=== PATIENT | male | born 1990 | race Caucasian/White ===

== ENCOUNTER → 2019-05-21 15:12 | Outpatient (CLI) | payer OTHER, SELFPAY ==
[2019-05-21 17:43] LABS: Alanine Aminotransferase 24 U/L (12-78); Albumin Level 3.5 gm/dL (3.4-5.0); Albumin/Globulin Ratio 0.9 (1.1-1.8); Alkaline Phosphatase 67 U/L (46-116); Anion Gap 11.6 mEq/L (5-15); Aspartate Amino Transferase 27 U/L (15-37); Bilirubin,Total 0.3 mg/dL (0.2-1.0); Blood Urea Nitrogen 13 mg/dL (7-18); Carbon Dioxide 27 mmol/L (21.0-32.0); Chloride 105 mmol/L (98-107); Chol/HDL Ratio 2.7 (1-3.5); Cholesterol 112 mg/dL (140-200); Creatinine,Serum 0.83 mg/dL (0.70-1.30); Estimated Glomerular Filt Rate 109 ml/min (>60); GFR (African American) 132 ML/MIN (>60); Globulin 3.8 gm/dl (1.3-3.2); Glucose 81 mg/dL (74-106); HDL Cholesterol 41 mg/dL (27-67); LDL Cholesterol 43 mg/dL (0-130); Potassium 4.6 mmoL/L (3.5-5.1); Sodium 139 mmol/L (136-145); Thyroid Stimulating Hormone 2.13 uIU/ml (0.358-3.740); Total Protein,Serum 7.3 gm/dL (6.4-8.2); Triglycerides 138 mg/dL (30-200); VLDL Cholesterol 28 mg/dL (0-40)
[2019-05-21 18:15] LABS: Basophils # 0.1 K/mm3 (0-0.2); Basophils % 0.6 % (0.1-2.0); Eosinophils # 0.4 K/mm3 (0.0-0.4); Eosinophils % 5.6 % (0.1-12.0); Hematocrit 42.1 % (42.0-52.0); Hemoglobin 12.6 g/dL (14.1-18.0); Lymphocytes # 1.6 K/mm3 (0.7-4.5); Mean Corpuscular HGB Conc 29.9 g/dL (31.8-35.4); Mean Corpuscular Hemoglobin 24.6 pg (27.0-31.2); Mean Corpuscular Volume 82.5 fl (80-94); Mean Platelet Volume 8.3 fl (7.4-10.4); Monocytes # 0.6 K/mm3 (0.1-1.0); Monocytes % 7.8 % (1.7-9.3); Neutrophils # 4.5 K/mm3 (1.8-7.8); Platelet Count 463 K/mm3 (142-424); Red Blood Count 5.11 M/mm3 (4.60-6.20); White Blood Count 7.2 K/mm3 (4.8-10.8)
== END ==
PROVIDERS: Visit Provider Internal Medicine Adolescent Medicine
DX: R53.83 Other fatigue (principal); E66.01 Morbid (severe) obesity due to excess calories
CPT/HCPCS: 36415; 80053; 80061; 83036; 84443; 85025

== ENCOUNTER → 2019-06-01 18:00 | Outpatient (CLI) | payer OTHER, SELFPAY | PROVIDERS: PCP Internal Medicine Adolescent Medicine; Visit Provider Internal Medicine Adolescent Medicine | DX: G47.33 Obstructive sleep apnea (adult) (pediatric) (principal) | CPT/HCPCS: 95806 ==

== ENCOUNTER → 2019-08-03 19:59 | Outpatient (CLI) | payer OTHER, SELFPAY | PROVIDERS: PCP Internal Medicine Adolescent Medicine; Visit Provider Specialist | DX: G47.33 Obstructive sleep apnea (adult) (pediatric) (principal); G47.10 Hypersomnia, unspecified; R06.83 Snoring | CPT/HCPCS: 95811 ==

== ENCOUNTER → 2021-05-04 09:53 | Outpatient (CLI) | payer OTHER, SELFPAY ==
[2021-05-04 10:50] VITALS: BMI 56.2
--- NOTE | 2021-05-04 10:51 | PC.NURSE ---
Pt was seen at clinic for a covid swab and then checked in as an ER pt and swab was used for ER pt care
== END ==
PROVIDERS: Visit Provider Nurse Practitioner
DX: U07.1 COVID-19 (principal)
CPT/HCPCS: C9803; U0003; U0005

== ENCOUNTER 2021-05-04 10:00 | Inpatient (IN) | payer OTHER, SELFPAY ==
[2021-05-04] VITALS (13 sets, daily range): BP systolic 125–154; BP diastolic 64–96; PULSE 89–111; RESP 20–46; TEMP 37.2–38.3; O2SAT 68–97; BMI 56.2; BMI 52.6; BMI 52.3
--- NOTE | 2021-05-04 10:17 | XR_ITS ---
PROCEDURE: XR CHEST PORTABLE CLINICAL HISTORY: cough COMPARISON: CR CXR CHEST(2 VIEWS-NOT PORTABLE) from 10/15/2015 CR CXR2V XR chest 2V from 03/22/2018 FINDINGS: There are low lung volumes. Mild cardiomegaly without failure. Bilateral multifocal areas of consolidation are present consistent with Covid19 pneumonia. Study is somewhat limited technically. No effusions or pneumothorax. No acute bony abnormalities. IMPRESSION: Bilateral multifocal pneumonia suspicious for Covid19 Dictated by: Barrett Daugherty MD 05/04/2021 12:04 Barrett Daugherty MD in [facility] 05/04/2021 12:04
[2021-05-04 10:41] LABS: ABG Base Excess 3.6 mmol/L (-2.4-2.3); ABG HCO3 28.3 mmhg (22.0-26.0); ABG Oxygen Saturation 99 % (90-100); ABG PCO2 45.7 mmhg (35.0-45.0); ABG PH 7.41 mmol/L (7.35-7.45); ABG PO2 125.4 mmhg (80-100); ABG TCO2 29.7 mmhg (23-27)
[2021-05-04 10:42] LABS: Allen's Test Acceptable; Source Left Radial
[2021-05-04 10:54] LABS: Influenza A, PCR Not Detected (NotDetected); Influenza B, PCR Not Detected (NotDetected)
[2021-05-04 11:20] LABS: Coronavirus 19, PCR Detected (NotDetected)
[2021-05-04 11:26] LABS: Basophils % 0.6 % (0.1-2.0); Eosinophils % 0.1 % (0.1-12.0); Hemoglobin 12.8 g/dL (14.1-18.0); Lymphocytes # 0.6 K/mm3 (0.7-4.5); Lymphocytes % 14.8 % (10-50); Mean Corpuscular HGB Conc 31.2 g/dL (31.8-35.4); Mean Corpuscular Hemoglobin 26.4 pg (27.0-31.2); Mean Corpuscular Volume 84.6 fl (80-94); Monocytes # 0.2 K/mm3 (0.1-1.0); Monocytes % 4.8 % (1.7-9.3); Neutrophils # 3.2 K/mm3 (1.8-7.8); Neutrophils % 79.8 % (37.0-80.0); Platelet Count 243 K/mm3 (142-424); Red Blood Count 4.84 M/mm3 (4.60-6.20); Red Cell Distribution Width 16.1 % (11.5-17.5)
[2021-05-04 11:27] LABS: Chloride 99 mmol/L (98-107); Potassium 3.9 mmoL/L (3.5-5.1); Sodium 136 mmol/L (136-145)
--- NOTE | 2021-05-04 11:28 | HMH.EDGENADL ---
ED Disposition Clinical Impression: Pneumonia due to COVID-19 virus Respiratory failure with hypoxia Qualifiers: Chronicity: acute Qualified Code(s): J96.01 - Acute respiratory failure with hypoxia Obesity with serious comorbidity Qualifiers: Obesity type: due to excess calories Obesity classification: unspecified obesity classification Qualified Code(s): E66.09 - Other obesity due to excess calories Disposition: Admitted As Inpatient Condition on Discharge: Serious Referrals: All Gambino MD [Primary Care Provider] - - Critical Care Critical Care Time: Yes Attestation: On 05/04/21, the high probability of a clinically significant, sudden or life threatening deterioration of the following system(s) required my full and direct attention, intervention and personal management. The time I documented below is in addition to time spent performing reported procedures but includes the following listed in this critical care notation. Total Critical Care Time: 30 Vital system(s) involved:: Metabolic Failure, Respiratory Failure My critical care processes included: Assessment & monitoring of V/S, Initial and Re-exams, Data Review/Interpretation, Coordinating Care, Medication Orders and management, Documentation Medical Decision Making - Medical Records Medical records reviewed: Yes: I reviewed the patient's medical records. - Gulshan Inquiry Pt receiving controlled substance: No Vital Signs: 05/04/21 10:14 05/04/21 10:30 05/04/21 10:41 Temperature 98.9 F Temperature Source Oral Pulse Rate 111 H 106 H Pulse Rate [Left Radial] 111 H Respiratory Rate 29 H 22 36 H Blood Pressure 135/90 148/96 H Blood Pressure [Right Arm] 135/90 Blood Pressure Mean [Right Arm] 105 Blood Pressure Source [Right Arm] Automatic Cuff Blood Pressure Position [Right Arm] Sitting 02 Sat by Pulse Oximetry 83 L 96 68 L Oxygen Delivery Method Vapotherm Room Air 05/04/21 11:00 Temperature Temperature Source Pulse Rate 110 H Pulse Rate [Left Radial] Respiratory Rate 25 H Blood Pressure 154/95 H Blood Pressure [Right Arm] Blood Pressure Mean [Right Arm] Blood Pressure Source [Right Arm] Blood Pressure Position [Right Arm] 02 Sat by Pulse Oximetry 95 Oxygen Delivery Method - Lab Data Lab Results 05/04/21 09:30: SARS-CoV-2 (PCR) Detected A, Influenza A Untype (PCR) Not detected, Influenza Type B (PCR) Not detected 05/04/21 10:39: Specimen Source Left radial, O2 % 40l 100% vapo, ABG pH 7.41, ABG pCO2 45.7 H, ABG pO2 125.4 H, ABG HCO3 28.3 H, ABG Total CO2 29.7 H, ABG O2 Saturation 99, ABG Base Excess 3.6 H, Barrett Test Acceptable 05/04/21 11:10: WBC 4.0 L, RBC 4.84, Hgb 12.8 L, Hct 41.0 L, MCV 84.6, MCH 26.4 L, MCHC 31.2 L, RDW 16.1, Plt Count 243, MPV 9.0, Neut % (Auto) 79.8, Lymph % (Auto) 14.8, [place] % (Auto) 4.8, Eos % (Auto) 0.1, Baso % (Auto) 0.6, Neut # (Auto) 3.2, Lymph # (Auto) 0.6 L, [place] # (Auto) 0.2, Eos # (Auto) 0.0, Baso # (Auto) 0.0 05/04/21 11:10: Sodium 136, Potassium 3.9, Chloride 99, Carbon Dioxide 32 H, Anion Gap 8.9, BUN 10, Creatinine 0.80, Estimated Creat Clear 158, Estimated GFR 112, Est GFR ( Amer) 136, Glucose 232 H, Calcium 8.2 L, Total Bilirubin 0.3, AST 83 H, ALT 32, Alkaline Phosphatase 65, Troponin I 0.03, Total Protein 6.5, Albumin 3.3 L, Globulin 3.2, Albumin/Globulin Ratio 1.0 L 05/04/21 11:10: NT-Pro-B Natriuret Pep 109 Result diagrams: 05/04/21 11:10 05/04/21 11:10 Orders (Tests/Meds): ED MEDICATIONS Discontinued Medications Generic Name Dose Route Start Last Admin Trade Name Freq PRN Reason Stop Dose Admin Dexamethasone Sodium Phosphate 10 mg 05/04/21 10:17 05/04/21 11:15 Dexamethasone 4mg/Ml 5ml Mdv IV 05/04/21 10:18 10 mg ONCE ONE Administration ORDERS Category Date Time Status XR chest portable Stat Exams 05/04/21 10:17 Taken Troponin I Q3H Lab 05/04/21 13:30 Ordered Troponin I Q3H Lab 05/04/21 16:30 Ordered - Radiology Data
[2021-05-04 11:29] LABS: Alanine Aminotransferase 32 U/L (12-78); Aspartate Amino Transferase 83 U/L (17-59); Blood Urea Nitrogen 10 mg/dl (9-20); Creatinine Clearance Estimated 158 mL/min (50-200); Estimated Glomerular Filt Rate 112 ml/min (>60); GFR (African American) 136 ML/MIN (>60)
[2021-05-04 11:30] LABS: Albumin Level 3.3 g/dl (3.5-5.0); Alkaline Phosphatase 65 U/L (38-126); Anion Gap 8.9 mEq/L (5-15); Bilirubin,Total 0.3 mg/dl (0.2-1.3); Calcium 8.2 mg/dl (8.4-10.2); Carbon Dioxide 32 mmol/L (22.0-30.0); Globulin 3.2 g/dL (1.3-3.2); Glucose 232 mg/dl (74-100); Total Protein,Serum 6.5 g/dl (6.3-8.2)
[2021-05-04 11:39] LABS: NT Pro Brain Natriuretic Pep. 109 pg/mL (0-125)
[2021-05-04 11:42] LABS: Troponin I 0.03 ng/ml (0.00-0.034)
--- NOTE | 2021-05-04 11:47 | PC.NURSE ---
Dr Maldonado speaking with Dr Gambino
--- NOTE | 2021-05-04 13:24 | PC.NURSE ---
Report called to Wendy by Wilner
--- NOTE | 2021-05-04 14:01 | PC.NURSE ---
pt arrived to the floor at this time.
--- NOTE | 2021-05-04 14:22 | HMH.PHAVTE ---
[facility] Pharmacy VTE Monitoring - Patient Demographics Admission date: 05/04/21 Report Date: 05/04/21 Time: 14:22 Allergies/Adverse Reactions: Patient Allergies No Known Allergies Allergy (Verified 10/02/19 14:10) Height: 1.91 m Weight: 204.117 kg Patient Problems: Current Active Problems Pneumonia due to COVID-19 virus (Acute) Respiratory failure with hypoxia (Acute) Obesity with serious comorbidity (Acute) - VTE Risk Labs: VTE Related Lab Results Hgb 12.8 g/dL (14.1-18.0) L 05/04/21 11:10 Hct 41.0 % (42.0-52.0) L 05/04/21 11:10 Plt Count 243 K/mm3 (142-424) 05/04/21 11:10 BUN 10 mg/dl (9-20) 05/04/21 11:10 Creatinine 0.80 mg/dl (0.66-1.25) 05/04/21 11:10 Estimated Creat Clear 158 mL/min (50-200) 05/04/21 11:10 Was VTE Risk Assessment Performed: No Clinical Trial Participant: No - Prophylaxis VTE Prophylaxis Ordered?: Yes Types of VTE Prophylaxis: TEDS Knee High, Pharmacological Location of Applied Device: Bilateral Lower Extremeties Pharmacologic Type: Enoxaparin
--- NOTE | 2021-05-04 17:47 | HMH.HP ---
*Admission Date: 05/04/21 *Chief complaint: Cough, fever *History of present illness: 30-year-old male presented to emergency department with difficulty breathing. The patient states that he has been having some trouble breathing cough for the last few days. Valium is getting worse today. Patient is unvaccinated. He has been exposed to multiple people with coronavirus. Patient endorses some subjective fevers and chills. Full body myalgias. Cough is been nonproductive in nature. Denies any hemoptysis. Is not having any headache or change in vision. No focal weakness. No neck pain. Denies any abdominal pain or vomiting. No diarrhea. Above note per emergency department, agree with initial presentation note. In the emergency department work-up included positive coronavirus PCR. Negative influenza, chest x-ray with viral pneumonia and significant hypoxia. Placed on Vapotherm and felt better with improving oxygenation status. Admitted to floor in isolation bed. Patient notes that he feels better after oxygen was applied. [facility] History I have reviewed the patient's past medical history: Yes Medical History: Reports:: Diabetes Mellitus Type 2 Denies:: Cancer, Diabetes Mellitus Type 1, Internal Pacemaker, MRSA *Have you ever received a pneumonia vaccine?: No *Have you received a flu vaccine this season?: No Other Medical History: Reports: Other Laterality Cases: Bilateral: Myringotomy (Ear Tubes) Other Surgeries: No: Pacemaker Amputation: No - *Social History Last grade of school completed: Some college Smoking Status: Never smoker Alcohol Intake: never Alcohol Intake Frequency:: other Substance Use Type: denies use *Occupational Status:: employed Housing: house Household Members: family *Travel in the last 8 weeks: None Family Hx:: Diabetes, Hypertension Review of Systems - Review of Systems Review of systems:: pertinent systems reviewed and negative unless documented below - *Neurologic Denies headache(s) Meds Home Medications Medication Instructions Recorded Confirmed Type No Known Home Medications 05/04/21 05/04/21 History Allergies Allergy/AdvReac Type Severity Reaction Status Date / Time No Known Allergies Allergy Verified 10/02/19 14:10 Exam Vital signs and Labs for Last 24 Hours: Temp Pulse Resp BP Pulse Ox 100.6 F H 89 20 131/71 89 L 05/04/21 16:55 05/04/21 16:00 05/04/21 16:00 05/04/21 16:00 05/04/21 16:00 Laboratory Results - last 24 hr 05/04/21 09:30: SARS-CoV-2 (PCR) Detected A, Influenza A Untype (PCR) Not detected, Influenza Type B (PCR) Not detected 05/04/21 10:39: Specimen Source Left radial, O2 % 40l 100% vapo, ABG pH 7.41, ABG pCO2 45.7 H, ABG pO2 125.4 H, ABG HCO3 28.3 H, ABG Total CO2 29.7 H, ABG O2 Saturation 99, ABG Base Excess 3.6 H, Barrett Test Acceptable 05/04/21 11:10: WBC 4.0 L, RBC 4.84, Hgb 12.8 L, Hct 41.0 L, MCV 84.6, MCH 26.4 L, MCHC 31.2 L, RDW 16.1, Plt Count 243, MPV 9.0, Neut % (Auto) 79.8, Lymph % (Auto) 14.8, [place] % (Auto) 4.8, Eos % (Auto) 0.1, Baso % (Auto) 0.6, Neut # (Auto) 3.2, Lymph # (Auto) 0.6 L, [place] # (Auto) 0.2, Eos # (Auto) 0.0, Baso # (Auto) 0.0 05/04/21 11:10: Sodium 136, Potassium 3.9, Chloride 99, Carbon Dioxide 32 H, Anion Gap 8.9, BUN 10, Creatinine 0.80, Estimated Creat Clear 158, Estimated GFR 112, Est GFR ( Amer) 136, Glucose 232 H, Calcium 8.2 L, Total Bilirubin 0.3, AST 83 H, ALT 32, Alkaline Phosphatase 65, Troponin I 0.03, Total Protein 6.5, Albumin 3.3 L, Globulin 3.2, Albumin/Globulin Ratio 1.0 L 05/04/21 11:10: NT-Pro-B Natriuret Pep 109 I & O for Last 24 hours: Intake & Output 05/02/21 05/03/21 05/04/21 05/05/21 11:59 11:59 11:59 11:59 Intake Total 0 / 0 Balance 0 / 0 Weight 450 lb 421 lb 1.326 oz - Constitutional moderate distress, morbidly obese - *Routine HEENT Exam Head: Present: normocephalic Eye: Present: EOMI, PERRL ENT: Present: mucous membranes moist - *Routine Neck Exam P
--- NOTE | 2021-05-04 19:24 | PC.NURSE ---
patient was accepted to [facility] unit on high flow nasal cannula 40L 100%. main complaint overall shortness of air. patient claims to be noncompliant with diabetic medications. Erythema present on bilateral lower extremities, patient states this is chronic. Bilateral diminished lung sounds throughout all lobes. No complaints of pain. will continue to monitor
[2021-05-05] VITALS (12 sets, daily range): BP systolic 119–146; BP diastolic 74–80; PULSE 76–101; RESP 18–38; TEMP 36.4–38.5; O2SAT 86–92; BMI 58.6
--- NOTE | 2021-05-05 03:02 | PC.NURSE ---
Pt is A/O x4. No acute changes t/o shift. Pt remains on the vapotherm at 30L and 90%, O2 stats have been 86-90%. Pt denies any pain, N/V. Pt can use the urinal independently and is voiding clear, yellow urine. Lung sounds are diminished bilaterally. Pt is able to make needs known to staff. Call light within reach, will continue to monitor.
[2021-05-05 05:48] LABS: POC Glucose,Bedside 181 (70-110)
--- NOTE | 2021-05-05 06:39 | HMH.ACPN2 ---
Internal Medicine - PN: Subj *Date: 05/05/21 *Time: 15:02 Interval history: 30-year-old male with morbid obesity and Covid pneumonia. Respiratory failure somewhat worse overnight. Continues to struggle on Vapotherm with 100% FiO2. Patient dyspneic on interview this morning. Appears fatigued. Discussed advancing to BiPAP, patient comfortable with this plan. Remains afebrile this morning however has developed a fever this afternoon. Denies nausea or vomiting or diarrhea. No bowel movement since admission. Exam Vital signs and Labs for Last 24 Hours: Temp Pulse Resp BP Pulse Ox 99.6 F 92 H 24 129/74 89 L 05/05/21 04:00 05/05/21 04:00 05/05/21 04:00 05/05/21 04:00 05/05/21 06:37 Laboratory Results - last 24 hr 05/04/21 09:30: SARS-CoV-2 (PCR) Detected A, Influenza A Untype (PCR) Not detected, Influenza Type B (PCR) Not detected 05/04/21 10:39: Specimen Source Left radial, O2 % 40l 100% vapo, ABG pH 7.41, ABG pCO2 45.7 H, ABG pO2 125.4 H, ABG HCO3 28.3 H, ABG Total CO2 29.7 H, ABG O2 Saturation 99, ABG Base Excess 3.6 H, Barrett Test Acceptable 05/04/21 11:10: WBC 4.0 L, RBC 4.84, Hgb 12.8 L, Hct 41.0 L, MCV 84.6, MCH 26.4 L, MCHC 31.2 L, RDW 16.1, Plt Count 243, MPV 9.0, Neut % (Auto) 79.8, Lymph % (Auto) 14.8, [place] % (Auto) 4.8, Eos % (Auto) 0.1, Baso % (Auto) 0.6, Neut # (Auto) 3.2, Lymph # (Auto) 0.6 L, [place] # (Auto) 0.2, Eos # (Auto) 0.0, Baso # (Auto) 0.0 05/04/21 11:10: Sodium 136, Potassium 3.9, Chloride 99, Carbon Dioxide 32 H, Anion Gap 8.9, BUN 10, Creatinine 0.80, Estimated Creat Clear 158, Estimated GFR 112, Est GFR ( Amer) 136, Glucose 232 H, Calcium 8.2 L, Total Bilirubin 0.3, AST 83 H, ALT 32, Alkaline Phosphatase 65, Troponin I 0.03, Total Protein 6.5, Albumin 3.3 L, Globulin 3.2, Albumin/Globulin Ratio 1.0 L 05/04/21 11:10: NT-Pro-B Natriuret Pep 109 05/05/21 05:14: POC Glucose 181 H I & O for Last 24 hours: Intake & Output 05/02/21 05/03/21 05/04/21 05/05/21 23:59 23:59 23:59 23:59 Intake Total 120 / 120 Output Total 600 / 600 Balance -480 / -480 Weight 191 kg 214.05 kg Narrative: - Constitutional moderate distress, morbidly obese - *Routine HEENT Exam Head: Present: normocephalic Eye: Present: EOMI, PERRL ENT: Present: mucous membranes moist - *Routine Neck Exam Present: supple. Absent: lymphadenopathy - *Routine Respiratory Exam Present: decreased breath sounds, rhonchi; cardiopulmonary exam extremely limited because of his very morbid obesity. - *Routine Cardiovascular Exam Present: RRR - *Routine Abdominal Exam Present: soft, normoactive bowel sounds. Absent: tenderness - *Routine Extremities Exam Absent: cyanosis, clubbing, edema - *Routine Skin Exam Present: warm. Absent: rash - *Routine Neurological Exam Present: alert, oriented X3; Globally weak. Assessment and Plan (1) Obesity with serious comorbidity Status: Acute Qualifiers: Obesity type: due to excess calories Obesity classification: unspecified obesity classification Qualified Code(s): E66.09 - Other obesity due to excess calories Category: Medical Code(s): E66.9 - Obesity, unspecified (2) Pneumonia due to COVID-19 virus Status: Acute Category: Medical Code(s): U07.1 - COVID-19; J12.82 - Pneumonia due to coronavirus disease 2019 (3) Respiratory failure with hypoxia Status: Acute Qualifiers: Chronicity: acute Qualified Code(s): J96.01 - Acute respiratory failure with hypoxia Category: Medical Code(s): J96.91 - Respiratory failure, unspecified with hypoxia (4) Hyperglycemia Status: Acute Category: Medical Code(s): R73.9 - Hyperglycemia, unspecified (5) Acute respiratory distress syndrome (ARDS) due to 2019 novel coronavirus Status: Acute Category: Medical Code(s): U07.1 - COVID-19; J80 - Acute respiratory distress syndrome - Assessment and plan all Dx Assessment and Plan for all problems:: Mr. Mas is a 30-year-old m
[2021-05-05 07:43] LABS: Basophils # 0.1 K/mm3 (0-0.2); Basophils % 0.8 % (0.1-2.0); Eosinophils % 0.3 % (0.1-12.0); Hematocrit 42.5 % (42.0-52.0); Hemoglobin 13.1 g/dL (14.1-18.0); Lymphocytes # 0.6 K/mm3 (0.7-4.5); Lymphocytes % 10.1 % (10-50); Mean Corpuscular HGB Conc 30.7 g/dL (31.8-35.4); Mean Corpuscular Hemoglobin 26.4 pg (27.0-31.2); Mean Platelet Volume 8.9 fl (7.4-10.4); Monocytes # 0.2 K/mm3 (0.1-1.0); Neutrophils # 5.2 K/mm3 (1.8-7.8); Neutrophils % 85.9 % (37.0-80.0); Platelet Count 247 K/mm3 (142-424); Red Blood Count 4.95 M/mm3 (4.60-6.20); Red Cell Distribution Width 16.2 % (11.5-17.5)
[2021-05-05 07:55] LABS: Alanine Aminotransferase 28 U/L (12-78); Albumin Level 3.4 g/dl (3.5-5.0); Blood Urea Nitrogen 9 mg/dl (9-20); Calcium 8.1 mg/dl (8.4-10.2); Chloride 100 mmol/L (98-107); Potassium 4.7 mmoL/L (3.5-5.1); Sodium 138 mmol/L (136-145)
[2021-05-05 08:05] LABS: Alkaline Phosphatase 52 U/L (38-126); Anion Gap 6.7 mEq/L (5-15); Aspartate Amino Transferase 68 U/L (17-59); Bilirubin,Total 0.4 mg/dl (0.2-1.3); Carbon Dioxide 36 mmol/L (22.0-30.0); Creatinine Clearance Estimated 211 mL/min (50-200); Estimated Glomerular Filt Rate 156 ml/min (>60); GFR (African American) 189 ML/MIN (>60); Globulin 3.5 g/dL (1.3-3.2); Glucose 186 mg/dl (74-100); Total Protein,Serum 6.9 g/dl (6.3-8.2)
[2021-05-05 08:10] LABS: MANUAL DIFFERENTIAL MANUAL DIFFERENTIAL (MANUAL DIFF)
[2021-05-05 08:25] LABS: Lymphocytes % 12 % (10-50); Monocytes % 5 % (2-9); Neutrophils % 83 % (42-76); Total Cells Counted 100
[2021-05-05 08:26] LABS: Anisocytosis 1+; Hypochromasia 3+; Microcytosis 1+; Platelet Estimate Normal
--- NOTE | 2021-05-05 09:14 | PC.NURSE ---
RESPIRATORY CARE NOTE: PT PLACED ON BIPAP 16/8, 18, 100% PER DR. DUMONT ORDER. WE WILL CONTINUE TO MONITOR PT AT THIS TIME.
[2021-05-05 10:23] LABS: ABG Base Excess 7.1 mmol/L (-2.4-2.3); ABG HCO3 32.1 mmhg (22.0-26.0); ABG Oxygen Saturation 93 % (90-100); ABG PH 7.39 mmol/L (7.35-7.45); ABG PO2 62.8 mmhg (80-100); ABG TCO2 33.8 mmhg (23-27); Oxygen 100 %; Vent Rate 18
[2021-05-05 10:24] LABS: Allen's Test ACCEPTABLE; PEEP 16/8; Source Left Radial
[2021-05-05 10:25] LABS: ABG PCO2 54.7 mmhg (35.0-45.0)
[2021-05-05 16:10] LABS: ABG Base Excess 1.7 mmol/L (-2.4-2.3); ABG HCO3 27.5 mmhg (22.0-26.0); ABG Oxygen Saturation 97 % (90-100); ABG PH 7.34 mmol/L (7.35-7.45); ABG PO2 88.1 mmhg (80-100); ABG TCO2 29.1 mmhg (23-27)
[2021-05-05 16:11] LABS: PEEP 12; Vent Rate 18
[2021-05-05 16:12] LABS: Allen's Test Acceptable; Oxygen BIPAP 100% %; Pressure Support 8; Source Right Radial
[2021-05-05 16:14] LABS: ABG PCO2 52.2 mmhg (35.0-45.0)
--- NOTE | 2021-05-05 17:52 | PC.NURSE ---
BiPAP changes made per Dr Faustin: 27/07 18 100%
[2021-05-05 18:38] LABS: POC Glucose,Bedside 378 (70-110)
--- NOTE | 2021-05-05 21:04 | PC.NURSE ---
report given to LARISSA Bauer @ this time
[2021-05-05 21:05] LABS: POC Glucose,Bedside 232 (70-110)
[2021-05-05 21:05] LABS: POC Glucose,Bedside 251 (70-110)
[2021-05-05 21:05] LABS: POC Glucose,Bedside 272 (70-110)
--- NOTE | 2021-05-05 23:42 | PC.NURSE ---
He is A&Ox4. He denies pain. He continues on bipap @ 100%. He has been sitting in bed watching television. NSR on telemetry. He is NPO.
[2021-05-06] VITALS (27 sets, daily range): BP systolic 85–144; BP diastolic 42–89; PULSE 63–91; RESP 20–46; TEMP 36.5–39; O2SAT 82–97
[2021-05-06 01:59] LABS: POC Glucose,Bedside 278 (70-110)
--- NOTE | 2021-05-06 05:14 | PC.NURSE ---
Lab notified of the need from them to draw blood.
--- NOTE | 2021-05-06 05:56 | PC.NURSE ---
He continues to have low O2 sats at this time. Respiratoy is trying to obtain an ABG. Chest x-ray completed and awaiting results. Previous respiratory therapist believes there to be a leak in the cuff. He has been weaned off of levophed.
--- NOTE | 2021-05-06 06:24 | PC.NURSE ---
Respiratory is in the room with the patient at this time.
[2021-05-06 06:54] LABS: Alanine Aminotransferase 22 U/L (12-78); Albumin Level 3.1 g/dl (3.5-5.0); Albumin/Globulin Ratio 0.9 (1.1-1.8); Alkaline Phosphatase 52 U/L (38-126); Anion Gap 6.7 mEq/L (5-15); Aspartate Amino Transferase 43 U/L (17-59); Bilirubin,Total 0.4 mg/dl (0.2-1.3); Blood Urea Nitrogen 11 mg/dl (9-20); Calcium 8.3 mg/dl (8.4-10.2); Carbon Dioxide 37 mmol/L (22.0-30.0); Chloride 102 mmol/L (98-107); Creatinine Clearance Estimated 211 mL/min (50-200); Estimated Glomerular Filt Rate 156 ml/min (>60); GFR (African American) 189 ML/MIN (>60); Globulin 3.4 g/dL (1.3-3.2); Glucose 159 mg/dl (74-100); Magnesium 2.1 mg/dl (1.6-2.3); Potassium 4.7 mmoL/L (3.5-5.1); Sodium 141 mmol/L (136-145); Total Protein,Serum 6.5 g/dl (6.3-8.2)
[2021-05-06 07:33] LABS: Basophils % 0.2 % (0.1-2.0); Eosinophils % 0.1 % (0.1-12.0); Hematocrit 42.8 % (42.0-52.0); Hemoglobin 12.9 g/dL (14.1-18.0); Lymphocytes # 0.8 K/mm3 (0.7-4.5); Lymphocytes % 11.2 % (10-50); Mean Corpuscular HGB Conc 30.3 g/dL (31.8-35.4); Mean Corpuscular Hemoglobin 25.8 pg (27.0-31.2); Mean Corpuscular Volume 85.2 fl (80-94); Mean Platelet Volume 7.4 fl (7.4-10.4); Monocytes # 0.4 K/mm3 (0.1-1.0); Monocytes % 5.3 % (1.7-9.3); Neutrophils # 5.6 K/mm3 (1.8-7.8); Neutrophils % 83.3 % (37.0-80.0); Platelet Count 230 K/mm3 (142-424); Red Blood Count 5.03 M/mm3 (4.60-6.20); Red Cell Distribution Width 15.5 % (11.5-17.5); White Blood Count 6.8 K/mm3 (4.8-10.8)
[2021-05-06 07:34] LABS: ABG HCO3 30.4 mmhg (22.0-26.0); ABG Oxygen Saturation 83 % (90-100); ABG PH 7.42 mmol/L (7.35-7.45); ABG TCO2 31.9 mmhg (23-27)
--- NOTE | 2021-05-06 08:22 | HMH.ACPN2 ---
Internal Medicine - PN: Subj *Date: 05/06/21 *Time: 08:22 Interval history: Patient was moved to intensive care unit last night because of diminishing O2 saturations. BiPAP support was also increased through the night and currently is on pressures of /. Patient remains alert, and talkative, complains that his mouth is dry, but does acknowledge that he is short of breath. Exam Vital signs and Labs for Last 24 Hours: Temp Pulse Resp BP Pulse Ox 98.9 F 87 45 H 144/89 H 83 L 05/05/21 23:10 05/06/21 04:00 05/06/21 06:23 05/06/21 04:00 05/06/21 06:23 Laboratory Results - last 24 hr 05/04/21 17:08: POC Glucose 232 H 05/04/21 20:02: POC Glucose 272 H 05/05/21 07:27: Total Counted 100, Neutrophils % (Manual) 83 H, Lymphocytes % (Manual) 12, Monocytes % (Manual) 5, Platelet Estimate Normal, Hypochromasia 3+, Anisocytosis 1+, Microcytosis 1+ 05/05/21 10:19: Specimen Source Left radial, O2 % 100, ABG pH 7.39, ABG pCO2 54.7 H, ABG pO2 62.8 L, ABG HCO3 32.1 H, ABG Total CO2 33.8 H, ABG O2 Saturation 93, ABG Base Excess 7.1 H, Barrett Test Acceptable, Vent Rate 18, PEEP 16/8 05/05/21 11:25: POC Glucose 251 H 05/05/21 16:00: Specimen Source Right radial, O2 % Bipap 100%, ABG pH 7.34 L, ABG pCO2 52.2 H, ABG pO2 88.1, ABG HCO3 27.5 H, ABG Total CO2 29.1 H, ABG O2 Saturation 97, ABG Base Excess 1.7, Barrett Test Acceptable, Vent Rate 18, PEEP 12 05/05/21 18:15: POC Glucose 378 H* 05/05/21 20:43: POC Glucose 278 H 05/06/21 06:25: Sodium 141, Potassium 4.7, Chloride 102, Carbon Dioxide 37 H, Anion Gap 6.7, BUN 11, Creatinine 0.60 L, Estimated Creat Clear 211, Estimated GFR 156, Est GFR ( Amer) 189, Glucose 159 H, Calcium 8.3 L, Total Bilirubin 0.4, AST 43 D, ALT 22, Alkaline Phosphatase 52, Total Protein 6.5, Albumin 3.1 L, Globulin 3.4 H, Albumin/Globulin Ratio 0.9 L 05/06/21 06:25: WBC 6.8, RBC 5.03, Hgb 12.9 L, Hct 42.8, MCV 85.2, MCH 25.8 L, MCHC 30.3 L, RDW 15.5, Plt Count 230, MPV 7.4, Neut % (Auto) 83.3 H, Lymph % (Auto) 11.2, [place] % (Auto) 5.3, Eos % (Auto) 0.1, Baso % (Auto) 0.2, Neut # (Auto) 5.6, Lymph # (Auto) 0.8, [place] # (Auto) 0.4, Eos # (Auto) 0.0, Baso # (Auto) 0.0 05/06/21 06:25: Magnesium 2.1 I & O for Last 24 hours: Intake & Output 05/03/21 05/04/21 05/05/21 05/06/21 11:59 11:59 11:59 11:59 Intake Total 240 / 240 830 / 830 Output Total 600 / 600 1375 / 1375 Balance -360 / -360 -545 / -545 Weight 450 lb 471 lb 14.4 oz Narrative: Patient is alert, given his baseline cognitive deficits and somewhat difficulty with symptoms out of him but he does acknowledge that his mouth is dry, denies actual shortness of air. Exam is extremely difficult because of his morbid obesity with BMI greater than 55 but he has symmetric air entry. Heart rate regular. Abdomen is obese and soft. He has his previously noted lymphedema but no rashes. Extremities seem to be warm and well-perfused. He is able to move all extremities with difficulty. Assessment and Plan (1) Obesity with serious comorbidity Status: Acute Qualifiers: Obesity type: due to excess calories Obesity classification: unspecified obesity classification Qualified Code(s): E66.09 - Other obesity due to excess calories Category: Medical Code(s): E66.9 - Obesity, unspecified (2) Pneumonia due to COVID-19 virus Status: Acute Category: Medical Code(s): U07.1 - COVID-19; J12.82 - Pneumonia due to coronavirus disease 2019 (3) Respiratory failure with hypoxia Status: Acute Qualifiers: Chronicity: acute Qualified Code(s): J96.01 - Acute respiratory failure with hypoxia Category: Medical Code(s): J96.91 - Respiratory failure, unspecified with hypoxia (4) Hyperglycemia Status: Acute Category: Medical Code(s): R73.9 - Hyperglycemia, unspecified (5) Acute respiratory distress syndrome (ARDS) due to 2019 novel coronavirus Status: Acute Category: Medical Code(s): U07.1 - COVID-19; J80 - Acute respiratory distre
--- NOTE | 2021-05-06 08:33 | XR_ITS ---
PROCEDURE: XR CHEST PORTABLE CLINICAL HISTORY: COVID PNA COMPARISON: CR CXR CHEST(2 VIEWS-NOT PORTABLE) from 10/15/2015 CR CXR2V XR chest 2V from 03/22/2018 CR XR CHEST PORTABLE from 05/04/2021 FINDINGS: Multifocal bilateral pneumonia once again noted with low lung volumes. The pneumonia appears worse compared to the previous exam. The exam is somewhat limited technically. No obvious pneumothorax however, the patient's chin obscures the right apex. There are low lung volumes with borderline cardiomegaly. IMPRESSION: Worsening bilateral pneumonia with low lung volumes Dictated by: Barrett Daugherty MD 05/06/2021 09:12 Barrett Daugherty MD in [facility] 05/06/2021 09:12
[2021-05-06 09:01] LABS: ABG PO2 43.7 mmhg (80-100); Allen's Test Acceptable; Oxygen 100 %; PEEP 12; Pressure Support 24; Source Right Radial
--- NOTE | 2021-05-06 12:07 | XR_ITS ---
PROCEDURE: XR CHEST PORTABLE CLINICAL HISTORY: POST INTUBATION COMPARISON: 05/06/2021 FINDINGS: 1215 hours. Endotracheal tube has been inserted. The tip is approximately 6 cm above the noah and should be advanced at least 2 cm. Multifocal bilateral pneumonia once again noted. The pneumonia appears improved but may be due to better expansion of the lungs. No evidence of pneumothorax or pneumomediastinum. IMPRESSION: Slight high position of endotracheal tube. Suggest advanced 2-3 cm. No change bilateral pneumonia Dictated by: Barrett Daugherty MD 05/06/2021 12:30 Barrett Daugherty MD in [facility] 05/06/2021 12:30
--- NOTE | 2021-05-06 12:11 | P.PCN_ITS ---
[facility] Procedure Note Procedure Note:: Called for intubation. Starting O2 stats 78 on Bipap. 200 Propofol and 120 Succinylcholine given. Attempted with Glidescope. No view due to mucus plug in airway. Bag masked to recover O2 sats. LMA inserted. Attempt #2 : DL with Mac 3 blade. Suctioned airway. ETT would not advance. Attempt #3. Esophageal intu bation. Bag masked to acceptable O2 saturation. Attempt #4. Successful intubation with ETT 8.0 and CO2 color change. Sats to 94%. Lung sounds present. VSS.
--- NOTE | 2021-05-06 12:39 | XR_ITS ---
PROCEDURE: XR CHEST PORTABLE CLINICAL HISTORY: INTUBATION ATTEMPT # 2 COMPARISON: CR XR CHEST PORTABLE from 05/04/2021 CR XR CHEST PORTABLE from 05/06/2021 CR XR CHEST PORTABLE from 05/06/2021 FINDINGS: 1228 p.m.. Endotracheal tube has been advanced and is now approximately 4.8 cm above the noah. The tip of the tube is at the T2-T3 level. Multifocal bilateral pneumonia unchanged. No acute bony abnormalities. IMPRESSION: Endotracheal tube tip in good position. No change diffuse bilateral pneumonia Dictated by: Barrett Daugherty MD 05/06/2021 12:48 Barrett Daugherty MD in [facility] 05/06/2021 12:48
[2021-05-06 13:25] LABS: ABG Oxygen Saturation 100 % (90-100); ABG PCO2 43.7 mmhg (35.0-45.0); ABG PH 7.39 mmol/L (7.35-7.45); ABG PO2 235.1 mmhg (80-100); ABG TCO2 27.3 mmhg (23-27)
[2021-05-06 13:39] LABS: Oxygen 100% %; PEEP 20; Tidal Volume 480; Vent Rate 28
[2021-05-06 13:40] LABS: Allen's Test Patient Unable; Source Left Radial
--- NOTE | 2021-05-06 14:39 | XR_ITS ---
PROCEDURE: XR CHEST PORTABLE CLINICAL HISTORY: NG PLACEMENT COMPARISON: CR XR CHEST PORTABLE from 05/06/2021 CR XR CHEST PORTABLE from 05/06/2021 CR XR CHEST PORTABLE from 05/06/2021 FINDINGS: 1455 hours NG tube has been inserted. The tip is in good position in the region of the body of stomach. Endotracheal tube tip is 4.8 cm above the noah at the T3 level and could be advanced approximately 1 cm. No change multifocal pneumonia. No evidence of pneumothorax however, the left apex is cut off on the image. No acute bony abnormalities. IMPRESSION: NG tube in good position. ETT slightly high. No change multifocal pneumonia Dictated by: Barrett Daugherty MD 05/06/2021 15:14 Barrett Daugherty MD in [facility] 05/06/2021 15:14
--- NOTE | 2021-05-06 15:48 | DIET.NUTRFU ---
Pt intubated/sedated, will monitor for nutrition consult to initiate enteral nutrition. Previous intakes 100%, weight stable, BG high avg. 250.
--- NOTE | 2021-05-06 17:47 | HMH.PULMCON ---
*Admission Date: 05/04/21 *Reason for consult:: Acute hypoxic respiratory failure, COVID-19 pneumonia. *History of present illness: Mr. Rudd is a 30-year-old male no significant prior respiratory complaints, admitted to the hospital worsening respiratory failure found to be having COVID-19 pneumonia. Patient since last 24 hours needing high flow nasal noninvasive ventilator is up to maintain adequate saturations and pulmonary was called for further management. [facility] History Medical History: Reports:: Diabetes Mellitus Type 2 Denies:: Cancer, Diabetes Mellitus Type 1, Internal Pacemaker, MRSA *Have you ever received a pneumonia vaccine?: No *Have you received a flu vaccine this season?: No Other Medical History: Reports: Other Laterality Cases: Bilateral: Myringotomy (Ear Tubes) Other Surgeries: No: Pacemaker Amputation: No - *Social History Last grade of school completed: Some college Smoking Status: Never smoker Alcohol Intake: never Alcohol Intake Frequency:: other Substance Use Type: denies use *Occupational Status:: employed Housing: house Household Members: family *Travel in the last 8 weeks: None Family Hx:: Diabetes, Hypertension ROS - Cons Reports anorexia, Reports body ache(s), Reports chills - ENT Denies bleeding gums - Card Reports shortness of breath, Reports shortness of breath with activity, Reports leg sores - Resp Respiratory: Reports shortness of breath, Reports chest congestion, Reports dyspnea, Reports dyspnea on exertion, Reports cough with sputum production - GI Gastrointestingal: Denies: abdominal pain - Musk Musculoskeletal: Reports back pain - Psych Reports abnormal sleep pattern Meds Home Medications Medication Instructions Recorded Confirmed Type No Known Home Medications 05/04/21 05/04/21 History Allergies Allergy/AdvReac Type Severity Reaction Status Date / Time No Known Allergies Allergy Verified 10/02/19 14:10 Exam - Constitutional Constitutional:: Absent: no acute distress, comfortable - HENMT Exam HENMT: Present: normocephalic, atraumatic - Eye Exam Eyes:: Present: normal appearance both eyes and related structures - Neck Exam Neck:: Present: normal visual inspection - Respiratory Exam Respiratory:: Present: respiratory distress, decreased breath sounds, crackles. Absent: able to speak in complete sentences - Cardiovascular Exam Cardiac:: Present: S1, S2 - GI Exam GI:: Present: soft, obese - Skin Exam Skin: Present: warm - Neurological Exam Neurological: Present: alert, awake, normal cognition - Extremities Exam Extremities: Present: no cyanosis, no clubbing, no edema Internal Medicine - CN: Reslt - Labs CBC & Chem 7: 05/06/21 06:25 05/06/21 06:25 Labs: Short CBC 05/06/21 Range/Units 06:25 WBC 6.8 (4.8-10.8) K/mm3 Hgb 12.9 L (14.1-18.0) g/dL Hct 42.8 (42.0-52.0) % Plt Count 230 (142-424) K/mm3 [facility] 05/06/21 06:25 Sodium 141 Potassium 4.7 Chloride 102 Carbon Dioxide 37 H BUN 11 Creatinine 0.60 L Glucose 159 H Calcium 8.3 L Liver Function 05/06/21 Range/Units 06:25 Total Bilirubin 0.4 (0.2-1.3) mg/dl AST 43 D (17-59) U/L ALT 22 (12-78) U/L Alkaline Phosphatase 52 (38-126) U/L Albumin 3.1 L (3.5-5.0) g/dl - ABG Interpretation ABG results: 05/04/21 05/05/21 05/05/21 10:39 10:19 16:00 ABG pH 7.41 7.39 7.34 L ABG pCO2 45.7 H 54.7 H 52.2 H ABG pO2 125.4 H 62.8 L 88.1 ABG HCO3 28.3 H 32.1 H 27.5 H ABG Total CO2 29.7 H 33.8 H 29.1 H ABG O2 Saturation 99 93 97 ABG Base Excess 3.6 H 7.1 H 1.7 05/06/21 05/06/21 06:00 13:14 ABG pH 7.42 7.39 ABG pCO2 48.0 H 43.7 ABG pO2 43.7 L 235.1 H ABG HCO3 30.4 H 26.0 ABG Total CO2 31.9 H 27.3 H ABG O2 Saturation 83 L* 100 ABG Base Excess 6.0 H 1.0 Assessment and Plan (1) Obesity with serious comorbidity Status: Acute Qualifiers: Obesity type:
--- NOTE | 2021-05-06 18:13 | PC.NURSE ---
Pt is currently sedated and mechanically ventilated. Lungs are very diminished t/o. His arana is to bedside draining cloudy urine. Pt urinated right before arana was inserted so there was 1 unmeasured urine. Pt was cleaned and linen was changed. He has been NSR on telemetry. He has had fevers on and off t/o the day. Tylenol administered per oct. Report to be given to oncoming nurse.
[2021-05-06 18:43] LABS: C-Reactive Protein 76.5 mg/L (0-4); D-Dimer 0.69 ug/mL (0.0-0.5)
[2021-05-06 19:14] LABS: Ferritin 228 ng/ml (17.9-464)
[2021-05-07] VITALS (32 sets, daily range): BP systolic 102–143; BP diastolic 52–84; PULSE 54–80; RESP 19–29; TEMP 36.1–36.8; O2SAT 88–98; BMI 58.6
[2021-05-07 00:50] LABS: POC Glucose,Bedside 186 (70-110)
[2021-05-07 00:50] LABS: POC Glucose,Bedside 131 (70-110)
--- NOTE | 2021-05-07 03:07 | PC.NURSE ---
He continues in contact and airborne precautions. He withdrawals to pain. NSR on telemetry. Sats have remained in the 90s.
--- NOTE | 2021-05-07 06:00 | XR_ITS ---
PROCEDURE INFORMATION: Exam: XR Chest Exam date and time: 05/07/2021 6:00 AM Age: 30 years old Clinical indication: Shortness of breath; Patient HX: SOA, intubation TECHNIQUE: Imaging protocol: XR of the chest. Views: 1 view. COMPARISON: CR XR CHEST PORTABLE 05/06/2021 2:55 PM FINDINGS: Tubes, catheters and devices: The endotracheal tube has been removed. The nasogastric tube has been removed. Lungs: There continues to be airspace disease throughout both lungs, unchanged. The examination is obtained at low lung volumes. Pleural spaces: Unremarkable. No pleural effusion. No pneumothorax. Heart/Mediastinum: Unremarkable. No cardiomegaly. Bones/joints: Unremarkable. IMPRESSION: Stable chest.
[2021-05-07 06:31] LABS: Alanine Aminotransferase 24 U/L (12-78); Albumin/Globulin Ratio 0.9 (1.1-1.8); Alkaline Phosphatase 51 U/L (38-126); Anion Gap 10.1 mEq/L (5-15); Aspartate Amino Transferase 53 U/L (17-59); Bilirubin,Total 0.5 mg/dl (0.2-1.3); Blood Urea Nitrogen 17 mg/dl (9-20); Carbon Dioxide 32 mmol/L (22.0-30.0); Chloride 104 mmol/L (98-107); Creatinine Clearance Estimated 181 mL/min (50-200); Estimated Glomerular Filt Rate 131 ml/min (>60); GFR (African American) 158 ML/MIN (>60); Globulin 3.2 g/dL (1.3-3.2); Glucose 299 mg/dl (74-100); Potassium 5.1 mmoL/L (3.5-5.1); Sodium 141 mmol/L (136-145); Total Protein,Serum 6.2 g/dl (6.3-8.2)
[2021-05-07 07:25] LABS: ABG Base Excess 2.1 mmol/L (-2.4-2.3); ABG HCO3 29.5 mmhg (22.0-26.0); ABG Oxygen Saturation 95 % (90-100); ABG PH 7.24 mmol/L (7.35-7.45); ABG PO2 83.5 mmhg (80-100); ABG TCO2 31.7 mmhg (23-27)
[2021-05-07 07:29] LABS: Lactate Arterial 1.8 mmol/L (0.4-2.0)
[2021-05-07 07:56] LABS: Allen's Test ACCEPTABLE; Oxygen 100 %; PEEP 20; Source R RADIAL; Tidal Volume 480; Vent Rate 28
[2021-05-07 07:57] LABS: ABG PCO2 71.3 mmhg (35.0-45.0)
--- NOTE | 2021-05-07 09:32 | XR_ITS ---
PROCEDURE: XR CHEST PORTABLE CLINICAL HISTORY: pnm COMPARISON: CR XR CHEST PORTABLE from 05/06/2021 CR XR CHEST PORTABLE from 05/06/2021 CR XR CHEST PORTABLE from 05/07/2021 FINDINGS: 9:40 a.m.. Endotracheal tube is present. The tip is 3.7 cm above the noah in good position. Nasogastric tube is also present. The nasogastric tube is difficult to locate distally but does appear to be below the GE junction. There is no evidence of pneumothorax or pneumomediastinum. Diffuse bilateral pneumonia once again noted not significantly changed. IMPRESSION: Endotracheal tube in good position. Nasogastric tube difficult to visualize but does appear to be below the GE junction. No change bilateral pneumonia. Dictated by: Barrett Daugherty MD 05/07/2021 10:17 Barrett Daugherty MD in [place] 05/07/2021 10:17
[2021-05-07 10:48] LABS: Triglycerides 221 mg/dl (30-150)
--- NOTE | 2021-05-07 11:50 | HMH.ACPN2 ---
Internal Medicine - PN: Subj *Date: 05/07/21 *Time: 11:50 Interval history: Patient was intubated yesterday secondary to worsening hypoxia and mechanical ventilatory failure. Appreciate pulmonary and anesthesiology input. Patient has had stable ventilatory settings on blood pressure overnight. Exam Vital signs and Labs for Last 24 Hours: Temp Pulse Resp BP Pulse Ox 98.3 F 74 24 133/69 88 L 05/07/21 08:00 05/07/21 08:00 05/07/21 08:00 05/07/21 08:00 05/07/21 08:00 Laboratory Results - last 24 hr 05/06/21 05:17: POC Glucose 131 H 05/06/21 11:04: POC Glucose 186 H 05/06/21 13:14: Specimen Source Left radial, O2 % 100%, ABG pH 7.39, ABG pCO2 43.7, ABG pO2 235.1 H, ABG HCO3 26.0, ABG Total CO2 27.3 H, ABG O2 Saturation 100, ABG Base Excess 1.0, Barrett Test Patient unable, Vent Rate 28, Tidal Volume 480, PEEP 20 05/06/21 18:05: Ferritin 228, C-Reactive Protein 76.5 H 05/06/21 18:05: D-Dimer 0.69 H 05/07/21 05:55: Sodium 141, Potassium 5.1, Chloride 104, Carbon Dioxide 32 H, Anion Gap 10.1, BUN 17 D, Creatinine 0.70, Estimated Creat Clear 181, Estimated GFR 131, Est GFR ( Amer) 158, Glucose 299 H D, Calcium 8.0 L, Total Bilirubin 0.5, AST 53, ALT 24, Alkaline Phosphatase 51, Total Protein 6.2 L, Albumin 3.0 L, Globulin 3.2, Albumin/Globulin Ratio 0.9 L 05/07/21 05:55: Triglycerides 221 H 05/07/21 06:42: ABG Lactate 1.8 05/07/21 07:00: Specimen Source R radial, O2 % 100, ABG pH 7.24 L*, ABG pCO2 71.3 H, ABG pO2 83.5, ABG HCO3 29.5 H, ABG Total CO2 31.7 H, ABG O2 Saturation 95, ABG Base Excess 2.1, Barrett Test Acceptable, Vent Rate 28, Tidal Volume 480, PEEP 20 I & O for Last 24 hours: Intake & Output 05/04/21 05/05/21 05/06/21 05/07/21 11:59 11:59 11:59 11:59 Intake Total 240 / 240 830 / 830 2645.625 / 2645.625 Output Total 600 / 600 1375 / 1375 1320 / 1320 Balance -360 / -360 -545 / -545 1325.625 / 1325.625 Weight 450 lb 471 lb 14.4 oz 471 lb 2.045 oz Microbiology Reports for the Last 24 Hours: Microbiology 05/06/21 18:05 Nose - Nasal MRSA Culture - Final 05/06/21 19:15 Anus CRE Surveillance Culture - Final 05/06/21 13:20 Sputum - Endotracheal Tube Aspirate Gram Stain - Final 05/06/21 13:20 Sputum - Endotracheal Tube Aspirate Sputum Culture - Preliminary Narrative: Patient is intubated, sedated, on propofol drip. Exam extremely difficult because of morbid obesity. However lung sounds are symmetrical. Heart rate regular. Abdomen is soft. Lymphedema noted but otherwise no new rashes. Assessment and Plan (1) Obesity with serious comorbidity Status: Acute Qualifiers: Obesity type: due to excess calories Obesity classification: unspecified obesity classification Qualified Code(s): E66.09 - Other obesity due to excess calories Category: Medical Code(s): E66.9 - Obesity, unspecified (2) Pneumonia due to COVID-19 virus Status: Acute Category: Medical Code(s): U07.1 - COVID-19; J12.82 - Pneumonia due to coronavirus disease 2019 (3) Respiratory failure with hypoxia Status: Acute Qualifiers: Chronicity: acute Qualified Code(s): J96.01 - Acute respiratory failure with hypoxia Category: Medical Code(s): J96.91 - Respiratory failure, unspecified with hypoxia (4) Hyperglycemia Status: Acute Category: Medical Code(s): R73.9 - Hyperglycemia, unspecified (5) Acute respiratory distress syndrome (ARDS) due to 2019 novel coronavirus Status: Acute Category: Medical Code(s): U07.1 - COVID-19; J80 - Acute respiratory distress syndrome - Assessment and plan all Dx Assessment and Plan for all problems:: Overall prognosis extremely poor given need for intubation, blood pressure however has been stable. Continue to provide aggressive intensive care unit support with currently accepted [facility] authorized medications.
--- NOTE | 2021-05-07 16:05 | HMH.PULMPN ---
Internal Medicine - PN: Subj *Date: 05/07/21 *Time: 16:05 Interval history: No acute respiratory events overnight. Exam - Constitutional Constitutional:: Absent: no acute distress, comfortable - HENMT Exam HENMT: Present: normocephalic, atraumatic - Eye Exam Eyes:: Present: normal appearance both eyes and related structures - Neck Exam Neck:: Present: normal visual inspection - Respiratory Exam Respiratory:: Present: respiratory distress, decreased breath sounds - Cardiovascular Exam Cardiac:: Present: S1, S2 - GI Exam GI:: Present: soft, obese - Skin Exam Skin: Present: warm - Neurological Exam Neurological: Absent: alert, awake, normal cognition Assessment and Plan (1) Obesity with serious comorbidity Status: Acute Qualifiers: Obesity type: due to excess calories Obesity classification: unspecified obesity classification Qualified Code(s): E66.09 - Other obesity due to excess calories Category: Medical Code(s): E66.9 - Obesity, unspecified (2) Pneumonia due to COVID-19 virus Status: Acute Category: Medical Code(s): U07.1 - COVID-19; J12.82 - Pneumonia due to coronavirus disease 2019 (3) Respiratory failure with hypoxia Status: Acute Qualifiers: Chronicity: acute Qualified Code(s): J96.01 - Acute respiratory failure with hypoxia Category: Medical Code(s): J96.91 - Respiratory failure, unspecified with hypoxia (4) Hyperglycemia Status: Acute Category: Medical Code(s): R73.9 - Hyperglycemia, unspecified (5) Acute respiratory distress syndrome (ARDS) due to 2019 novel coronavirus Status: Acute Category: Medical Code(s): U07.1 - COVID-19; J80 - Acute respiratory distress syndrome - Assessment and plan all Dx Assessment and Plan for all problems:: #Acute hypoxic respiratory failure: #COVID-19 pneumonia: Respiratory status continued to worsen on 05/06 eventually needing intubation and mechanical ventilatory support, risks and benefits were explained and CODE STATUS was discussed d before intubation. Plan: -Continue current ventilator settings, oswald does not appear to be showing worsening acidosis, will increase his PEEP and tidal volume, will follow with VBG. Chest x-ray from this morning worsening infiltrates. -Follow with lower extremity Doppler -Continue levofloxacin awaiting cultures. Nasal MRSA PCR positive. - Continue mechanical ventilatory support - Continue AnalgoSedation with Propofol and Fentanyl with CPOT gal less than or euqal to 2 and RASS goal of 0 to 1 (Deep sedation) - VAP bundle Elevate head of the bed at 30 to 45 degrees Oral care with chlorhexidne GI ulcer prophylaxis - Famotidine 20mg IV BID Chemical DVT prophylaxis -Abdomen soft nontender. Renal function stable. We will closely monitor. #Thank you involving pulmonary in this patient care. We will continue to follow. Please call with any questions or concerns.
--- NOTE | 2021-05-07 17:08 | PC.NURSE ---
Pt is currently sedated and mechanically ventilated. Lungs are diminished throughout. He has been NSR on telemetry. His arana is to bedside draining cloudy, straw colored urine. He has had approx 850 mls out thus far. VSS. Oral care provided. Family has called and been updated on current poc.
--- NOTE | 2021-05-07 17:51 | CA_ITS ---
APPROVED REPORT Bilateral Lower Extremity Venous Study for [employer] Consultant: CT Indications Hypoxia, Covid 19, intubated Risk Factors Obesity Vein Imaging CFV (R): compressive, spontaneous, phasic, augmentation SFJ (R): compressive, spontaneous, phasic, augmentation FEM (R): compressive, spontaneous, phasic, augmentation POP (R): compressive, spontaneous, phasic, augmentation DFV (R): compressive, spontaneous, phasic, augmentation PTV (R): compressive, spontaneous, phasic, augmentation GSV (R): compressive, spontaneous, phasic, augmentation SSV (R): Not Visualized Peroneals (R):Not Visualized GAS (R): compressive, spontaneous, phasic, augmentation CFV (L): compressive, spontaneous, phasic, augmentation SFJ (L): compressive, spontaneous, phasic, augmentation FEM (L): compressive, spontaneous, phasic, augmentation POP (L): compressive, spontaneous, phasic, augmentation DFV (L): compressive, spontaneous, phasic, augmentation PTV (L): compressive, spontaneous, phasic, augmentation GSV (L): compressive, spontaneous, phasic, augmentation SSV (L): Not Visualized Peroneals (L):Not Visualized GAS (L): Not Visualized Findings Bilateral lower extremity venous doppler appears negative for DVT/SVT. Limited exam due to extreme body habitus. Conclusion Bilateral lower extremity venous doppler appears negative for DVT/SVT. Limited exam due to extreme body habitus. Electronically signed by : Barrett Daugherty MD 05/07/2021 16:18:23
[2021-05-07 22:17] LABS: POC Glucose,Bedside 306 (70-110)
[2021-05-07 22:17] LABS: POC Glucose,Bedside 300 (70-110)
[2021-05-07 22:17] LABS: POC Glucose,Bedside 272 (70-110)
[2021-05-08] VITALS (32 sets, daily range): BP systolic 112–159; BP diastolic 54–92; PULSE 46–70; RESP 26–28; TEMP 36.2–36.8; O2SAT 94–98; BMI 59.2
--- NOTE | 2021-05-08 00:39 | PC.NURSE ---
No acute changes. Sinus eusebio on telemetry. His HOB is elevated. Being turned and repositioned q 2 hours.
[2021-05-08 05:38] LABS: POC Glucose,Bedside 325 (70-110)
--- NOTE | 2021-05-08 06:00 | XR_ITS ---
PROCEDURE INFORMATION: Exam: XR Chest Exam date and time: 05/08/2021 6:00 AM Age: 30 years old Clinical indication: Condition or disease; Lung condition and disease; Pneumonia; Patient HX: Covid, intubation TECHNIQUE: Imaging protocol: XR of the chest. Views: 1 view. COMPARISON: CR XR CHEST PORTABLE 05/07/2021 9:48 AM FINDINGS: Tubes, catheters and devices: The endotracheal tube terminates approximately 6 cm above the noah. The tip of the NG tube is not well visualized. Lungs: Improved aeration of the lungs bilaterally with decreased patchy opacities. Pleural spaces: Unremarkable. No pleural effusion. No pneumothorax. Heart/Mediastinum: Unremarkable. No cardiomegaly. Bones/joints: Unremarkable. IMPRESSION: 1. Improved aeration of the lungs bilaterally, consistent with improving pneumonia. 2. Endotracheal tube terminates approximately 6 cm above the noah.
[2021-05-08 07:03] LABS: ABG Base Excess -2.7 mmol/L (-2.4-2.3); ABG HCO3 24.4 mmhg (22.0-26.0); ABG Oxygen Saturation 100 % (90-100); ABG PH 7.26 mmol/L (7.35-7.45); ABG PO2 340.5 mmhg (80-100); ABG TCO2 26.2 mmhg (23-27)
[2021-05-08 07:09] LABS: Oxygen 100 %
[2021-05-08 07:10] LABS: Allen's Test ACCEPTABLE; PEEP 22; Source L RADIAL; Tidal Volume 500; Vent Rate 28
--- NOTE | 2021-05-08 07:10 | PC.NURSE ---
Received notification from RT Ora Ball reporting pco2 of 302, name and 9date of verified; Dr. Faustin notified; fio2 decreased to 60%
[2021-05-08 07:11] LABS: ABG PCO2 56.2 mmhg (35.0-45.0)
--- NOTE | 2021-05-08 07:14 | HMH.ACPN2 ---
Internal Medicine - PN: Subj *Date: 05/08/21 *Time: 18:27 Interval history: Patient remained hemodynamically stable overnight. Continues to tolerate maximal ventilator settings. Reviewed blood gas this morning, showing good oxygenation and ventilation. Afebrile. Of note, patient's mother who was also admitted yesterday afternoon. Due to sedation, patient unable to be informed. Exam Vital signs and Labs for Last 24 Hours: Temp Pulse Resp BP Pulse Ox 97.5 F L 61 28 H 133/73 97 05/08/21 06:00 05/08/21 07:00 05/08/21 07:00 05/08/21 07:00 05/08/21 07:00 Laboratory Results - last 24 hr 05/07/21 05:10: POC Glucose 272 H 05/07/21 05:55: Triglycerides 221 H 05/07/21 06:42: ABG Lactate 1.8 05/07/21 07:00: Specimen Source R radial, O2 % 100, ABG pH 7.24 L*, ABG pCO2 71.3 H, ABG pO2 83.5, ABG HCO3 29.5 H, ABG Total CO2 31.7 H, ABG O2 Saturation 95, ABG Base Excess 2.1, Barrett Test Acceptable, Vent Rate 28, Tidal Volume 480, PEEP 20 05/07/21 16:32: POC Glucose 300 H 05/07/21 21:55: POC Glucose 306 H* 05/08/21 05:31: POC Glucose 325 H* 05/08/21 06:00: Specimen Source L radial, O2 % 100, ABG pH 7.26 L, ABG pCO2 56.2 H, ABG pO2 340.5 H, ABG HCO3 24.4, ABG Total CO2 26.2, ABG O2 Saturation 100, ABG Base Excess -2.7 L, Barrett Test Acceptable, Vent Rate 28, Tidal Volume 500, PEEP 22 I & O for Last 24 hours: Intake & Output 05/05/21 05/06/21 05/07/21 05/08/21 23:59 23:59 23:59 23:59 Intake Total 360 / 360 2131.083 / 2131.083 2614.000 / 2614.000 1504.167 / 1504.167 Output Total 1375 / 1375 270 / 270 1800 / 2200 885 / 885 Balance -1015 / -1015 1861.083 / 1861.083 814.000 / 414.000 619.167 / 619.167 Weight 214.05 kg 214.05 kg 213.7 kg 216.1 kg Microbiology Reports for the Last 24 Hours: Microbiology 05/06/21 13:20 Sputum - Endotracheal Tube Aspirate Gram Stain - Final 05/06/21 13:20 Sputum - Endotracheal Tube Aspirate Sputum Culture - Preliminary 05/06/21 13:04 Urine,Catheterized Urine Culture - Preliminary NO GROWTH AFTER 24 HOURS 05/06/21 18:05 Nose - Nasal MRSA Culture - Final 05/06/21 19:15 Anus CRE Surveillance Culture - Final - Constitutional mild distress, morbidly obese, obtunded (sedated) - *Routine HEENT Exam Head: Present: normocephalic Eye: Present: EOMI, PERRL ENT: Present: mucous membranes moist Comments: ETT in place - *Routine Neck Exam Present: supple. Absent: lymphadenopathy Comments: central line in place - *Routine Respiratory Exam Present: patient mechanically ventilated - *Routine Cardiovascular Exam Present: RRR - *Routine Abdominal Exam Present: soft, normoactive bowel sounds, obese. Absent: tenderness - *Routine Extremities Exam Absent: cyanosis, clubbing, edema - *Routine Skin Exam Present: warm. Absent: rash Comments: scabbed lesions on legs - *Routine Neurological Exam sedated, no response to painful stimuli; GCS 3 Assessment and Plan (1) Obesity with serious comorbidity Status: Acute Qualifiers: Obesity type: due to excess calories Obesity classification: unspecified obesity classification Qualified Code(s): E66.09 - Other obesity due to excess calories Category: Medical Code(s): E66.9 - Obesity, unspecified (2) Pneumonia due to COVID-19 virus Status: Acute Category: Medical Code(s): U07.1 - COVID-19; J12.82 - Pneumonia due to coronavirus disease 2019 (3) Respiratory failure with hypoxia Status: Acute Qualifiers: Chronicity: acute Qualified Code(s): J96.01 - Acute respiratory failure with hypoxia Category: Medical Code(s): J96.91 - Respiratory failure, unspecified with hypoxia (4) Hyperglycemia Status: Acute Category: Medical Code(s): R73.9 - Hyperglycemia, unspecified (5) Acute respiratory distress syndrome (ARDS) due to 2019 novel coronavirus Status: Acute Category: Medical Code(s): U07.1 - COVID-19; J80 - Acute respiratory distress
[2021-05-08 07:23] LABS: Lactate Arterial 1.8 mmol/L (0.4-2.0)
[2021-05-08 09:11] LABS: Basophils % 0.5 % (0.1-2.0); Eosinophils % 0.2 % (0.1-12.0); Hematocrit 40.8 % (42.0-52.0); Hemoglobin 12.3 g/dL (14.1-18.0); Lymphocytes # 0.4 K/mm3 (0.7-4.5); Lymphocytes % 7.7 % (10-50); Mean Corpuscular HGB Conc 30.2 g/dL (31.8-35.4); Mean Corpuscular Hemoglobin 26.3 pg (27.0-31.2); Mean Platelet Volume 9.3 fl (7.4-10.4); Monocytes # 0.3 K/mm3 (0.1-1.0); Neutrophils # 4.6 K/mm3 (1.8-7.8); Neutrophils % 86.6 % (37.0-80.0); Platelet Count 263 K/mm3 (142-424); Red Blood Count 4.69 M/mm3 (4.60-6.20); Red Cell Distribution Width 15.7 % (11.5-17.5); White Blood Count 5.3 K/mm3 (4.8-10.8)
[2021-05-08 09:22] LABS: Chloride 105 mmol/L (98-107)
[2021-05-08 09:23] LABS: Sodium 141 mmol/L (136-145)
[2021-05-08 09:25] LABS: Alanine Aminotransferase 24 U/L (12-78); Alkaline Phosphatase 58 U/L (38-126); Aspartate Amino Transferase 42 U/L (17-59); Bilirubin,Total 0.2 mg/dl (0.2-1.3); Blood Urea Nitrogen 20 mg/dl (9-20); Carbon Dioxide 30 mmol/L (22.0-30.0); Creatinine Clearance Estimated 211 mL/min (50-200); Estimated Glomerular Filt Rate 156 ml/min (>60); GFR (African American) 189 ML/MIN (>60)
[2021-05-08 09:26] LABS: Albumin/Globulin Ratio 0.9 (1.1-1.8); Calcium 8.4 mg/dl (8.4-10.2); Globulin 3.2 g/dL (1.3-3.2); Glucose 344 mg/dl (74-100); Magnesium 2.8 mg/dl (1.6-2.3); Total Protein,Serum 6.2 g/dl (6.3-8.2)
[2021-05-08 09:28] LABS: MANUAL DIFFERENTIAL MANUAL DIFFERENTIAL (MANUAL DIFF)
[2021-05-08 10:14] LABS: Hypochromasia 2+; Lymphocytes % 8 % (10-50); Monocytes % 1 % (2-9); Neutrophils % 91 % (42-76); Platelet Estimate Normal; Total Cells Counted 100
--- NOTE | 2021-05-08 11:19 | DIET.NUTRFU ---
Pt intubated and sedated, nutrition consult to initiate enteral nutrition received. MAP>60, electrolytes WNL except 2.8 Mag. BG high >300. He has been weaned of Levo and Propofol. Currently receiving IVF. Recommend initiating continuous tube feeding regimen of Glucerna 1.0 at 20ml/h and advancing as tolerated by 10ml/h q 8h to goal rate of 83ml/h. Recommend minimal water flushes of 30ml q 4h. If IVF dc'd recommend 60ml water flushes q 4h. Recommend dc'ing IVF as TF advanced dt high free water content regimen at goal rate. This regimen provides 2000kcal, 83g protein, 191g cho, 120g fat, and 1706ml free water(2000ml total fluids with flushes) Will monitor pt tolerance, labs, meds, fluids to alter regimen as indicated.
[2021-05-08 12:28] LABS: POC Glucose,Bedside 333 (70-110)
--- NOTE | 2021-05-08 15:06 | PC.NURSE ---
RESP CARE NOTE: PEEP decreased to [address] Cuellar.
--- NOTE | 2021-05-08 15:45 | HMH.PULMPN ---
Internal Medicine - PN: Subj *Date: 05/08/21 *Time: 15:45 Interval history: No acute respiratory events overnight. Patient oxygenation continued to improve. Exam - Constitutional Constitutional:: Present: no acute distress, comfortable - HENMT Exam HENMT: Present: normocephalic - Eye Exam Eyes:: Present: normal appearance both eyes and related structures - Neck Exam Neck:: Present: normal visual inspection - Respiratory Exam Respiratory:: Present: respiratory distress, crackles - Cardiovascular Exam Cardiac:: Present: S1, S2 - GI Exam GI:: Present: soft, obese - Skin Exam Skin: Present: warm - Neurological Exam Neurological: Absent: alert, awake, normal cognition Assessment and Plan (1) Obesity with serious comorbidity Status: Acute Qualifiers: Obesity type: due to excess calories Obesity classification: unspecified obesity classification Qualified Code(s): E66.09 - Other obesity due to excess calories Category: Medical Code(s): E66.9 - Obesity, unspecified (2) Pneumonia due to COVID-19 virus Status: Acute Category: Medical Code(s): U07.1 - COVID-19; J12.82 - Pneumonia due to coronavirus disease 2019 (3) Respiratory failure with hypoxia Status: Acute Qualifiers: Chronicity: acute Qualified Code(s): J96.01 - Acute respiratory failure with hypoxia Category: Medical Code(s): J96.91 - Respiratory failure, unspecified with hypoxia (4) Hyperglycemia Status: Acute Category: Medical Code(s): R73.9 - Hyperglycemia, unspecified (5) Acute respiratory distress syndrome (ARDS) due to 2019 novel coronavirus Status: Acute Category: Medical Code(s): U07.1 - COVID-19; J80 - Acute respiratory distress syndrome - Assessment and plan all Dx Assessment and Plan for all problems:: #Acute hypoxic respiratory failure: #COVID-19 pneumonia: Respiratory status continued to worsen on 05/06 eventually needing intubation and mechanical ventilatory support, risks and benefits were explained and CODE STATUS was discussed d before intubation. Lower extremity venous Doppler negative for DVT. Plan: -- Continue mechanical ventilatory support, Patient oxygenation continued to improve, blood gas from this morning showed improved oxygenation and improved hypercarbia. pH is 7.26 with PCO2 56, will wean FiO2 and PEEP as tolerated, he currently 60% FiO2 on 18 of PEEP. - Continue AnalgoSedation with Propofol and Fentanyl with CPOT gal less than or euqal to 2 and RASS goal of 0 to 1 (Deep sedation) - VAP bundle Elevate head of the bed at 30 to 45 degrees Oral care with chlorhexidne GI ulcer prophylaxis - Famotidine 20mg IV BID Chemical DVT prophylaxis -Abdomen soft nontender. Renal function stable. We will closely monitor. -Recommend initiating tube feeds #Thank you involving pulmonary in this patient care. We will continue to follow. Please call with any questions or concerns.
--- NOTE | 2021-05-08 16:30 | PC.NURSE ---
spoke with provider about bradycardia with rates in the 50's, patient is experiencing no symptoms, fentanyl and versed drips decreased in order to combat decreasing rate. will continue to monitor
[2021-05-08 18:11] LABS: POC Glucose,Bedside 327 (70-110)
[2021-05-08 21:07] LABS: POC Glucose,Bedside 341 (70-110)
--- NOTE | 2021-05-08 23:44 | PC.NURSE ---
Addendum entered by Zuleima Rosa RN 05/09/21 03:00: 2030- fc noted to be leaking at site; replaced with 16F; draining dark yellow urine at this time Original Note: 1929- hr 50-53; titrated fentanyl to 85 mcg/hr 2132- hr 50-53 titrated fentanyl to 65 mcg/hr 2152- hr 40-43; perry galvan MD. New orders: lower peep to 15 and continue to titrate sedation 2219- versed titrated to 0.05 mg/kg/hr and fentanyl titrated to 55 mcg/hr 2238- fentanyl titrated to 35 mcg/hr; hr 40-43; perry galvan md. New order: atropine ivp 1mg x1 now Post-admin atropine hr 65
[2021-05-09] VITALS (28 sets, daily range): BP systolic 128–165; BP diastolic 67–91; PULSE 46–94; RESP 26–34; TEMP 36.9–37.5; O2SAT 86–97; BMI 60.7
--- NOTE | 2021-05-09 00:50 | PC.NURSE ---
0042- HR trending down to 46-50 for past hour. BP 152/81. MD Immanuel notified; new orders: give atropine 1 mg ivp x1 if HR <45 for over 15 min.
--- NOTE | 2021-05-09 02:54 | PC.NURSE ---
0000- gastric residual 15 ml; flushed with 30 ml water 0230- increased tf to 40 ml/hr
[2021-05-09 05:25] LABS: POC Glucose,Bedside 339 (70-110)
--- NOTE | 2021-05-09 06:00 | XR_ITS ---
PROCEDURE INFORMATION: Exam: XR Chest Exam date and time: 05/09/2021 6:00 AM Age: 30 years old Clinical indication: Patient HX: Covid unit patient icu- intubation check TECHNIQUE: Imaging protocol: XR of the chest. Views: 1 view. COMPARISON: CR XR CHEST PORTABLE 05/08/2021 5:18 AM FINDINGS: Tubes, catheters and devices: Enteric tube is not seen well distally. Recommend abdominal x-ray. Endotracheal tube terminates 5 cm above the noah. Lungs: Patchy bilateral opacities may represent multifocal pneumonia is not seen well distally.. Pleural spaces: Unremarkable. No pleural effusion. No pneumothorax. Heart/Mediastinum: Unremarkable. No cardiomegaly. Bones/joints: Unremarkable. IMPRESSION: 1. Endotracheal tube terminates 5 cm above the noah. 2. Patchy bilateral opacities may represent multifocal pneumonia is not seen well distally..
[2021-05-09 07:15] LABS: ABG Base Excess -0.2 mmol/L (-2.4-2.3); ABG HCO3 25.7 mmhg (22.0-26.0); ABG Oxygen Saturation 91 % (90-100); ABG PH 7.33 mmol/L (7.35-7.45); ABG PO2 63.6 mmhg (80-100); ABG TCO2 27.2 mmhg (23-27)
[2021-05-09 07:32] LABS: Allen's Test ACCEPTABLE; Oxygen 60 %; PEEP 15; Source R RADIAL; Tidal Volume 500; Vent Rate 28
[2021-05-09 07:45] LABS: Lactate Arterial 1.8 mmol/L (0.4-2.0)
--- NOTE | 2021-05-09 07:45 | PC.NURSE ---
0400- pt. coughing with increased peak pressures and respiration rates. Titrated versed to 0.1 mg/kg/hr and fentanyl 45 mcg/hr. 0630- peak pressures increased and pt. coughing and not tolerating vent. Titrated fentanyl to 65 mcg/hr.
[2021-05-09 07:51] LABS: Basophils # 0.2 K/mm3 (0-0.2); Basophils % 3.9 % (0.1-2.0); Eosinophils % 0.3 % (0.1-12.0); Hematocrit 42.6 % (42.0-52.0); Hemoglobin 12.7 g/dL (14.1-18.0); Lymphocytes # 0.5 K/mm3 (0.7-4.5); Lymphocytes % 7.7 % (10-50); Mean Corpuscular HGB Conc 29.8 g/dL (31.8-35.4); Mean Corpuscular Hemoglobin 26.3 pg (27.0-31.2); Mean Corpuscular Volume 88.3 fl (80-94); Mean Platelet Volume 10.3 fl (7.4-10.4); Monocytes # 0.3 K/mm3 (0.1-1.0); Monocytes % 5.5 % (1.7-9.3); Neutrophils # 5.2 K/mm3 (1.8-7.8); Neutrophils % 86.6 % (37.0-80.0); Platelet Count 273 K/mm3 (142-424); Red Blood Count 4.82 M/mm3 (4.60-6.20); Red Cell Distribution Width 15.7 % (11.5-17.5)
[2021-05-09 07:54] LABS: MANUAL DIFFERENTIAL MANUAL DIFFERENTIAL (MANUAL DIFF)
[2021-05-09 08:12] LABS: Eosinophils % 1 % (0-3); Hypochromasia 2+; Lymphocytes % 16 % (10-50); Monocytes % 5 % (2-9); Neutrophils % 74 % (42-76); Platelet Estimate Normal; Total Cells Counted 100
[2021-05-09 09:58] LABS: Chloride 106 mmol/L (98-107); Potassium 5.3 mmoL/L (3.5-5.1); Sodium 141 mmol/L (136-145)
[2021-05-09 10:01] LABS: Alanine Aminotransferase 21 U/L (12-78); Albumin Level 2.7 g/dl (3.5-5.0); Albumin/Globulin Ratio 0.9 (1.1-1.8); Alkaline Phosphatase 42 U/L (38-126); Anion Gap 10.3 mEq/L (5-15); Aspartate Amino Transferase 43 U/L (17-59); Bilirubin,Total 0.5 mg/dl (0.2-1.3); Blood Urea Nitrogen 24 mg/dl (9-20); Calcium 8.3 mg/dl (8.4-10.2); Carbon Dioxide 30 mmol/L (22.0-30.0); Creatinine Clearance Estimated 181 mL/min (50-200); Estimated Glomerular Filt Rate 131 ml/min (>60); GFR (African American) 158 ML/MIN (>60); Globulin 3.1 g/dL (1.3-3.2); Glucose 348 mg/dl (74-100); Magnesium 2.7 mg/dl (1.6-2.3); Total Protein,Serum 5.8 g/dl (6.3-8.2)
--- NOTE | 2021-05-09 11:41 | HMH.ACPN2 ---
Internal Medicine - PN: Subj *Date: 05/09/21 *Time: 11:41 Exam Vital signs and Labs for Last 24 Hours: Temp Pulse Resp BP Pulse Ox 99.5 F 87 28 H 151/80 H 90 L 05/09/21 07:00 05/09/21 07:00 05/09/21 07:00 05/09/21 07:00 05/09/21 07:00 Laboratory Results - last 24 hr 05/08/21 12:19: POC Glucose 333 H* 05/08/21 18:04: POC Glucose 327 H* 05/08/21 20:58: POC Glucose 341 H* 05/09/21 05:18: POC Glucose 339 H* 05/09/21 06:00: Specimen Source R radial, O2 % 60, ABG pH 7.33 L, ABG pCO2 50.0 H, ABG pO2 63.6 L, ABG HCO3 25.7, ABG Total CO2 27.2 H, ABG O2 Saturation 91, ABG Base Excess -0.2, Barrett Test Acceptable, Vent Rate 28, Tidal Volume 500, PEEP 15 05/09/21 06:50: WBC 6.0, RBC 4.82, Hgb 12.7 L, Hct 42.6, MCV 88.3, MCH 26.3 L, MCHC 29.8 L, RDW 15.7, Plt Count 273, MPV 10.3, Neut % (Auto) 86.6 H, Lymph % (Auto) 7.7 L, [place] % (Auto) 5.5, Eos % (Auto) 0.3, Baso % (Auto) 3.9 H, Neut # (Auto) 5.2, Lymph # (Auto) 0.5 L, [place] # (Auto) 0.3, Eos # (Auto) 0.0, Baso # (Auto) 0.2, Total Counted 100, Neutrophils % (Manual) 74, Band Neutrophils % 1.0, Lymphocytes % (Manual) 16, Monocytes % (Manual) 5, Eosinophils % (Manual) 1, Basophils % (Manual) 1.0, Metamyelocytes % 2.0 H, Platelet Estimate Normal, Hypochromasia 2+ 05/09/21 06:50: Sodium 141, Potassium 5.3 H, Chloride 106, Carbon Dioxide 30, Anion Gap 10.3, BUN 24 H, Creatinine 0.70, Estimated Creat Clear 181, Estimated GFR 131, Est GFR ( Amer) 158, Glucose 348 H, Calcium 8.3 L, Magnesium 2.7 H, Total Bilirubin 0.5, AST 43, ALT 21, Alkaline Phosphatase 42, Total Protein 5.8 L, Albumin 2.7 L, Globulin 3.1, Albumin/Globulin Ratio 0.9 L 05/09/21 07:43: ABG Lactate 1.8 I & O for Last 24 hours: Intake & Output 05/06/21 05/07/21 05/08/21 05/09/21 23:59 23:59 23:59 23:59 Intake Total 2131.083 / 2131.083 2614.000 / 2614.000 3260.501 / 4082.501 1835.958 / 1835.958 Output Total 270 / 270 1800 / 2200 1693 / 1763 910 / 910 Balance 1861.083 / 1861.083 814.000 / 475.626 4316.501 / 2319.501 925.958 / 925.958 Weight 214.05 kg 213.7 kg 216.1 kg 221.4 kg Microbiology Reports for the Last 24 Hours: Microbiology 05/06/21 13:20 Sputum - Endotracheal Tube Aspirate Gram Stain - Final 05/06/21 13:20 Sputum - Endotracheal Tube Aspirate Sputum Culture - Final Staphylococcus aureus 05/06/21 13:04 Urine,Catheterized Urine Culture - Final NO GROWTH AFTER 48 HOURS Assessment and Plan (1) Obesity with serious comorbidity Status: Acute Qualifiers: Obesity type: due to excess calories Obesity classification: unspecified obesity classification Qualified Code(s): E66.09 - Other obesity due to excess calories Category: Medical Code(s): E66.9 - Obesity, unspecified (2) Pneumonia due to COVID-19 virus Status: Acute Category: Medical Code(s): U07.1 - COVID-19; J12.82 - Pneumonia due to coronavirus disease 2019 (3) Respiratory failure with hypoxia Status: Acute Qualifiers: Chronicity: acute Qualified Code(s): J96.01 - Acute respiratory failure with hypoxia Category: Medical Code(s): J96.91 - Respiratory failure, unspecified with hypoxia (4) Hyperglycemia Status: Acute Category: Medical Code(s): R73.9 - Hyperglycemia, unspecified (5) Acute respiratory distress syndrome (ARDS) due to 2019 novel coronavirus Status: Acute Category: Medical Code(s): U07.1 - COVID-19; J80 - Acute respiratory distress syndrome The patient's infection will respond to the chosen ABx?: No (LM WITH DR YAN'S OFFICE) Is the patient receiving the right drug, dose, and route?: No Could a more targeted ABx be ordered?: Yes (MRSA SUSCEPTIBLE TO CLINDA, BACTRIM, VANCO, GENT)
[2021-05-09 12:28] LABS: POC Glucose,Bedside 335 (70-110)
[2021-05-09 16:13] LABS: POC Glucose,Bedside 305 (70-110)
[2021-05-09 21:55] LABS: POC Glucose,Bedside 303 (70-110)
[2021-05-10] VITALS (29 sets, daily range): BP systolic 110–155; BP diastolic 63–84; PULSE 59–97; RESP 23–35; TEMP 37–37.6; O2SAT 90–98; BMI 59.9
--- NOTE | 2021-05-10 06:00 | XR_ITS ---
PROCEDURE INFORMATION: Exam: XR Chest Exam date and time: 05/10/2021 6:00 AM Age: 30 years old Clinical indication: Other: Covid; Additional info: Intubation TECHNIQUE: Imaging protocol: XR of the chest. Views: 1 view. COMPARISON: CR XR CHEST PORTABLE 05/09/2021 6:26 AM FINDINGS: Tubes, catheters and devices: The endotracheal tube tip is not well seen, however suspected to be approximately 5 cm from the noah. Enteric tube tip is not seen well at its distal aspect. Lungs: Bilateral airspace disease versus atelectasis in the lung bases. The lung volumes are low. Pleural spaces: No pleural effusion. No pneumothorax. Heart/Mediastinum: No acute findings or cardiomegaly. Bones/joints: No acute findings. IMPRESSION: 1. Mild airspace disease versus atelectasis in the nondistended lungs. 2. Distal aspect of both the endotracheal and enteric tubes are not well seen. Consider additional imaging as clinically indicated.
[2021-05-10 07:21] LABS: ABG Base Excess 4.6 mmol/L (-2.4-2.3); ABG HCO3 30.3 mmhg (22.0-26.0); ABG Oxygen Saturation 99 % (90-100); ABG PH 7.34 mmol/L (7.35-7.45); ABG PO2 159.9 mmhg (80-100)
[2021-05-10 08:11] LABS: Allen's Test Patient Unable; Oxygen 70 %; PEEP 18; Source Left Radial; Tidal Volume 500; Vent Rate 28
[2021-05-10 08:12] LABS: ABG PCO2 56.9 mmhg (35.0-45.0)
--- NOTE | 2021-05-10 08:57 | PC.NURSE ---
RESP CARE NOTE: PEEP decreased to 16 cmH2O, FIO2 decreased to 60% per verbal order of Dr Cuellar.
--- NOTE | 2021-05-10 09:11 | HMH.ACPN2 ---
Internal Medicine - PN: Subj *Date: 05/10/21 *Time: 09:11 Interval history: No major changes overnight, patient remains intubated, sedated. No major ventilatory changes. Has been fairly stable and his vent settings have been able to be plateaued and occasionally decreased. Tube feedings continue. Exam Vital signs and Labs for Last 24 Hours: Temp Pulse Resp BP Pulse Ox 98.6 F 74 28 H 137/73 98 05/10/21 07:00 05/10/21 07:00 05/10/21 07:00 05/10/21 07:00 05/10/21 07:00 Laboratory Results - last 24 hr 05/09/21 06:50: Sodium 141, Potassium 5.3 H, Chloride 106, Carbon Dioxide 30, Anion Gap 10.3, BUN 24 H, Creatinine 0.70, Estimated Creat Clear 181, Estimated GFR 131, Est GFR ( Amer) 158, Glucose 348 H, Calcium 8.3 L, Magnesium 2.7 H, Total Bilirubin 0.5, AST 43, ALT 21, Alkaline Phosphatase 42, Total Protein 5.8 L, Albumin 2.7 L, Globulin 3.1, Albumin/Globulin Ratio 0.9 L 05/09/21 12:22: POC Glucose 335 H* 05/09/21 16:06: POC Glucose 305 H* 05/09/21 21:48: POC Glucose 303 H* 05/10/21 06:00: Specimen Source Left radial, O2 % 70, ABG pH 7.34 L, ABG pCO2 56.9 H, ABG pO2 159.9 H, ABG HCO3 30.3 H, ABG Total CO2 32.0 H, ABG O2 Saturation 99, ABG Base Excess 4.6 H, Barrett Test Patient unable, Vent Rate 28, Tidal Volume 500, PEEP 18 I & O for Last 24 hours: Intake & Output 05/07/21 05/08/21 05/09/21 05/10/21 11:59 11:59 11:59 11:59 Intake Total 2868.625 / 3062.625 3209.792 / 3373.792 3753.125 / 3898.125 4690.625 / 4690.625 Output Total 1420 / 1495 1655 / 1755 2286 / 2548 3291 / 3291 Balance 1448.625 / 3475.265 8629.792 / 1432.576 2237.125 / 2555.339 7207.625 / 1399.625 Weight 471 lb 2.045 oz 476 lb 6.703 oz 488 lb 1.655 oz 482 lb 5.942 oz Microbiology Reports for the Last 24 Hours: Microbiology 05/06/21 13:20 Sputum - Endotracheal Tube Aspirate Gram Stain - Final 05/06/21 13:20 Sputum - Endotracheal Tube Aspirate Sputum Culture - Final Staphylococcus aureus Narrative: Sedated, unresponsive to tactile stimuli. Oropharynx clear, ET tube and NG tube in good position. Exam is difficult because of his morbid obesity and sedated status but he has fairly symmetric air entry. Heart rate regular. Abdomen soft, no distal perfusion deficits. Torres catheter draining clear yellow urine Assessment and Plan (1) Obesity with serious comorbidity Status: Acute Qualifiers: Obesity type: due to excess calories Obesity classification: unspecified obesity classification Qualified Code(s): E66.09 - Other obesity due to excess calories Category: Medical Code(s): E66.9 - Obesity, unspecified (2) Pneumonia due to COVID-19 virus Status: Acute Category: Medical Code(s): U07.1 - COVID-19; J12.82 - Pneumonia due to coronavirus disease 2019 (3) Respiratory failure with hypoxia Status: Acute Qualifiers: Chronicity: acute Qualified Code(s): J96.01 - Acute respiratory failure with hypoxia Category: Medical Code(s): J96.91 - Respiratory failure, unspecified with hypoxia (4) Hyperglycemia Status: Acute Category: Medical Code(s): R73.9 - Hyperglycemia, unspecified (5) Acute respiratory distress syndrome (ARDS) due to 2019 novel coronavirus Status: Acute Category: Medical Code(s): U07.1 - COVID-19; J80 - Acute respiratory distress syndrome - Assessment and plan all Dx Assessment and Plan for all problems:: Overall patient is stable. Some minimal improvement in vent settings. Continue current plan. Appreciate pulmonary input. Continue GI stress ulcer prophylaxis, tube feedings, oral care and other ICU care.
[2021-05-11] VITALS (36 sets, daily range): BP systolic 98–148; BP diastolic 50–80; PULSE 60–122; RESP 26–31; TEMP 37.2–38.4; O2SAT 88–98; BMI 59.2
[2021-05-11 00:42] LABS: POC Glucose,Bedside 338 (70-110)
[2021-05-11 00:42] LABS: POC Glucose,Bedside 397 (70-110)
[2021-05-11 00:42] LABS: POC Glucose,Bedside 331 (70-110)
[2021-05-11 00:42] LABS: POC Glucose,Bedside 371 (70-110)
[2021-05-11 05:21] LABS: POC Glucose,Bedside 366 (70-110)
--- NOTE | 2021-05-11 06:00 | XR_ITS ---
PROCEDURE INFORMATION: Exam: XR Chest Exam date and time: 05/11/2021 6:00 AM Age: 30 years old Clinical indication: Device placement; Ett placement (vent status); Additional info: Intubation covid TECHNIQUE: Imaging protocol: XR of the chest. Views: 1 view. COMPARISON: CR XR CHEST PORTABLE 05/10/2021 4:39 AM FINDINGS: Tubes, catheters and devices: New endotracheal tube 6 cm above the noah. Indwelling nasogastric tube appears to extend to left upper quadrant but is not well seen. Lungs: Poor inspiratory effort. Multifocal bibasilar airspace opacities right greater than left. Pleural spaces: Unremarkable. No pleural effusion. No pneumothorax. Heart/Mediastinum: Cardiac silhouette stable. Bones/joints: Unremarkable. IMPRESSION: Multifocal airspace opacities, concern for pneumonia.
[2021-05-11 07:20] LABS: ABG HCO3 31.8 mmhg (22.0-26.0); ABG Oxygen Saturation 98 % (90-100); ABG PO2 107.4 mmhg (80-100); ABG TCO2 33.4 mmhg (23-27)
[2021-05-11 07:30] LABS: Oxygen 60 %; PEEP 16; Source Right Radial; Tidal Volume 500; Vent Rate 28
[2021-05-11 07:31] LABS: ABG PCO2 52.6 mmhg (35.0-45.0)
--- NOTE | 2021-05-11 11:03 | CA_ITS ---
APPROVED REPORT Left Lower Extremity Venous Study for DVT. Heel Coverer Machine Operator: Nisreen Ramirez, DOVT Indications possible DVT,KNOT LT CALF,COVID, PT INTUBATED Risk Factors Obesity Bed Rest Vein Imaging CFV (L): compressive, spontaneous, phasic, augmentation FEM (L): compressive, spontaneous, phasic, augmentation POP (L): compressive, spontaneous, phasic, augmentation PTV (L): Compressible GSV (L): Compressible Peroneals (L):Compressible GAS (L): Compressible Findings Study suggests no evidence of DVT or SVT of the left lower extremity. Conclusion Study suggests no evidence of DVT or SVT of the left lower extremity. Electronically signed by : Barrett Daugherty MD 05/11/2021 17:15:42
--- NOTE | 2021-05-11 11:52 | HMH.PULMPN ---
Internal Medicine - PN: Subj *Date: 05/11/21 *Time: 11:52 Interval history: No acute respiratory events over the weekend. Exam - Constitutional Constitutional:: Present: no acute distress, comfortable - HENMT Exam HENMT: Present: normocephalic - Eye Exam Eyes:: Present: normal appearance both eyes and related structures - Neck Exam Neck:: Present: normal visual inspection - Respiratory Exam Respiratory:: Present: normal breath sounds, respiratory distress, rales - Cardiovascular Exam Cardiac:: Present: S1, S2 - GI Exam GI:: Present: soft, obese - Skin Exam Skin: Present: warm - Neurological Exam Neurological: Absent: alert, awake, normal cognition Assessment and Plan (1) Obesity with serious comorbidity Status: Acute Qualifiers: Obesity type: due to excess calories Obesity classification: unspecified obesity classification Qualified Code(s): E66.09 - Other obesity due to excess calories Category: Medical Code(s): E66.9 - Obesity, unspecified (2) Pneumonia due to COVID-19 virus Status: Acute Category: Medical Code(s): U07.1 - COVID-19; J12.82 - Pneumonia due to coronavirus disease 2019 (3) Respiratory failure with hypoxia Status: Acute Qualifiers: Chronicity: acute Qualified Code(s): J96.01 - Acute respiratory failure with hypoxia Category: Medical Code(s): J96.91 - Respiratory failure, unspecified with hypoxia (4) Hyperglycemia Status: Acute Category: Medical Code(s): R73.9 - Hyperglycemia, unspecified (5) Acute respiratory distress syndrome (ARDS) due to 2019 novel coronavirus Status: Acute Category: Medical Code(s): U07.1 - COVID-19; J80 - Acute respiratory distress syndrome - Assessment and plan all Dx Assessment and Plan for all problems:: #Acute hypoxic respiratory failure: #COVID-19 pneumonia: Respiratory status continued to worsen on 05/06 eventually needing intubation and mechanical ventilatory support, risks and benefits were explained and CODE STATUS was discussed d before intubation. Lower extremity venous Doppler negative for DVT. Plan: -Continue mechanical ventilatory support. Chest x-ray stable. ABG from this morning showed PO2 of 107.4 with a pH of 7.4. Hypercarbia improved. Will decrease the FiO2 50% and will wean PEEP to 16 as tolerated. - Continue AnalgoSedation with Versed and fentanyl with CPOT gal less than or euqal to 2 and RASS goal of 1-2, patient does not need deep sedation, wean as tolerated. - VAP bundle Elevate head of the bed at 30 to 45 degrees Oral care with chlorhexidne GI ulcer prophylaxis - Famotidine 20mg IV BID Chemical DVT prophylaxis -Abdomen soft nontender. Renal function stable. Hyperkalemia noted. -Recommend initiating tube feeds #Thank you involving pulmonary in this patient care. We will continue to follow. Please call with any questions or concerns.
[2021-05-11 12:06] LABS: Basophils % 0.6 % (0.1-2.0); Eosinophils % 0.7 % (0.1-12.0); Hematocrit 41.4 % (42.0-52.0); Hemoglobin 12.4 g/dL (14.1-18.0); Lymphocytes # 0.2 K/mm3 (0.7-4.5); Lymphocytes % 8.4 % (10-50); Mean Corpuscular Hemoglobin 26.2 pg (27.0-31.2); Mean Corpuscular Volume 87.5 fl (80-94); Mean Platelet Volume 9.1 fl (7.4-10.4); Monocytes % 1.6 % (1.7-9.3); Neutrophils # 1.6 K/mm3 (1.8-7.8); Neutrophils % 88.6 % (37.0-80.0); Platelet Count 262 K/mm3 (142-424); Red Blood Count 4.73 M/mm3 (4.60-6.20); Red Cell Distribution Width 15.8 % (11.5-17.5); White Blood Count 1.8 K/mm3 (4.8-10.8)
[2021-05-11 12:08] LABS: MANUAL DIFFERENTIAL MANUAL DIFFERENTIAL (MANUAL DIFF)
[2021-05-11 12:19] LABS: POC Glucose,Bedside 310 (70-110)
[2021-05-11 12:26] LABS: Chloride 102 mmol/L (98-107); Potassium 4.3 mmoL/L (3.5-5.1); Sodium 140 mmol/L (136-145)
[2021-05-11 12:28] LABS: Blood Urea Nitrogen 23 mg/dl (9-20)
[2021-05-11 12:29] LABS: Alanine Aminotransferase 15 U/L (12-78); Albumin Level 2.7 g/dl (3.5-5.0); Albumin/Globulin Ratio 0.9 (1.1-1.8); Alkaline Phosphatase 61 U/L (38-126); Anion Gap 6.3 mEq/L (5-15); Aspartate Amino Transferase 27 U/L (17-59); Calcium 8.4 mg/dl (8.4-10.2); Carbon Dioxide 36 mmol/L (22.0-30.0); Creatinine Clearance Estimated 211 mL/min (50-200); Estimated Glomerular Filt Rate 156 ml/min (>60); GFR (African American) 189 ML/MIN (>60); Globulin 2.9 g/dL (1.3-3.2); Glucose 337 mg/dl (74-100); Hypochromasia 2+; Lymphocytes % 9 % (10-50); Monocytes % 3 % (2-9); Neutrophils % 88 % (42-76); Platelet Estimate Normal; Total Cells Counted 100; Total Protein,Serum 5.6 g/dl (6.3-8.2)
--- NOTE | 2021-05-11 14:30 | PC.NURSE ---
Patient experiencing erythema in lateral side of LLE. Firm to touch. Provider Polo, notified. Doppler ordered. No further orders at this time. Will continue to monitor
--- NOTE | 2021-05-11 15:22 | DIET.NUTRFU ---
Addendum entered by Linnea Moulton 05/18/21 16:56: Pt has been extubated. [facility] has seen him and noted continued high aspiration risk, he will continue to be NPO and reassessed. He is receiving IVF. Weight stable. BG moderate- avg. 225. Continuing to monitor. Addendum entered by Linnea Moulton 05/15/21 17:08: Tolerating TFs well. IVF decreased to 25ml/h. BG moderate-high avg. 275. Weight stable. No changes to regimen at this time. Addendum entered by Linnea Moulton 05/13/21 11:15: Continues to tolerate TFs at goal rate well. Discussed with Dr. Gambino recommendation for decreasing IVF. BG remain high >300, weight stable, renal function stable, did have a BM today and yesterday. Original Note: Tube feeds at goal rate and tolerating well. Recommend dc'ing IVF dt formula and flushes providing 2000ml, 1706ml from formula alone. BG have been high >300, weight stable, no BM t/o stay, renal function stable, electrolytes wnl. No changes to regimen at this time, continuing to monitor.
--- NOTE | 2021-05-11 16:14 | PC.WOUNDNOTE ---
DTI left heel
[2021-05-11 16:37] LABS: POC Glucose,Bedside 356 (70-110)
--- NOTE | 2021-05-11 17:25 | PC.NURSE ---
Patient experiencing hypotension, wbc count 1.8, febrile (101.2); MD Immanuel ordered 1 liter NS bolus; tepid bath given.
--- NOTE | 2021-05-11 17:32 | PC.WOUNDNOTE ---
6x3 deep tissue injury, left heel
--- NOTE | 2021-05-11 18:00 | PC.NURSE ---
Patient now exhibiting dysconjugate gaze. Pt remains PERRLA at 2mm. Triple flexion remains present in right LE. Provider, Immanuel, notified. No further orders at this time. Will continue to monitor
--- NOTE | 2021-05-11 18:18 | HMH.ACPN2 ---
Internal Medicine - PN: Subj *Date: 05/11/21 *Time: 18:18 Interval history: Patient remained intubated and sedated in the ICU yesterday afternoon and this morning. Pulmonary note regarding ventilator management reviewed and appreciated. Patient grew Staph aureus-not MRSA-out of endotracheal aspirate late yesterday and nafcillin was started by me. Patient has had a fever over the past 24 hours also. Ominously over the past couple of hours patient's blood pressure has begun to drop and we have given a 1 L fluid bolus. Exam Vital signs and Labs for Last 24 Hours: Temp Pulse Resp BP Pulse Ox 99.9 F H 89 26 H 103/57 L 96 05/11/21 18:00 05/11/21 18:00 05/11/21 18:00 05/11/21 18:00 05/11/21 18:00 Laboratory Results - last 24 hr 05/10/21 06:06: POC Glucose 338 H* 05/10/21 11:19: POC Glucose 397 H* 05/10/21 16:16: POC Glucose 331 H* 05/10/21 22:51: POC Glucose 371 H* 05/11/21 05:11: POC Glucose 366 H* 05/11/21 06:00: Specimen Source Right radial, O2 % 60, ABG pH 7.40, ABG pCO2 52.6 H, ABG pO2 107.4 H, ABG HCO3 31.8 H, ABG Total CO2 33.4 H, ABG O2 Saturation 98, ABG Base Excess 7.0 H, Barrett Test N/a, Vent Rate 28, Tidal Volume 500, PEEP 16 05/11/21 11:43: WBC 1.8 L* D, RBC 4.73, Hgb 12.4 L, Hct 41.4 L, MCV 87.5, MCH 26.2 L, MCHC 30.0 L, RDW 15.8, Plt Count 262, MPV 9.1, Neut % (Auto) 88.6 H, Lymph % (Auto) 8.4 L, [place] % (Auto) 1.6 L, Eos % (Auto) 0.7, Baso % (Auto) 0.6, Neut # (Auto) 1.6 L, Lymph # (Auto) 0.2 L, [place] # (Auto) 0.0 L, Eos # (Auto) 0.0, Baso # (Auto) 0.0, Total Counted 100, Neutrophils % (Manual) 88 H, Lymphocytes % (Manual) 9 L, Monocytes % (Manual) 3, Platelet Estimate Normal, Hypochromasia 2+ 05/11/21 11:43: Sodium 140, Potassium 4.3, Chloride 102, Carbon Dioxide 36 H, Anion Gap 6.3, BUN 23 H, Creatinine 0.60 L, Estimated Creat Clear 211, Estimated GFR 156, Est GFR ( Amer) 189, Glucose 337 H, Calcium 8.4, Total Bilirubin 1.0, AST 27 D, ALT 15 D, Alkaline Phosphatase 61, Total Protein 5.6 L, Albumin 2.7 L, Globulin 2.9, Albumin/Globulin Ratio 0.9 L 05/11/21 12:12: POC Glucose 310 H* 05/11/21 16:30: POC Glucose 356 H* I & O for Last 24 hours: Intake & Output 05/09/21 05/10/21 05/11/21 05/12/21 11:59 11:59 11:59 11:59 Intake Total 3753.125 / 3898.125 5352.458 / 5514.458 4869.541 / 5035.541 2188.708 / 2188.708 Output Total 2286 / 2548 4023 / 4206 4049 / 4199 1460 / 1460 Balance 1467.125 / 4162.615 7107.458 / 1308.458 820.541 / 836.541 728.708 / 728.708 Weight 488 lb 1.655 oz 482 lb 5.942 oz 476 lb 3.175 oz Narrative: Intubated, sedated. Good perfusion of extremities. Abdomen obese but soft. Heart rate regular. Lungs with symmetric air entry but very difficult exam. ENT exam shows placement of ET tube and NG tube. Assessment and Plan (1) Obesity with serious comorbidity Status: Acute Qualifiers: Obesity type: due to excess calories Obesity classification: unspecified obesity classification Qualified Code(s): E66.09 - Other obesity due to excess calories Category: Medical Code(s): E66.9 - Obesity, unspecified (2) Pneumonia due to COVID-19 virus Status: Acute Category: Medical Code(s): U07.1 - COVID-19; J12.82 - Pneumonia due to coronavirus disease 2019 (3) Respiratory failure with hypoxia Status: Acute Qualifiers: Chronicity: acute Qualified Code(s): J96.01 - Acute respiratory failure with hypoxia Category: Medical Code(s): J96.91 - Respiratory failure, unspecified with hypoxia (4) Hyperglycemia Status: Acute Category: Medical Code(s): R73.9 - Hyperglycemia, unspecified (5) Acute respiratory distress syndrome (ARDS) due to 2019 novel coronavirus Status: Acute Category: Medical Code(s): U07.1 - COVID-19; J80 - Acute respiratory distress syndrome - Assessment and plan all Dx Assessment and Plan for all problems:: I am very concerned about the drop in blood pressure. Fluid support. Pressors if needed. This would obviously
--- NOTE | 2021-05-11 19:13 | PC.NURSE ---
RN passed report to plant operator/shift supervisor nurse to let the following day shift nurse know the patient has yeast under his right breast extending to his arm. stated to let Immanuel know in AM.
[2021-05-11 19:55] LABS: POC Glucose,Bedside 387 (70-110)
[2021-05-12] VITALS (37 sets, daily range): BP systolic 108–152; BP diastolic 53–89; PULSE 60–84; RESP 28–30; TEMP 37.3–38.4; O2SAT 91–98; BMI 60.0
--- NOTE | 2021-05-12 02:18 | PC.NURSE ---
He continues to be intubated and sedated. He moves with tactile stimuli. He became febrile and was administered acetaminophen. His HOB is elevated 30 degrees. He is being turned and repositioned q 2 hours. F/c with dark yellow, cloudy urine with sediment. Oral care provided.
[2021-05-12 05:19] LABS: POC Glucose,Bedside 302 (70-110)
[2021-05-12 06:00] LABS: Chloride 104 mmol/L (98-107); Potassium 4.4 mmoL/L (3.5-5.1); Sodium 140 mmol/L (136-145)
--- NOTE | 2021-05-12 06:00 | XR_ITS ---
PROCEDURE INFORMATION: Exam: XR Chest Exam date and time: 05/12/2021 6:00 AM Age: 30 years old Clinical indication: Device placement; Ett placement (vent status); Patient HX: F/u; Additional info: Intubation TECHNIQUE: Imaging protocol: XR of the chest. Views: 1 view. COMPARISON: CR XR CHEST PORTABLE 05/11/2021 5:28 AM FINDINGS: Tubes, catheters and devices: Endotracheal tube terminates approximately 5 cm above the noah. NG tube traverses the GE junction and passes off the inferior margin of the image. Lungs: Low lung volumes with similar patchy bilateral airspace opacities. Pleural spaces: Unremarkable. No pleural effusion. No pneumothorax. Heart/Mediastinum: Unremarkable. No cardiomegaly. Bones/joints: Unremarkable. IMPRESSION: 1. Endotracheal tube terminates approximately 5 cm above the noah. 2. Low lung volumes with similar patchy bilateral airspace opacities.
[2021-05-12 06:02] LABS: Basophils % 0.3 % (0.1-2.0); Eosinophils # 0.1 K/mm3 (0.0-0.4); Eosinophils % 2.1 % (0.1-12.0); Hematocrit 40.9 % (42.0-52.0); Hemoglobin 12.3 g/dL (14.1-18.0); Lymphocytes # 0.2 K/mm3 (0.7-4.5); Lymphocytes % 5.4 % (10-50); Mean Corpuscular HGB Conc 30.2 g/dL (31.8-35.4); Mean Corpuscular Hemoglobin 25.8 pg (27.0-31.2); Mean Corpuscular Volume 85.7 fl (80-94); Mean Platelet Volume 9.7 fl (7.4-10.4); Monocytes # 0.2 K/mm3 (0.1-1.0); Monocytes % 3.7 % (1.7-9.3); Neutrophils # 3.7 K/mm3 (1.8-7.8); Neutrophils % 88.5 % (37.0-80.0); Platelet Count 246 K/mm3 (142-424); Red Blood Count 4.77 M/mm3 (4.60-6.20); Red Cell Distribution Width 15.9 % (11.5-17.5); White Blood Count 4.2 K/mm3 (4.8-10.8)
[2021-05-12 06:03] LABS: Alanine Aminotransferase 18 U/L (12-78); Albumin Level 2.6 g/dl (3.5-5.0); Albumin/Globulin Ratio 0.9 (1.1-1.8); Alkaline Phosphatase 54 U/L (38-126); Anion Gap 6.4 mEq/L (5-15); Aspartate Amino Transferase 37 U/L (17-59); Bilirubin,Total 0.6 mg/dl (0.2-1.3); Blood Urea Nitrogen 20 mg/dl (9-20); Carbon Dioxide 34 mmol/L (22.0-30.0); Creatinine Clearance Estimated 254 mL/min (50-200); Estimated Glomerular Filt Rate 193 ml/min (>60); GFR (African American) 233 ML/MIN (>60); Globulin 2.9 g/dL (1.3-3.2); Total Protein,Serum 5.5 g/dl (6.3-8.2)
[2021-05-12 06:04] LABS: Calcium 8.3 mg/dl (8.4-10.2); Glucose 326 mg/dl (74-100)
[2021-05-12 06:09] LABS: MANUAL DIFFERENTIAL MANUAL DIFFERENTIAL (MANUAL DIFF)
--- NOTE | 2021-05-12 06:53 | PC.NURSE ---
RESP CARE NOTE: PEEP decreased to 14 cmH2O, per Dr Cuellar verbal order to titrate oxygen and/or Peep.
--- NOTE | 2021-05-12 07:40 | HMH.ACPN2 ---
Internal Medicine - PN: Subj *Date: 05/12/21 *Time: 18:04 Interval history: Sedated this morning on exam. Continues to show improvement in mechanical ventilation tolerance. Improved blood gas this morning. Fever persists. Having daily bowel movements. Tube feeds continue. No response to physical stimuli this morning. GCS of 3 Exam Vital signs and Labs for Last 24 Hours: Temp Pulse Resp BP Pulse Ox 100.4 F H 69 28 H 117/66 97 05/12/21 06:34 05/12/21 06:34 05/12/21 06:34 05/12/21 06:34 05/12/21 06:34 Laboratory Results - last 24 hr 05/11/21 11:43: WBC 1.8 L* D, RBC 4.73, Hgb 12.4 L, Hct 41.4 L, MCV 87.5, MCH 26.2 L, MCHC 30.0 L, RDW 15.8, Plt Count 262, MPV 9.1, Neut % (Auto) 88.6 H, Lymph % (Auto) 8.4 L, Delta % (Auto) 1.6 L, Eos % (Auto) 0.7, Baso % (Auto) 0.6, Neut # (Auto) 1.6 L, Lymph # (Auto) 0.2 L, Delta # (Auto) 0.0 L, Eos # (Auto) 0.0, Baso # (Auto) 0.0, Total Counted 100, Neutrophils % (Manual) 88 H, Lymphocytes % (Manual) 9 L, Monocytes % (Manual) 3, Platelet Estimate Normal, Hypochromasia 2+ 05/11/21 11:43: Sodium 140, Potassium 4.3, Chloride 102, Carbon Dioxide 36 H, Anion Gap 6.3, BUN 23 H, Creatinine 0.60 L, Estimated Creat Clear 211, Estimated GFR 156, Est GFR ( Amer) 189, Glucose 337 H, Calcium 8.4, Total Bilirubin 1.0, AST 27 D, ALT 15 D, Alkaline Phosphatase 61, Total Protein 5.6 L, Albumin 2.7 L, Globulin 2.9, Albumin/Globulin Ratio 0.9 L 05/11/21 12:12: POC Glucose 310 H* 05/11/21 16:30: POC Glucose 356 H* 05/11/21 19:48: POC Glucose 387 H* 05/12/21 03:50: WBC 4.2 L D, RBC 4.77, Hgb 12.3 L, Hct 40.9 L, MCV 85.7, MCH 25.8 L, MCHC 30.2 L, RDW 15.9, Plt Count 246, MPV 9.7, Neut % (Auto) 88.5 H, Lymph % (Auto) 5.4 L, Delta % (Auto) 3.7, Eos % (Auto) 2.1, Baso % (Auto) 0.3, Neut # (Auto) 3.7, Lymph # (Auto) 0.2 L, Delta # (Auto) 0.2, Eos # (Auto) 0.1, Baso # (Auto) 0.0 05/12/21 03:50: Sodium 140, Potassium 4.4, Chloride 104, Carbon Dioxide 34 H, Anion Gap 6.4, BUN 20, Creatinine 0.50 L, Estimated Creat Clear 254, Estimated GFR 193, Est GFR ( Amer) 233 D, Glucose 326 H, Calcium 8.3 L, Total Bilirubin 0.6, AST 37 D, ALT 18, Alkaline Phosphatase 54, Total Protein 5.5 L, Albumin 2.6 L, Globulin 2.9, Albumin/Globulin Ratio 0.9 L 05/12/21 05:12: POC Glucose 302 H* I & O for Last 24 hours: Intake & Output 05/09/21 05/10/21 05/11/21 05/12/21 23:59 23:59 23:59 23:59 Intake Total 4091.458 / 4091.458 5152.583 / 5152.583 5755.791 / 5755.791 1705.708 / 1705.708 Output Total 3774 / 3834 3311 / 3311 4870 / 5120 1650 / 1650 Balance 317.458 / 394.050 9478.583 / 1841.583 885.791 / 635.791 55.708 / 55.708 Weight 221.4 kg 218.8 kg 216 kg 219.3 kg Narrative: Intubated, sedated. Good perfusion of extremities. Abdomen obese but soft. Heart rate regular. Lungs with symmetric air entry but very difficult exam. ENT exam shows placement of ET tube and NG tube. Assessment and Plan (1) Obesity with serious comorbidity Status: Acute Qualifiers: Obesity type: due to excess calories Obesity classification: unspecified obesity classification Qualified Code(s): E66.09 - Other obesity due to excess calories Category: Medical Code(s): E66.9 - Obesity, unspecified (2) Pneumonia due to COVID-19 virus Status: Acute Category: Medical Code(s): U07.1 - COVID-19; J12.82 - Pneumonia due to coronavirus disease 2019 (3) Respiratory failure with hypoxia Status: Acute Qualifiers: Chronicity: acute Qualified Code(s): J96.01 - Acute respiratory failure with hypoxia Category: Medical Code(s): J96.91 - Respiratory failure, unspecified with hypoxia (4) Hyperglycemia Status: Acute Category: Medical Code(s): R73.9 - Hyperglycemia, unspecified (5) Acute respiratory distress syndrome (ARDS) due to 2019 novel coronavirus Status: Acute Category: Medical Code(s): U07.1 - COVID-19; J80 - Acute respiratory distress syndrome - Assessment and plan all Dx Assessment an
[2021-05-12 08:03] LABS: ABG Base Excess 8.2 mmol/L (-2.4-2.3); ABG HCO3 31.7 mmhg (22.0-26.0); ABG Oxygen Saturation 99 % (90-100); ABG PCO2 43.4 mmhg (35.0-45.0); ABG PH 7.48 mmol/L (7.35-7.45); ABG PO2 125.7 mmhg (80-100)
[2021-05-12 08:13] LABS: Allen's Test acceptable; Oxygen 50 %; PEEP 14; Tidal Volume 500; Vent Rate 28
[2021-05-12 08:14] LABS: Lactate Arterial 1.3 mmol/L (0.4-2.0)
[2021-05-12 08:52] LABS: Eosinophils % 2 % (0-3); Lymphocytes % 6 % (10-50); Monocytes % 4 % (2-9); Neutrophils % 87 % (42-76); Total Cells Counted 100
[2021-05-12 08:53] LABS: Hypochromasia 2+; Platelet Estimate Normal
--- NOTE | 2021-05-12 10:29 | PC.NURSE ---
Peep decreased to [address] Cuellar @ [phone]
--- NOTE | 2021-05-12 10:32 | PC.NURSE ---
Pt lying in prone position @ this time
[2021-05-12 11:34] LABS: POC Glucose,Bedside 312 (70-110)
--- NOTE | 2021-05-12 11:42 | PC.NURSE ---
Called Aunt, updated on plan of care
--- NOTE | 2021-05-12 12:02 | HMH.PULMPN ---
Internal Medicine - PN: Subj *Date: 05/12/21 *Time: 12:02 Interval history: No acute respiratory events overnight. Patient respiratory status and oxygenation continued to improve Exam - Constitutional Constitutional:: Present: no acute distress, comfortable - HENMT Exam HENMT: Present: normocephalic - Eye Exam Eyes:: Present: normal appearance both eyes and related structures - Neck Exam Neck:: Present: normal visual inspection - Respiratory Exam Respiratory:: Present: no respiratory distress, decreased breath sounds, rales - Cardiovascular Exam Cardiac:: Present: S1, S2 - GI Exam GI:: Present: soft, obese - Skin Exam Skin: Present: warm, rash - Neurological Exam Neurological: Absent: alert, awake, normal cognition - Extremities Exam Extremities: Present: no cyanosis, no clubbing, edema Assessment and Plan (1) Obesity with serious comorbidity Status: Acute Qualifiers: Obesity type: due to excess calories Obesity classification: unspecified obesity classification Qualified Code(s): E66.09 - Other obesity due to excess calories Category: Medical Code(s): E66.9 - Obesity, unspecified (2) Pneumonia due to COVID-19 virus Status: Acute Category: Medical Code(s): U07.1 - COVID-19; J12.82 - Pneumonia due to coronavirus disease 2019 (3) Respiratory failure with hypoxia Status: Acute Qualifiers: Chronicity: acute Qualified Code(s): J96.01 - Acute respiratory failure with hypoxia Category: Medical Code(s): J96.91 - Respiratory failure, unspecified with hypoxia (4) Hyperglycemia Status: Acute Category: Medical Code(s): R73.9 - Hyperglycemia, unspecified (5) Acute respiratory distress syndrome (ARDS) due to 2019 novel coronavirus Status: Acute Category: Medical Code(s): U07.1 - COVID-19; J80 - Acute respiratory distress syndrome - Assessment and plan all Dx Assessment and Plan for all problems:: #Acute hypoxic respiratory failure: #COVID-19 pneumonia: Respiratory status continued to worsen on 05/06 eventually needing intubation and mechanical ventilatory support, risks and benefits were explained and CODE STATUS was discussed d before intubation. Lower extremity venous Doppler negative for DVT. Plan: -Continue mechanical ventilatory support. ABG continue to show improving oxygenation. PEEP weaned to 10 and FiO2 50%. Will wean sedation and facilitate spontaneous breathing trial. -Continue remdesivir dexamethasone and barcitinib for COVID-19 pneumonia -Completed 5 days of levofloxacin - Continue AnalgoSedation with Versed and fentanyl with CPOT gal less than or euqal to 2 and RASS goal of 1-2, patient does not need deep sedation, wean as tolerated. - VAP bundle Elevate head of the bed at 30 to 45 degrees Oral care with chlorhexidne GI ulcer prophylaxis - Famotidine 20mg IV BID Chemical DVT prophylaxis -Abdomen soft nontender. -Renal function stable. -Leukocytosis improving #Thank you involving pulmonary in this patient care. We will continue to follow. Please call with any questions or concerns.
--- NOTE | 2021-05-12 12:35 | PC.NURSE ---
Pt bathed and linens changed this shift. Pt did have a med size brown loose BM. Skin to bottom intact, preventative dressing put in place. Torres care performed. Powder applied to folds. Skin under (R) breast excoriated, pillow case put in place to minimize skin contact. Heels floating. Pt currently turned on (L) side.
[2021-05-12 16:20] LABS: POC Glucose,Bedside 296 (70-110)
--- NOTE | 2021-05-12 18:19 | PC.NURSE ---
No acute changes. Remains vented. Sedation has been weaned gradually. Versed currently @ 0.1 mg/kg/hr, Fentanyl @ 80 mcg/hr. Gag intact. PERRLA, pupils 2 mm. Pt will arouse when oral care performed, but quickly goes back to resting state. Pt has been turned Q2H w/ assistance of jorge bed. Lungs diminished throughout. HR regular. NSR on tely, rate currently in 70's. Abdomen is large, soft w/ active BS. TF currently @ goal rate, tolerating well. Torres cath to drain @ bedside w/ deni colored, sediment appearing urine noted. Heels remain floated. Family have called multiple times this shift, updated on plan of care. Remains febrile, tylenol given this shift.
[2021-05-12 20:53] LABS: POC Glucose,Bedside 259 (70-110)
[2021-05-13] VITALS (34 sets, daily range): BP systolic 97–171; BP diastolic 51–94; PULSE 60–130; RESP 26–47; TEMP 37.4–39.3; O2SAT 89–99; BMI 59.9
--- NOTE | 2021-05-13 06:00 | XR_ITS ---
PROCEDURE INFORMATION: Exam: XR Chest Exam date and time: 05/13/2021 6:00 AM Age: 30 years old Clinical indication: Device placement; Ett placement (vent status); Patient HX: F/u vent; Additional info: Intubated TECHNIQUE: Imaging protocol: XR of the chest. Views: 1 view. COMPARISON: CR XR CHEST PORTABLE 05/12/2021 5:45 AM FINDINGS: Tubes, catheters and devices: Endotracheal tube appears to be at the level of clavicular heads. Nasogastric tube is noted,, not well seen distally. Lungs: Heterogeneous pulmonary opacities. Pleural spaces: No pleural effusion. No pneumothorax. Heart/Mediastinum: Unremarkable cardiomediastinal silhouette. Bones/joints: No acute osseous findings. Other findings: Limited study due to patient's body habitus. IMPRESSION: 1. Endotracheal tube appears to be at the level of clavicular heads. 2. Heterogeneous pulmonary opacities.
[2021-05-13 07:46] LABS: ABG Base Excess 8.1 mmol/L (-2.4-2.3); ABG HCO3 32.4 mmhg (22.0-26.0); ABG Oxygen Saturation 94 % (90-100); ABG PCO2 49.9 mmhg (35.0-45.0); ABG PH 7.43 mmol/L (7.35-7.45); ABG PO2 67.3 mmhg (80-100); ABG TCO2 33.9 mmhg (23-27)
[2021-05-13 08:14] LABS: Oxygen 50 %; PEEP 10; Source Right Radial; Tidal Volume 500; Vent Rate 28
[2021-05-13 09:08] LABS: Basophils % 0.6 % (0.1-2.0); Eosinophils # 0.1 K/mm3 (0.0-0.4); Eosinophils % 2.1 % (0.1-12.0); Hematocrit 43.1 % (42.0-52.0); Hemoglobin 13.1 g/dL (14.1-18.0); Lymphocytes # 0.5 K/mm3 (0.7-4.5); Lymphocytes % 8.6 % (10-50); Mean Corpuscular HGB Conc 30.5 g/dL (31.8-35.4); Mean Corpuscular Hemoglobin 26.4 pg (27.0-31.2); Mean Corpuscular Volume 86.6 fl (80-94); Mean Platelet Volume 9.5 fl (7.4-10.4); Monocytes # 0.2 K/mm3 (0.1-1.0); Monocytes % 2.9 % (1.7-9.3); Neutrophils % 85.7 % (37.0-80.0); Platelet Count 255 K/mm3 (142-424); Red Blood Count 4.98 M/mm3 (4.60-6.20); Red Cell Distribution Width 15.9 % (11.5-17.5); White Blood Count 5.8 K/mm3 (4.8-10.8)
[2021-05-13 09:12] LABS: MANUAL DIFFERENTIAL MANUAL DIFFERENTIAL (MANUAL DIFF)
[2021-05-13 09:15] LABS: Chloride 99 mmol/L (98-107); Potassium 4.2 mmoL/L (3.5-5.1); Sodium 137 mmol/L (136-145)
[2021-05-13 09:18] LABS: Alanine Aminotransferase 18 U/L (12-78); Albumin Level 2.6 g/dl (3.5-5.0); Albumin/Globulin Ratio 0.8 (1.1-1.8); Alkaline Phosphatase 57 U/L (38-126); Aspartate Amino Transferase 34 U/L (17-59); Bilirubin,Total 0.5 mg/dl (0.2-1.3); Blood Urea Nitrogen 15 mg/dl (9-20); Carbon Dioxide 36 mmol/L (22.0-30.0); Creatinine Clearance Estimated 317 mL/min (50-200); Estimated Glomerular Filt Rate 249 ml/min (>60); GFR (African American) 302 ML/MIN (>60); Globulin 3.1 g/dL (1.3-3.2); Glucose 273 mg/dl (74-100); Magnesium 1.8 mg/dl (1.6-2.3); Total Protein,Serum 5.7 g/dl (6.3-8.2)
--- NOTE | 2021-05-13 09:18 | HMH.PULMPN ---
Internal Medicine - PN: Subj *Date: 05/13/21 *Time: 14:38 Interval history: No acute respiratory events overnight. Exam - Constitutional Constitutional:: Present: no acute distress, comfortable - HENMT Exam HENMT: Present: normocephalic - Eye Exam Eyes:: Present: normal appearance both eyes and related structures - Neck Exam Neck:: Present: normal visual inspection - Respiratory Exam Respiratory:: Present: respiratory distress, decreased breath sounds, rales - Cardiovascular Exam Cardiac:: Present: S1, S2 - GI Exam GI:: Present: soft, obese - Skin Exam Skin: Present: warm, rash - Neurological Exam Neurological: Absent: alert, awake, normal cognition - Extremities Exam Extremities: Present: no cyanosis, no clubbing, edema Assessment and Plan (1) Obesity with serious comorbidity Status: Acute Qualifiers: Obesity type: due to excess calories Obesity classification: unspecified obesity classification Qualified Code(s): E66.09 - Other obesity due to excess calories Category: Medical Code(s): E66.9 - Obesity, unspecified (2) Pneumonia due to COVID-19 virus Status: Acute Category: Medical Code(s): U07.1 - COVID-19; J12.82 - Pneumonia due to coronavirus disease 2019 (3) Respiratory failure with hypoxia Status: Acute Qualifiers: Chronicity: acute Qualified Code(s): J96.01 - Acute respiratory failure with hypoxia Category: Medical Code(s): J96.91 - Respiratory failure, unspecified with hypoxia (4) Hyperglycemia Status: Acute Category: Medical Code(s): R73.9 - Hyperglycemia, unspecified (5) Acute respiratory distress syndrome (ARDS) due to 2019 novel coronavirus Status: Acute Category: Medical Code(s): U07.1 - COVID-19; J80 - Acute respiratory distress syndrome - Assessment and plan all Dx Assessment and Plan for all problems:: #Acute hypoxic respiratory failure: #COVID-19 pneumonia: Respiratory status continued to worsen on 05/06 eventually needing intubation and mechanical ventilatory support, risks and benefits were explained and CODE STATUS was discussed d before intubation. Lower extremity venous Doppler negative for DVT. Plan: -Continue mechanical ventilatory support. ABG and CXR reviewed. Chest x-ray stable, ABG improving oxygenation wean sedation as tolerated and perform SBT -Continue remdesivir dexamethasone and barcitinib for COVID-19 pneumonia -Completed 5 days of levofloxacin. Patient currently having febrile episodes at 102. Repeat blood cultures pending so far. He sputum from 05/06 grew MRSA. His chest x-ray showed improving infiltrates with improving oxygen requirements on his ABG. No evidence of leukocytosis. MRSA PCR POSITIVE. Closely monitor - Continue AnalgoSedation with Versed and fentanyl with CPOT gal less than or euqal to 2 and RASS goal of 1-2, patient does not need deep sedation, wean as tolerated. - VAP bundle Elevate head of the bed at 30 to 45 degrees Oral care with chlorhexidne GI ulcer prophylaxis - Famotidine 20mg IV BID Chemical DVT prophylaxis -Abdomen soft nontender. -Renal function stable. #Thank you involving pulmonary in this patient care. We will continue to follow. Please call with any questions or concerns.
[2021-05-13 09:19] LABS: Anion Gap 6.2 mEq/L (5-15)
[2021-05-13 09:37] LABS: Eosinophils % 2 % (0-3); Hypochromasia 3+; Lymphocytes % 6 % (10-50); Monocytes % 4 % (2-9); Neutrophils % 88 % (42-76); Platelet Estimate Normal; Total Cells Counted 100
--- NOTE | 2021-05-13 14:12 | PC.NURSE ---
Pt bathed and linens changed this AM. He required 6+ staff members when turning and cleaning pt. He did have a very large BM. Skin on pt's bottom remains intact. No signs of breakdown noted. New dressing put in place for preventative measure. Torres care performed, urine deni in color. Nystatin applied under (R) breast and (R) axillae. Oral care performed, he has had copious amounts of oral secretions this AM. When suctioning he will bite down in resistance. ETT valdovinos and circuit changed this AM by RT. NGT securement device changed. He has ran a temp since receiving report this AM. Tylenol admin x2 per OCT, temp currently 100.8 . PEEP increased to 12, FIO2 currently 70% (changes made by Dr. uCellar). Sedation weaned this AM, pt did not tolerate. He became tachypneic(40/min) , tachycardic (as high as 140's). Sedation increased back to 0.18 mg/kg/hr, Fentanyl @ 100 mcg/hr. He is currently resting on (R) side. Heels floating. Family have called and have been updated on plan of care.
--- NOTE | 2021-05-13 17:30 | HMH.ACPN2 ---
Internal Medicine - PN: Subj *Date: 05/13/21 *Time: 17:30 Interval history: Through the night and today patient has been able to be weaned somewhat off his ventilatory support. Remains stable in regards to pulse and blood pressure. I talked with nutrition services today about possibly decreasing IV fluids because of the free water amount in his tube feeds. Patient remains febrile. I reviewed culture results today. Exam Vital signs and Labs for Last 24 Hours: Temp Pulse Resp BP Pulse Ox 99.7 F H 78 28 H 117/61 95 05/13/21 17:00 05/13/21 17:00 05/13/21 17:00 05/13/21 17:00 05/13/21 17:00 Laboratory Results - last 24 hr 05/12/21 20:01: POC Glucose 259 H 05/13/21 07:23: Specimen Source Right radial, O2 % 50, ABG pH 7.43, ABG pCO2 49.9 H, ABG pO2 67.3 L, ABG HCO3 32.4 H, ABG Total CO2 33.9 H, ABG O2 Saturation 94, ABG Base Excess 8.1 H, Barrett Test N/a, ABG Lactate 1.0, Vent Rate 28, Tidal Volume 500, PEEP 10 05/13/21 08:50: WBC 5.8 D, RBC 4.98, Hgb 13.1 L, Hct 43.1, MCV 86.6, MCH 26.4 L, MCHC 30.5 L, RDW 15.9, Plt Count 255, MPV 9.5, Neut % (Auto) 85.7 H, Lymph % (Auto) 8.6 L, [place] % (Auto) 2.9, Eos % (Auto) 2.1, Baso % (Auto) 0.6, Neut # (Auto) 5.0, Lymph # (Auto) 0.5 L, [place] # (Auto) 0.2, Eos # (Auto) 0.1, Baso # (Auto) 0.0, Total Counted 100, Neutrophils % (Manual) 88 H, Lymphocytes % (Manual) 6 L, Monocytes % (Manual) 4, Eosinophils % (Manual) 2, Platelet Estimate Normal, Hypochromasia 3+ 05/13/21 08:50: Sodium 137, Potassium 4.2, Chloride 99, Carbon Dioxide 36 H, Anion Gap 6.2, BUN 15, Creatinine 0.40 L, Estimated Creat Clear 317 H, Estimated GFR 249, Est GFR ( Amer) 302 D, Glucose 273 H, Calcium 8.0 L, Magnesium 1.8, Total Bilirubin 0.5, AST 34, ALT 18, Alkaline Phosphatase 57, Total Protein 5.7 L, Albumin 2.6 L, Globulin 3.1, Albumin/Globulin Ratio 0.8 L I & O for Last 24 hours: Intake & Output 05/11/21 05/12/21 05/13/21 05/14/21 11:59 11:59 11:59 11:59 Intake Total 4869.541 / 5035.541 4078.416 / 4108.416 5341.250 / 5341.250 1751 / 1751 Output Total 4049 / 4199 4585 / 4860 4080 / 4330 1185 / 1185 Balance 820.541 / 836.541 -506.584 / -650.364 6371.250 / 1011.250 566 / 566 Weight 476 lb 3.175 oz 483 lb 7.579 oz 482 lb 5.942 oz Narrative: Intubated, sedated although is somewhat more responsive and will open his eyes to stimuli as sedation and ventilatory settings have been lowered. Lungs have bilateral symmetric air entry. Heart rate regular. His morbid obesity made to the exam extremely difficult. Abdomen soft. No visible skin wounds except for healing what appear to be insect bites on his lower legs. Nursing staff reports that when they returned him for bathing he has no visible cellulitis or abscess areas around his buttock or back. Assessment and Plan (1) Obesity with serious comorbidity Status: Acute Qualifiers: Obesity type: due to excess calories Obesity classification: unspecified obesity classification Qualified Code(s): E66.09 - Other obesity due to excess calories Category: Medical Code(s): E66.9 - Obesity, unspecified (2) Pneumonia due to COVID-19 virus Status: Acute Category: Medical Code(s): U07.1 - COVID-19; J12.82 - Pneumonia due to coronavirus disease 2019 (3) Respiratory failure with hypoxia Status: Acute Qualifiers: Chronicity: acute Qualified Code(s): J96.01 - Acute respiratory failure with hypoxia Category: Medical Code(s): J96.91 - Respiratory failure, unspecified with hypoxia (4) Hyperglycemia Status: Acute Category: Medical Code(s): R73.9 - Hyperglycemia, unspecified (5) Acute respiratory distress syndrome (ARDS) due to 2019 novel coronavirus Status: Acute Category: Medical Code(s): U07.1 - COVID-19; J80 - Acute respiratory distress syndrome - Assessment and plan all Dx Assessment and Plan for all problems:: 1. Appreciate pulmonary input and ventilatory weaning. 2. Nutrition support continues. Hung yanez
[2021-05-14] VITALS (30 sets, daily range): BP systolic 113–167; BP diastolic 60–103; PULSE 59–127; RESP 22–47; TEMP 37.2–38.2; O2SAT 89–98; BMI 599550.6
[2021-05-14 01:21] LABS: POC Glucose,Bedside 269 (70-110)
[2021-05-14 01:21] LABS: POC Glucose,Bedside 251 (70-110)
[2021-05-14 01:21] LABS: POC Glucose,Bedside 290 (70-110)
[2021-05-14 01:21] LABS: POC Glucose,Bedside 249 (70-110)
--- NOTE | 2021-05-14 05:57 | PC.NURSE ---
No acute changes overnight. Pt vent settings: FiO2 60%, PEEP 12, TV 500, RR 28, AC mode, 8.0 ETT, 24 @ lip. Pt has been at a RASS of -1,-2 for a majority of the shift. Able to follow commands when awake. Pt has been febrile, max T was 100.1, tylenol given x2. Pt has had copious secretions, oral care q2h and prn. Turned via bariatric bed q2h. heels floated. Remains sedated on fentanyl and versed. nystatin appiled to rash on chest and in folds prophylactically. UOP adequate via arana. VSS, no concerns at this time.
[2021-05-14 06:20] LABS: POC Glucose,Bedside 232 (70-110)
[2021-05-14 06:52] LABS: ABG Base Excess 12.6 mmol/L (-2.4-2.3); ABG HCO3 37.4 mmhg (22.0-26.0); ABG Oxygen Saturation 93 % (90-100); ABG PO2 65.4 mmhg (80-100); ABG TCO2 39.3 mmhg (23-27)
[2021-05-14 07:00] LABS: Oxygen 60 %; PEEP 12; Source Left Radial; Tidal Volume 500; Vent Rate 28
[2021-05-14 07:01] LABS: ABG PCO2 61.3 mmhg (35.0-45.0)
--- NOTE | 2021-05-14 07:22 | XR_ITS ---
PROCEDURE: XR CHEST PORTABLE CLINICAL HISTORY: ICU COMPARISON: CR XR CHEST PORTABLE from 05/11/2021 CR XR CHEST PORTABLE from 05/12/2021 CR XR CHEST PORTABLE from 05/13/2021 FINDINGS: This is a very poor inspiratory effort. The patient is obviously obese. Patchy ill-defined opacities are seen in both lower lung mahmood more prominent right side than left. Opacity at the right base appears more prominent than recent films but this likely secondary to very poor inspiration. There monitor lines overlying the chest. The endotracheal tube remains in good position well above the noah. There appears to be an NG tube place but the distal extent of the tube is not well seen. IMPRESSION: Essentially expiratory chest with persistent bilateral basilar opacities consistent with Covid19 pneumonia more prominent right side than left, no significant interval change when compared to recent films though very poor inspiration makes evaluation suboptimal Dictated by: Dr. Gigi Rosenbaum MD 05/14/2021 09:12 Dr. Gigi Rosenbaum MD in [facility] 05/14/2021 09:12
--- NOTE | 2021-05-14 08:46 | XR_ITS ---
PROCEDURE: XR CHEST PORTABLE PICC PLAC CLINICAL HISTORY: Confirm PICC line placement COMPARISON: CR XR CHEST PORTABLE from 05/12/2021 CR XR CHEST PORTABLE from 05/13/2021 CR XR CHEST PORTABLE from 05/14/2021 FINDINGS: The patient is morbidly obese definitely decreasing adequate visualization of the PICC line. The PICC line is seen ascending the left axillary vein with the tip likely near the junction of the innominate vein and SVC but I cannot be certain of the location. There is no pneumothorax. The endotracheal tube remains in good position above the noah. Again this is a poor inspiratory effort as film taken earlier in the day and prominent bilateral lower lobe pneumonic infiltrates are again seen. There is an NG tube in place. IMPRESSION: Approximate position of the PICC line as noted above, the actual distal extent of the tip is not adequately visualized Dictated by: Dr. Gigi Rosenbaum MD 05/14/2021 14:48 Dr. Gigi Rosenbaum MD in [facility] 05/14/2021 14:48
--- NOTE | 2021-05-14 08:53 | HMH.PULMPN ---
Internal Medicine - PN: Subj *Date: 05/14/21 *Time: 13:14 Interval history: No acute respiratory vents overnight. Patient remains on stable vent settings. Exam - Constitutional Constitutional:: Present: no acute distress, comfortable - HENMT Exam HENMT: Present: normocephalic - Eye Exam Eyes:: Present: normal appearance both eyes and related structures - Neck Exam Neck:: Present: normal visual inspection - Respiratory Exam Respiratory:: Present: no respiratory distress, decreased breath sounds, rales - Cardiovascular Exam Cardiac:: Present: S1, S2 - GI Exam GI:: Present: soft, obese - Skin Exam Skin: Present: warm, rash - Neurological Exam Neurological: Absent: alert, awake, normal cognition - Extremities Exam Extremities: Present: no cyanosis, no clubbing, edema Assessment and Plan (1) Obesity with serious comorbidity Status: Acute Qualifiers: Obesity type: due to excess calories Obesity classification: unspecified obesity classification Qualified Code(s): E66.09 - Other obesity due to excess calories Category: Medical Code(s): E66.9 - Obesity, unspecified (2) Pneumonia due to COVID-19 virus Status: Acute Category: Medical Code(s): U07.1 - COVID-19; J12.82 - Pneumonia due to coronavirus disease 2019 (3) Respiratory failure with hypoxia Status: Acute Qualifiers: Chronicity: acute Qualified Code(s): J96.01 - Acute respiratory failure with hypoxia Category: Medical Code(s): J96.91 - Respiratory failure, unspecified with hypoxia (4) Hyperglycemia Status: Acute Category: Medical Code(s): R73.9 - Hyperglycemia, unspecified (5) Acute respiratory distress syndrome (ARDS) due to 2019 novel coronavirus Status: Acute Category: Medical Code(s): U07.1 - COVID-19; J80 - Acute respiratory distress syndrome - Assessment and plan all Dx Assessment and Plan for all problems:: #Acute hypoxic respiratory failure: #COVID-19 pneumonia: Respiratory status continued to worsen on 05/06 eventually needing intubation and mechanical ventilatory support, risks and benefits were explained and CODE STATUS was discussed d before intubation. Lower extremity venous Doppler negative for DVT. Plan: -Continue mechanical ventilatory support. ABG and CXR reviewed. We will perform SBT at 10/10 and FiO2 50%. Wean sedation as tolerated and will plan for extubation. -Continue remdesivir dexamethasone and barcitinib for COVID-19 pneumonia -Completed 5 days of levofloxacin. Patient currently having febrile episodes at 102. Repeat blood cultures pending so far. He sputum from 05/06 grew MRSA. His chest x-ray showed improving infiltrates with improving oxygen requirements on his ABG. No evidence of leukocytosis. MRSA PCR POSITIVE. Closely monitor. On Nafacilin for MSSA -We will discontinue Versed, decrease his fentanyl proceed with as needed Versed and fentanyl as to manage his sedation. - VAP bundle Elevate head of the bed at 30 to 45 degrees Oral care with chlorhexidne GI ulcer prophylaxis - Famotidine 20mg IV BID Chemical DVT prophylaxis -Abdomen soft nontender. -Renal function stable. #Thank you involving pulmonary in this patient care. We will continue to follow. Please call with any questions or concerns.
[2021-05-14 09:15] LABS: ABG Base Excess 9.4 mmol/L (-2.4-2.3); ABG HCO3 33.6 mmhg (22.0-26.0); ABG Oxygen Saturation 95 % (90-100); ABG PH 7.44 mmol/L (7.35-7.45); ABG PO2 74.4 mmhg (80-100); ABG TCO2 35.1 mmhg (23-27)
[2021-05-14 09:16] LABS: Allen's Test acceptable; Oxygen 60 %; PEEP 12; Pressure Support 10
[2021-05-14 09:17] LABS: ABG PCO2 50.8 mmhg (35.0-45.0)
[2021-05-14 09:20] LABS: Basophils % 0.5 % (0.1-2.0); Eosinophils # 0.1 K/mm3 (0.0-0.4); Eosinophils % 1.4 % (0.1-12.0); Hematocrit 41.5 % (42.0-52.0); Lymphocytes # 0.6 K/mm3 (0.7-4.5); Mean Corpuscular HGB Conc 31.2 g/dL (31.8-35.4); Mean Corpuscular Hemoglobin 26.5 pg (27.0-31.2); Mean Corpuscular Volume 84.8 fl (80-94); Mean Platelet Volume 9.5 fl (7.4-10.4); Monocytes # 0.2 K/mm3 (0.1-1.0); Monocytes % 3.6 % (1.7-9.3); Neutrophils # 5.6 K/mm3 (1.8-7.8); Neutrophils % 85.6 % (37.0-80.0); Platelet Count 235 K/mm3 (142-424); White Blood Count 6.6 K/mm3 (4.8-10.8)
[2021-05-14 09:22] LABS: MANUAL DIFFERENTIAL MANUAL DIFFERENTIAL (MANUAL DIFF)
[2021-05-14 09:43] LABS: Chloride 95 mmol/L (98-107)
[2021-05-14 09:44] LABS: Potassium 4.4 mmoL/L (3.5-5.1); Sodium 133 mmol/L (136-145)
[2021-05-14 09:46] LABS: Alanine Aminotransferase 18 U/L (12-78); Anion Gap 6.4 mEq/L (5-15); Aspartate Amino Transferase 34 U/L (17-59); Blood Urea Nitrogen 13 mg/dl (9-20); Carbon Dioxide 36 mmol/L (22.0-30.0); Creatinine Clearance Estimated 423 mL/min (50-200); Estimated Glomerular Filt Rate 347 ml/min (>60); GFR (African American) 420 ML/MIN (>60)
[2021-05-14 09:47] LABS: Albumin Level 2.6 g/dl (3.5-5.0); Albumin/Globulin Ratio 0.8 (1.1-1.8); Alkaline Phosphatase 58 U/L (38-126); Bilirubin,Total 0.5 mg/dl (0.2-1.3); Calcium 8.3 mg/dl (8.4-10.2); Globulin 3.1 g/dL (1.3-3.2); Glucose 274 mg/dl (74-100); Total Protein,Serum 5.7 g/dl (6.3-8.2)
[2021-05-14 10:59] LABS: Hypochromasia 2+; Lymphocytes % 18 % (10-50); Monocytes % 10 % (2-9); Neutrophils % 71 % (42-76); Platelet Estimate Normal; Stomatocytes 1+; Total Cells Counted 100
[2021-05-14 12:00] LABS: POC Glucose,Bedside 229 (70-110)
[2021-05-14 15:59] LABS: POC Glucose,Bedside 269 (70-110)
--- NOTE | 2021-05-14 17:33 | HMH.ACPN2 ---
Internal Medicine - PN: Subj *Date: 05/14/21 *Time: 17:33 Interval history: Patient continues to slowly improve from a respiratory standpoint and ventilatory settings have been reduced. Tentative plan is for an SBT on 05/17/2021, patient sedation is also been reduced. Unfortunately patient continues to run fevers. Questionable source. On appropriate antibiotic therapy with nafcillin for MSSA from ET tube. Has finished Levaquin course. No other sources of infection currently are reasonable to account for this fever although fever curve is improving. Exam Vital signs and Labs for Last 24 Hours: Temp Pulse Resp BP Pulse Ox 99.9 F H 82 29 H 122/71 93 L 05/14/21 16:00 05/14/21 16:00 05/14/21 16:00 05/14/21 16:00 05/14/21 16:00 Laboratory Results - last 24 hr 05/13/21 05:29: POC Glucose 290 H 05/13/21 11:36: POC Glucose 249 H 05/13/21 16:13: POC Glucose 269 H 05/13/21 20:30: POC Glucose 251 H 05/14/21 05:31: POC Glucose 232 H 05/14/21 07:00: Specimen Source Left radial, O2 % 60, ABG pH 7.40, ABG pCO2 61.3 H, ABG pO2 65.4 L, ABG HCO3 37.4 H, ABG Total CO2 39.3 H, ABG O2 Saturation 93, ABG Base Excess 12.6 H, Barrett Test n/a, Vent Rate 28, Tidal Volume 500, PEEP 12 05/14/21 08:44: Specimen Source r radial, O2 % 60, ABG pH 7.44, ABG pCO2 50.8 H, ABG pO2 74.4 L, ABG HCO3 33.6 H, ABG Total CO2 35.1 H, ABG O2 Saturation 95, ABG Base Excess 9.4 H, Barrett Test acceptable, PEEP 12 05/14/21 09:00: WBC 6.6, RBC 4.90, Hgb 13.0 L, Hct 41.5 L, MCV 84.8, MCH 26.5 L, MCHC 31.2 L, RDW 16.0, Plt Count 235, MPV 9.5, Neut % (Auto) 85.6 H, Lymph % (Auto) 9.0 L, Emanuel % (Auto) 3.6, Eos % (Auto) 1.4, Baso % (Auto) 0.5, Neut # (Auto) 5.6, Lymph # (Auto) 0.6 L, [place] # (Auto) 0.2, Eos # (Auto) 0.1, Baso # (Auto) 0.0, Total Counted 100, Neutrophils % (Manual) 71, Band Neutrophils % 1.0, Lymphocytes % (Manual) 18, Monocytes % (Manual) 10 H, Platelet Estimate Normal, Hypochromasia 2+, Stomatocytes 1+ 05/14/21 09:00: Sodium 133 L, Potassium 4.4, Chloride 95 L, Carbon Dioxide 36 H, Anion Gap 6.4, BUN 13, Creatinine 0.30 L D, Estimated Creat Clear 423 H, Estimated GFR 347, Est GFR ( Amer) 420 D, Glucose 274 H, Calcium 8.3 L, Total Bilirubin 0.5, AST 34, ALT 18, Alkaline Phosphatase 58, Total Protein 5.7 L, Albumin 2.6 L, Globulin 3.1, Albumin/Globulin Ratio 0.8 L 05/14/21 11:51: POC Glucose 229 H 05/14/21 15:53: POC Glucose 269 H I & O for Last 24 hours: Intake & Output 05/12/21 05/13/21 05/14/21 05/15/21 11:59 11:59 11:59 11:59 Intake Total 4078.416 / 4108.416 5341.250 / 5341.250 4560.708 / 4612.708 740 / 740 Output Total 4585 / 4860 4080 / 4330 4455 / 4605 950 / 950 Balance -506.584 / -244.294 8437.250 / 1011.250 105.708 / 7.708 -210 / -210 Weight 483 lb 7.579 oz 482 lb 5.942 oz 479 lb 11.614 oz Microbiology Reports for the Last 24 Hours: Microbiology 05/11/21 18:45 Blood Blood Culture - Preliminary NO GROWTH AFTER 48 HOURS 05/11/21 18:48 Blood Blood Culture - Preliminary NO GROWTH AFTER 48 HOURS Narrative: Patient is intubated, NG tube in good position. Somewhat more responsive given reduced dose of sedatives. Abdomen soft. Skin unchanged. Lungs have rhonchorous sounds bilaterally but are symmetric. Heart rate regular. Assessment and Plan (1) Obesity with serious comorbidity Status: Acute Qualifiers: Obesity type: due to excess calories Obesity classification: unspecified obesity classification Qualified Code(s): E66.09 - Other obesity due to excess calories Category: Medical Code(s): E66.9 - Obesity, unspecified (2) Pneumonia due to COVID-19 virus Status: Acute Category: Medical Code(s): U07.1 - COVID-19; J12.82 - Pneumonia due to coronavirus disease 2018 (3) Respiratory failure with hypoxia Status: Acute Qualifiers: Chronicity: acute Qualified Code(s): J96.01 - Acute respiratory failure with hypoxia Category: Medic
[2021-05-14 19:51] LABS: POC Glucose,Bedside 264 (70-110)
[2021-05-15] VITALS (36 sets, daily range): BP systolic 113–170; BP diastolic 55–112; PULSE 70–129; RESP 26–41; TEMP 37.1–38.5; O2SAT 93–99; BMI 60.5
--- NOTE | 2021-05-15 00:53 | PC.NURSE ---
He continues in contact and airborne precautions. No changes in vent settings. Current vent settings: AC mode, TV 500, R 28, PEEP 12, FiO2 60%. Sedation increased r/t overbreathing the vent, frequent coughing, frequent ventilator alarms, and pulse increase to 140s. Plan to decrease sedation back to prior settings later this morning. He is currently NSR on telemetry. He is being turned and repositioned q 2 hours. Oral care provided. Cream color sputum present. HOB elevated 30 degrees. Ambu-bag at the bedside.
[2021-05-15 04:59] LABS: POC Glucose,Bedside 307 (70-110)
--- NOTE | 2021-05-15 05:00 | XR_ITS ---
PROCEDURE INFORMATION: Exam: XR Chest Exam date and time: 05/15/2021 5:00 AM Age: 30 years old Clinical indication: Device placement; Ett placement (vent status); Patient HX: F/u intubated; Additional info: PT intubated. TECHNIQUE: Imaging protocol: XR of the chest. Views: 1 view. COMPARISON: CR XR CHEST PORTABLE PICC PLAC 05/14/2021 2:17 PM FINDINGS: Tubes, catheters and devices: Endotracheal tube remains in place with the tip above the noah. Nasogastric tube remains in place. Lungs: There has been early improvement in the bilateral airspace disease. Pleural spaces: Unremarkable. No pleural effusion. No pneumothorax. Heart/Mediastinum: Unremarkable. No cardiomegaly. Bones/joints: Unremarkable. IMPRESSION: There has been early improvement in the bilateral airspace disease.
[2021-05-15 05:31] LABS: Basophils % 0.5 % (0.1-2.0); Eosinophils # 0.1 K/mm3 (0.0-0.4); Eosinophils % 0.7 % (0.1-12.0); Hematocrit 43.5 % (42.0-52.0); Hemoglobin 13.2 g/dL (14.1-18.0); Lymphocytes # 0.7 K/mm3 (0.7-4.5); Lymphocytes % 8.4 % (10-50); Mean Corpuscular HGB Conc 30.4 g/dL (31.8-35.4); Mean Corpuscular Hemoglobin 26.4 pg (27.0-31.2); Mean Corpuscular Volume 86.7 fl (80-94); Mean Platelet Volume 9.4 fl (7.4-10.4); Monocytes # 0.4 K/mm3 (0.1-1.0); Monocytes % 5.4 % (1.7-9.3); Neutrophils # 6.6 K/mm3 (1.8-7.8); Platelet Count 259 K/mm3 (142-424); Red Blood Count 5.02 M/mm3 (4.60-6.20); Red Cell Distribution Width 15.7 % (11.5-17.5); White Blood Count 7.7 K/mm3 (4.8-10.8)
[2021-05-15 05:33] LABS: MANUAL DIFFERENTIAL MANUAL DIFFERENTIAL (MANUAL DIFF)
[2021-05-15 05:44] LABS: Alanine Aminotransferase 19 U/L (12-78); Albumin Level 2.7 g/dl (3.5-5.0); Albumin/Globulin Ratio 0.8 (1.1-1.8); Alkaline Phosphatase 60 U/L (38-126); Anion Gap 4.5 mEq/L (5-15); Aspartate Amino Transferase 34 U/L (17-59); Bilirubin,Total 0.7 mg/dl (0.2-1.3); Blood Urea Nitrogen 17 mg/dl (9-20); Calcium 8.5 mg/dl (8.4-10.2); Carbon Dioxide 37 mmol/L (22.0-30.0); Chloride 96 mmol/L (98-107); Creatinine Clearance Estimated 317 mL/min (50-200); Estimated Glomerular Filt Rate 249 ml/min (>60); GFR (African American) 302 ML/MIN (>60); Globulin 3.2 g/dL (1.3-3.2); Magnesium 1.8 mg/dl (1.6-2.3); Potassium 4.5 mmoL/L (3.5-5.1); Sodium 133 mmol/L (136-145); Total Protein,Serum 5.9 g/dl (6.3-8.2)
[2021-05-15 05:53] LABS: Glucose 330 mg/dl (74-100)
[2021-05-15 06:04] LABS: Lymphocytes % 10 % (10-50); Neutrophils % 86 % (42-76); Total Cells Counted 100
[2021-05-15 06:05] LABS: Hypochromasia 2+; Platelet Estimate Normal
--- NOTE | 2021-05-15 06:25 | PC.NURSE ---
RESP CARE NOTE: Pt placed on SPONT breathing trial of 10/12 cmH2O and 60% FIO2. Pt tolerating trial well.
[2021-05-15 07:45] LABS: ABG Base Excess 4.8 mmol/L (-2.4-2.3); ABG HCO3 28.7 mmhg (22.0-26.0); ABG Oxygen Saturation 96 % (90-100); ABG PH 7.45 mmol/L (7.35-7.45); ABG PO2 79.2 mmhg (80-100)
[2021-05-15 07:50] LABS: Allen's Test Non Applicable; Oxygen 60 %; PEEP 10; Pressure Support 12
[2021-05-15 07:51] LABS: Source Right Radial
--- NOTE | 2021-05-15 07:51 | HMH.ACPN2 ---
Internal Medicine - PN: Subj *Date: 05/15/21 *Time: 17:29 Interval history: Patient has done well overnight. Is awake this morning on interview. Responding to commands, squeeze my hand, nods when spoken to. Tolerating current vent settings. Remains tachycardic with elevated temperature Exam Vital signs and Labs for Last 24 Hours: Temp Pulse Resp BP Pulse Ox 100.2 F H 107 H 31 H 143/82 H 97 05/15/21 06:00 05/15/21 06:36 05/15/21 06:07 05/15/21 06:36 05/15/21 06:36 Laboratory Results - last 24 hr 05/14/21 08:44: Specimen Source r radial, O2 % 60, ABG pH 7.44, ABG pCO2 50.8 H, ABG pO2 74.4 L, ABG HCO3 33.6 H, ABG Total CO2 35.1 H, ABG O2 Saturation 95, ABG Base Excess 9.4 H, Barrett Test acceptable, PEEP 12 05/14/21 09:00: WBC 6.6, RBC 4.90, Hgb 13.0 L, Hct 41.5 L, MCV 84.8, MCH 26.5 L, MCHC 31.2 L, RDW 16.0, Plt Count 235, MPV 9.5, Neut % (Auto) 85.6 H, Lymph % (Auto) 9.0 L, [place] % (Auto) 3.6, Eos % (Auto) 1.4, Baso % (Auto) 0.5, Neut # (Auto) 5.6, Lymph # (Auto) 0.6 L, [place] # (Auto) 0.2, Eos # (Auto) 0.1, Baso # (Auto) 0.0, Total Counted 100, Neutrophils % (Manual) 71, Band Neutrophils % 1.0, Lymphocytes % (Manual) 18, Monocytes % (Manual) 10 H, Platelet Estimate Normal, Hypochromasia 2+, Stomatocytes 1+ 05/14/21 09:00: Sodium 133 L, Potassium 4.4, Chloride 95 L, Carbon Dioxide 36 H, Anion Gap 6.4, BUN 13, Creatinine 0.30 L D, Estimated Creat Clear 423 H, Estimated GFR 347, Est GFR ( Amer) 420 D, Glucose 274 H, Calcium 8.3 L, Total Bilirubin 0.5, AST 34, ALT 18, Alkaline Phosphatase 58, Total Protein 5.7 L, Albumin 2.6 L, Globulin 3.1, Albumin/Globulin Ratio 0.8 L 05/14/21 11:51: POC Glucose 229 H 05/14/21 15:53: POC Glucose 269 H 05/14/21 19:42: POC Glucose 264 H 05/15/21 04:53: POC Glucose 307 H* 05/15/21 04:55: WBC 7.7, RBC 5.02, Hgb 13.2 L, Hct 43.5, MCV 86.7, MCH 26.4 L, MCHC 30.4 L, RDW 15.7, Plt Count 259, MPV 9.4, Neut % (Auto) 85.0 H, Lymph % (Auto) 8.4 L, [place] % (Auto) 5.4, Eos % (Auto) 0.7, Baso % (Auto) 0.5, Neut # (Auto) 6.6, Lymph # (Auto) 0.7, [place] # (Auto) 0.4, Eos # (Auto) 0.1, Baso # (Auto) 0.0, Total Counted 100, Neutrophils % (Manual) 86 H, Band Neutrophils % 4.0, Lymphocytes % (Manual) 10, Platelet Estimate Normal, Hypochromasia 2+ 05/15/21 04:55: Sodium 133 L, Potassium 4.5, Chloride 96 L, Carbon Dioxide 37 H, Anion Gap 4.5 L, BUN 17 D, Creatinine 0.40 L D, Estimated Creat Clear 317 H, Estimated GFR 249, Est GFR ( Amer) 302 D, Glucose 330 H D, Calcium 8.5, Magnesium 1.8, Total Bilirubin 0.7, AST 34, ALT 19, Alkaline Phosphatase 60, Total Protein 5.9 L, Albumin 2.7 L, Globulin 3.2, Albumin/Globulin Ratio 0.8 L 05/15/21 08:00: Specimen Source Right radial, O2 % 60, Barrett Test Non applicable, Tidal Volume sbt, PEEP 10 I & O for Last 24 hours: Intake & Output 05/12/21 05/13/21 05/14/21 05/15/21 23:59 23:59 23:59 23:59 Intake Total 1434.416 / 4654.416 4226.708 / 4226.708 3780.375 / 3780.375 1697.333 / 1697.333 Output Total 4525 / 4645 4015 / 4265 3945 / 3945 1999 / 1999 Balance 129.416 / 9.416 211.708 / -38.292 -164.625 / -164.625 -302.667 / -302.667 Weight 219.3 kg 218.8 kg 217.6 kg 220.8 kg - Constitutional mild distress, morbidly obese - *Routine HEENT Exam Head: Present: normocephalic Eye: Present: EOMI, PERRL ENT: Present: mucous membranes moist - *Routine Neck Exam Present: supple. Absent: lymphadenopathy - *Routine Respiratory Exam Present: patient mechanically ventilated, CTA bilaterally - *Routine Cardiovascular Exam Present: RRR. Absent: murmur - *Routine Abdominal Exam Present: soft, normoactive bowel sounds, obese. Absent: tenderness - *Routine Extremities Exam Absent: cyanosis, clubbing, edema - *Routine Skin Exam Present: warm. Absent: rash - *Routine Neurological Exam Present: alert Assessment and Plan (1) Obesity with serious comorbidity Status: Acute Qualifiers: Obesity type: due to excess calories Obesity classification: unspecified o
[2021-05-15 11:33] LABS: POC Glucose,Bedside 241 (70-110)
[2021-05-15 11:41] LABS: Lactate Arterial 1.8 mmol/L (0.4-2.0)
--- NOTE | 2021-05-15 13:46 | SW/DCPLANNER ---
Addendum entered by Kacy Goodwin 05/15/21 14:29: Patient information will also be faxed to [facility]. Addendum entered by Kacy Goodwin 05/15/21 14:25: Patients family member (Linnea Queen: Aunt) has called back stating that she is interested in placement once patient is medically stable for discharge. Aunt understood that patient will be Medicaid pending and prefers to keep him as close to [place] as possible. Patient information will be faxed to [facility], [facility] and [facility] at this time. Original Note: I received a referral for this patient regarding discharge planning. I attempted to contact patients Aunt Zachery Lara listed in demographics: no answer/VM left. I will follow up with patients family once they call me back. Discharge date is unknown at this time.
--- NOTE | 2021-05-15 16:58 | P.PN_ITS ---
Internal Medicine - PN: Subj *Date: 05/15/21 *Time: 16:58 Interval history: No acute respiratory events overnight. Exam - Constitutional Constitutional:: Present: no acute distress, comfortable - HENMT Exam HENMT: Present: normocephalic - Eye Exam Eyes:: Present: normal appearance both eyes and related structures - Neck Exam Neck:: Present: normal visual inspection - Respiratory Exam Respiratory:: Present: respiratory distress, decreased breath sounds, crackles, rales - Cardiovascular Exam Cardiac:: Present: S1, S2 - GI Exam GI:: Present: soft, obese - Skin Exam Skin: Present: warm, rash - Neurological Exam Neurological: Present: alert, awake - Extremities Exam Extremities: Present: no cyanosis, no clubbing, edema Assessment and Plan (1) Obesity with serious comorbidity Status: Acute Qualifiers: Obesity type: due to excess calories Obesity classification: unspecified obesity classification Qualified Code(s): E66.09 - Other obesity due to excess calories Category: Medical Code(s): E66.9 - Obesity, unspecified (2) Pneumonia due to COVID-19 virus Status: Acute Category: Medical Code(s): U07.1 - COVID-19; J12.82 - Pneumonia due to coronavirus disease 2019 (3) Respiratory failure with hypoxia Status: Acute Qualifiers: Chronicity: acute Qualified Code(s): J96.01 - Acute respiratory failure with hypoxia Category: Medical Code(s): J96.91 - Respiratory failure, unspecified with hypoxia (4) Hyperglycemia Status: Acute Category: Medical Code(s): R73.9 - Hyperglycemia, unspecified (5) Acute respiratory distress syndrome (ARDS) due to 2019 novel coronavirus Status: Acute Category: Medical Code(s): U07.1 - COVID-19; J80 - Acute respiratory distress syndrome - Assessment and plan all Dx Assessment and Plan for all problems:: #Acute hypoxic respiratory failure: #COVID-19 pneumonia: Plan: -ABG and chest x-ray reviewed , proving oxygenation however mild worsening right lower lobe pulmonary infiltrate. Patient successfully underwent SBT however became tachypneic and tachycardic. We have completely stop the sedation since this morning we will continue to hold off sedation at this point of time will perform daily SBT's and will plan for extubation -Continue remdesivir dexamethasone and barcitinib for COVID-19 pneumonia -Completed 5 days of levofloxacin. Continue to have febrile episodes repeat blood cultures pending so far. He sputum from 05/06 grew MRSA. MRSA PCR POSIT [facility]YMAN. On Nafacilin for MSSA - VAP bundle Elevate head of the bed at 30 to 45 degrees Oral care with chlorhexidne GI ulcer prophylaxis - Famotidine 20mg IV BID Chemical DVT prophylaxis -Abdomen soft nontender. -Renal function stable. #Thank you involving pulmonary in this patient care. We will continue to follow. Please call with any questions or concerns.
[2021-05-15 19:31] LABS: POC Glucose,Bedside 256 (70-110)
[2021-05-15 20:48] LABS: POC Glucose,Bedside 209 (70-110)
--- NOTE | 2021-05-15 22:49 | PC.NURSE ---
He is able to follow commands. He squeezes hands and moves all extremities when asked. He also nods his head to questions. He has been tachy on telelmetry. Febrile; per report he had received acetaminophen recently. Have applied ice packs. He is being turned and repositioned q 2 hours. HOB elevated. F/c patent with yellow, clear urine.
[2021-05-16] VITALS (29 sets, daily range): BP systolic 129–179; BP diastolic 54–109; PULSE 98–120; RESP 20–43; TEMP 37.8–38.4; O2SAT 90–99; BMI 57.6
--- NOTE | 2021-05-16 05:00 | XR_ITS ---
PROCEDURE INFORMATION: Exam: XR Chest Exam date and time: 05/16/2021 5:00 AM Age: 30 years old Clinical indication: Device placement; Ett placement (vent status); Additional info: PT intubated. Covid vent status TECHNIQUE: Imaging protocol: XR of the chest. Views: 1 view. COMPARISON: CR XR CHEST PORTABLE 05/15/2021 5:26 AM FINDINGS: Tubes, catheters and devices: Endotracheal tube remains in place with the tip above the noah. Lungs: There continues to be airspace disease in both lungs, unchanged. The examination is obtained at low lung volumes. Pleural spaces: Unremarkable. No pleural effusion. No pneumothorax. Heart/Mediastinum: Unremarkable. No cardiomegaly. Bones/joints: Unremarkable. IMPRESSION: Stable chest.
[2021-05-16 05:21] LABS: POC Glucose,Bedside 220 (70-110)
[2021-05-16 06:02] LABS: Basophils % 0.4 % (0.1-2.0); Chloride 95 mmol/L (98-107); Eosinophils # 0.1 K/mm3 (0.0-0.4); Eosinophils % 0.7 % (0.1-12.0); Hematocrit 43.2 % (42.0-52.0); Hemoglobin 13.6 g/dL (14.1-18.0); Lymphocytes # 0.8 K/mm3 (0.7-4.5); Mean Corpuscular HGB Conc 31.4 g/dL (31.8-35.4); Mean Corpuscular Hemoglobin 26.4 pg (27.0-31.2); Mean Corpuscular Volume 84.1 fl (80-94); Mean Platelet Volume 9.1 fl (7.4-10.4); Monocytes # 0.6 K/mm3 (0.1-1.0); Monocytes % 5.8 % (1.7-9.3); Neutrophils # 8.8 K/mm3 (1.8-7.8); Neutrophils % 85.1 % (37.0-80.0); Platelet Count 328 K/mm3 (142-424); Potassium 3.8 mmoL/L (3.5-5.1); Red Blood Count 5.13 M/mm3 (4.60-6.20); Red Cell Distribution Width 15.2 % (11.5-17.5); Sodium 138 mmol/L (136-145); White Blood Count 10.3 K/mm3 (4.8-10.8)
[2021-05-16 06:04] LABS: MANUAL DIFFERENTIAL MANUAL DIFFERENTIAL (MANUAL DIFF)
[2021-05-16 06:05] LABS: Blood Urea Nitrogen 12 mg/dl (9-20); Creatinine Clearance Estimated 254 mL/min (50-200); Estimated Glomerular Filt Rate 193 ml/min (>60); GFR (African American) 233 ML/MIN (>60)
[2021-05-16 06:06] LABS: Anion Gap 9.8 mEq/L (5-15); Calcium 8.7 mg/dl (8.4-10.2); Carbon Dioxide 37 mmol/L (22.0-30.0); Glucose 243 mg/dl (74-100)
[2021-05-16 06:24] LABS: Hypochromasia 1+; Lymphocytes % 6 % (10-50); Monocytes % 1 % (2-9); Neutrophils % 86 % (42-76); Platelet Estimate Normal; Total Cells Counted 100
[2021-05-16 08:14] LABS: ABG Base Excess 9.8 mmol/L (-2.4-2.3); ABG HCO3 33.2 mmhg (22.0-26.0); ABG Oxygen Saturation 97 % (90-100); ABG PH 7.49 mmol/L (7.35-7.45); ABG PO2 82.1 mmhg (80-100); ABG TCO2 34.6 mmhg (23-27)
--- NOTE | 2021-05-16 09:03 | HMH.ACPN2 ---
Internal Medicine - PN: Subj *Date: 05/16/21 *Time: 09:03 Interval history: Patient has been stable overnight. Has pulled his OG tube out and has been much more awake and alert and responsive to commands as per yesterday's notes. Has been on CPAP through the night with excellent ABG this morning. Unfortunately remains febrile. Exam Vital signs and Labs for Last 24 Hours: Temp Pulse Resp BP Pulse Ox 101.1 F H 109 H 37 H 158/97 H 94 L 05/16/21 08:00 05/16/21 08:00 05/16/21 08:00 05/16/21 08:00 05/16/21 08:00 Laboratory Results - last 24 hr 05/10/21 06:00: ABG Lactate 1.8 05/12/21 06:46: ABG pH 7.48 H, ABG pCO2 43.4, ABG pO2 125.7 H, ABG HCO3 31.7 H, ABG Total CO2 33.0 H, ABG O2 Saturation 99, ABG Base Excess 8.2 H, ABG Lactate 1.3 05/15/21 11:25: POC Glucose 241 H 05/15/21 16:01: POC Glucose 256 H 05/15/21 20:41: POC Glucose 209 H 05/16/21 05:09: POC Glucose 220 H 05/16/21 05:16: WBC 10.3 D, RBC 5.13, Hgb 13.6 L, Hct 43.2, MCV 84.1, MCH 26.4 L, MCHC 31.4 L, RDW 15.2, Plt Count 328 D, MPV 9.1, Neut % (Auto) 85.1 H, Lymph % (Auto) 8.0 L, [place] % (Auto) 5.8, Eos % (Auto) 0.7, Baso % (Auto) 0.4, Neut # (Auto) 8.8 H, Lymph # (Auto) 0.8, [place] # (Auto) 0.6, Eos # (Auto) 0.1, Baso # (Auto) 0.0, Total Counted 100, Neutrophils % (Manual) 86 H, Band Neutrophils % 7.0, Lymphocytes % (Manual) 6 L, Monocytes % (Manual) 1 L, Platelet Estimate Normal, Hypochromasia 1+ 10/09/21 05:16: Sodium 138, Potassium 3.8, Chloride 95 L, Carbon Dioxide 37 H, Anion Gap 9.8, BUN 12 D, Creatinine 0.50 L D, Estimated Creat Clear 254, Estimated GFR 193, Est GFR ( Amer) 233 D, Glucose 243 H, Calcium 8.7 I & O for Last 24 hours: Intake & Output 05/13/21 05/14/21 05/15/21 05/16/21 11:59 11:59 11:59 11:59 Intake Total 5341.250 / 5341.250 4560.708 / 4612.708 2926.333 / 2926.333 1086 / 1086 Output Total 4080 / 4330 4455 / 4605 4450 / 4450 6825 / 6825 Balance 1261.250 / 1011.250 105.708 / 7.708 -1523.667 / -1523.667 -5739 / -5739 Weight 482 lb 5.942 oz 479 lb 11.614 oz 486 lb 12.49 oz 464 lb 1.169 oz Narrative: Much more alert, responsive to tactile stimuli, opens eyes to commands, squeezes hands. Lungs have symmetric air entry. Heart rate regular. Abdomen obese but soft. No perfusion deficits. No evidence of skin breakdown or cellulitis areas. Assessment and Plan (1) Obesity with serious comorbidity Status: Acute Qualifiers: Obesity type: due to excess calories Obesity classification: unspecified obesity classification Qualified Code(s): E66.09 - Other obesity due to excess calories Category: Medical Code(s): E66.9 - Obesity, unspecified (2) Pneumonia due to COVID-19 virus Status: Acute Category: Medical Code(s): U07.1 - COVID-19; J12.82 - Pneumonia due to coronavirus disease 2019 (3) Respiratory failure with hypoxia Status: Acute Qualifiers: Chronicity: acute Qualified Code(s): J96.01 - Acute respiratory failure with hypoxia Category: Medical Code(s): J96.91 - Respiratory failure, unspecified with hypoxia (4) Hyperglycemia Status: Acute Category: Medical Code(s): R73.9 - Hyperglycemia, unspecified (5) Acute respiratory distress syndrome (ARDS) due to 2019 novel coronavirus Status: Acute Category: Medical Code(s): U07.1 - COVID-19; J80 - Acute respiratory distress syndrome - Assessment and plan all Dx Assessment and Plan for all problems:: Overall good improvement in respiratory status. Pulmonary may attempt extubation today. Follow with them. In regards to other ICU care issues patient is on stress ulcer prophylaxis, DVT prophylaxis, etc. In regards to fever this remains somewhat of a troublesome issue. Patient is finished his Levaquin course, is on nafcillin for MSSA from the endotracheal tube. If extubated we will culture the tip of the tube. Continue nafcillin. Otherwise not really sure of a bacterial source for the fever. White count has been normal.
[2021-05-16 09:08] LABS: Oxygen 50 %
[2021-05-16 09:09] LABS: Allen's Test acceptable; PEEP 12; Pressure Support 10
[2021-05-16 09:11] LABS: Lactate Arterial 1.5 mmol/L (0.4-2.0)
--- NOTE | 2021-05-16 11:17 | PC.NURSE ---
left PICC line dressing changed
--- NOTE | 2021-05-16 12:30 | PC.NURSE ---
pt extubated to Bipap
--- NOTE | 2021-05-16 14:57 | PC.NURSE ---
pt weaned to 5L NC from Bipap
--- NOTE | 2021-05-16 18:35 | PC.NURSE ---
shift summary: pt has been stable this shift. Sinus tach noted on tele. HTN noted. Extubated @ 1230 to bipap and weaned to 5L NC. Tolerating well with O2 sat high 90s on 5L NC. Is hoarse when attempting to speak. Knows name, , year, and location. Has asked me several times today to call the aviation electrician due to booby traps in his room. Informed him that there was no such thing in his room and that he is in a safe place. He rolled his eyes and shook his head no each time. No BM this shift. Adequate UOP via arana catheter. Productive cough with thick yellow sputum.
[2021-05-17] VITALS (33 sets, daily range): BP systolic 105–148; BP diastolic 66–91; PULSE 74–128; RESP 18–45; TEMP 37.7–38.4; O2SAT 90–98; BMI 57.6
--- NOTE | 2021-05-17 03:07 | PC.NURSE ---
He continues on 5LPM n/c. Respiratory rate has increased from 30s to 40s. He is able to speak but he is soft spoken. He can state his name, , location, and the year. Continues with tachycardia on telemetry. Febrile. PRN acetaminophen has been given and ice packs placed. 2 BMs thus far this shift. Elise-care provided via staff. He is able to squeeze with bilateral hands and move BLE but has severe weakness. Continues to NPO pending a swallow eval.
--- NOTE | 2021-05-17 08:45 | PC.NURSE ---
bedside swallow completed. Pt aspirated on first sip of water. Oral meds on HOLD at this time. Secretions are audible. Pt is unable to cough secretions up. Dr. Gambino notified. Pt knows, name, , location, and year. Confused conversation noted.
--- NOTE | 2021-05-17 10:09 | HMH.ACPN2 ---
Internal Medicine - PN: Subj *Date: 05/17/21 *Time: 13:26 Interval history: Extubated yesterday. Stable overnight on 5L NC O2. Remains tacypneic. Unable to pass bedside swallow. Alert and oriented on exam this morning. Voice weak. Remains febrile this morning. Fever has actually started to go up as of this morning, to 101.6 on exam Exam Vital signs and Labs for Last 24 Hours: Temp Pulse Resp BP Pulse Ox 100.6 F H 114 H 32 H 136/85 91 L 05/17/21 09:00 05/17/21 09:00 05/17/21 09:00 05/17/21 09:00 05/17/21 09:00 I & O for Last 24 hours: Intake & Output 05/14/21 05/15/21 05/16/21 05/17/21 23:59 23:59 23:59 23:59 Intake Total 3780.375 / 3780.375 2418.333 / 2418.333 1173 / 1173 554 / 554 Output Total 3945 / 3945 7750 / 7750 4440 / 4750 2710 / 2710 Balance -164.625 / -164.625 -5331.667 / -5331.667 -3267 / -3577 -2156 / -2156 Weight 217.6 kg 220.8 kg 210.5 kg 210.467 kg Microbiology Reports for the Last 24 Hours: Microbiology 05/11/21 18:45 Blood Blood Culture - Final NO GROWTH AFTER 5 DAYS 05/11/21 18:48 Blood Blood Culture - Final NO GROWTH AFTER 5 DAYS - Constitutional mild distress, morbidly obese - *Routine HEENT Exam Head: Present: normocephalic Eye: Present: EOMI, PERRL ENT: Present: mucous membranes moist - *Routine Neck Exam Present: supple. Absent: lymphadenopathy - *Routine Respiratory Exam Present: distant breath sounds, diminished air movement Comments: tachypneic - *Routine Cardiovascular Exam Present: RRR - *Routine Abdominal Exam Present: soft, normoactive bowel sounds. Absent: tenderness - *Routine Extremities Exam Absent: cyanosis, clubbing, edema Comments: warm with scabbed lesions - *Routine Skin Exam Present: warm. Absent: rash - *Routine Neurological Exam Present: alert, oriented X3 Assessment and Plan (1) Obesity with serious comorbidity Status: Acute Qualifiers: Obesity type: due to excess calories Obesity classification: unspecified obesity classification Qualified Code(s): E66.09 - Other obesity due to excess calories Category: Medical Code(s): E66.9 - Obesity, unspecified (2) Pneumonia due to COVID-19 virus Status: Acute Category: Medical Code(s): U07.1 - COVID-19; J12.82 - Pneumonia due to coronavirus disease 2019 (3) Respiratory failure with hypoxia Status: Acute Qualifiers: Chronicity: acute Qualified Code(s): J96.01 - Acute respiratory failure with hypoxia Category: Medical Code(s): J96.91 - Respiratory failure, unspecified with hypoxia (4) Hyperglycemia Status: Acute Category: Medical Code(s): R73.9 - Hyperglycemia, unspecified (5) Acute respiratory distress syndrome (ARDS) due to 2019 novel coronavirus Status: Acute Category: Medical Code(s): U07.1 - COVID-19; J80 - Acute respiratory distress syndrome - Assessment and plan all Dx Assessment and Plan for all problems:: 30-year-old male with acute hypoxemic respiratory failure secondary to COVID-19 pneumonia. Intubated on 05/06, today is day 12. Pulmonology consulted, assisting with critical care. Recommendations and plan for patient care as follows: - Continue mechanical ventilatory support. ABGs stable and appropriate on minimal vent settings. Tolerating Pressure support and no sedation at this time. See Pulm note for full details on weaning of PEEP and FiO2. -Alert on exam this morning, sedation off. -plan for SBT in the coming days. -Has completed 10 days of remdesivir. Continuing dexamethasone. Baricitinib currently held since Tuesday (completed 10 days). Has not received a dose and self removal of NG tube -Completed 5 days of levofloxacin, when I review fever curve, improved on Levaquin, went back up to just over 100 after cessation. -We will obtain blood culture, urine culture, sputum culture today. -Given persistent fever and increasing fever tod
[2021-05-17 10:57] LABS: Basophils # 0.1 K/mm3 (0-0.2); Basophils % 0.7 % (0.1-2.0); Eosinophils # 0.1 K/mm3 (0.0-0.4); Eosinophils % 1.2 % (0.1-12.0); Hematocrit 44.9 % (42.0-52.0); Hemoglobin 14.1 g/dL (14.1-18.0); Lymphocytes # 0.8 K/mm3 (0.7-4.5); Mean Corpuscular HGB Conc 31.3 g/dL (31.8-35.4); Mean Corpuscular Volume 83.1 fl (80-94); Mean Platelet Volume 8.6 fl (7.4-10.4); Monocytes # 0.5 K/mm3 (0.1-1.0); Neutrophils # 8.5 K/mm3 (1.8-7.8); Neutrophils % 85.2 % (37.0-80.0); Platelet Count 355 K/mm3 (142-424); Red Blood Count 5.41 M/mm3 (4.60-6.20); Red Cell Distribution Width 15.3 % (11.5-17.5)
[2021-05-17 10:59] LABS: MANUAL DIFFERENTIAL MANUAL DIFFERENTIAL (MANUAL DIFF)
[2021-05-17 11:12] LABS: Chloride 99 mmol/L (98-107); Potassium 4.2 mmoL/L (3.5-5.1); Sodium 138 mmol/L (136-145)
[2021-05-17 11:15] LABS: Alanine Aminotransferase 56 U/L (12-78); Albumin Level 3.2 g/dl (3.5-5.0); Albumin/Globulin Ratio 0.9 (1.1-1.8); Alkaline Phosphatase 66 U/L (38-126); Anion Gap 10.2 mEq/L (5-15); Aspartate Amino Transferase 67 U/L (17-59); Bilirubin,Total 0.8 mg/dl (0.2-1.3); Blood Urea Nitrogen 12 mg/dl (9-20); Calcium 8.8 mg/dl (8.4-10.2); Carbon Dioxide 33 mmol/L (22.0-30.0); Creatinine Clearance Estimated 317 mL/min (50-200); Estimated Glomerular Filt Rate 249 ml/min (>60); GFR (African American) 302 ML/MIN (>60); Globulin 3.5 g/dL (1.3-3.2); Glucose 226 mg/dl (74-100); Magnesium 1.8 mg/dl (1.6-2.3); Total Protein,Serum 6.7 g/dl (6.3-8.2)
[2021-05-17 11:51] LABS: Eosinophils % 1 % (0-3); Hypochromasia 1+; Lymphocytes % 11 % (10-50); Monocytes % 7 % (2-9); Neutrophils % 80 % (42-76); Platelet Estimate Normal; Stomatocytes 1+; Total Cells Counted 100
[2021-05-17 12:06] LABS: C-Reactive Protein 56.6 mg/L (0-4)
--- NOTE | 2021-05-17 12:09 | PC.NURSE ---
arana catheter changed. 16fr temp sensing arana inserted and urine specimen sent to lab for UA with cx if indicated.
[2021-05-17 12:18] LABS: Erythrocyte Sedimentation Rate 87 mm/hr (0-15); Procalcitonin 0.253 ng/mL (0.0-2.0)
--- NOTE | 2021-05-17 12:28 | XR_ITS ---
PROCEDURE INFORMATION: Exam: XR Chest Exam date and time: 05/17/2021 12:28 PM Age: 30 years old Clinical indication: Condition or disease; Other: Covid patient in icu. ; Patient HX: Post extubation yesterday. Covid patient. Very large patient. ; Additional info: Post extubation, covid patient TECHNIQUE: Imaging protocol: XR of the chest. Views: 1 view. COMPARISON: CR XR CHEST PORTABLE 05/16/2021 5:04 AM FINDINGS: Lungs: Patchy bilateral opacities may represent multifocal pneumonia including COVID-19. Pleural spaces: Unremarkable. No pleural effusion. No pneumothorax. Heart/Mediastinum: Unremarkable. No cardiomegaly. Bones/joints: Unremarkable. IMPRESSION: Patchy bilateral opacities may represent multifocal pneumonia including COVID-19.
[2021-05-17 13:02] LABS: Microscopic, Urine URINE MICROSCOPIC (MICROSCOPIC)
--- NOTE | 2021-05-17 13:02 | PC.NURSE ---
Per RN Dr. Faustin placed order for nasal aspirate. NT suctioned Pt for small amount of bright green thick sputum also suctioned moderate amount tory bright red blood. Speciman walked to lab.
[2021-05-17 13:12] LABS: Appearance,Urine SL CLOUDY (Clear); Bilirubin,Urine Negative (Negative); Blood, Urine 3+ (Negative); Color,Urine YELLOW (Yellow); Glucose,Urine (UA) 1+ (Negative); Ketones,Urine 2+ (Negative); Leukocyte Esterase,Urine 1+ (Negative); Nitrate,Urine Negative (Negative); PH,Urine 7.5 (5.0-8.5); Protein,Urine Negative (Negative); Specific Gravity, Urine 1.015 (1.005-1.030); Urobilinogen,Urine 0.2 EU/dl (0.2)
[2021-05-17 13:20] LABS: RBC,Urine 20-50 #/hpf (0-3)
--- NOTE | 2021-05-17 16:49 | PC.NURSE ---
pt unable to swallow thickened water. Will remain NPO.
[2021-05-18] VITALS (26 sets, daily range): BP systolic 102–131; BP diastolic 61–81; PULSE 89–117; RESP 11–52; TEMP 37.7–38.4; O2SAT 90–98; BMI 57.6
--- NOTE | 2021-05-18 01:48 | PC.NURSE ---
He received a complete bed bath and linen change. Incontinent of BM. Elise-care provided per via staff. He is being turned and repositioned q 2 hours. Oral care provided. He is A&Ox4. His voice is louder in tone than yesterday. Currently sinus tachy on telemetry. F/c patent with yellow, clear urine.
[2021-05-18 05:17] LABS: Basophils # 0.1 K/mm3 (0-0.2); Basophils % 1.7 % (0.1-2.0); Eosinophils # 0.2 K/mm3 (0.0-0.4); Eosinophils % 1.8 % (0.1-12.0); Hematocrit 42.7 % (42.0-52.0); Hemoglobin 13.3 g/dL (14.1-18.0); Lymphocytes # 1.1 K/mm3 (0.7-4.5); Lymphocytes % 12.9 % (10-50); Mean Corpuscular Hemoglobin 26.2 pg (27.0-31.2); Mean Corpuscular Volume 84.3 fl (80-94); Mean Platelet Volume 9.1 fl (7.4-10.4); Monocytes # 0.4 K/mm3 (0.1-1.0); Monocytes % 4.9 % (1.7-9.3); Neutrophils # 6.6 K/mm3 (1.8-7.8); Neutrophils % 78.8 % (37.0-80.0); Platelet Count 335 K/mm3 (142-424); Red Blood Count 5.07 M/mm3 (4.60-6.20); Red Cell Distribution Width 15.6 % (11.5-17.5); White Blood Count 8.3 K/mm3 (4.8-10.8)
[2021-05-18 05:29] LABS: Anion Gap 9.1 mEq/L (5-15); Blood Urea Nitrogen 12 mg/dl (9-20); Calcium 8.8 mg/dl (8.4-10.2); Carbon Dioxide 33 mmol/L (22.0-30.0); Chloride 101 mmol/L (98-107); Creatinine Clearance Estimated 317 mL/min (50-200); Estimated Glomerular Filt Rate 249 ml/min (>60); GFR (African American) 302 ML/MIN (>60); Glucose 208 mg/dl (74-100); Potassium 4.1 mmoL/L (3.5-5.1); Sodium 139 mmol/L (136-145)
--- NOTE | 2021-05-18 07:42 | HMH.ACPN2 ---
Internal Medicine - PN: Subj *Date: 05/18/21 *Time: 07:42 Interval history: Patient has done well overnight on 5 L nasal cannula. Minimal shortness of air and some anxiety symptoms but when he is talked with call only he does well. Exam Vital signs and Labs for Last 24 Hours: Temp Pulse Resp BP Pulse Ox 100.4 F H 110 H 14 110/68 94 L 05/18/21 06:51 05/18/21 07:07 05/18/21 06:51 05/18/21 06:51 05/18/21 07:07 Laboratory Results - last 24 hr 05/17/21 10:35: WBC 10.0, RBC 5.41, Hgb 14.1, Hct 44.9, MCV 83.1, MCH 26.0 L, MCHC 31.3 L, RDW 15.3, Plt Count 355, MPV 8.6, Neut % (Auto) 85.2 H, Lymph % (Auto) 8.0 L, [place] % (Auto) 5.0, Eos % (Auto) 1.2, Baso % (Auto) 0.7, Neut # (Auto) 8.5 H, Lymph # (Auto) 0.8, [place] # (Auto) 0.5, Eos # (Auto) 0.1, Baso # (Auto) 0.1, Total Counted 100, Neutrophils % (Manual) 80 H, Lymphocytes % (Manual) 11, Monocytes % (Manual) 7, Eosinophils % (Manual) 1, Basophils % (Manual) 1.0, Platelet Estimate Normal, Hypochromasia 1+, Stomatocytes 1+ 05/17/21 10:35: Sodium 138, Potassium 4.2, Chloride 99, Carbon Dioxide 33 H, Anion Gap 10.2, BUN 12, Creatinine 0.40 L, Estimated Creat Clear 317 H, Estimated GFR 249, Est GFR ( Amer) 302 D, Glucose 226 H, Calcium 8.8, Magnesium 1.8, Total Bilirubin 0.8, AST 67 H D, ALT 56 D, Alkaline Phosphatase 66, Total Protein 6.7, Albumin 3.2 L, Globulin 3.5 H, Albumin/Globulin Ratio 0.9 L 05/17/21 10:35: ESR 87 H 05/17/21 10:35: C-Reactive Protein 56.6 H, Procalcitonin 0.253 05/17/21 12:05: Urine Color Yellow, Urine Appearance Sl cloudy, Urine pH 7.5, Ur Specific [place] 1.015, Urine Protein Negative, Urine Glucose (UA) 1+, Urine Ketones 2+, Urine Blood 3+, Urine Nitrate Negative, Urine Bilirubin Negative, Urine Urobilinogen 0.2, Ur Leukocyte Esterase 1+ A, Urine RBC 20-50, Urine WBC 3-5, Ur Squamous Epith Cells 5-10, Urine Bacteria None 05/18/21 04:50: WBC 8.3, RBC 5.07, Hgb 13.3 L, Hct 42.7, MCV 84.3, MCH 26.2 L, MCHC 31.0 L, RDW 15.6, Plt Count 335, MPV 9.1, Neut % (Auto) 78.8, Lymph % (Auto) 12.9, [place] % (Auto) 4.9, Eos % (Auto) 1.8, Baso % (Auto) 1.7, Neut # (Auto) 6.6, Lymph # (Auto) 1.1, [place] # (Auto) 0.4, Eos # (Auto) 0.2, Baso # (Auto) 0.1 05/18/21 04:50: Sodium 139, Potassium 4.1, Chloride 101, Carbon Dioxide 33 H, Anion Gap 9.1, BUN 12, Creatinine 0.40 L, Estimated Creat Clear 317 H, Estimated GFR 249, Est GFR ( Amer) 302, Glucose 208 H, Calcium 8.8 I & O for Last 24 hours: Intake & Output 05/15/21 05/16/21 05/17/21 05/18/21 11:59 11:59 11:59 11:59 Intake Total 2926.333 / 2926.333 1086 / 1086 1176 / 1176 1331 / 1331 Output Total 4450 / 4450 7240 / 7640 5235 / 5475 6234 / 4748 Balance -1523.667 / -1523.667 -6354 / -6554 -4059 / -4299 -3434 / -3435 Weight 486 lb 12.49 oz 464 lb 1.169 oz 464 lb 463 lb 9 oz Microbiology Reports for the Last 24 Hours: Microbiology 05/17/21 13:02 Aspirate - Other Gram Stain - Final Narrative: Patient is alert, pleasant. O2 saturations acceptable on 5 L nasal cannula. He is minimally tachycardic but is able to calm this down with some deep breathing. Lungs are rhonchorous but well-expanded bilaterally. Abdomen is obese but soft. Heart rate regular. Skin is unchanged. Torres catheter draining yellow urine. Assessment and Plan (1) Obesity with serious comorbidity Status: Acute Qualifiers: Obesity type: due to excess calories Obesity classification: unspecified obesity classification Qualified Code(s): E66.09 - Other obesity due to excess calories Category: Medical Code(s): E66.9 - Obesity, unspecified (2) Pneumonia due to COVID-19 virus Status: Acute Category: Medical Code(s): U07.1 - COVID-19; J12.82 - Pneumonia due to coronavirus disease 2019 (3) Respiratory failure with hypoxia Status: Acute Qualifiers: Chronicity: acute Qualified Code(s): J96.01 - Acute respiratory failure with hypoxia Category: Medical Code(s): J96.91 - Respiratory failure, unspecifi
--- NOTE | 2021-05-18 07:47 | PC.NURSE ---
Notifed PT/OT/ST of evals needed on pt.
--- NOTE | 2021-05-18 09:25 | HMH.PTEV ---
Physical Therapy Evaluation Rehab PT IP Evaluation Start: 05/18/21 07:43 Freq: ONCE Status: Active Protocol: Document 05/18/21 09:04 BHARTI (Rec: 05/18/21 09:25 BHARTI [id number]) Subjective/History History History This is the inital evaluation for Tobin Mas. Pt is a 30 y/o male admitted 06/05/21 for SOA and trouble breathing. Pt demonstrated Spo2 in high 90' s upon arrival. Pt was diagnosed with COVID upon admission and eventually required intubation and artificial ventilation.- note done by Tabatha Ramos, SPT Subjective Subjective Pt states he feels better today and that he didn't mind trying to sit EOB. Pt states he lives in a trailer with his mother and did not use any AD to get around. Pt states he works at a [employer]. Rehab PT IP Eval Objective Appearance Patient Behavior Appropriate,Cooperative, Fatigued Patient Orientation Person,Place,Time,Name,Year, Situation Difficulty following instructions none Speech Pattern Appropriate,Delayed,Soft- Spoken,Monotone,Mumbled,Poor Articulation Ambulation Patient Able to Ambulate No Balance Ability to Arise Unable Sitting Balance Steady, safe Dynamic Sitting Balance Ability Fair Transfers Bed Transfer Ability Maximum x 2 (75% assist) MMT All Extremities PT MMT ABN Rehab PT IP prob,goals,plan Problems Date of Evaluation: 05/18/21 PT IP Problems Bed Mobility,Transfers,Gait, Balance,Self care,Safety Rehab Potential Rehab Potential Fair Equipment Needs Assistive Devices Rolling / Wheeled Walker, Wheelchair Plan PT Intervention Plan Bed Mobility,Transfers,Gait, Balance,Self care,Safety, Therapeutic Exercise PT Plan Frequency BID Duration LOS Discharge Goals Bed Transfer Ability Moderate x 2 (50% assist) Ambulation Assistive Device Standard Walker Discharge Plan PT Discharge Plan Pt will benefit from
--- NOTE | 2021-05-18 09:32 | HMH.OTEV ---
OT Inpatient Evaluation Rehab OT IP Evaluation Start: 05/18/21 07:43 Freq: ONCE Status: Complete Protocol: Document 05/18/21 09:14 [facility] (Rec: 05/18/21 09:31 [facility] [id number]) Rehab OT IP Assessment Subjective History Pt oriented x 3 on arrival. Pt was admitted via ER on 05/04 due to difficulty breathing, cough, and Covid +. Pt has past medical history of DM type 2. Pt was intubated on 05/06/21 and extubated on 05/16/21. Pt reports prior to being in hospital he lived in a trailer with his mother. Pt explains he was completely independently with ADLs. He also had a job working fulltime at [employer]. He did not require any type of AE . Subjective Just weak. Pt was resting in bed on arrival. Pt's o2 was at 94% on 5L NC. Pt agreeable to engage in therapy. Pt unable to flex/ext bilateral elbows and he cannot bring shoulders in flex/abd; trace MMT for biceps. Pt is able to squeeze bilaterally with hands. Pt was able to go from supine to sitting at eob with max assistance. Pt maintained sitting position at eob with cga for ~7 minutes. His o2 maintained well during entire session. Once he was sitting at eob his o2 was at 98%. Pt did require max assist to go from sitting to supine in bed. Pt very accepting and cooperative for therapy. Pt reports he wants to get up to a chair and out of the bed. Therapy plans to attempt this in the afternoon session. Objective Patient Orientation Person,Place,Birthday Upper Extremity Gross ROM Mod Limitation 50% Shoulder ROM Limitations Muscle Weakness Elbow ROM Limitations Muscle Weakness
--- NOTE | 2021-05-18 09:57 | HMH.SLDYSPHA ---
Speech & Language Evaluation Speech/Language Dysphagia Evaluation Start: 05/18/21 09:29 Freq: ONCE Status: Active Protocol: Document 05/18/21 09:29 RICKIABDI (Rec: 05/18/21 09:56 [facility] [id number]) Dysphagia Assess/Goals/Plan Assessment Date of Evaluation: 05/18/21 Evaluation Type Initial Certification Assessment/Problems Dysphagia post intubation Does Patient Qualify for Service Yes Qualify/Failure Comment Based on the results of the assessment. Recommendations PHYSICIAN CERTIFICATION: The specified therapy services are required, authorized, and reviewed every 30 days. Pt will be seen # times/week 5 for # weeks 4 Diet Recommendations NPO Plan Anticipate reaching STG in # weeks 2 Anticipate reaching LTG in # weeks 4 Pt/Guardian verbally ack understanding Yes of dx/prognosis/goals Pt/Guardian verbally ack understanding Yes of/consent to tx prog G -code Required No STG-Other Comment/Non-Specific Patient will consume trials of least restrictive diet during therapy session w/o s/xs of aspiration on 100% of trials. Telegraph Repeater Technician Goals Pt will be able to eat foods w/more Yes normal consistency Education Instructions provided Discussed results of the assessment with patient and nursing. Pt/Caregiver able to recall information Able to recall/restate Reinforcement needed No General Information General Current Food Consistancy NPO Dentition Good Dentition Oxygen Status Nasal Cannula Facial Symmetry Symmetrical Patient Orientation Person,Place,Time,Situation Ability to Follow Directions Excellent Communication Ability Mild Impairment Dysphagia:Food Presentation Evaluation Food Type Pureed,Mechanical Soft,Liquid, Pudding Normal/Thin Liquid Response Coughing after swallow,Wet voice [place] Consistency Liquid Response Coughing after swallow,Wet voice Pudding Consistency Liquid Response Residual on tongue,Delayed swallow,Wet voice Dysphagia Evaluation Pureed Food Residual on tongue,Wet voice Behavior Response Dysphagia Evaluation Mechanical Soft Difficulty chewing,Residual on Food Behavior Response tongue,Coughing after swallow Dysphagia Evaluation Summary Clinical swallow evaluation completed to analyze and assess oropharyngeal swallow. Trialed ice chip w/o s/sxs of
--- NOTE | 2021-05-18 11:31 | HMH.PULMPN ---
Internal Medicine - PN: Subj *Date: 05/18/21 *Time: 13:12 Interval history: No acute resp events overnight. Successfully extubated, remained on NC tolerating well Exam - Constitutional Constitutional:: Present: no acute distress, comfortable - HENMT Exam HENMT: Present: normocephalic - Eye Exam Eyes:: Present: normal appearance both eyes and related structures - Neck Exam Neck:: Present: normal visual inspection - Respiratory Exam Respiratory:: Present: able to speak in complete sentences, decreased breath sounds, rales - Cardiovascular Exam Cardiac:: Present: S1, S2 - GI Exam GI:: Present: soft, obese - Skin Exam Skin: Present: warm - Neurological Exam Neurological: Present: alert, awake - Extremities Exam Extremities: Present: no cyanosis, no clubbing, edema Assessment and Plan (1) Obesity with serious comorbidity Status: Acute Qualifiers: Obesity type: due to excess calories Obesity classification: unspecified obesity classification Qualified Code(s): E66.09 - Other obesity due to excess calories Category: Medical Code(s): E66.9 - Obesity, unspecified (2) Pneumonia due to COVID-19 virus Status: Acute Category: Medical Code(s): U07.1 - COVID-19; J12.82 - Pneumonia due to coronavirus disease 2019 (3) Respiratory failure with hypoxia Status: Acute Qualifiers: Chronicity: acute Qualified Code(s): J96.01 - Acute respiratory failure with hypoxia Category: Medical Code(s): J96.91 - Respiratory failure, unspecified with hypoxia (4) Hyperglycemia Status: Acute Category: Medical Code(s): R73.9 - Hyperglycemia, unspecified (5) Acute respiratory distress syndrome (ARDS) due to 2019 novel coronavirus Status: Acute Category: Medical Code(s): U07.1 - COVID-19; J80 - Acute respiratory distress syndrome - Assessment and plan all Dx Assessment and Plan for all problems:: #Acute hypoxic respiratory failure: #COVID-19 pneumonia: Successfully extubated over the weekend. Remains on nasal cannula, decreased to 5 L this morning with saturations maintained at 92% above. Bilateral lower lobe decreased breath sounds. Endotracheal aspirate from 05/06 grew staph aureus beta-lactamase positive along with patient nasal MRSA PCR positive and patient has received nafacillin with improving respiratory status. Will defer antibiotics for his pulmonary infiltrates and will closely monitor at this point of time in the setting of improving chest x-ray and improving respiratory status. Continue DuoNebs every 6 hours as needed. Wean oxygen as tolerated. Volume optimization as per primary team. #Thank you involving pulmonary in this patient care. We will continue to follow.
--- NOTE | 2021-05-18 12:08 | SW/DCPLANNER ---
Addendum entered by [facility] 06/08/21 11:09: I have updated patients family regarding discharge plans. Addendum entered by [facility] 06/08/21 10:32: This patient has been accepted to [facility] for today. I will update patient and MD. Addendum entered by [facility] 06/05/21 10:57: Melvin w/ [facility] has evaluated this patient at [facility] and stated that she will return Tuesday for a follow up visit with patient. Addendum entered by [facility] 06/05/21 09:10: Britni w/ [facility] has stated that once PT/OT can get this patient to a 2 person assist they can accept this patient. Melvin with [facility] will be here this AM to evaluate this patient. Addendum entered by [facility] 06/04/21 15:02: Britni has stated that she was not able to evaluate this patient today. I spoke with Melvin from [facility] and she stated that she will be here tomorrow morning to evaluate this patient. Addendum entered by [facility] 06/04/21 09:42: Updated patient information has been faxed to [facility]. Addendum entered by [facility] 06/03/21 09:18: Britni with [facility] has stated that she will be at [facility] today to evaluate this patient. Addendum entered by Kacy Aberdeen 06/02/21 13:11: [facility] is currently reviewing patient information. Britni w/ [facility] is also reviewing patient information and stated that she will be at [facility] today or tomorrow to evaluate this patient. Addendum entered by Kacy Aberdeen 06/01/21 12:29: I have left a voicemail beau/ Lou at [facility] regarding referral. Addendum entered by Mechelle Cha 05/28/21 13:56: MADE CONTACT WITH [facility] AGAIN TODAY AND THEY CAN NOT OFFER PATIENT ANY SERVICES... THEY DON'T HAVE A MEDICAID CONTRACT FOR THEIR ACUTE CARE REHAB AND HE CAN'T WITHSTAND THE SKILLED UNIT THAT REQUIRES 3-4 HOURS OF AGGRESSIVE TX.. I ALSO SENT REFERRAL TO [facility] AND HAVE NOT HEARD ANYTHING BACK FROM THEM YET... I AM NOT REALLY SURE IF HE MEETS THEIR CRITERIA FOR REHAB SERVICES BUT NO OTHER TEST DESK TROUBLE LOCATOR CARE FACILITIES HAVE AGREED TO TAKE HIM R/T WEIGHT AND INSURANCE... PATIENT REMAINS VERY WEAK AND THEY ARE USING A LIFT TO GET HIM UP, PATIENT IS TOO LARGE TO HANDLE SAFELY..PATIENT WILL REMAIN IN THE ACUTE CARE UNTIL A BED IS OBTAINED. Addendum entered by Mechelle Cha 05/26/21 07:39: SPOKE WITH [facility] LAST EVENING VIA PHONE AND SHE SAID AT THIS TIME THEY DO NOT HAVE STAFF TO TAKE CARE OF THIS PATIENT.. SHE SAID IF HE COULD GET STRONGER TO HELP HIMSELF THEY WOULD TAKE HIM IF INSURANCE GIVES AN APPROVAL.. I DID SPEAK WITH HIS INSURANCE NURSE YESTERDAY AND SHE SAID IF THEY DO DECIDE TO TAKE HIM THEY WILL DO AN EXCEPTION TO ALLOW THEM TO TAKE HIM SINCE THEY ARE NOT IN NETWORK WITH [facility]... Addendum entered by Mechelle Cha 05/25/21 11:18: [facility] CAME UP TO SPEAK WITH THIS PATIENT TODAY, [facility] IS NOT IN NETWORK BUT THE INSURANCE COMPANY STATED IF I FOUND A BED FOR HIM THEY WOULD ALLOW HIM TO GO WITH A ONE TIME OF OUT OF NETWORK BENEFIT... WILL CONTACT THE INSURANCE COMPANY AND SEE IF THEY WILL CALL [facility]... Addendum entered by Mechelle Cha 05/25/21 07:33: PATIENT REMAINS IN THE ACUTE HOSPITAL AND IS NOW BACK ON VAPOTHERM...CONTINUING TO TRY AND FIND THIS PATIENT A BED WITH NO LUCK AT THIS TIME... MULTIPLE REFERRALS HAS BEEN SENT OUT TO VARIOUS NURSING FACILITIES IN DIFFERENT COUNTIES.. WAITING TO HEAR BACK TO SEE IF ANYONE CAN ACCEPT HIM WHEN HE IS MEDICALLY STABLE.. Addendum entered by Mechelle Cha 05/22/21 14:50: SENT REFERRAL TO [facility] TO SEE IF THEY CAN ACCEPT THIS PATIENT, WILL FOLLOW UP ON TUESDAY.. I DID SPEAK WITH THE CO [facility], NOVEMBER AND SHE SAID THEY MAY HAVE A BED SOMETIME NEXT WEEK.. HOPEFUL TO GET HIM PLACED NEXT WEEK. Addendum entered by Mechelle Cha 05/21/21 13:17: HAVE SENT REFERRAL TO MULTIPLE PLACES IN THE [facility], [facility], AND [facility] WITH NO ONE TO A
--- NOTE | 2021-05-18 17:49 | PC.NURSE ---
pt has been able to work with physical therapy twice this shift. the first time, he was helped to the side of the bed and held his upright position without assistance. he was able to lift both legs off of the floor individually, he was unable to lift either of his arms, but he was able to shrug his shoulders. the 2nd time he was assisted to the side of the bed and was able to attempt a stand with the help of 3 of the PT staff.
[2021-05-19] VITALS (25 sets, daily range): BP systolic 113–155; BP diastolic 67–101; PULSE 87–120; RESP 19–29; TEMP 36.4–38.1; O2SAT 89–95; BMI 57.6
[2021-05-19 01:18] LABS: Occult Blood,Stool Positive (Negative)
--- NOTE | 2021-05-19 06:44 | HMH.ACPN2 ---
Internal Medicine - PN: Subj *Date: 05/19/21 *Time: 09:54 Interval history: No acute events overnight. Continues to be stable on 5 L nasal cannula oxygen. Remains febrile. Able to answer questions this morning, voice noticeably stronger. Exam Vital signs and Labs for Last 24 Hours: Temp Pulse Resp BP Pulse Ox 100.0 F H 103 H 21 126/84 92 L 05/19/21 06:40 05/19/21 06:40 05/19/21 06:40 05/19/21 06:40 05/19/21 06:40 Laboratory Results - last 24 hr 05/19/21 01:00: Stool Occult Blood Positive A I & O for Last 24 hours: Intake & Output 05/16/21 05/17/21 05/18/21 05/19/21 23:59 23:59 23:59 23:59 Intake Total 1173 / 1173 1332 / 1332 1274 / 1274 Output Total 4440 / 4750 5755 / 6055 4225 / 4325 850 / 850 Balance -3267 / -3577 -4423 / -4723 -2951 / -3051 -850 / -850 Weight 210.5 kg 210.467 kg 210.268 kg 210.4 kg Microbiology Reports for the Last 24 Hours: Microbiology 05/17/21 12:05 Urine,Catheterized Urine Culture - Preliminary NO GROWTH AFTER 24 HOURS 05/17/21 13:02 Aspirate - Other Gram Stain - Final 05/17/21 13:02 Aspirate - Other Bronchial Aspirate Culture - Preliminary Narrative: - Constitutional mild distress, morbidly obese - *Routine HEENT Exam Head: Present: normocephalic Eye: Present: EOMI, PERRL ENT: Present: mucous membranes moist - *Routine Neck Exam Present: supple. Absent: lymphadenopathy - *Routine Respiratory Exam Present: distant breath sounds, diminished air movement; tachypneic - *Routine Cardiovascular Exam Present: RRR - *Routine Abdominal Exam Present: soft, normoactive bowel sounds. Absent: tenderness - *Routine Extremities Exam Absent: cyanosis, clubbing, edema; warm with scabbed lesions - *Routine Skin Exam Present: warm. Absent: rash - *Routine Neurological Exam Present: alert, oriented X3 Assessment and Plan (1) Obesity with serious comorbidity Status: Acute Qualifiers: Obesity type: due to excess calories Obesity classification: unspecified obesity classification Qualified Code(s): E66.09 - Other obesity due to excess calories Category: Medical Code(s): E66.9 - Obesity, unspecified (2) Pneumonia due to COVID-19 virus Status: Acute Category: Medical Code(s): U07.1 - COVID-19; J12.82 - Pneumonia due to coronavirus disease 2019 (3) Respiratory failure with hypoxia Status: Acute Qualifiers: Chronicity: acute Qualified Code(s): J96.01 - Acute respiratory failure with hypoxia Category: Medical Code(s): J96.91 - Respiratory failure, unspecified with hypoxia (4) Hyperglycemia Status: Acute Category: Medical Code(s): R73.9 - Hyperglycemia, unspecified (5) Acute respiratory distress syndrome (ARDS) due to 2019 novel coronavirus Status: Acute Category: Medical Code(s): U07.1 - COVID-19; J80 - Acute respiratory distress syndrome - Assessment and plan all Dx Assessment and Plan for all problems:: 30-year-old male with acute hypoxemic respiratory failure secondary to COVID-19 pneumonia. Intubated on 05/06, extubated 05/16. Has weaned to NC O2 at 5L. Recommendations and plan for patient care as follows: - Successfully extubated over the weekend. Remains on nasal cannula with saturations in the 90s. -Continuing broad-spectrum antibiotics including Zyvox and Levaquin -Continues to have fevers daily -X-rays have been showing improvement. Improving clinically with his respiratory status - continue DuoNebs every 6 hours as needed. Wean oxygen as tolerated. In regard to Covid: -Has completed 10 days of remdesivir and 10 days of baricitinib. - continuing dexamethasone, weaning dosage ID: -Cultures obtained over the weekend remain negative this includes urine, blood cultures. Respiratory aspirate positive on stain but no positive culture. Nutrition -Abdomen soft nontender. -Speech improving, voice getting louder, able to clear secretions. Sp
[2021-05-19 07:00] LABS: Basophils # 0.1 K/mm3 (0-0.2); Basophils % 0.9 % (0.1-2.0); Eosinophils # 0.2 K/mm3 (0.0-0.4); Eosinophils % 1.9 % (0.1-12.0); Hematocrit 43.4 % (42.0-52.0); Hemoglobin 13.5 g/dL (14.1-18.0); Lymphocytes # 1.1 K/mm3 (0.7-4.5); Lymphocytes % 14.2 % (10-50); Mean Corpuscular Hemoglobin 25.9 pg (27.0-31.2); Mean Corpuscular Volume 83.6 fl (80-94); Mean Platelet Volume 8.5 fl (7.4-10.4); Monocytes # 0.4 K/mm3 (0.1-1.0); Neutrophils # 6.2 K/mm3 (1.8-7.8); Platelet Count 371 K/mm3 (142-424); Red Cell Distribution Width 15.5 % (11.5-17.5)
[2021-05-19 07:11] LABS: Anion Gap 8.1 mEq/L (5-15); Blood Urea Nitrogen 12 mg/dl (9-20); Calcium 8.9 mg/dl (8.4-10.2); Carbon Dioxide 30 mmol/L (22.0-30.0); Chloride 101 mmol/L (98-107); Creatinine Clearance Estimated 317 mL/min (50-200); Estimated Glomerular Filt Rate 249 ml/min (>60); GFR (African American) 302 ML/MIN (>60); Glucose 179 mg/dl (74-100); Potassium 4.1 mmoL/L (3.5-5.1); Sodium 135 mmol/L (136-145)
--- NOTE | 2021-05-19 14:20 | PC.NURSE ---
Report given to Blanca Carrion RN who assumes care of patient at this time. [facility] and moved to [facility] floor at this time.
[2021-05-19 16:30] LABS: POC Glucose,Bedside 177 (70-110)
--- NOTE | 2021-05-19 16:45 | P.PN_ITS ---
Internal Medicine - PN: Subj *Date: 05/19/21 *Time: 16:45 Interval history: No acute respiratory vents overnight. Exam - Constitutional Constitutional:: Present: no acute distress, comfortable - HENMT Exam HENMT: Present: normocephalic, atraumatic - Eye Exam Eyes:: Present: normal appearance both eyes and related structures - Neck Exam Neck:: Present: normal visual inspection - Respiratory Exam Respiratory:: Present: no respiratory distress, decreased breath sounds - Cardiovascular Exam Cardiac:: Present: S1, S2 - GI Exam GI:: Present: soft, obese - Skin Exam Skin: Present: warm, no rash - Neurological Exam Neurological: Present: alert, awake - Extremities Exam Extremities: Present: no cyanosis, no clubbing Assessment and Plan (1) Obesity with serious comorbidity Status: Acute Qualifiers: Obesity type: due to excess calories Obesity classification: unspecified obesity classification Qualified Code(s): E66.09 - Other obesity due to excess calories Category: Medical Code(s): E66.9 - Obesity, unspecified (2) Pneumonia due to COVID-19 virus Status: Acute Category: Medical Code(s): U07.1 - COVID-19; J12.82 - Pneumonia due to coronavirus disease 2019 (3) Respiratory failure with hypoxia Status: Acute Qualifiers: Chronicity: acute Qualified Code(s): J96.01 - Acute respiratory failure with hypoxia Category: Medical Code(s): J96.91 - Respiratory failure, unspecified with hypoxia (4) Hyperglycemia Status: Acute Category: Medical Code(s): R73.9 - Hyperglycemia, unspecified (5) Acute respiratory distress syndrome (ARDS) due to 2019 novel coronavirus Status: Acute Category: Medical Code(s): U07.1 - COVID-19; J80 - Acute respi ratory distress syndrome - Assessment and plan all Dx Assessment and Plan for all problems:: #Acute hypoxic respiratory failure: #COVID-19 pneumonia: Successfully extubated on 05/08/2021 . Remains on nasal cannula, decreased to 4 L this morning with saturations maintained at 92% above. Bilateral lower lobe decreased breath sounds. Endotracheal aspirate from 05/06 grew staph aureus beta-lactamase positive along with patient nasal MRSA PCR positive and patient has received nafacillin with improving respiratory status. Patient respiratory status continued to improve. Will defer antibiotics for his pulmonary infiltrates and will closely monitor at this point of time in the setting of improving chest x-ray and improving respiratory status. We will closely monitor his respiratory status and will recommend considering antibiotics for his pulmonary infiltrates if his respiratory status appears to be worsening Continue DuoNebs every 6 hours as needed. Wean oxygen as tolerated. Volume optimization as per primary team. Incentive spirometry #Thank you involving pulmonary in this patient care. Pulmonary will sign off at this point of time. Please call with any further questions or concerns. Pulmonary services will be unavailable starting 05/20/2021 until 05/24/2021. We will resume inpatient and pulmonary services starting 05/25/2021.
--- NOTE | 2021-05-19 18:41 | PC.NURSE ---
Patient is experiencing events of tachycardia with rates reaching 140's. Provider (Ramin) notified by RN. Patient has had steady urine output throughout shift and has not complained of pain. Patient was tachypneic, RN administered PRn morphine dose. Provider gave no further orders to treat heart rate, but discussed possibility of anti-anxiety medications. Will continue to monitor
[2021-05-19 21:53] LABS: POC Glucose,Bedside 187 (70-110)
[2021-05-20] VITALS (10 sets, daily range): BP systolic 116–149; BP diastolic 72–90; PULSE 87–120; RESP 18–22; TEMP 36.4–36.8; O2SAT 92–98; BMI 57.6
--- NOTE | 2021-05-20 03:06 | PC.NURSE ---
No acute changes t/o shift. Pt remains on 5L NC and O2 saturation has been >90%. Pt denies any pain t/o shift. Torres is draining clear, yellow urine. Call light within reach, VSS, will continue to monitor.
[2021-05-20 05:43] LABS: POC Glucose,Bedside 187 (70-110)
[2021-05-20 07:20] LABS: Basophils # 0.1 K/mm3 (0-0.2); Basophils % 0.9 % (0.1-2.0); Eosinophils # 0.2 K/mm3 (0.0-0.4); Eosinophils % 2.1 % (0.1-12.0); Hematocrit 42.3 % (42.0-52.0); Hemoglobin 13.1 g/dL (14.1-18.0); Lymphocytes % 13.2 % (10-50); Mean Platelet Volume 7.8 fl (7.4-10.4); Monocytes # 0.4 K/mm3 (0.1-1.0); Monocytes % 4.6 % (1.7-9.3); Neutrophils % 79.2 % (37.0-80.0); Platelet Count 312 K/mm3 (142-424); Red Blood Count 5.04 M/mm3 (4.60-6.20); Red Cell Distribution Width 15.8 % (11.5-17.5); White Blood Count 7.5 K/mm3 (4.8-10.8)
[2021-05-20 07:32] LABS: Chloride 101 mmol/L (98-107); Potassium 4.1 mmoL/L (3.5-5.1); Sodium 136 mmol/L (136-145)
[2021-05-20 07:35] LABS: Anion Gap 9.1 mEq/L (5-15); Blood Urea Nitrogen 13 mg/dl (9-20); Calcium 8.5 mg/dl (8.4-10.2); Carbon Dioxide 30 mmol/L (22.0-30.0); Creatinine Clearance Estimated 254 mL/min (50-200); Estimated Glomerular Filt Rate 193 ml/min (>60); GFR (African American) 233 ML/MIN (>60); Glucose 192 mg/dl (74-100)
[2021-05-20 07:36] LABS: Magnesium 1.9 mg/dl (1.6-2.3)
--- NOTE | 2021-05-20 08:21 | HMH.ACPN2 ---
Internal Medicine - PN: Subj *Date: 05/20/21 *Time: 08:21 Interval history: Overall patient had a very smooth night, heart rate has declined into the 80s at rest which is certainly more physiologically appropriate, also of note he has been fever free for 24 hours. No complaints of pain, no complaints of dyspnea, PT OT notes reviewed. Exam Vital signs and Labs for Last 24 Hours: Temp Pulse Resp BP Pulse Ox 97.6 F 87 20 149/89 H 92 L 05/20/21 04:00 05/20/21 06:37 05/20/21 04:00 05/20/21 04:00 05/20/21 06:37 Laboratory Results - last 24 hr 05/19/21 16:22: POC Glucose 177 H 05/19/21 20:51: POC Glucose 187 H 05/20/21 05:27: POC Glucose 187 H 05/20/21 06:40: WBC 7.5, RBC 5.04, Hgb 13.1 L, Hct 42.3, MCV 84.0, MCH 26.0 L, MCHC 31.0 L, RDW 15.8, Plt Count 312, MPV 7.8, Neut % (Auto) 79.2, Lymph % (Auto) 13.2, [place] % (Auto) 4.6, Eos % (Auto) 2.1, Baso % (Auto) 0.9, Neut # (Auto) 6.0, Lymph # (Auto) 1.0, [place] # (Auto) 0.4, Eos # (Auto) 0.2, Baso # (Auto) 0.1 05/20/21 06:40: Sodium 136, Potassium 4.1, Chloride 101, Carbon Dioxide 30, Anion Gap 9.1, BUN 13, Creatinine 0.50 L D, Estimated Creat Clear 254, Estimated GFR 193, Est GFR ( Amer) 233 D, Glucose 192 H, Calcium 8.5, Magnesium 1.9 I & O for Last 24 hours: Intake & Output 05/17/21 05/18/21 05/19/21 05/20/21 11:59 11:59 11:59 11:59 Intake Total 1176 / 1176 1331 / 1331 721 / 721 480 / 480 Output Total 5235 / 5475 5440 / 5615 2855 / 3005 3275 / 3275 Balance -4059 / -4299 -4109 / -4284 -2134 / -2284 -2795 / -2795 Weight 464 lb 463 lb 9 oz 463 lb 13.641 oz 463 lb 13.641 oz Microbiology Reports for the Last 24 Hours: Microbiology 05/17/21 18:50 Blood - Other Blood Culture - Preliminary NO GROWTH AFTER 48 HOURS 05/17/21 12:05 Urine,Catheterized Urine Culture - Final NO GROWTH AFTER 48 HOURS 05/17/21 12:55 Blood - Other Blood Culture - Preliminary NO GROWTH AFTER 48 HOURS 05/17/21 13:02 Aspirate - Other Gram Stain - Final 05/17/21 13:02 Aspirate - Other Bronchial Aspirate Culture - Preliminary Narrative: Alert, pleasant, talkative. Oropharynx clear. Lungs have good air movement, abdomen soft, heart rate regular. Extremities unchanged, Torres catheter draining clear yellow urine. Assessment and Plan (1) Obesity with serious comorbidity Status: Acute Qualifiers: Obesity type: due to excess calories Obesity classification: unspecified obesity classification Qualified Code(s): E66.09 - Other obesity due to excess calories Category: Medical Code(s): E66.9 - Obesity, unspecified (2) Pneumonia due to COVID-19 virus Status: Acute Category: Medical Code(s): U07.1 - COVID-19; J12.82 - Pneumonia due to coronavirus disease 2019 (3) Respiratory failure with hypoxia Status: Acute Qualifiers: Chronicity: acute Qualified Code(s): J96.01 - Acute respiratory failure with hypoxia Category: Medical Code(s): J96.91 - Respiratory failure, unspecified with hypoxia (4) Hyperglycemia Status: Acute Category: Medical Code(s): R73.9 - Hyperglycemia, unspecified (5) Acute respiratory distress syndrome (ARDS) due to 2019 novel coronavirus Status: Acute Category: Medical Code(s): U07.1 - COVID-19; J80 - Acute respiratory distress syndrome - Assessment and plan all Dx Assessment and Plan for all problems:: Overall good improvement. Patient is ready for placement at rehabilitation facility for ongoing weakness, following up his Covid pneumonia improvement, etc. We will remove Torres catheter today. I did discuss with Tobin today that his mother Johanna did pass away from Covid in the ICU. He had been previously unaware of this given his significant illness, he was appropriately tearful, but understood the circumstances. He and his mother lived together in [place], and hopefully we will be able to arrange more permane
--- NOTE | 2021-05-20 08:24 | P.PN_ITS ---
Internal Medicine - PN: Subj *Date: 05/20/21 *Time: 08:24 Exam Vital signs and Labs for Last 24 Hours: Temp Pulse Resp BP Pulse Ox 97.6 F 87 20 149/89 H 92 L 05/20/21 04:00 05/20/21 06:37 05/20/21 04:00 05/20/21 04:00 05/20/21 06:37 Laboratory Results - last 24 hr 05/19/21 16:22: POC Glucose 177 H 05/19/21 20:51: POC Glucose 187 H 05/20/21 05:27: POC Glucose 187 H 05/20/21 06:40: WBC 7.5, RBC 5.04, Hgb 13.1 L, Hct 42.3, MCV 84.0, MCH 26.0 L, MCHC 31.0 L, RDW 15.8, Plt Count 312, MPV 7.8, Neut % (Auto) 79.2, Lymph % (Auto) 13.2, [place] % (Auto) 4.6, Eos % (Auto) 2.1, Baso % (Auto) 0.9, Neut # (Auto) 6.0, Lymph # (Auto) 1.0, [place] # (Auto) 0.4, Eos # (Auto) 0.2, Baso # (Auto) 0.1 05/20/21 06:40: Sodium 136, Potassium 4.1, Chloride 101, Carbon Dioxide 30, Anion Gap 9.1, BUN 13, Creatinine 0.50 L D, Estimated Creat Clear 254, Estimated GFR 193, Est GFR ( Amer) 233 D, Glucose 192 H, Calcium 8.5, Magnesium 1.9 I & O for Last 24 hours: Intake & Output 05/17/21 05/18/21 05/19/21 05/20/21 23:59 23:59 23:59 23:59 Intake Total 1332 / 1332 1274 / 1274 480 / 480 Output Total 5755 / 6055 4225 / 4325 3675 / 3675 1000 / 1000 Balance -4423 / -4723 -2951 / -3051 -3195 / -3195 -1000 / -1000 Weight 210.467 kg 210.268 kg 210.4 kg 210.4 kg Microbiology Reports for the Last 24 Hours: Microbiology 05/17/21 18:50 Blood - Other Blood Culture - Preliminary NO GROWTH AFTER 48 HOURS 05/17/21 12:05 Urine,Catheterized Urine Culture - Final NO GROWTH AFTER 48 HOURS 05/17/21 12:55 Blood - Other Blood Culture - Preliminary NO GROWTH AFTER 48 HOURS 05/17/21 13:02 Aspirate - Other Gram Stain - Final 05/17/21 13:02 Aspirate - Other Bronchial Aspirate Culture - Preliminary Assessment and Plan (1) Obesity with serious comorbidity Status: Acute Qualifiers: Obesity type: due to excess calories Obesity classification: unspecified obesity classification Qualified Code(s): E66.09 - Other obesity due to excess calories Category: Medical Code(s): E66.9 - Obesity, unspecified (2) Pneumonia due to COVID-19 virus Status: Acute Category: Medical Code(s): U07.1 - COVID-19; J12.82 - Pneumonia due to coronavirus disease 2019 (3) Respiratory failure with hypoxia Status: Acute Qualifiers: Chronicity: acute Qualified Code(s): J96.01 - Acute respiratory failure with hypoxia Category: Medical Code(s): J96.91 - Respiratory failure, unspecified with hypoxia (4) Hyperglycemia Status: Acute Category: Medical Code(s): R73.9 - Hyperglycemia, unspecified (5) Acute respiratory distress syndrome (ARDS) due to 2019 novel coronavirus Status: Acute Category: Medical Code(s): U07.1 - COVID-19; J80 - Acute respiratory distress syndrome The patient's infection will respond to the chosen ABx?: Yes Is the patient receiving the right drug, dose, and route?: Yes Could a more targeted ABx be ordered?: No (BLOOD CX (-) MULTIPLE, SPUTUM (+) S. AUREUS, CONT CURRENT ABX)
--- NOTE | 2021-05-20 09:53 | PC.NURSE ---
asssiting with charting vitals and srna checks at this time.
--- NOTE | 2021-05-20 10:16 | DIET.NUTRFU ---
Addendum entered by Linnea Moulton 06/08/21 13:15: PO intakes 100%, bowels moving, weight up 6#, BG moderate avg. 165. Addendum entered by Linnea Moulton 06/05/21 13:56: Continues to improve, much happier with regular consistency diet 100% PO intakes and continues to eat independently. BG moderate avg. 170. Weight documented to be down 13# past 24h, unsure of accuracy. Bowels moving. Addendum entered by Linnea Moulton 06/03/21 09:28: PO intakes 75-100% and pt able to eat independently. BG moderate avg. 160, weight down 4#. Addendum entered by Linnea Moulton 06/01/21 10:46: PO intakes 75%, continues on soft mechanical. He has been able to feed himself last few meals. BG moderate avg. 180. Weight stable, bowels normal. Addendum entered by Linnea Moulton 05/29/21 09:37: Pt advanced to soft mechanical diet and doing much better on this, PO intakes up to 100%. Supplements removed from diet order. Weight up 4#. BG moderate-high avg. 175. Addendum entered by Linnea Moulton 05/27/21 13:35: PO intakes continue to decrease- 25% past 48h. He states he just does not like the pureed diet. FERN GATHERER saw him yesterday and recommended continuing same POC at this time. Pt educated on importance diet and encouraged to eat as much as he can, BID supplements added to order. Will monitor to alter as indicated. Addendum entered by Linnea Moulton 05/25/21 13:41: PO intakes 50%, he does not like his pureed diet. He continues to require assistance. Weight stable. BG moderate-high avg. 200. Addendum entered by Linnea Moulton 05/22/21 09:42: Pt continues on dysphagia diet with PO intakes 75%, continues to need total assistance. Weight stable, BG moderate-high avg. 200. Original Note: Pt passed speech eval and given pureed diet with nectar thickened liquids. He is doing well and ate 100% of first 2 meals, he does continues to require assistance feeding. Weight stable, he has continued with loose BMs, BG moderate-high avg. 180.
[2021-05-20 12:22] LABS: POC Glucose,Bedside 246 (70-110)
[2021-05-20 17:36] LABS: POC Glucose,Bedside 303 (70-110)
--- NOTE | 2021-05-20 18:13 | PC.NURSE ---
NO ACUTE CHANGES THIS SHIFT, HE SAT UP TO CHAIR VIA LIFT FOR MOST OF THE AFTERNOON, REQUIRES ONCE ASSIST WITH FEEDING. LARGE PILLS WERE BROKEN IN HALF OR CRUSHED WITH MEALS. HE REMAINS ON 5LNC FOR O2 SUPPORT, AFFECT WAS STOIC T/O SHIFT, PT DID APPEAR DIAPHORETIC AT TIMES BUT WAS AFEBRILE ALL SHIFT. VITAL SIGNS HAVE BEEN STABLE WITH TACHYCARDIA NOTED ON TELEMETRY, NELSON STILL IN PLACE DRAINING CLEAR YELLOW URINE.
[2021-05-20 22:35] LABS: POC Glucose,Bedside 258 (70-110)
[2021-05-21] VITALS (11 sets, daily range): BP systolic 113–141; BP diastolic 70–92; PULSE 74–130; RESP 17–40; TEMP 36.6–36.9; O2SAT 93–96; BMI 57.6
--- NOTE | 2021-05-21 04:04 | PC.NURSE ---
pt is AxOx4, has been stoic and soft spoken this shift, remains on 5L NC with O2 sats 92-94%, has not complained of any pain this shift or SOA, meds have been crushed or broken in half with no issues, arana draining clear yellow urine at bedside
[2021-05-21 05:59] LABS: POC Glucose,Bedside 190 (70-110)
--- NOTE | 2021-05-21 08:34 | P.PN_ITS ---
Internal Medicine - PN: Subj *Date: 05/21/21 *Time: 08:34 Interval history: Jose Antonio remained stable overnight. Had a good physical therapy session and got up in a chair. Notes that he had some pain around his buttocks but there is no wounds. He felt very stiff. Has had a good breakfast this morning. Notes that he swallows okay. Exam Vital signs and Labs for Last 24 Hours: Temp Pulse Resp BP Pulse Ox 98.1 F 112 H 26 H 141/91 H 94 L 05/21/21 07:30 05/21/21 07:30 05/21/21 07:30 05/21/21 07:30 05/21/21 07:30 Laboratory Results - last 24 hr 05/17/21 12:05: Urine Color Yellow, Urine Appearance Sl cloudy, Urine pH 7.5, Ur Specific [place] 1.015, Urine Protein Negative, Urine Glucose (UA) 1+, Urine Ketones 2+, Urine Blood 3+, Urine Nitrate Negative, Urine Bilirubin Negative, Urine Urobilinogen 0.2, Ur Leukocyte Esterase 1+ A, Urine RBC 20-50, Urine WBC 3-5, Ur Squamous Epith Cells 5-10, Urine Bacteria None 05/20/21 12:01: POC Glucose 246 H 05/20/21 17:28: POC Glucose 303 H* 05/20/21 22:00: POC Glucose 258 H 05/21/21 05:36: POC Glucose 190 H I & O for Last 24 hours: Intake & Output 05/18/21 05/19/21 05/20/21 05/21/21 11:59 11:59 11:59 11:59 Intake Total 1331 / 1331 721 / 721 840 / 840 1480 / 1480 Output Total 5440 / 5615 2855 / 3005 3275 / 3275 1250 / 1250 Balance -4109 / -4284 -2134 / -2284 -2435 / -2435 230 / 230 Weight 463 lb 9 oz 463 lb 13.641 oz 463 lb 13.641 oz 463 lb 13.641 oz Microbiology Reports for the Last 24 Hours: Microbiology 05/17/21 13:02 Aspirate - Other Gram Stain - Final 05/17/21 13:02 Aspirate - Other Bronchial Aspirate Culture - Final Streptococcus constellatus Streptococcus anginosus Narrative: Alert, pleasant. Oriented x3. Lungs have good air movement, abdomen soft, obese and benign. Torres catheter draining dark or yellow urine. Extremities without change. Moves all extremities well but is globally weak. ENT exam clear. Heart rate regular. Assessment and Plan (1) Obesity with serious comorbidity Status: Acute Qualifiers: Obesity type: due to excess calories Obesity classification: unspecified obesity classification Qualified Code(s): E66.09 - Other obesity due to excess calories Category: Medical Code(s): E66.9 - Obesity, unspecified (2) Pneumonia due to COVID-19 virus Status: Acute Category: Medical Code(s): U07.1 - COVID-19; J12.82 - Pneumonia due to coronavirus disease 2019 (3) Respiratory failure with hypoxia Status: Acute Qualifiers: Chronicity: acute Qualified Code(s): J96.01 - Acute respiratory failure with hypoxia Category: Medical Code(s): J96.91 - Respiratory failure, unspecified with hypoxia (4) Hyperglycemia Status: Acute Category: Medical Code(s): R73.9 - Hyperglycemia, unspecified (5) Acute respiratory distress syndrome (ARDS) due to 2019 novel coronavirus Status: Acute Category: Medical Code(s): U07.1 - COVID-19; J80 - Acute respiratory distress syndrome - Assessment and plan all Dx Assessment and Plan for all problems:: No major change in plans today. Continue PT. Continue current nursing care. Watch swallowing carefully. Patient will be able to discharge to rehab facility once a suitable and is found. Remove Torres catheter today.
[2021-05-21 11:36] LABS: POC Glucose,Bedside 250 (70-110)
[2021-05-21 18:04] LABS: POC Glucose,Bedside 265 (70-110)
[2021-05-21 21:34] LABS: POC Glucose,Bedside 210 (70-110)
[2021-05-22] VITALS (12 sets, daily range): BP systolic 120–159; BP diastolic 77–88; PULSE 112–143; RESP 23–40; TEMP 36.4–36.9; O2SAT 80–96; BMI 57.6
[2021-05-22 03:49] LABS: POC Glucose,Bedside 182 (70-110)
[2021-05-22 05:24] LABS: POC Glucose,Bedside 190 (70-110)
--- NOTE | 2021-05-22 05:27 | PC.NURSE ---
Patient is A&O x4. Patient had a episode of being diaphoretic, patient respirations where increased and required and increase in oxygen requirements. Patient was placed on 12LNC. Patient's heart rate remained baseline and patient was afebrile. Random FSBS was 186. Patient had no complaints of pain or any discomfort other then being hot. Patient had not had any urine output this shift up until about 0520, where he had copious amounts of urine and a bowel movement. Patient became more comfortable. Patient tolerated getting up with the lift to the bedside commode with a max assist. VSS are stable at 0530, patient oxygen requirements are at 8LNC, will continue to titrate down as patient tolerates. Will continue to monitor. Call light is within reach.
--- NOTE | 2021-05-22 06:31 | XR_ITS ---
PROCEDURE: XR CHEST PORTABLE CLINICAL HISTORY: increased O2 requirement. COMPARISON: CR XR CHEST PORTABLE from 05/15/2021 CR XR CHEST PORTABLE from 05/16/2021 CR XR CHEST PORTABLE from 05/17/2021 FINDINGS: There are low lung volumes with vascular crowding bilaterally. Normal heart size. No definite CHF No obvious lobar consolidation or collapse. The patient's chin obscures the upper chest on the right and upper mediastinum. IMPRESSION: Low lung volumes. No definite acute finding Dictated by: Barrett Daugherty MD 05/22/2021 13:23 Barrett Daugherty MD in [facility] 05/22/2021 13:23
--- NOTE | 2021-05-22 06:31 | HMH.ACPN2 ---
Internal Medicine - PN: Subj *Date: 05/22/21 *Time: 13:41 Interval history: Patient remains on supplemental oxygen. No acute complaints this morning. Denies shortness of breath, chest pain, headache, confusion. Denies nausea vomiting diarrhea. Afebrile now for over 3 days. Does have an increased oxygen requirement overnight to 8 L slight increase in his tachycardia. Of note, it appears his Lovenox stopped automatically per the system with his last dose on Tuesday evening. Resuming this morning. Exam Vital signs and Labs for Last 24 Hours: Temp Pulse Resp BP Pulse Ox 97.9 F 125 H 32 H 139/80 96 05/22/21 04:00 05/22/21 04:00 05/22/21 04:00 05/22/21 04:00 05/22/21 04:00 Laboratory Results - last 24 hr 05/21/21 11:21: POC Glucose 250 H 05/21/21 17:51: POC Glucose 265 H 05/21/21 21:26: POC Glucose 210 H 05/22/21 03:42: POC Glucose 182 H 05/22/21 05:16: POC Glucose 190 H I & O for Last 24 hours: Intake & Output 05/19/21 05/20/21 05/21/21 05/22/21 23:59 23:59 23:59 23:59 Intake Total 480 / 480 1060 / 1060 1500 / 1500 300 / 300 Output Total 3675 / 3675 1650 / 1650 600 / 600 1050 / 1050 Balance -3195 / -3195 -590 / -590 900 / 900 -750 / -750 Weight 210.4 kg 210.4 kg 210.4 kg 210.4 kg Microbiology Reports for the Last 24 Hours: Microbiology 05/17/21 13:02 Aspirate - Other Gram Stain - Final 05/17/21 13:02 Aspirate - Other Bronchial Aspirate Culture - Final Streptococcus constellatus Streptococcus anginosus - Constitutional mild distress, morbidly obese - *Routine HEENT Exam Head: Present: normocephalic Eye: Present: EOMI, PERRL ENT: Present: mucous membranes moist - *Routine Neck Exam Present: supple. Absent: lymphadenopathy - *Routine Respiratory Exam Present: CTA bilaterally, distant breath sounds, diminished air movement - *Routine Cardiovascular Exam Present: tachycardia. Absent: murmur - *Routine Abdominal Exam Present: soft, normoactive bowel sounds, obese. Absent: tenderness - *Routine Extremities Exam Absent: cyanosis, clubbing, edema - *Routine Skin Exam Present: warm. Absent: rash - *Routine Neurological Exam Present: alert, oriented X3 gross weakness, unable to lift arms and legs off the bed. 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 Assessment and Plan (1) Obesity with serious comorbidity Status: Acute Qualifiers: Obesity type: due to excess calories Obesity classification: unspecified obesity classification Qualified Code(s): E66.09 - Other obesity due to excess calories Category: Medical Code(s): E66.9 - Obesity, unspecified (2) Pneumonia due to COVID-19 virus Status: Acute Category: Medical Code(s): U07.1 - COVID-19; J12.82 - Pneumonia due to coronavirus disease 2019 (3) Respiratory failure with hypoxia Status: Acute Qualifiers: Chronicity: acute Qualified Code(s): J96.01 - Acute respiratory failure with hypoxia Category: Medical Code(s): J96.91 - Respiratory failure, unspecified with hypoxia (4) Hyperglycemia Status: Acute Category: Medical Code(s): R73.9 - Hyperglycemia, unspecified (5) Acute respiratory distress syndrome (ARDS) due to 2019 novel coronavirus Status: Acute Category: Medical Code(s): U07.1 - COVID-19; J80 - Acute respiratory distress syndrome - Assessment and plan all Dx Assessment and Plan for all problems:: 30-year-old male with acute hypoxemic respiratory failure secondary to COVID-19 pneumonia. Intubated on 05/06, extubated 05/16. After extubation was able to wean to 5 L nasal cannula oxygen. Unfortunately has increased back to 8 L over the past 12 to 24 hours. Remains afebrile. Increased tachycardia however. Recommendations and plan for patient care as follows: Acute on chronic hypoxemic respiratory failure -Patient has been afebrile for 3 days. Doing better on antibiotics. Continue Zyvox and Levaquin for
--- NOTE | 2021-05-22 07:43 | CA_ITS ---
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 Agent Comments: Technically limited exam due to extreme morbid obesity 2D Dimensions Aortic Root 4.48 cm LA Volume 54.70 mL Left Atrium 4.77 cm LA Volume Index 17.40 mL/m2 (M/F) 16-34 LVOT 3.34 cm (M/F) 1.5-2.5 M-Mode Dimensions RVDd 2.58 cm (0.9-2.6) LA Diam 4.29 cm (1.9-4.0) LVDd 5.20 cm (3.5-5.7) Ao Diam 4.52 cm (2.0-3.7) LVDs 3.61 cm (3.5-5.7) IVSd 1.31 cm (0.6-1.1) PWd 1.26 cm (0.6-1.1) EF (Teich) 57.70% EPSs 0.49 cm FS 30.60% EDV (Teich) 129.50 mL TAPSE 1.68 (<1.7) ESV (Teich) 54.80 mL LV Diastology E Decel Time 150.00 (160-240 msec) E/A Ratio 0.77 MED E' 5.90 (< 7 cm/sec) MED A' 12.40 cm/s E'/MED E' Ratio 10.68 (>14) LAT E' 10.40 (<10 cm/sec) LAT A' 9.50 cm/s E/LAT E' Ratio 6.06 (>14) Aortic Valve LVOT Max 143.00 (70-110 cm/s) LVOT VTI 25.58 cm AoV Peak Burke. 164.00 (50-130 cm/s) AO Peak GR. 10.80 mmHg AO Mean GR. 5.30 (<5 mmHg) AO VTI 28.23 (18-25 cm) ANDREA (VTI) 7.94 (2.5-4.5 cm2) Mitral Valve MV A Velocity 82.00 (40-130 cm/s) E/A Ratio 0.77 MV Decel. Time 150.00 (160-240 ms) Pulmonary Valve PV Peak Velocity 83.00 (50-150 cm/s) Tricuspid Valve TR P. Velocity 211.00 cm/s RAP Estimate 15.00 mmHg RVSP 32.80 mmHg Left Ventricle Left atrium is mildly enlarged, left ventricle is normal size, mild concentric left ventricular hypertrophy, visually estimated ejection fraction 55% with no regional wall motion abnormality, diastolic parameters are inconclusive. Right Ventricle Right atrium and right ventricle are mildly enlarged with normal contractility. Aortic Valve Aortic valve is trileaflet, there is no aortic stenosis or aortic insufficiency. Mitral Valve Mitral valve is grossly normal, there is trace mitral regurgitation. Tricuspid Valve Tricuspid valve grossly normal, there is trace tricuspid regurgitation, tricuspid regurgitation jet velocity is inadequate for calculation of the right ventricular systolic pressure. Pulmonic Valve Pulmonic valve is poorly visualized. Great Vessels Aortic root is enlarged measuring 4.4 cm. Inferior vena cava is poorly visualized Pericardium No significant pericardial effusion noted. Conclusion 1. Mild biatrial enlargement, normal left ventricular size, mild concentric left ventricular hypertrophy, visually estimated ejection fraction 55% with no regional wall motion abnormality, diastolic parameters are inconclusive. 2. Mildly enlarged right ventricle with normal contractility. 3. Aortic root is enlarged measuring 4.4 cm, aortic valve is trileaflet, there is no aortic stenosis or aortic insufficiency. 4. Trace mitral and tricuspid regurgitation. 5. No significant pericardial effusion noted. Electronically signed by : Reji Rai MD 05/22/2021 11:56:27
--- NOTE | 2021-05-22 07:46 | CT_ITS ---
PROCEDURE: CT ANGIO CHEST PE PROTOCOL CLINCIAL INDICATION: increased tachycardia, Hypoxia, COVID COMPARISON: CR XR CHEST PORTABLE from 05/17/2021 CR XR CHEST PORTABLE from 05/22/[address] ANGIO CHEST PE PROTOCOL from 05/22/2021 TECHNIQUE: IV Contrast: 70ML Isovue 370 Axial images obtained with sagittal and coronal reformats. All CT scans at the facility use one or more dose reduction, viz: automated exposure control, ma/kV adjustment per patient size (including targeted exams where dose is matched to indication, i.e. head), or iterative reconstruction technique. FINDINGS: HEART AND MEDIASTINAL STRUCTURES: There is extensive bilateral pulmonary emboli with thrombus present in the distal aspect of the right main pulmonary artery and extending into both upper and lower lobe segmental branches. Thrombus is also present in the distal aspect of the left main pulmonary artery extending into upper lower lobe branches. No evidence of RV strain. The RV/LV ratio is less than 1 with no septal bowing. LUNGS AND PLEURAL SPACES: There are scattered areas ground-glass opacity and atelectatic changes consistent with Covid19 pneumonia. No effusions. BONY STRUCTURES: Mild thoracolumbar curvature convex left. UPPER ABDOMEN: Diffuse fatty liver ADDITIONAL FINDINGS: No other significant abnormalities. IMPRESSION: Acute bilateral pulmonary emboli. No evidence of RV strain. Josefa, the patient's nurse was notified of the above findings by telephone 05/22/2021 at 2:50 p.m. Dictated by: Barrett Daugherty MD 05/22/2021 14:55 Barrett Daugherty MD in [place] 05/22/2021 14:55
--- NOTE | 2021-05-22 07:52 | HMH.ITSTN ---
FINDING OUT WHEN PATIENT CAN BE DONE ON NEW SCANNER DUE TO SIZE AND WEIGHT
--- NOTE | 2021-05-22 09:25 | HMH.ITSTN ---
CALLING RN TO INFORM HER THE PATIENT WILL HAVE TO WAIT FOR THE ROOM TO BE AVAILABLE FOR HIS SCAN DUE TO HIS SIZE,,
[2021-05-22 11:29] LABS: POC Glucose,Bedside 229 (70-110)
--- NOTE | 2021-05-22 15:06 | CA_ITS ---
APPROVED REPORT Bilateral Lower Extremity Venous Study for DVT. Anger Control Counselor: NOEL ALDANA/Nette RCS, RVS Indications PEs, Covid, Extreme morbid obesity Vein Imaging CFV (R): compressive, spontaneous, phasic, augmentation SFJ (R): compressive, spontaneous, phasic, augmentation FEM (R): compressive, spontaneous, phasic, augmentation POP (R): compressive, spontaneous, phasic, augmentation DFV (R): compressive, spontaneous, phasic, augmentation PTV (R): compressive, spontaneous, phasic, augmentation GSV (R): compressive, spontaneous, phasic, augmentation SSV (R): compressive, spontaneous, phasic, augmentation Peroneals (R):compressive, spontaneous, phasic, augmentation GAS (R): compressive, spontaneous, phasic, augmentation CFV (L): compressive, spontaneous, phasic, augmentation SFJ (L): compressive, spontaneous, phasic, augmentation FEM (L): compressive, spontaneous, phasic, augmentation POP (L): Thrombus, Non-Compressible DFV (L): compressive, spontaneous, phasic, augmentation PTV (L): compressive, spontaneous, phasic, augmentation GSV (L): compressive, spontaneous, phasic, augmentation SSV (L): compressive, spontaneous, phasic, augmentation Peroneals (L):compressive, spontaneous, phasic, augmentation GAS (L): compressive, spontaneous, phasic, augmentation Findings The left Popliteal Vein is dilated with soft echoes and is non-compressible. Color flow duplex of the left lower extremity demonstrates acuteocclusive DVT involving the Left Popliteal vein Color flow duplex demonstrates no evidence of DVT of the following right lower extremity Veins:Common Femoral Vein, , Femoral Vein, Popliteal Vein, Posterior Tibial Veins, Peroneal Veins. Positive for DVt of the left Popliteal vein. Conclusion The left Popliteal Vein is dilated with soft echoes and is non-compressible. Color flow duplex of the left lower extremity demonstrates acuteocclusive DVT involving the Left Popliteal vein Color flow duplex demonstrates no evidence of DVT of the following right lower extremity Veins:Common Femoral Vein, , Femoral Vein, Popliteal Vein, Posterior Tibial Veins, Peroneal Veins. Technically limited exam due to patient extreme body habitus, scanned in a seated position due to dyspnea. Critical Notification Date: 05/22/2021 Time: 1430 Other Discipline: Dylon Electronically signed by : Barrett Daugherty MD 05/25/2021 15:28:25
--- NOTE | 2021-05-22 15:06 | CA_ITS ---
APPROVED REPORT Bilateral Upper Extremity Venous Study for DVT. Deputy Director Of Finance: Nisreen Ramirez RVT Indications Pulmonary Embolism Shortness of breath Covid, Extreme morbid obesity Vein Imaging IJV (R): Normal phasic flow is seen. Normal flow, augmentation and compression is seen. No evidence of Deep Vein Thrombosis. No abnormalities are demonstrated. SCV (R): Normal phasic flow is seen. Normal flow, augmentation and compression is seen. No evidence of Deep Vein Thrombosis. No abnormalities are demonstrated. Axillary (R): Normal phasic flow is seen. Normal flow, augmentation and compression is seen. No evidence of Deep Vein Thrombosis. No abnormalities are demonstrated. Brachial (R): Normal phasic flow is seen. Normal flow, augmentation and compression is seen. No evidence of Deep Vein Thrombosis. No abnormalities are demonstrated. Basilic (R): Normal phasic flow is seen. Normal flow, augmentation and compression is seen. No evidence of Deep Vein Thrombosis. No abnormalities are demonstrated. Cephalic (R): Thrombus, Non-Compressible Radial (R): Normal phasic flow is seen. Normal flow, augmentation and compression is seen. No evidence of Deep Vein Thrombosis. No abnormalities are demonstrated. Ulnar (R): Normal phasic flow is seen. Normal flow, augmentation and compression is seen. No evidence of Deep Vein Thrombosis. No abnormalities are demonstrated. IJV (L): Normal phasic flow is seen. Normal flow, augmentation and compression is seen. No evidence of Deep Vein Thrombosis. No abnormalities are demonstrated. SCV (L): Normal phasic flow is seen. Normal flow, augmentation and compression is seen. No evidence of Deep Vein Thrombosis. No abnormalities are demonstrated. Axillary (L): Normal phasic flow is seen. Normal flow, augmentation and compression is seen. No evidence of Deep Vein Thrombosis. No abnormalities are demonstrated. Brachial (L): Normal phasic flow is seen. Normal flow, augmentation and compression is seen. No evidence of Deep Vein Thrombosis. No abnormalities are demonstrated. Basilic (L): Normal phasic flow is seen. Normal flow, augmentation and compression is seen. No evidence of Deep Vein Thrombosis. No abnormalities are demonstrated. Cephalic (L): Thrombus, Non-Compressible Radial (L): Normal phasic flow is seen. Normal flow, augmentation and compression is seen. No evidence of Deep Vein Thrombosis. No abnormalities are demonstrated. Ulnar (L): Normal phasic flow is seen. Normal flow, augmentation and compression is seen. No evidence of Deep Vein Thrombosis. No abnormalities are demonstrated. Findings Bilateral non compressible thrombosis of cephalic vein. Positive for DVT. Conclusion Bilateral non compressible thrombosis of cephalic vein. Positive for DVT. Critical Notification Critical Value: Yes Date: 05/22/2021 Time: 16.30 Other Discipline: LARISSA Larkin Report Read Back Electronically signed by : Barrett Daugherty MD 05/25/2021 15:27:20
--- NOTE | 2021-05-22 15:53 | PC.NURSE ---
Pt has been pleasant and cooperative this shift. A&O X4. No complaints of pain or SOA. Pt is currently receiving O2 via NC @ 8 LPM with sats. >90%. Lungs CTA. Generalized, non-pitting edema noted to entire body. Telemetry reveals ST. Bilateral buttocks noted to be reddened. Bilateral heels are soft and bruised. Bilateral heel protectors placed. Pt unable to urinate this shift. F/C inserted with immediate output of 800 ML. No BM thus far this shift. Pt worked with PT and sat up in the chair for the majority of the shift. Pt requires assistance with meals and has eaten about 50-75% of all meals. Pt has been turned/repositioned Q2H this shift. FSBS results have been 229 and [address] in place to LT upper arm is patent and SL. VSS. Call light within reach. Will continue to monitor.
[2021-05-22 16:59] LABS: Microscopic, Urine URINE MICROSCOPIC (MICROSCOPIC)
[2021-05-22 17:44] LABS: POC Glucose,Bedside 253 (70-110)
[2021-05-22 17:50] LABS: Appearance,Urine CLEAR (Clear); Bilirubin,Urine Negative (Negative); Blood, Urine Negative (Negative); Color,Urine YELLOW (Yellow); Glucose,Urine (UA) Negative (Negative); Ketones,Urine Negative (Negative); Leukocyte Esterase,Urine Negative (Negative); Nitrate,Urine Negative (Negative); Protein,Urine TRACE (Negative); Urobilinogen,Urine 0.2 EU/dl (0.2)
[2021-05-22 17:51] LABS: WBC,Urine Occasional #/hpf (0-3)
[2021-05-22 18:11] LABS: Basophils # 0.1 K/mm3 (0-0.2); Basophils % 0.7 % (0.1-2.0); Eosinophils # 0.1 K/mm3 (0.0-0.4); Eosinophils % 1.3 % (0.1-12.0); Hematocrit 43.9 % (42.0-52.0); Hemoglobin 13.6 g/dL (14.1-18.0); Lymphocytes # 1.2 K/mm3 (0.7-4.5); Mean Corpuscular Volume 83.8 fl (80-94); Mean Platelet Volume 8.7 fl (7.4-10.4); Monocytes # 0.5 K/mm3 (0.1-1.0); Monocytes % 4.6 % (1.7-9.3); Neutrophils # 8.8 K/mm3 (1.8-7.8); Neutrophils % 82.4 % (37.0-80.0); Platelet Count 248 K/mm3 (142-424); Red Blood Count 5.23 M/mm3 (4.60-6.20); Red Cell Distribution Width 16.1 % (11.5-17.5); White Blood Count 10.7 K/mm3 (4.8-10.8)
--- NOTE | 2021-05-22 18:15 | PC.NURSE ---
Diaphoresis, SOA, tachycardia, and O2 de-saturation noted. Pt placed on Vapotherm per Dr. Faustin. Current settings are 100% O2 @ 30 LPM with sats. >90%.
[2021-05-22 18:19] LABS: Anion Gap 9.3 mEq/L (5-15); Blood Urea Nitrogen 17 mg/dl (9-20); Calcium 9.2 mg/dl (8.4-10.2); Carbon Dioxide 30 mmol/L (22.0-30.0); Chloride 100 mmol/L (98-107); Creatinine Clearance Estimated 254 mL/min (50-200); Estimated Glomerular Filt Rate 193 ml/min (>60); GFR (African American) 233 ML/MIN (>60); Glucose 240 mg/dl (74-100); Potassium 4.3 mmoL/L (3.5-5.1); Sodium 135 mmol/L (136-145)
[2021-05-22 20:20] LABS: POC Glucose,Bedside 251 (70-110)
[2021-05-23] VITALS (14 sets, daily range): BP systolic 117–126; BP diastolic 70–92; PULSE 101–125; RESP 19–40; TEMP 36.4–37.1; O2SAT 93–98; BMI 54.7
--- NOTE | 2021-05-23 05:05 | PC.NURSE ---
Patient is A&Ox4. Patient has been maxed out on vapotherm at 40LPM/100% FIO2 at the beginning of this RN's shift around 2029 due to oxygen maintaining at 85-86%. Patient has remained tachypneic and tachycardic this shift. He has remained afebrile, BP has been WNL. At around 2330 patient was placed on a non-rebreather as he dropped below 88% with his oxygen saturation. Since then he has maintained his oxygen saturation in the low 90s. Patient has not had any c/o this shift. Call light is within reach, will continue to monitor.
[2021-05-23 06:05] LABS: POC Glucose,Bedside 182 (70-110)
[2021-05-23 06:33] LABS: Chloride 98 mmol/L (98-107); Sodium 137 mmol/L (136-145)
[2021-05-23 06:34] LABS: Potassium 3.9 mmoL/L (3.5-5.1)
[2021-05-23 06:36] LABS: Alanine Aminotransferase 100 U/L (12-78); Albumin Level 3.3 g/dl (3.5-5.0); Alkaline Phosphatase 75 U/L (38-126); Anion Gap 10.9 mEq/L (5-15); Aspartate Amino Transferase 74 U/L (17-59); Bilirubin,Total 0.8 mg/dl (0.2-1.3); Blood Urea Nitrogen 14 mg/dl (9-20); Carbon Dioxide 32 mmol/L (22.0-30.0); Creatinine Clearance Estimated 254 mL/min (50-200); Estimated Glomerular Filt Rate 193 ml/min (>60); GFR (African American) 233 ML/MIN (>60); Globulin 3.3 g/dL (1.3-3.2); Glucose 184 mg/dl (74-100); Total Protein,Serum 6.6 g/dl (6.3-8.2)
[2021-05-23 06:37] LABS: Magnesium 1.7 mg/dl (1.6-2.3)
[2021-05-23 06:38] LABS: Basophils # 0.1 K/mm3 (0-0.2); Basophils % 0.8 % (0.1-2.0); Eosinophils # 0.2 K/mm3 (0.0-0.4); Eosinophils % 2.3 % (0.1-12.0); Hemoglobin 12.8 g/dL (14.1-18.0); Lymphocytes # 1.3 K/mm3 (0.7-4.5); Mean Corpuscular HGB Conc 31.2 g/dL (31.8-35.4); Mean Corpuscular Hemoglobin 26.2 pg (27.0-31.2); Mean Corpuscular Volume 83.8 fl (80-94); Mean Platelet Volume 9.3 fl (7.4-10.4); Monocytes # 0.4 K/mm3 (0.1-1.0); Monocytes % 5.2 % (1.7-9.3); Neutrophils # 5.9 K/mm3 (1.8-7.8); Neutrophils % 74.8 % (37.0-80.0); Platelet Count 207 K/mm3 (142-424); Red Blood Count 4.89 M/mm3 (4.60-6.20); Red Cell Distribution Width 15.9 % (11.5-17.5); White Blood Count 7.9 K/mm3 (4.8-10.8)
--- NOTE | 2021-05-23 07:41 | HMH.ACPN2 ---
Internal Medicine - PN: Subj *Date: 05/23/21 *Time: 10:06 Interval history: Patient diagnosed with PEs and DVTs yesterday on imaging. Has continued to require increased oxygen requirement over the past 24 hours. On Vapotherm this morning on exam. Moderate tachypnea but patient denies any chest pain, nausea, confusion, headache. States he feels okay. Upright in bed watching TV on exam. Afebrile overnight. Exam Vital signs and Labs for Last 24 Hours: Temp Pulse Resp BP Pulse Ox 97.9 F 121 H 40 H 124/76 94 L 05/23/21 03:57 05/23/21 06:37 05/23/21 03:57 05/23/21 03:57 05/23/21 06:37 Laboratory Results - last 24 hr 05/22/21 10:32: POC Glucose 229 H 05/22/21 16:30: Urine Color Yellow, Urine Appearance Clear, Urine pH 6.0, Ur Specific [place] 1.020, Urine Protein Trace, Urine Glucose (UA) Negative, Urine Ketones Negative, Urine Blood Negative, Urine Nitrate Negative, Urine Bilirubin Negative, Urine Urobilinogen 0.2, Ur Leukocyte Esterase Negative, Urine RBC None, Urine WBC Occasional, Ur Squamous Epith Cells None, Urine Bacteria None 05/22/21 16:44: POC Glucose 253 H 05/22/21 18:00: WBC 10.7 D, RBC 5.23, Hgb 13.6 L, Hct 43.9, MCV 83.8, MCH 26.0 L, MCHC 31.0 L, RDW 16.1, Plt Count 248, MPV 8.7, Neut % (Auto) 82.4 H, Lymph % (Auto) 11.0, [place] % (Auto) 4.6, Eos % (Auto) 1.3, Baso % (Auto) 0.7, Neut # (Auto) 8.8 H, Lymph # (Auto) 1.2, [place] # (Auto) 0.5, Eos # (Auto) 0.1, Baso # (Auto) 0.1 05/22/21 18:00: Sodium 135 L, Potassium 4.3, Chloride 100, Carbon Dioxide 30, Anion Gap 9.3, BUN 17 D, Creatinine 0.50 L, Estimated Creat Clear 254, Estimated GFR 193, Est GFR ( Amer) 233, Glucose 240 H, Calcium 9.2 05/22/21 20:11: POC Glucose 251 H 05/23/21 05:58: POC Glucose 182 H 05/23/21 06:00: WBC 7.9 D, RBC 4.89, Hgb 12.8 L, Hct 41.0 L, MCV 83.8, MCH 26.2 L, MCHC 31.2 L, RDW 15.9, Plt Count 207, MPV 9.3, Neut % (Auto) 74.8, Lymph % (Auto) 17.0, [place] % (Auto) 5.2, Eos % (Auto) 2.3, Baso % (Auto) 0.8, Neut # (Auto) 5.9, Lymph # (Auto) 1.3, [place] # (Auto) 0.4, Eos # (Auto) 0.2, Baso # (Auto) 0.1 05/23/21 06:00: Sodium 137, Potassium 3.9, Chloride 98, Carbon Dioxide 32 H, Anion Gap 10.9, BUN 14, Creatinine 0.50 L, Estimated Creat Clear 254, Estimated GFR 193, Est GFR ( Amer) 233, Glucose 184 H D, Calcium 9.0, Magnesium 1.7 D, Total Bilirubin 0.8, AST 74 H, ALT 100 H, Alkaline Phosphatase 75, Total Protein 6.6, Albumin 3.3 L, Globulin 3.3 H, Albumin/Globulin Ratio 1.0 L I & O for Last 24 hours: Intake & Output 05/20/21 05/21/21 05/22/21 05/23/21 23:59 23:59 23:59 23:59 Intake Total 1060 / 1060 1500 / 1500 1800 / 1800 Output Total 1650 / 1650 600 / 600 1850 / 1850 Balance -590 / -590 900 / 900 -50 / -50 Weight 210.4 kg 210.4 kg 210.4 kg 199.7 kg Microbiology Reports for the Last 24 Hours: Microbiology 05/17/21 18:50 Blood - Other Blood Culture - Final NO GROWTH AFTER 5 DAYS 05/17/21 12:55 Blood - Other Blood Culture - Final NO GROWTH AFTER 5 DAYS Narrative: - Constitutional moderate distress, morbidly obese, on Vapotherm and Non-rebreather - *Routine HEENT Exam Head: Present: normocephalic Eye: Present: EOMI, PERRL ENT: Present: mucous membranes moist - *Routine Neck Exam Present: supple. Absent: lymphadenopathy - *Routine Respiratory Exam Present: tachypneic, CTA bilaterally, distant breath sounds, complicated exam by body habitus - *Routine Cardiovascular Exam Present: tachycardia. Absent: murmur - *Routine Abdominal Exam Present: soft, normoactive bowel sounds, obese. Absent: tenderness - *Routine Extremities Exam Absent: cyanosis, clubbing, edema - *Routine Skin Exam Present: warm. Absent: rash - *Routine Neurological Exam Present: alert, oriented, gross weakness, unable to lift arms and legs off the bed. skin tanner and wiggles toes on command. Assessment and Plan (1) Respiratory failure with hypoxia Status: Acute Q
[2021-05-23 09:39] LABS: INR 1.16 (0.9-1.1)
[2021-05-23 09:43] LABS: Activated Partial Thrombo Time 27.9 seconds (22.8-30.6)
--- NOTE | 2021-05-23 10:01 | ECG_ITS ---
APPROVED REPORT Exam: Resting ECG HR:125 bpm ECG Measurements Heart Rate 125 AXES MD 164 P 28 QRSd 104 QRS -31 QT 300 T 44 QTc 433 Conclusion Sinus tachycardia Left axis deviation Incomplete right bundle branch block Voltage criteria for left ventricular hypertrophy Nonspecific ST abnormality Abnormal ECG Electronically signed by : All Gambino MD 05/25/2021 18:00:43
--- NOTE | 2021-05-23 10:06 | HMH.ACPN ---
Internal Medicine - PN: Subj *Date: 05/23/21 *Time: 10:06 Exam Vital signs and Labs for Last 24 Hours: Temp Pulse Resp BP Pulse Ox 98.8 F 115 H 22 120/70 95 05/23/21 08:00 05/23/21 08:00 05/23/21 08:00 05/23/21 08:00 05/23/21 08:00 Laboratory Results - last 24 hr 05/22/21 10:32: POC Glucose 229 H 05/22/21 16:30: Urine Color Yellow, Urine Appearance Clear, Urine pH 6.0, Ur Specific [place] 1.020, Urine Protein Trace, Urine Glucose (UA) Negative, Urine Ketones Negative, Urine Blood Negative, Urine Nitrate Negative, Urine Bilirubin Negative, Urine Urobilinogen 0.2, Ur Leukocyte Esterase Negative, Urine RBC None, Urine WBC Occasional, Ur Squamous Epith Cells None, Urine Bacteria None 05/22/21 16:44: POC Glucose 253 H 05/22/21 18:00: WBC 10.7 D, RBC 5.23, Hgb 13.6 L, Hct 43.9, MCV 83.8, MCH 26.0 L, MCHC 31.0 L, RDW 16.1, Plt Count 248, MPV 8.7, Neut % (Auto) 82.4 H, Lymph % (Auto) 11.0, [place] % (Auto) 4.6, Eos % (Auto) 1.3, Baso % (Auto) 0.7, Neut # (Auto) 8.8 H, Lymph # (Auto) 1.2, Branch # (Auto) 0.5, Eos # (Auto) 0.1, Baso # (Auto) 0.1 05/22/21 18:00: Sodium 135 L, Potassium 4.3, Chloride 100, Carbon Dioxide 30, Anion Gap 9.3, BUN 17 D, Creatinine 0.50 L, Estimated Creat Clear 254, Estimated GFR 193, Est GFR ( Amer) 233, Glucose 240 H, Calcium 9.2 05/22/21 20:11: POC Glucose 251 H 05/23/21 05:58: POC Glucose 182 H 05/23/21 06:00: WBC 7.9 D, RBC 4.89, Hgb 12.8 L, Hct 41.0 L, MCV 83.8, MCH 26.2 L, MCHC 31.2 L, RDW 15.9, Plt Count 207, MPV 9.3, Neut % (Auto) 74.8, Lymph % (Auto) 17.0, Branch % (Auto) 5.2, Eos % (Auto) 2.3, Baso % (Auto) 0.8, Neut # (Auto) 5.9, Lymph # (Auto) 1.3, Branch # (Auto) 0.4, Eos # (Auto) 0.2, Baso # (Auto) 0.1 05/23/21 06:00: Sodium 137, Potassium 3.9, Chloride 98, Carbon Dioxide 32 H, Anion Gap 10.9, BUN 14, Creatinine 0.50 L, Estimated Creat Clear 254, Estimated GFR 193, Est GFR ( Amer) 233, Glucose 184 H D, Calcium 9.0, Magnesium 1.7 D, Total Bilirubin 0.8, AST 74 H, ALT 100 H, Alkaline Phosphatase 75, Total Protein 6.6, Albumin 3.3 L, Globulin 3.3 H, Albumin/Globulin Ratio 1.0 L 05/23/21 09:20: APTT 27.9 05/23/21 09:20: PT 13.0 H, INR 1.16 H I & O for Last 24 hours: Intake & Output 05/20/21 05/21/21 05/22/21 05/23/21 23:59 23:59 23:59 23:59 Intake Total 1060 / 1060 1500 / 1500 1800 / 1800 360 / 360 Output Total 1650 / 1650 600 / 600 1850 / 1850 Balance -590 / -590 900 / 900 -50 / -50 360 / 360 Weight 210.4 kg 210.4 kg 210.4 kg 199.7 kg Microbiology Reports for the Last 24 Hours: Microbiology 05/17/21 18:50 Blood - Other Blood Culture - Final NO GROWTH AFTER 5 DAYS 05/17/21 12:55 Blood - Other Blood Culture - Final NO GROWTH AFTER 5 DAYS Assessment and Plan (1) Respiratory failure with hypoxia Status: Acute Qualifiers: Qualified Code(s): J96.01 - Acute respiratory failure with hypoxia Category: Medical Code(s): J96.91 - Respiratory failure, unspecified with hypoxia (2) Pulmonary embolism associated with COVID-19 Status: Acute Category: Medical Code(s): U07.1 - COVID-19; I26.99 - Other pulmonary embolism without acute cor pulmonale (3) Pneumonia due to COVID-19 virus Status: Acute Category: Medical Code(s): U07.1 - COVID-19; J12.82 - Pneumonia due to coronavirus disease 2019 (4) Obesity with serious comorbidity Status: Acute Qualifiers: Qualified Code(s): E66.09 - Other obesity due to excess calories Category: Medical Code(s): E66.9 - Obesity, unspecified (5) Hyperglycemia Status: Acute Category: Medical Code(s): R73.9 - Hyperglycemia, unspecified (6) Acute respiratory distress syndrome (ARDS) due to 2019 novel coronavirus Status: Acute Category: Medical Code(s): U07.1 - COVID-19; J80 - Acute respiratory distress syndrome (7) DVT, bilateral lower limbs Status: Acute Category: Medical Code(s): I82.403 - Acute embolism and thrombosis of unsp
[2021-05-23 11:30] LABS: POC Glucose,Bedside 263 (70-110)
[2021-05-23 13:50] LABS: Activated Partial Thrombo Time 53.8 seconds (22.8-30.6)
[2021-05-23 16:21] LABS: POC Glucose,Bedside 241 (70-110)
--- NOTE | 2021-05-23 16:54 | PC.NURSE ---
Pt has been pleasant and cooperative this shift. A&O X4. No complaints of pain or SOA. Pt is currently receiving O2 via Vapotherm @ 40 LPM with sats. >90%. Lung sounds are diminished. Generalized, non-pitting edema noted to entire body. Telemetry reveals ST with frequent PVC's. Bilateral buttocks noted to be reddened. Bilateral heels are soft and bruised. Bilateral heel protectors are in place. F/C is patent and draining clear, yellow urine at bedside to gravity. No BM thus far this shift. Pt has slept the majority of the day and has not been OOB. Pt has been turned/repositioned Q2H this shift. Pt requires assistance with feeding and eats the majority of all meals. FSBS results have been 263 and 241[address] to LT upper arm is patent and infusing Heparin @ 42 ML/HR. VSS. Call light within reach. Will continue to monitor.
[2021-05-23 19:04] LABS: Activated Partial Thrombo Time 46.7 seconds (22.8-30.6)
[2021-05-23 21:12] LABS: POC Glucose,Bedside 222 (70-110)
--- NOTE | 2021-05-23 21:44 | PC.NURSE ---
Gave report to Sophie RN
[2021-05-24] VITALS (11 sets, daily range): BP systolic 118–136; BP diastolic 81–92; PULSE 102–124; RESP 18–20; TEMP 36.6–37.1; O2SAT 94–100; BMI 54.7
--- NOTE | 2021-05-24 01:36 | PC.NURSE ---
0140 Aline from [facility] contacted with PTT results, advised to give 3000 mL bolus of heparin and increase rate to 58 mL/hr heparin gtt
--- NOTE | 2021-05-24 04:10 | PC.NURSE ---
no acute changes since taking over for prior nurse, was placed on bi pap by RT per Dr. Faustin verbal order given to LARISSA Lyman, pt has not rested well with bi pap, O2 sats have remained 95-100%, has not complained of SOA or any pain this shift, arana draining at bedside
--- NOTE | 2021-05-24 06:27 | PC.NURSE ---
pt tolerated bi pap until about 0445, couldn't sleep with it on, was trying to pull mask down, was returned to vapotherm by RT
--- NOTE | 2021-05-24 08:09 | HMH.ACPN2 ---
Internal Medicine - PN: Subj *Date: 05/24/21 *Time: 15:53 Interval history: Alert awake this morning. Remained hemodynamically stable overnight. Able to decrease to 90% FiO2 on Vapotherm this morning with saturations maintained in the mid 90s. Tolerating approximately 50% of his trays orally. Denies chest pain, nausea, vomiting, headache, confusion. Afebrile. Reviewed labs this morning. INR remains subtherapeutic Exam Vital signs and Labs for Last 24 Hours: Temp Pulse Resp BP Pulse Ox 98 F 120 H 19 130/92 H 97 05/24/21 04:00 05/24/21 05:02 05/24/21 04:00 05/24/21 04:00 05/24/21 05:02 Laboratory Results - last 24 hr 05/23/21 09:20: APTT 27.9 05/23/21 09:20: PT 13.0 H, INR 1.16 H 05/23/21 11:17: POC Glucose 263 H 05/23/21 13:25: APTT 53.8 H 05/23/21 16:08: POC Glucose 241 H 05/23/21 18:25: APTT 46.7 H 05/23/21 20:50: POC Glucose 222 H 05/24/21 01:00: APTT 46.0 H I & O for Last 24 hours: Intake & Output 05/21/21 05/22/21 05/23/21 05/24/21 23:59 23:59 23:59 23:59 Intake Total 1500 / 1500 1800 / 1800 1571 / 1571 Output Total 600 / 600 1850 / 1850 600 / 600 Balance 900 / 900 -50 / -50 971 / 971 Weight 210.4 kg 210.4 kg 199.7 kg 199.7 kg Narrative: - Constitutional minimal distress, morbidly obese, on Vapotherm; alert and oriented on exam this morning - *Routine HEENT Exam Head: Present: normocephalic Eye: Present: EOMI, PERRL ENT: Present: mucous membranes moist - *Routine Neck Exam Present: supple. Absent: lymphadenopathy - *Routine Respiratory Exam Present: tachypneic, CTA bilaterally, distant breath sounds, complicated exam by body habitus - *Routine Cardiovascular Exam Present: tachycardia. Absent: murmur - *Routine Abdominal Exam Present: soft, normoactive bowel sounds, obese. Absent: tenderness - *Routine Extremities Exam Absent: cyanosis, clubbing, edema - *Routine Skin Exam Present: warm. Absent: rash - *Routine Neurological Exam Present: alert, oriented, gross weakness, unable to lift arms and legs off the bed. 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 Assessment and Plan (1) Respiratory failure with hypoxia Status: Acute Qualifiers: Chronicity: acute Qualified Code(s): J96.01 - Acute respiratory failure with hypoxia Category: Medical Code(s): J96.91 - Respiratory failure, unspecified with hypoxia (2) Pulmonary embolism associated with COVID-19 Status: Acute Category: Medical Code(s): U07.1 - COVID-19; I26.99 - Other pulmonary embolism without acute cor pulmonale (3) Pneumonia due to COVID-19 virus Status: Acute Category: Medical Code(s): U07.1 - COVID-19; J12.82 - Pneumonia due to coronavirus disease 2019 (4) Obesity with serious comorbidity Status: Acute Qualifiers: Obesity type: due to excess calories Obesity classification: unspecified obesity classification Qualified Code(s): E66.09 - Other obesity due to excess calories Category: Medical Code(s): E66.9 - Obesity, unspecified (5) Hyperglycemia Status: Acute Category: Medical Code(s): R73.9 - Hyperglycemia, unspecified (6) Acute respiratory distress syndrome (ARDS) due to 2019 novel coronavirus Status: Acute Category: Medical Code(s): U07.1 - COVID-19; J80 - Acute respiratory distress syndrome (7) DVT, bilateral lower limbs Status: Acute Category: Medical Code(s): I82.403 - Acute embolism and thrombosis of unspecified deep veins of lower extremity, bilateral - Assessment and plan all Dx Assessment and Plan for all problems:: 30-year-old male with acute hypoxemic respiratory failure secondary to COVID-19 pneumonia. Intubated on 05/06, extubated 05/16. After extubation was able to wean to 5 L nasal cannula oxygen. Increased O2 requirement 48hrs ago determined to be from PEs. Due to morbid obesity, transitioned from Lovenox to heparin drip. Has been initiated on warfarin. Showing some improvement over the past 24 hours. Decrea
[2021-05-24 08:20] LABS: Basophils % 0.5 % (0.1-2.0); Eosinophils # 0.2 K/mm3 (0.0-0.4); Eosinophils % 2.7 % (0.1-12.0); Hematocrit 40.9 % (42.0-52.0); Hemoglobin 12.8 g/dL (14.1-18.0); Lymphocytes # 1.2 K/mm3 (0.7-4.5); Lymphocytes % 15.6 % (10-50); Mean Corpuscular HGB Conc 31.2 g/dL (31.8-35.4); Mean Corpuscular Hemoglobin 26.4 pg (27.0-31.2); Mean Corpuscular Volume 84.8 fl (80-94); Monocytes # 0.4 K/mm3 (0.1-1.0); Monocytes % 5.2 % (1.7-9.3); Neutrophils # 5.9 K/mm3 (1.8-7.8); Platelet Count 199 K/mm3 (142-424); Red Blood Count 4.83 M/mm3 (4.60-6.20); Red Cell Distribution Width 16.2 % (11.5-17.5); White Blood Count 7.8 K/mm3 (4.8-10.8)
[2021-05-24 08:25] LABS: Chloride 97 mmol/L (98-107); Potassium 3.6 mmoL/L (3.5-5.1); Sodium 135 mmol/L (136-145)
[2021-05-24 08:28] LABS: Blood Urea Nitrogen 14 mg/dl (9-20); Creatinine Clearance Estimated 254 mL/min (50-200); Estimated Glomerular Filt Rate 193 ml/min (>60); GFR (African American) 233 ML/MIN (>60); INR 1.21 (0.9-1.1); Prothrombin Time 13.5 seconds (10.1-12.5)
[2021-05-24 08:29] LABS: Anion Gap 9.6 mEq/L (5-15); Calcium 8.7 mg/dl (8.4-10.2); Carbon Dioxide 32 mmol/L (22.0-30.0); Glucose 206 mg/dl (74-100)
[2021-05-24 08:49] LABS: Activated Partial Thrombo Time 75.2 seconds (22.8-30.6)
[2021-05-24 11:30] LABS: POC Glucose,Bedside 223 (70-110)
[2021-05-24 14:29] LABS: Activated Partial Thrombo Time 74.4 seconds (22.8-30.6)
--- NOTE | 2021-05-24 16:37 | HMH.PHAHEP ---
[facility] Heparin Dosing - Demographic Data Admission date:: 05/04/21 Date: 05/23/21 Time: 13:00 Allergies/Adverse Reactions: Allergies Allergy/AdvReac Type Severity Reaction Status Date / Time No Known Allergies Allergy Verified 10/02/19 14:10 Height: 1.91 m Weight: 199.7 kg - Indication Medication therapy:: Heparin Patient Problems: Current Active Problems Pneumonia due to COVID-19 virus (Acute) Respiratory failure with hypoxia (Acute) Obesity with serious comorbidity (Acute) Hyperglycemia (Acute) Acute respiratory distress syndrome (ARDS) due to 2019 novel coronavirus (Acute) Pulmonary embolism associated with COVID-19 (Acute) DVT, bilateral lower limbs (Acute) CVA?: No Bleeding problem?: No Kidney disease?: No NV?: No Desired PTT range:: Other Comments:: 50-75 - Labs Anticoagulation Lab Results:: 05/24/21 08:05 Hgb 12.8 L Hct 40.9 L Plt Count 199 - Monitoring Dose Monitor 1 Date: 05/23/21 Time: 09:00 PTT Result:: 27.9 Infusion Rate:: heparin 36952 unit bolus, then 2000 units/hr Dose Monitor 2 Date: 05/23/21 Time: 13:00 PTT Result:: 53.8 Infusion Rate:: 2100 units/hr Dose Monitor 3 Date: 05/23/21 Time: 18:25 PTT Result:: 46.7 Infusion Rate:: heparin 3000 unit bolus, then 2500 units/hr Dose Monitor 4 Date: 05/24/21 Time: 01:00 PTT Result:: 46.0 Infusion Rate:: heparin 3000 unit bolus, then 2900 units/hr Dose Monitor 5 Date: 05/24/21 Time: 08:00 PTT Result:: 75.2 Infusion Rate:: 2900 units/hr Dose Monitor 6 Date: 05/24/21 Time: 13:47 PTT Result:: 74.4 Infusion Rate:: 2900 units/hr Dose Monitor 7 Date: 05/24/21 Time: 21:00 PTT Result:: 75.6 Infusion Rate:: CONTINUE WITH HEPARIN 58 ML/HR Dose Monitor 8 Date: 05/25/21 Time: 06:00 PTT Result:: 76.3 Infusion Rate:: CONTINUE WITH HEPARIN 58 ML/HR Dose Monitor 9 Date: 05/25/21 Time: 18:00 PTT Result:: 72.7 Infusion Rate:: CONTINUE WITH HEPARIN 58 ML/HR Dose Monitor 10 Date: 05/26/21 Time: 06:00 PTT Result:: 102.3 Infusion Rate:: INFUSION STOPPED BY . INR WAS 2.63 THIS AM. - Core Measures Is INR > or = 2 at discharge?: Yes Most Recent Labs:: Laboratory Results - last 24 hr 05/23/21 18:25: APTT 46.7 H 05/23/21 20:50: POC Glucose 222 H 05/24/21 01:00: APTT 46.0 H 05/24/21 06:20: POC Glucose 223 H 05/24/21 08:05: WBC 7.8, RBC 4.83, Hgb 12.8 L, Hct 40.9 L, MCV 84.8, MCH 26.4 L, MCHC 31.2 L, RDW 16.2, Plt Count 199, MPV 9.0, Neut % (Auto) 76.0, Lymph % (Auto) 15.6, [place] % (Auto) 5.2, Eos % (Auto) 2.7, Baso % (Auto) 0.5, Neut # (Auto) 5.9, Lymph # (Auto) 1.2, [place] # (Auto) 0.4, Eos # (Auto) 0.2, Baso # (Auto) 0.0 05/24/21 08:05: PT 13.5 H, INR 1.21 H 05/24/21 08:05: Sodium 135 L, Potassium 3.6, Chloride 97 L, Carbon Dioxide 32 H, Anion Gap 9.6, BUN 14, Creatinine 0.50 L, Estimated Creat Clear 254, Estimated GFR 193, Est GFR ( Amer) 233, Glucose 206 H, Calcium 8.7 05/24/21 08:05: APTT 75.2 H* D 05/24/21 13:47: APTT 74.4 H* Were Heparin and Warfarin started on the same day?: Yes
[2021-05-24 16:44] LABS: POC Glucose,Bedside 239 (70-110)
--- NOTE | 2021-05-24 16:57 | PC.NURSE ---
Pt has been pleasant and cooperative this shift. A&O X4. No complaints of pain or SOA. Pt is currently receiving O2 via Vapotherm @ 35 LPM/90% O2 with sats. >90%. Lung sounds are diminished. Generalized, non-pitting edema noted to entire body. Telemetry reveals ST. Bilateral buttocks noted to be reddened. Bilateral heels are soft and bruised. Bilateral heel protectors are in place. F/C is patent and draining clear, yellow urine at bedside to gravity. No BM thus far this shift. Pt has slept the majority of the day and has not been OOB. Pt has been turned/repositioned Q2H this shift. Pt requires assistance with feeding and eats the majority of all meals. FSBS results have been 239 [address] in [address] to LT upper arm is patent and infusing Heparin @ 58 ML/HR. VSS. Call light within reach. Will continue to monitor.
[2021-05-24 21:52] LABS: Activated Partial Thrombo Time 75.6 seconds (22.8-30.6)
--- NOTE | 2021-05-24 22:30 | PC.NURSE ---
[facility] called and stated to leave heparin at the same rate it is currently running at, currently running at 58 mL/hr
[2021-05-25] VITALS (12 sets, daily range): BP systolic 124–142; BP diastolic 78–92; PULSE 82–120; RESP 17–24; TEMP 36.6–37; O2SAT 92–100; BMI 54.6
[2021-05-25 01:30] LABS: POC Glucose,Bedside 239 (70-110)
[2021-05-25 01:30] LABS: POC Glucose,Bedside 197 (70-110)
[2021-05-25 05:43] LABS: POC Glucose,Bedside 167 (70-110)
--- NOTE | 2021-05-25 06:03 | PC.NURSE ---
pt has had a good night, has remained on vapotherm t/o shift 35L, 90%, O2 sats 97-98%, no complaints of SOA or pain, arana draining at bedside, pt has been much more conversational this shift
[2021-05-25 07:04] LABS: Basophils % 0.5 % (0.1-2.0); Eosinophils # 0.3 K/mm3 (0.0-0.4); Hematocrit 38.6 % (42.0-52.0); Lymphocytes # 1.1 K/mm3 (0.7-4.5); Lymphocytes % 16.8 % (10-50); Mean Corpuscular HGB Conc 31.1 g/dL (31.8-35.4); Mean Corpuscular Hemoglobin 26.2 pg (27.0-31.2); Mean Corpuscular Volume 84.4 fl (80-94); Mean Platelet Volume 8.2 fl (7.4-10.4); Monocytes # 0.4 K/mm3 (0.1-1.0); Monocytes % 5.6 % (1.7-9.3); Neutrophils # 4.6 K/mm3 (1.8-7.8); Neutrophils % 73.1 % (37.0-80.0); Platelet Count 197 K/mm3 (142-424); Red Blood Count 4.57 M/mm3 (4.60-6.20); Red Cell Distribution Width 16.1 % (11.5-17.5); White Blood Count 6.3 K/mm3 (4.8-10.8)
[2021-05-25 07:11] LABS: Chloride 96 mmol/L (98-107); Potassium 3.6 mmoL/L (3.5-5.1); Sodium 132 mmol/L (136-145)
[2021-05-25 07:14] LABS: Anion Gap 7.6 mEq/L (5-15); Blood Urea Nitrogen 11 mg/dl (9-20); Carbon Dioxide 32 mmol/L (22.0-30.0); Creatinine Clearance Estimated 317 mL/min (50-200); Estimated Glomerular Filt Rate 249 ml/min (>60); GFR (African American) 302 ML/MIN (>60)
[2021-05-25 07:15] LABS: Calcium 8.6 mg/dl (8.4-10.2); Glucose 178 mg/dl (74-100)
[2021-05-25 07:19] LABS: C-Reactive Protein 36.9 mg/L (0-4)
[2021-05-25 07:20] LABS: INR 1.78 (0.9-1.1); Prothrombin Time 19.3 seconds (10.1-12.5)
[2021-05-25 07:43] LABS: Erythrocyte Sedimentation Rate 42 mm/hr (0-15)
[2021-05-25 07:47] LABS: Activated Partial Thrombo Time 76.3 seconds (22.8-30.6)
--- NOTE | 2021-05-25 08:25 | HMH.ACPN2 ---
Internal Medicine - PN: Subj *Date: 05/25/21 *Time: 08:25 Interval history: Patient is improved over the last 24 hours vis-?-vis oxygen requirements. He is remained alert, talkative. Wonders about placement. Exam Vital signs and Labs for Last 24 Hours: Temp Pulse Resp BP Pulse Ox 98.6 F 112 H 24 124/89 99 05/25/21 07:29 05/25/21 07:29 05/25/21 07:29 05/25/21 07:29 05/25/21 07:29 Laboratory Results - last 24 hr 05/24/21 06:20: POC Glucose 223 H 05/24/21 08:05: PT 13.5 H, INR 1.21 H 05/24/21 08:05: Sodium 135 L, Potassium 3.6, Chloride 97 L, Carbon Dioxide 32 H, Anion Gap 9.6, BUN 14, Creatinine 0.50 L, Estimated Creat Clear 254, Estimated GFR 193, Est GFR ( Amer) 233, Glucose 206 H, Calcium 8.7 05/24/21 08:05: APTT 75.2 H* D 05/24/21 11:16: POC Glucose 239 H 05/24/21 13:47: APTT 74.4 H* 05/24/21 16:31: POC Glucose 239 H 05/24/21 21:07: APTT 75.6 H* 05/24/21 21:30: POC Glucose 197 H 05/25/21 05:32: POC Glucose 167 H 05/25/21 06:42: APTT 76.3 H* 05/25/21 06:42: PT 19.3 H, INR 1.78 H 05/25/21 06:42: WBC 6.3, RBC 4.57 L, Hgb 12.0 L, Hct 38.6 L, MCV 84.4, MCH 26.2 L, MCHC 31.1 L, RDW 16.1, Plt Count 197, MPV 8.2, Neut % (Auto) 73.1, Lymph % (Auto) 16.8, [place] % (Auto) 5.6, Eos % (Auto) 4.0, Baso % (Auto) 0.5, Neut # (Auto) 4.6, Lymph # (Auto) 1.1, [place] # (Auto) 0.4, Eos # (Auto) 0.3, Baso # (Auto) 0.0 05/25/21 06:42: Sodium 132 L, Potassium 3.6, Chloride 96 L, Carbon Dioxide 32 H, Anion Gap 7.6, BUN 11, Creatinine 0.40 L, Estimated Creat Clear 317 H, Estimated GFR 249, Est GFR ( Amer) 302 D, Glucose 178 H, Calcium 8.6, C-Reactive Protein 36.9 H 05/25/21 06:42: ESR 42 H I & O for Last 24 hours: Intake & Output 05/22/21 05/23/21 05/24/21 05/25/21 11:59 11:59 11:59 11:59 Intake Total 1500 / 1500 1380 / 1380 1451 / 1451 1766 / 1766 Output Total 1050 / 1050 800 / 800 1150 / 1150 1025 / 1025 Balance 450 / 450 580 / 580 301 / 301 741 / 741 Weight 463 lb 13.641 oz 440 lb 4.21 oz 440 lb 4.21 oz 439 lb 3.2 oz Narrative: Vapotherm settings noted. Lungs have symmetric air entry. Heart rate regular. Slightly tachycardic but improving. Abdomen soft, Torres catheter draining yellow urine. Extremities are unchanged. No focal neurologic deficits. Oropharynx clear. Assessment and Plan (1) Respiratory failure with hypoxia Status: Acute Qualifiers: Chronicity: acute Qualified Code(s): J96.01 - Acute respiratory failure with hypoxia Category: Medical Code(s): J96.91 - Respiratory failure, unspecified with hypoxia (2) Pulmonary embolism associated with COVID-19 Status: Acute Category: Medical Code(s): U07.1 - COVID-19; I26.99 - Other pulmonary embolism without acute cor pulmonale (3) Pneumonia due to COVID-19 virus Status: Acute Category: Medical Code(s): U07.1 - COVID-19; J12.82 - Pneumonia due to coronavirus disease 2019 (4) Obesity with serious comorbidity Status: Acute Qualifiers: Obesity type: due to excess calories Obesity classification: unspecified obesity classification Qualified Code(s): E66.09 - Other obesity due to excess calories Category: Medical Code(s): E66.9 - Obesity, unspecified (5) Hyperglycemia Status: Acute Category: Medical Code(s): R73.9 - Hyperglycemia, unspecified (6) Acute respiratory distress syndrome (ARDS) due to 2019 novel coronavirus Status: Acute Category: Medical Code(s): U07.1 - COVID-19; J80 - Acute respiratory distress syndrome (7) DVT, bilateral lower limbs Status: Acute Category: Medical Code(s): I82.403 - Acute embolism and thrombosis of unspecified deep veins of lower extremity, bilateral - Assessment and plan all Dx Assessment and Plan for all problems:: Overall improving. Continue weaning oxygen. Continue PT/OT. Local detention has expressed that they may be able to meet his needs. We will continue to pursue this. Once he is back down to a typical nasal cannula after PE/
[2021-05-25 12:12] LABS: POC Glucose,Bedside 211 (70-110)
--- NOTE | 2021-05-25 13:06 | HMH.PULMPN ---
Internal Medicine - PN: Subj *Date: 05/25/21 *Time: 13:06 Interval history: Patient admits improved respiratory symptoms since yesterday. Exam - Constitutional Constitutional:: Present: no acute distress, comfortable - HENMT Exam HENMT: Present: atraumatic - Eye Exam Eyes:: Present: normal appearance both eyes and related structures - Neck Exam Neck:: Present: normal visual inspection - Respiratory Exam Respiratory:: Present: able to speak in complete sentences, normal breath sounds, respiratory distress, crackles - Cardiovascular Exam Cardiac:: Present: S1, S2 - GI Exam GI:: Present: soft - Skin Exam Skin: Present: warm, rash - Neurological Exam Neurological: Present: alert - Extremities Exam Extremities: Present: no cyanosis, no clubbing, no edema Assessment and Plan (1) Respiratory failure with hypoxia Status: Acute Qualifiers: Chronicity: acute Qualified Code(s): J96.01 - Acute respiratory failure with hypoxia Category: Medical Code(s): J96.91 - Respiratory failure, unspecified with hypoxia (2) Pulmonary embolism associated with COVID-19 Status: Acute Category: Medical Code(s): U07.1 - COVID-19; I26.99 - Other pulmonary embolism without acute cor pulmonale (3) Pneumonia due to COVID-19 virus Status: Acute Category: Medical Code(s): U07.1 - COVID-19; J12.82 - Pneumonia due to coronavirus disease 2019 (4) Obesity with serious comorbidity Status: Acute Qualifiers: Obesity type: due to excess calories Obesity classification: unspecified obesity classification Qualified Code(s): E66.09 - Other obesity due to excess calories Category: Medical Code(s): E66.9 - Obesity, unspecified (5) Hyperglycemia Status: Acute Category: Medical Code(s): R73.9 - Hyperglycemia, unspecified (6) Acute respiratory distress syndrome (ARDS) due to 2019 novel coronavirus Status: Acute Category: Medical Code(s): U07.1 - COVID-19; J80 - Acute respiratory distress syndrome (7) DVT, bilateral lower limbs Status: Acute Category: Medical Code(s): I82.403 - Acute embolism and thrombosis of unspecified deep veins of lower extremity, bilateral - Assessment and plan all Dx Assessment and Plan for all problems:: #Acute hypoxic respiratory failure: #COVID-19 pneumonia: Patient presents acute hypoxic respiratory limits needing intubation and mechanical ventilatory support, successfully extubated on 05/08/2021 and then weaned to nasal cannula at 4 L a minute stable for a couple of days, however patient respiratory status started declining patient had a CTA performed that showed no pulmonary embolism he was started on heparin drip overnight 05/22/2021. He has been on high flow nasal cannula since then, with improving respiratory symptoms. He was weaned to 80% this morning. Patient continued to have decreased lower lobe breath sounds. CTA did not show any obvious airspace disease, significant motion artifact noted. Plan: Incentive spirometry Continue high flow nasal oxygen supplementation with saturation goal of 90% and above. Wean aggressively as tolerated. Continue heparin bridging until warfarin reaches a therapeutic level, INR today at 1.78, subtherapeutic Volume optimization as per primary team. Levalbuterol every 6 hours as needed. Recommend discontinuing dexamethasone as patient completed 10-day course. Recommend discontinuing famotidine and continue Protonix 40 daily #Thank you involving pulmonary in this patient care. We will continue to follow
--- NOTE | 2021-05-25 18:12 | PC.NURSE ---
PT IS RESTING IN BED POSITIONED WITH PILLOWS ON HIS L SIDE. PT TOLERATED SITTING UP IN THE CHAIR FOR SEVERAL HOURS THIS SHIFT. PT GOT OOB WITH NURSING STAFF/PHYSICAL THERAPY USING THE LIFT. PT HAS REDNESS/SKIN SHEARING NOTED TO THE BUTTOCKS/POSTERIOR UPPER THIGHS/RT SIDE OF THE CHEST. AREA NOTED TO THE LT HEEL. HEEL PROTECTORS IN PLACE. RT CONTINUES TO WEAN VAPOTHERM. O2 SATURATION 93-96% ON VAPOTHERM 30 L 75% FIO2. LUNG SOUNDS DIMINISHED. ABDOMEN SOFT/OBESE WITH HYPOACTIVE BOWEL SOUNDS (UMBILICAL HERNIA NOTED). BATH/PARTIAL LINEN CHANGE THIS SHIFT. CATHETER REMOVED AT 1700. WILL CONTINUE TO MONITOR.
[2021-05-25 20:19] LABS: Activated Partial Thrombo Time 72.7 seconds (22.8-30.6)
--- NOTE | 2021-05-25 20:31 | PC.NURSE ---
Paulette from [facility] called to state that from last PTT to leave heparin gtt at 58 mL/hr, wants to do another PTT at 0300
[2021-05-25 21:21] LABS: POC Glucose,Bedside 206 (70-110)
[2021-05-25 21:48] LABS: POC Glucose,Bedside 254 (70-110)
[2021-05-26] VITALS (15 sets, daily range): BP systolic 103–138; BP diastolic 69–86; PULSE 97–144; RESP 18–23; TEMP 36.6–37.3; O2SAT 87–96; BMI 54.6
--- NOTE | 2021-05-26 04:40 | PC.NURSE ---
unsuccessful after multiple times to obtain blood for a PTT at 0300, Son[facility] contacted, spoke with Paulette, she stated just to get the 0600 PTT that was ordered
[2021-05-26 06:16] LABS: POC Glucose,Bedside 133 (70-110)
[2021-05-26 07:14] LABS: INR 2.63 (0.9-1.1); Prothrombin Time 27.7 seconds (10.1-12.5)
[2021-05-26 07:33] LABS: Activated Partial Thrombo Time 102.3 seconds (22.8-30.6)
--- NOTE | 2021-05-26 07:44 | HMH.ACPN2 ---
Internal Medicine - PN: Subj *Date: 05/26/21 *Time: 09:18 Interval history: Patient continues to show gradual improvement. Down to 55% on morning rounds today. Sats in the mid 90s. Denies nausea, chest pain, vomiting. Voice stronger every day. Tolerating pur?ed and nectar thick diet. Afebrile. Patient's INR this morning is therapeutic. Will discontinue heparin drip. Starting to regain some strength, though minimal. Able to raise his forearm off the bed and hold for about 5 seconds. Exam Vital signs and Labs for Last 24 Hours: Temp Pulse Resp BP Pulse Ox 97.9 F 98 H 18 136/86 96 05/26/21 04:00 05/26/21 06:19 05/26/21 04:00 05/26/21 04:00 05/26/21 06:19 Laboratory Results - last 24 hr 05/25/21 06:42: APTT 76.3 H* 05/25/21 06:42: PT 19.3 H, INR 1.78 H 05/25/21 11:32: POC Glucose 211 H 05/25/21 17:02: POC Glucose 254 H 05/25/21 18:30: APTT 72.7 H* 05/25/21 20:43: POC Glucose 206 H 05/26/21 05:45: POC Glucose 133 H 05/26/21 06:27: APTT 102.3 H* D 05/26/21 06:27: PT 27.7 H, INR 2.63 H I & O for Last 24 hours: Intake & Output 05/23/21 05/24/21 05/25/21 05/26/21 23:59 23:59 23:59 23:59 Intake Total 1571 / 1571 2005 480 / 480 Output Total 600 / 600 550 / 550 1425 / 1425 Balance 971 / 971 1456 / 1456 -945 / -945 Weight 199.7 kg 199.7 kg 199.218 kg 199.218 kg Narrative: - Constitutional No acute distress on 55% Vapotherm; alert and oriented on exam this morning, morbidly obese - *Routine HEENT Exam Head: Present: normocephalic Eye: Present: EOMI, PERRL ENT: Present: mucous membranes moist - *Routine Neck Exam Present: supple. Absent: lymphadenopathy - *Routine Respiratory Exam Present: CTAB, distant breath sounds, complicated exam by body habitus - *Routine Cardiovascular Exam Present: tachycardia. Absent: murmur - *Routine Abdominal Exam Present: soft, normoactive bowel sounds, obese. Absent: tenderness - *Routine Extremities Exam Absent: cyanosis, clubbing, edema - *Routine Skin Exam Present: warm. Absent: rash - *Routine Neurological Exam Present: alert, oriented, gross weakness, strength improving, able to lift knees briefly and raise forearms off bed. 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 Assessment and Plan (1) Respiratory failure with hypoxia Status: Acute Qualifiers: Chronicity: acute Qualified Code(s): J96.01 - Acute respiratory failure with hypoxia Category: Medical Code(s): J96.91 - Respiratory failure, unspecified with hypoxia (2) Pulmonary embolism associated with COVID-19 Status: Acute Category: Medical Code(s): U07.1 - COVID-19; I26.99 - Other pulmonary embolism without acute cor pulmonale (3) Pneumonia due to COVID-19 virus Status: Acute Category: Medical Code(s): U07.1 - COVID-19; J12.82 - Pneumonia due to coronavirus disease 2019 (4) Obesity with serious comorbidity Status: Acute Qualifiers: Obesity type: due to excess calories Obesity classification: unspecified obesity classification Qualified Code(s): E66.09 - Other obesity due to excess calories Category: Medical Code(s): E66.9 - Obesity, unspecified (5) Hyperglycemia Status: Acute Category: Medical Code(s): R73.9 - Hyperglycemia, unspecified (6) Acute respiratory distress syndrome (ARDS) due to 2019 novel coronavirus Status: Acute Category: Medical Code(s): U07.1 - COVID-19; J80 - Acute respiratory distress syndrome (7) DVT, bilateral lower limbs Status: Acute Category: Medical Code(s): I82.403 - Acute embolism and thrombosis of unspecified deep veins of lower extremity, bilateral - Assessment and plan all Dx Assessment and Plan for all problems:: 30-year-old male with acute hypoxemic respiratory failure secondary to COVID-19 pneumonia. Intubated on 05/06, extubated 05/16. After extubation was able to wean to 5 L nasal cannula oxygen. Showing gradual improvement over the past 48 hours with decreased oxyg
--- NOTE | 2021-05-26 09:09 | HMH.PULMPN ---
Internal Medicine - PN: Subj *Date: 05/26/21 *Time: 10:39 Interval history: No acute respiratory vents overnight. Patient continued to improve. Appeared diaphoretic today. Exam - Constitutional Constitutional:: Present: no acute distress, comfortable - HENMT Exam HENMT: Present: normocephalic, atraumatic - Eye Exam Eyes:: Present: normal appearance both eyes and related structures - Neck Exam Neck:: Present: normal visual inspection - Respiratory Exam Respiratory:: Present: able to speak in complete sentences, respiratory distress, decreased breath sounds, rales - Cardiovascular Exam Cardiac:: Present: S1, S2 - GI Exam GI:: Present: soft, obese - Skin Exam Skin: Present: warm - Neurological Exam Neurological: Present: alert, awake - Extremities Exam Extremities: Present: no cyanosis, no clubbing, edema Assessment and Plan (1) Respiratory failure with hypoxia Status: Acute Qualifiers: Chronicity: acute Qualified Code(s): J96.01 - Acute respiratory failure with hypoxia Category: Medical Code(s): J96.91 - Respiratory failure, unspecified with hypoxia (2) Pulmonary embolism associated with COVID-19 Status: Acute Category: Medical Code(s): U07.1 - COVID-19; I26.99 - Other pulmonary embolism without acute cor pulmonale (3) Pneumonia due to COVID-19 virus Status: Acute Category: Medical Code(s): U07.1 - COVID-19; J12.82 - Pneumonia due to coronavirus disease 2019 (4) Obesity with serious comorbidity Status: Acute Qualifiers: Obesity type: due to excess calories Obesity classification: unspecified obesity classification Qualified Code(s): E66.09 - Other obesity due to excess calories Category: Medical Code(s): E66.9 - Obesity, unspecified (5) Hyperglycemia Status: Acute Category: Medical Code(s): R73.9 - Hyperglycemia, unspecified (6) Acute respiratory distress syndrome (ARDS) due to 2019 novel coronavirus Status: Acute Category: Medical Code(s): U07.1 - COVID-19; J80 - Acute respiratory distress syndrome (7) DVT, bilateral lower limbs Status: Acute Category: Medical Code(s): I82.403 - Acute embolism and thrombosis of unspecified deep veins of lower extremity, bilateral - Assessment and plan all Dx Assessment and Plan for all problems:: #Acute hypoxic respiratory failure: #COVID-19 pneumonia: Patient presents acute hypoxic respiratory limits needing intubation and mechanical ventilatory support, successfully extubated on 05/08/2021 and then weaned to nasal cannula at 4 L a minute stable for a couple of days, however patient respiratory status started declining patient had a CTA performed that showed no pulmonary embolism he was started on heparin drip overnight 05/22/2021. He has been on high flow nasal cannula since then, with improving respiratory symptoms. He was weaned to 80% this morning. Patient continued to have decreased lower lobe breath sounds. CTA did not show any obvious airspace disease, significant motion artifact noted. Completed 7 ays of Abx for his positive sputum cultures from 05/17/21- no need of further abx for resp pathology. Respiratory status continued to improve, his oxygen recommends wean to 40% 35 L this morning, continue to wean as tolerated. Plan: -Recommend discontinuing dexamethasone as patient completed 10-day course, no need for taper -Recommend to Continue Barcitinib for 14 days -Recommend discontinuing famotidine and continue Protonix 40 daily Incentive spirometry Continue high flow nasal oxygen supplementation with saturation goal of 90% and above. Wean aggressively as tolerated. Continue warfarin with INR goal 2-3 INR for atleast 3 months Volume optimization as per primary team. Levalbuterol every 6 hours as needed. #Thank you involving pulmonary in this patient care. We will continue to follow
[2021-05-26 12:02] LABS: POC Glucose,Bedside 170 (70-110)
[2021-05-26 16:20] LABS: POC Glucose,Bedside 262 (70-110)
--- NOTE | 2021-05-26 16:42 | PC.WOUNDNOTE ---
Skin tear noted under LT buttock
--- NOTE | 2021-05-26 16:45 | PC.NURSE ---
Pt has been pleasant and cooperative this shift. A&O X4. No complaints of pain. Pt is currently receiving O2 via Vapotherm @ 40 LPM/100% O2 with sats. >90%. While working with PT this AM in the mechanical lift, pt became extremely diaphoretic and SOA. O2 saturation dropped to 65% and pt reported dizziness. HR was noted to be between 150-160 BPM. Pt was immediately returned to bed, Vapotherm was increased to maximum output, and a non-rebreather was placed. Lung sounds are diminished. Generalized, non-pitting edema noted to entire body. Telemetry reveals ST. Bilateral buttocks noted to be reddened/excoriated. Skin tear noted under LT buttock and covered with Telfa/Tegaderm. Yeast noted under buttock folds, abdominal folds, and behind bilateral knees. Nystatin and barrier cream applied. Bilateral heels are soft and bruised. Bilateral heel protectors are in place. Pt has difficulty voiding while in bed and can only void while sitting upright in the mechanical lift. 1000 ML of clear, yellow urine output this shift and 1 extra-large, soft, brown BM. Pt has been turned/repositioned Q2H this shift. Pt requires assistance with feeding and eats the majority of all meals. Pt is tolerating a pureed diet and nectar thick liquids. PO medications are being crushed and given with applesauce. FSBS results have been 170 and [address]. [address]ICC in place to LT upper arm is patent and SL. HR has consistently been elevated today. Other VSS. Call light within reach. Will continue to monitor.
[2021-05-26 21:00] LABS: POC Glucose,Bedside 147 (70-110)
[2021-05-27] VITALS (12 sets, daily range): BP systolic 109–125; BP diastolic 63–84; PULSE 110–130; RESP 20–28; TEMP 36.7–37.1; O2SAT 92–98; BMI 53.2
[2021-05-27 05:14] LABS: POC Glucose,Bedside 150 (70-110)
[2021-05-27 06:21] LABS: Basophils # 0.1 K/mm3 (0-0.2); Basophils % 0.9 % (0.1-2.0); Eosinophils # 0.3 K/mm3 (0.0-0.4); Eosinophils % 4.9 % (0.1-12.0); Hematocrit 40.4 % (42.0-52.0); Hemoglobin 12.4 g/dL (14.1-18.0); Lymphocytes # 1.4 K/mm3 (0.7-4.5); Lymphocytes % 20.3 % (10-50); Mean Corpuscular HGB Conc 30.8 g/dL (31.8-35.4); Mean Corpuscular Hemoglobin 26.2 pg (27.0-31.2); Mean Corpuscular Volume 85.2 fl (80-94); Mean Platelet Volume 8.4 fl (7.4-10.4); Monocytes # 0.5 K/mm3 (0.1-1.0); Monocytes % 7.3 % (1.7-9.3); Neutrophils # 4.5 K/mm3 (1.8-7.8); Neutrophils % 66.7 % (37.0-80.0); Platelet Count 207 K/mm3 (142-424); Red Blood Count 4.74 M/mm3 (4.60-6.20); Red Cell Distribution Width 16.5 % (11.5-17.5); White Blood Count 6.8 K/mm3 (4.8-10.8)
--- NOTE | 2021-05-27 06:22 | PC.NURSE ---
got pt up with lift, pt voided 800mL and some incontinence, changed pt's bed while up in lift
[2021-05-27 06:24] LABS: Chloride 97 mmol/L (98-107); Sodium 136 mmol/L (136-145)
[2021-05-27 06:25] LABS: Potassium 3.7 mmoL/L (3.5-5.1)
[2021-05-27 06:27] LABS: Alanine Aminotransferase 98 U/L (12-78); Alkaline Phosphatase 80 U/L (38-126); Anion Gap 10.7 mEq/L (5-15); Aspartate Amino Transferase 79 U/L (17-59); Bilirubin,Total 0.5 mg/dl (0.2-1.3); Blood Urea Nitrogen 13 mg/dl (9-20); Calcium 8.6 mg/dl (8.4-10.2); Carbon Dioxide 32 mmol/L (22.0-30.0); Creatinine Clearance Estimated 254 mL/min (50-200); Estimated Glomerular Filt Rate 193 ml/min (>60); GFR (African American) 233 ML/MIN (>60); Globulin 3.1 g/dL (1.3-3.2); Glucose 159 mg/dl (74-100); Total Protein,Serum 6.1 g/dl (6.3-8.2)
[2021-05-27 06:28] LABS: Magnesium 1.7 mg/dl (1.6-2.3)
[2021-05-27 07:32] LABS: INR 3.37 (0.9-1.1); Prothrombin Time 34.8 seconds (10.1-12.5)
--- NOTE | 2021-05-27 07:47 | HMH.ACPN2 ---
Internal Medicine - PN: Subj *Date: 05/27/21 *Time: 07:47 Interval history: Patient had an episode of hypoxia and tachycardia during PT but this has resolved, he feels much more comfortable today. No pain. Has tolerated Torres being out fairly well. Exam Vital signs and Labs for Last 24 Hours: Temp Pulse Resp BP Pulse Ox 98.6 F 128 H 28 H 110/63 95 05/27/21 04:00 05/27/21 06:20 05/27/21 04:00 05/27/21 04:00 05/27/21 06:39 Laboratory Results - last 24 hr 05/26/21 11:29: POC Glucose 170 H 05/26/21 15:53: POC Glucose 262 H 05/26/21 20:21: POC Glucose 147 H 05/27/21 05:04: POC Glucose 150 H 05/27/21 06:10: WBC 6.8, RBC 4.74, Hgb 12.4 L, Hct 40.4 L, MCV 85.2, MCH 26.2 L, MCHC 30.8 L, RDW 16.5, Plt Count 207, MPV 8.4, Neut % (Auto) 66.7, Lymph % (Auto) 20.3, [place] % (Auto) 7.3, Eos % (Auto) 4.9, Baso % (Auto) 0.9, Neut # (Auto) 4.5, Lymph # (Auto) 1.4, [place] # (Auto) 0.5, Eos # (Auto) 0.3, Baso # (Auto) 0.1 05/27/21 06:10: Sodium 136, Potassium 3.7, Chloride 97 L, Carbon Dioxide 32 H, Anion Gap 10.7, BUN 13, Creatinine 0.50 L D, Estimated Creat Clear 254, Estimated GFR 193, Est GFR ( Amer) 233 D, Glucose 159 H, Calcium 8.6, Magnesium 1.7, Total Bilirubin 0.5, AST 79 H, ALT 98 H, Alkaline Phosphatase 80, Total Protein 6.1 L, Albumin 3.0 L, Globulin 3.1, Albumin/Globulin Ratio 1.0 L 05/27/21 06:40: PT 34.8 H, INR 3.37 H I & O for Last 24 hours: Intake & Output 05/24/21 05/25/21 05/26/2120/21 11:59 11:59 11:59 11:59 Intake Total 1451 / 1451 1886 / 1886 420 / 420 300 / 300 Output Total 1150 / 1150 1025 / 1025 1400 / 1400 400 / 400 Balance 301 / 301 861 / 861 -980 / -980 -100 / -100 Weight 440 lb 4.21 oz 439 lb 3.2 oz 439 lb 3.208 oz 428 lb 5.73 oz Narrative: Pleasant, talkative, good air movement compared to baseline, abdomen soft, extremities unchanged, oropharynx clear. On Vapotherm at 40% FiO2 Assessment and Plan (1) Respiratory failure with hypoxia Status: Acute Qualifiers: Chronicity: acute Qualified Code(s): J96.01 - Acute respiratory failure with hypoxia Category: Medical Code(s): J96.91 - Respiratory failure, unspecified with hypoxia (2) Pulmonary embolism associated with COVID-19 Status: Acute Category: Medical Code(s): U07.1 - COVID-19; I26.99 - Other pulmonary embolism without acute cor pulmonale (3) Pneumonia due to COVID-19 virus Status: Acute Category: Medical Code(s): U07.1 - COVID-19; J12.82 - Pneumonia due to coronavirus disease 2019 (4) Obesity with serious comorbidity Status: Acute Qualifiers: Obesity type: due to excess calories Obesity classification: unspecified obesity classification Qualified Code(s): E66.09 - Other obesity due to excess calories Category: Medical Code(s): E66.9 - Obesity, unspecified (5) Hyperglycemia Status: Acute Category: Medical Code(s): R73.9 - Hyperglycemia, unspecified (6) Acute respiratory distress syndrome (ARDS) due to 2019 novel coronavirus Status: Acute Category: Medical Code(s): U07.1 - COVID-19; J80 - Acute respiratory distress syndrome (7) DVT, bilateral lower limbs Status: Acute Category: Medical Code(s): I82.403 - Acute embolism and thrombosis of unspecified deep veins of lower extremity, bilateral - Assessment and plan all Dx Assessment and Plan for all problems:: No major changes in multiple medical issues. Continue warfarin, therapeutic dose. Continue PT and OT, continue to wean oxygen after PE setback.
[2021-05-27 11:23] LABS: POC Glucose,Bedside 214 (70-110)
--- NOTE | 2021-05-27 16:25 | PC.NURSE ---
spoke with provider (Immanuel) regarding DTI on patient's left heel, requested podiatry consult.
[2021-05-27 16:59] LABS: POC Glucose,Bedside 193 (70-110)
--- NOTE | 2021-05-27 17:09 | XR_ITS ---
PROCEDURE INFORMATION: Exam: XR Left Foot Complete; Alignment Exam date and time: 05/27/2021 5:09 PM Age: 30 years old Clinical indication: Pain; Foot; Left; Patient HX: Patient cannot due weightbearing views as he has been on a ventilator for almost 2 weeks with covid. He cannot move at all. Exam done portable with patient on bariatric bed. Physical therapy has to use special lifting equipment to get him out of bed into chair. 350lbs patient. ; Additional info: Left heel deep tissue injury TECHNIQUE: Imaging protocol: XR Left foot. Views: 3 or more views. COMPARISON: CA VENOUS DOPPLER LE 05/22/2021 3:34 PM FINDINGS: Bones/joints: Normal. No acute fracture. Joint spaces are preserved. No dislocation or subluxation. There is mild spurring along the inferior and posterior aspects of the left calcaneus. Soft tissues: There is soft tissue swelling noted along the inferior aspect of the left heel. No evidence of subcutaneous emphysema. IMPRESSION: 1. Benign calcaneal spurring noted. 2. Soft tissue swelling along the inferior aspect of the left heel without evidence of subcutaneous emphysema. 3. No evidence of acute fracture or focal osseous destruction.
--- NOTE | 2021-05-27 17:09 | XR_ITS ---
PROCEDURE INFORMATION: Exam: XR Right Foot Complete; Alignment Exam date and time: 05/27/2021 5:09 PM Age: 30 years old Clinical indication: Screening exam; Right foot for comparison, no injury to right foot. ; Patient HX: Patient has been bedfast for 2 weeks on a ventilator. He cannot do weightbearing views. Physical therapy has to get him out of bed with special lifting equipment. ; Additional info: Left heel deep tissue injury/right foot baseline TECHNIQUE: Imaging protocol: XR Right foot. Views: 3 or more views. COMPARISON: CA VENOUS DOPPLER LE 05/22/2021 3:34 PM FINDINGS: Bones/joints: Normal. No acute fracture. Joint spaces are preserved. No dislocation or subluxation. There is mild calcaneal spurring along posteroinferior aspects of the right calcaneus. Soft tissues: Normal. IMPRESSION: 1. Benign right calcaneal spurring. 2. No evidence of acute process within the right foot.
--- NOTE | 2021-05-27 17:14 | HMH.ORTHOCON ---
*Admission Date: 05/04/21 *Reason for consult:: Left heel deep tissue injury *History of present illness: Mr. Rudd is a 30-year-old male no significant prior respiratory complaints, admitted to the hospital worsening respiratory failure found to be having COVID-19 pneumonia. Patient since last 24 hours needing high flow nasal noninvasive ventilator is up to maintain adequate saturations and pulmonary was called for further management. Podiatry consult-patient resting in bed sister at bedside. Patient has a left heel deep tissue injury. I Cleaned thoroughly with Betadine and using a #15 blade to lightly probe the top of the ulcer. I was able to express thick dark blood from the wound, left foot culture was obtained without disturbing the tissue. I then dressed the wound with Betadine soaked 4 x 4, dry 4 x 4, Kerlix Palmer wrap. I will round again the morning, I plan from the patient's nails at that time. [facility] History I have reviewed the patient's past medical history: Yes Medical History: Reports:: Diabetes Mellitus Type 2 Denies:: Cancer, Diabetes Mellitus Type 1, Internal Pacemaker, MRSA *Have you ever received a pneumonia vaccine?: No *Have you received a flu vaccine this season?: No Other Medical History: Reports: Other Laterality Cases: Bilateral: Myringotomy (Ear Tubes) Other Surgeries: No: Pacemaker Amputation: No - *Social History Last grade of school completed: Some college Smoking Status: Never smoker Alcohol Intake: never Alcohol Intake Frequency:: other Substance Use Type: denies use *Occupational Status:: employed Housing: house Household Members: family *Travel in the last 8 weeks: None Family Hx:: Diabetes, Hypertension Review of Systems - Constitutional Reports weakness - *Cardiovascular Reports generalized swelling (Hands, legs and feet have some swelling noted. ) - *Respiratory Reports shortness of breath (Pt is currently receiving O2 via Vapotherm @ 40 LPM/100% O2 with sats. >90%) - *Musculoskeletal Reports muscle weakness - *Neurologic Denies headache(s) Meds Home Medications Medication Instructions Recorded Confirmed Type No Known Home Medications 05/04/21 05/04/21 History Allergies Allergy/AdvReac Type Severity Reaction Status Date / Time No Known Allergies Allergy Verified 10/02/19 14:10 Exam Vital signs and Labs for Last 24 Hours: Temp Pulse Resp BP Pulse Ox 98.0 F 123 H 21 125/84 95 10/20/21 15:45 05/27/21 15:45 05/27/21 15:45 05/27/21 15:45 05/27/21 15:45 Laboratory Results - last 24 hr 05/26/21 20:21: POC Glucose 147 H 05/27/21 05:04: POC Glucose 150 H 05/27/21 06:10: WBC 6.8, RBC 4.74, Hgb 12.4 L, Hct 40.4 L, MCV 85.2, MCH 26.2 L, MCHC 30.8 L, RDW 16.5, Plt Count 207, MPV 8.4, Neut % (Auto) 66.7, Lymph % (Auto) 20.3, [place] % (Auto) 7.3, Eos % (Auto) 4.9, Baso % (Auto) 0.9, Neut # (Auto) 4.5, Lymph # (Auto) 1.4, [place] # (Auto) 0.5, Eos # (Auto) 0.3, Baso # (Auto) 0.1 05/27/21 06:10: Sodium 136, Potassium 3.7, Chloride 97 L, Carbon Dioxide 32 H, Anion Gap 10.7, BUN 13, Creatinine 0.50 L D, Estimated Creat Clear 254, Estimated GFR 193, Est GFR ( Amer) 233 D, Glucose 159 H, Calcium 8.6, Magnesium 1.7, Total Bilirubin 0.5, AST 79 H, ALT 98 H, Alkaline Phosphatase 80, Total Protein 6.1 L, Albumin 3.0 L, Globulin 3.1, Albumin/Globulin Ratio 1.0 L 05/27/21 06:40: PT 34.8 H, INR 3.37 H 05/27/21 11:13: POC Glucose 214 H 05/27/21 16:52: POC Glucose 193 H I & O for Last 24 hours: Intake & Output 05/24/21 05/25/21 05/26/21 05/27/21 23:59 23:59 23:59 23:59 Intake Total 2005 480 / 480 360 / 360 600 / 600 Output Total 550 / 550 1425 / 1425 1400 / 1400 0 / 0 Balance 1456 / 1456 -945 / -945 -1040 / -1040 600 / 600 Weight 440 lb 4.21 oz 439 lb 3.2 oz 439 lb 3.208 oz 428 lb 5.73 oz - Constitutional no acute distress, obese, cooperative - *Routine HEENT Exam Head: Present: normocephalic Eye: Present: EOMI ENT: Present: mucous membranes moist -
--- NOTE | 2021-05-27 18:50 | PC.NURSE ---
Patient had no acute events over shift. Patient is still unable to urinate while in the bed, and must be lifted into the lift in the air. Patient still has a skin tear-- open on the left thigh. DTI on left heel was reported, and podiatry consult ordered today. Unable to wean oxygen for patient throughout the shift. Patient utilized i/s q4h and ambulated to chair.
[2021-05-27 21:51] LABS: POC Glucose,Bedside 161 (70-110)
[2021-05-28] VITALS (10 sets, daily range): BP systolic 116–148; BP diastolic 64–94; PULSE 72–127; RESP 18–22; TEMP 36.4–38; O2SAT 92–96; BMI 53.1
[2021-05-28 04:19] LABS: POC Glucose,Bedside 199 (70-110)
[2021-05-28 04:19] LABS: POC Glucose,Bedside 163 (70-110)
[2021-05-28 04:19] LABS: POC Glucose,Bedside 134 (70-110)
[2021-05-28 05:35] LABS: POC Glucose,Bedside 152 (70-110)
[2021-05-28 07:08] LABS: INR 2.06 (0.9-1.1); Prothrombin Time 22.1 seconds (10.1-12.5)
--- NOTE | 2021-05-28 08:30 | HMH.ACPN2 ---
Internal Medicine - PN: Subj *Date: 05/28/21 *Time: 08:30 Interval history: Patient status has remained stable through the night, remains on 40 L Vapotherm flow with 90% FiO2. Appears comfortable. Podiatry is looking at his foot wound. Feel like it is more of a blister rather than infection. He continues to be very weak, but talkative and alert, diet has been advanced. Exam Vital signs and Labs for Last 24 Hours: Temp Pulse Resp BP Pulse Ox 98 F 122 H 20 119/75 96 05/28/21 04:00 05/28/21 04:00 05/28/21 04:00 05/28/21 04:00 05/28/21 06:26 Laboratory Results - last 24 hr 05/18/21 21:19: POC Glucose 134 H 05/19/21 05:46: POC Glucose 163 H 05/19/21 11:04: POC Glucose 199 H 05/27/21 11:13: POC Glucose 214 H 05/27/21 16:52: POC Glucose 193 H 05/27/21 21:35: POC Glucose 161 H 05/28/21 05:25: POC Glucose 152 H 05/28/21 06:30: PT 22.1 H, INR 2.06 H I & O for Last 24 hours: Intake & Output 05/25/21 05/26/21 05/27/21 05/28/21 11:59 11:59 11:59 11:59 Intake Total 1886 / 1886 420 / 420 660 / 660 480 / 480 Output Total 1025 / 1025 1400 / 1400 400 / 400 200 / 200 Balance 861 / 861 -980 / -980 260 / 260 280 / 280 Weight 439 lb 3.2 oz 439 lb 3.208 oz 428 lb 5.73 oz 428 lb Microbiology Reports for the Last 24 Hours: Microbiology 05/27/21 16:35 Foot,Left - Drainage Gram Stain - Final Narrative: Good air movement bilaterally. Heart rate regular. Abdomen obese but soft, extremities unchanged except for the left heel wound which has been debrided by podiatry. Patient can pull of 1000 mL on incentive spirometry and with encouragement after a couple of trials when up to 1250. He is really weak and is unable/unmotivated to actually even hold the incentive spirometer device to the midline of his body because of his weakness. Assessment and Plan (1) Respiratory failure with hypoxia Status: Acute Qualifiers: Chronicity: acute Qualified Code(s): J96.01 - Acute respiratory failure with hypoxia Category: Medical Code(s): J96.91 - Respiratory failure, unspecified with hypoxia (2) Pulmonary embolism associated with COVID-19 Status: Acute Category: Medical Code(s): U07.1 - COVID-19; I26.99 - Other pulmonary embolism without acute cor pulmonale (3) Pneumonia due to COVID-19 virus Status: Acute Category: Medical Code(s): U07.1 - COVID-19; J12.82 - Pneumonia due to coronavirus disease 2019 (4) Obesity with serious comorbidity Status: Acute Qualifiers: Obesity type: due to excess calories Obesity classification: unspecified obesity classification Qualified Code(s): E66.09 - Other obesity due to excess calories Category: Medical Code(s): E66.9 - Obesity, unspecified (5) Hyperglycemia Status: Acute Category: Medical Code(s): R73.9 - Hyperglycemia, unspecified (6) Acute respiratory distress syndrome (ARDS) due to 2019 novel coronavirus Status: Acute Category: Medical Code(s): U07.1 - COVID-19; J80 - Acute respiratory distress syndrome (7) DVT, bilateral lower limbs Status: Acute Category: Medical Code(s): I82.403 - Acute embolism and thrombosis of unspecified deep veins of lower extremity, bilateral (8) Deep tissue injury Status: Acute Category: Medical Code(s): T14.8XXA - Other injury of unspecified body region, initial encounter (9) Onychodystrophy Status: Acute Category: Medical Code(s): L60.3 - Nail dystrophy (10) Acquired hammer toes of both feet Status: Acute Category: Medical Code(s): M20.41 - Other hammer toe(s) (acquired), right foot; M20.42 - Other hammer toe(s) (acquired), left foot - Assessment and plan all Dx Assessment and Plan for all problems:: Overall continues to be oxygen requiring been stable. Continue current therapies. I wonder about patient's weakness and how much of this might be psychological given the significant physical and emotional changes in patient's life over the past 4 to 5
--- NOTE | 2021-05-28 08:38 | HMH.ORTHPN ---
Subjective Date: 05/28/21 <Rachel Sears - 05/28/21 08:52> Time: 07:45 <Rachel Sears - 05/28/21 08:52> Principal diagnosis: Left heel deep tissue injury <Rachel Sears - 05/28/21 08:52> Interval history: Patient doing very well sitting up in the bed breakfast is being served. Patient declines any acute pain to the heel. We will clean and redress the left heel today. The x-rays were obtained yesterday did not show any deep bone infection to the left heel. The right foot is unremarkable. Nails x 10 was trimmed this morning. <Rachel Sears - 05/28/21 08:52> PN: Obj Ex Vital signs: Temp Pulse Resp BP Pulse Ox 98.1 F 126 H 19 141/84 H 94 L 05/28/21 12:00 05/28/21 12:00 05/28/21 12:00 05/28/21 12:00 05/28/21 12:00 <Kristina Marques - 05/28/21 15:37> Temp Pulse Resp BP Pulse Ox 98 F 122 H 20 119/75 96 05/28/21 04:00 05/28/21 04:00 05/28/21 04:00 05/28/21 04:00 05/28/21 06:26 <Rachel Sears - 05/28/21 08:52> - Constitutional no acute distress <Rachel Sears - 05/28/21 08:52> - Routine HEENT Exam Head: Present: normocephalic <Rachel Sears - 05/28/21 08:52> Eye: Present: EOMI <Rachel Sears - 05/28/21 08:52> ENT: Present: mucous membranes moist <Rachel Sears - 05/28/21 08:52> - Routine Neck Exam Present: trachea midline <Rachel Sears - 05/28/21 08:52> - Routine Respiratory Exam Absent: respiratory distress <Rachel Sears - 05/28/21 08:52> - Routine Cardiovascular Exam Present: RRR <Rachel Sears - 05/28/21 08:52> - Routine Abdominal Exam Present: obese <Rachel Sears - 05/28/21 08:52> - Detailed Lower Extremity Exam Bottom foot image: 1 - Left foot deep tissue injury/ bruising was cleaned with betadine and using a #15 blade to lightly debride the dark tissue, there was more dark old blood expressed from the area. The wound superficial and does not probe deep. Post debridement measurements: 4.5x 3.5cm. Area was then redressed with betadine soaked 4x4, dry 4x4 and kerlix and nikhil wrap. <Rachel Sears - 05/28/21 08:52> - Routine Skin Exam Present: wounds (Left heel deep tissue injury), ecchymosis <Rachel Sears - 05/28/21 09:09> - Routine Neurological Exam Present: alert. Absent: hearing grossly intact (a little hard of hearing) <Rachel Sears - 05/28/21 09:09> - Routine Psychiatric Exam Present: normal affect, cooperative <Rachel Sears - 05/28/21 09:09> - Urinary Catheter Management Torres Cath placed during this visit: no <Kristina Marques - 05/28/21 15:37> no <Rachel Sears Marisela - 05/28/21 09:35> Progress Note: A&P (1) Respiratory failure with hypoxia Status: Acute (2) Pulmonary embolism associated with COVID-19 Status: Acute (3) Pneumonia due to COVID-19 virus Status: Acute (4) Obesity with serious comorbidity Status: Acute (5) Hyperglycemia Status: Acute (6) Acute respiratory distress syndrome (ARDS) due to 2019 novel coronavirus Status: Acute (7) DVT, bilateral lower limbs Status: Acute (8) Deep tissue injury Start date: 05/27/21 Status: Acute (9) Onychodystrophy Start date: 05/28/21 Status: Acute (10) Acquired hammer toes of both feet Start date: 05/28/21 Status: Acute <Rachel Sears - 05/28/21 09:35> (1) Respiratory failure with hypoxia Status: Acute (2) Pulmonary embolism associated with COVID-19 Status: Acute (3) Pneumonia due to COVID-19 virus Status: Acute (4) Obesity with serious comorbidity Status: Acute (5) Hyperglycemia Status: Acute (6) Acute respiratory distress syndrome (ARDS) due to 2019 novel coronavirus Status: Acute (7) DVT, bilateral lower limbs Status: Acute (8) Deep tissue injury Status: Acute (9) Onychodystrophy Status: Acute (10) Acquired
--- NOTE | 2021-05-28 09:12 | HMH.PULMPN ---
Internal Medicine - PN: Subj *Date: 05/28/21 *Time: 11:30 Interval history: No acute respiratory events overnight. Patient admits only minimal improvement in his symptoms. Working with PT OT. Exam - Constitutional Constitutional:: Present: no acute distress, comfortable - HENMT Exam HENMT: Present: normocephalic - Eye Exam Eyes:: Present: normal appearance both eyes and related structures - Neck Exam Neck:: Present: normal visual inspection - Respiratory Exam Respiratory:: Present: able to speak in complete sentences, no respiratory distress, decreased breath sounds, crackles, rales - Cardiovascular Exam Cardiac:: Present: S1, S2 - GI Exam GI:: Present: soft - Skin Exam Skin: Present: warm - Neurological Exam Neurological: Present: alert, awake, normal cognition - Extremities Exam Extremities: Present: no cyanosis, no clubbing, edema - Psychiatric Exam Psychiatric: Present: normal affect Assessment and Plan (1) Respiratory failure with hypoxia Status: Acute Qualifiers: Chronicity: acute Qualified Code(s): J96.01 - Acute respiratory failure with hypoxia Category: Medical Code(s): J96.91 - Respiratory failure, unspecified with hypoxia (2) Pulmonary embolism associated with COVID-19 Status: Acute Category: Medical Code(s): U07.1 - COVID-19; I26.99 - Other pulmonary embolism without acute cor pulmonale (3) Pneumonia due to COVID-19 virus Status: Acute Category: Medical Code(s): U07.1 - COVID-19; J12.82 - Pneumonia due to coronavirus disease 2019 (4) Obesity with serious comorbidity Status: Acute Qualifiers: Obesity type: due to excess calories Obesity classification: unspecified obesity classification Qualified Code(s): E66.09 - Other obesity due to excess calories Category: Medical Code(s): E66.9 - Obesity, unspecified (5) Hyperglycemia Status: Acute Category: Medical Code(s): R73.9 - Hyperglycemia, unspecified (6) Acute respiratory distress syndrome (ARDS) due to 2019 novel coronavirus Status: Acute Category: Medical Code(s): U07.1 - COVID-19; J80 - Acute respiratory distress syndrome (7) DVT, bilateral lower limbs Status: Acute Category: Medical Code(s): I82.403 - Acute embolism and thrombosis of unspecified deep veins of lower extremity, bilateral (8) Deep tissue injury Start date: 05/27/21 Status: Acute Category: Medical Code(s): T14.8XXA - Other injury of unspecified body region, initial encounter (9) Onychodystrophy Start date: 05/28/21 Status: Acute Category: Medical Code(s): L60.3 - Nail dystrophy (10) Acquired hammer toes of both feet Start date: 05/28/21 Status: Acute Category: Medical Code(s): M20.41 - Other hammer toe(s) (acquired), right foot; M20.42 - Other hammer toe(s) (acquired), left foot - Assessment and plan all Dx Assessment and Plan for all problems:: #Acute hypoxic respiratory failure: #COVID-19 pneumonia: Patient presents acute hypoxic respiratory limits needing intubation and mechanical ventilatory support, successfully extubated on 05/08/2021 and then weaned to nasal cannula at 4 L a minute stable for a couple of days, however patient respiratory status started declining patient had a CTA performed that showed no pulmonary embolism he was started on heparin drip overnight 05/22/2021. He has been on high flow nasal cannula since then, with improving respiratory symptoms. He was weaned to 80% this morning. Patient continued to have decreased lower lobe breath sounds. CTA did not show any obvious airspace disease, significant motion artifact noted. Completed 7 ays of Abx for his positive sputum cultures from 05/17/21- no need of further abx for resp pathology. Interval update: Patient respiratory status has been relatable for the last 48 hours except on Tuesday patient noted an episode of desaturation with increasing oxygen requirements. Patient did not complain of any respirat
--- NOTE | 2021-05-28 19:06 | PC.NURSE ---
Pt alert and oriented and able to make needs known. NAD. remains on vapotherm 40/80. Did help bath pt and apply cream and powder to sheering in groin, coccyx, arm pits and under breasts. Did also give oral care and brush pts teeth. Pt has had no c/o. No acute changes. VSS. Did change kerlix and nikhil to LLE. Pt has been up to chair via lift this shift. CB in reach.
[2021-05-28 20:57] LABS: POC Glucose,Bedside 216 (70-110)
[2021-05-29] VITALS (11 sets, daily range): BP systolic 115–136; BP diastolic 62–84; PULSE 72–134; RESP 18–28; TEMP 36.6–37.1; O2SAT 91–96; BMI 53.8
[2021-05-29 05:36] LABS: POC Glucose,Bedside 143 (70-110)
--- NOTE | 2021-05-29 05:56 | PC.NURSE ---
no acute changes this shift. a&ox4. remains on vapotherm 40L/80% FIO2. O2 stable in the low 90s this shift. no c/o soa. no c/o pain voiced. vss. attempted to urinate while in the lift. was unable to void. states he doesn't feel the need to void. denies abdominal pain. no distention noted. resting in bed at this time. call light within reach. will continue to monitor.
[2021-05-29 06:21] LABS: Chloride 96 mmol/L (98-107)
[2021-05-29 06:22] LABS: Potassium 3.7 mmoL/L (3.5-5.1); Sodium 134 mmol/L (136-145)
[2021-05-29 06:24] LABS: Blood Urea Nitrogen 12 mg/dl (9-20); Creatinine Clearance Estimated 254 mL/min (50-200); Estimated Glomerular Filt Rate 193 ml/min (>60); GFR (African American) 233 ML/MIN (>60)
[2021-05-29 06:25] LABS: Anion Gap 10.7 mEq/L (5-15); Calcium 8.7 mg/dl (8.4-10.2); Carbon Dioxide 31 mmol/L (22.0-30.0); Glucose 148 mg/dl (74-100)
[2021-05-29 06:29] LABS: INR 1.73 (0.9-1.1); Prothrombin Time 18.8 seconds (10.1-12.5)
--- NOTE | 2021-05-29 07:30 | XR_ITS ---
PROCEDURE INFORMATION: Exam: XR Chest Exam date and time: 05/29/2021 7:30 AM Age: 30 years old Clinical indication: Shortness of breath; Patient HX: HX covid; Additional info: Difficulty weaning o2 TECHNIQUE: Imaging protocol: XR of the chest. Views: 1 view. COMPARISON: CR XR CHEST PORTABLE 05/22/2021 10:37 AM FINDINGS: Lungs: Unremarkable. No consolidation. The examination is obtained at low lung volumes. Pleural spaces: Unremarkable. No pleural effusion. No pneumothorax. Heart/Mediastinum: Unremarkable. No cardiomegaly. Bones/joints: Unremarkable. IMPRESSION: No acute findings.
--- NOTE | 2021-05-29 07:30 | HMH.ACPN2 ---
Internal Medicine - PN: Subj *Date: 05/29/21 *Time: 16:11 Interval history: Patient remained stable with no acute events overnight. Difficulty remains in weaning his oxygen requirement. Afebrile. Voice somewhat stronger today than last time I examined him. Denies any chest pain, nausea or vomiting. Been using incentive spirometer with help Exam Vital signs and Labs for Last 24 Hours: Temp Pulse Resp BP Pulse Ox 98 F 119 H 18 119/75 95 05/29/21 03:43 05/29/21 05:45 05/29/21 03:43 05/29/21 03:43 05/29/21 05:45 Laboratory Results - last 24 hr 05/28/21 20:44: POC Glucose 216 H 05/29/21 05:25: POC Glucose 143 H 05/29/21 05:54: Sodium 134 L, Potassium 3.7, Chloride 96 L, Carbon Dioxide 31 H, Anion Gap 10.7, BUN 12, Creatinine 0.50 L, Estimated Creat Clear 254, Estimated GFR 193, Est GFR ( Amer) 233, Glucose 148 H, Calcium 8.7 05/29/21 05:54: PT 18.8 H, INR 1.73 H I & O for Last 24 hours: Intake & Output 05/26/21 05/27/21 05/28/21 05/29/21 23:59 23:59 23:59 23:59 Intake Total 360 / 360 840 / 840 960 / 960 Output Total 1400 / 1400 200 / 200 600 / 600 Balance -1040 / -1040 640 / 640 360 / 360 Weight 199.218 kg 194.3 kg 194.138 kg 196.7 kg Microbiology Reports for the Last 24 Hours: Microbiology 05/27/21 16:35 Foot,Left - Drainage Gram Stain - Final 05/27/21 16:35 Foot,Left - Drainage Wound Culture - Preliminary NO GROWTH AFTER 24 HOURS Narrative: - Constitutional No acute distress on 75% Vapotherm; alert and oriented on exam this morning, morbidly obese - *Routine HEENT Exam Head: Present: normocephalic Eye: Present: EOMI, PERRL ENT: Present: mucous membranes moist - *Routine Neck Exam Present: supple. Absent: lymphadenopathy - *Routine Respiratory Exam Present: CTAB, distant breath sounds, complicated exam by body habitus - *Routine Cardiovascular Exam Present: tachycardia. Absent: murmur - *Routine Abdominal Exam Present: soft, normoactive bowel sounds, obese. Absent: tenderness - *Routine Extremities Exam Absent: cyanosis, clubbing, edema - *Routine Skin Exam Present: warm. Absent: rash - *Routine Neurological Exam Present: alert, oriented, gross weakness, strength improving, able to lift knees briefly and raise forearms off bed. 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 Assessment and Plan (1) Respiratory failure with hypoxia Status: Acute Qualifiers: Chronicity: acute Qualified Code(s): J96.01 - Acute respiratory failure with hypoxia Category: Medical Code(s): J96.91 - Respiratory failure, unspecified with hypoxia (2) Pulmonary embolism associated with COVID-19 Status: Acute Category: Medical Code(s): U07.1 - COVID-19; I26.99 - Other pulmonary embolism without acute cor pulmonale (3) Pneumonia due to COVID-19 virus Status: Acute Category: Medical Code(s): U07.1 - COVID-19; J12.82 - Pneumonia due to coronavirus disease 2019 (4) Obesity with serious comorbidity Status: Acute Qualifiers: Obesity type: due to excess calories Obesity classification: unspecified obesity classification Qualified Code(s): E66.09 - Other obesity due to excess calories Category: Medical Code(s): E66.9 - Obesity, unspecified (5) Hyperglycemia Status: Acute Category: Medical Code(s): R73.9 - Hyperglycemia, unspecified (6) Acute respiratory distress syndrome (ARDS) due to 2019 novel coronavirus Status: Acute Category: Medical Code(s): U07.1 - COVID-19; J80 - Acute respiratory distress syndrome (7) DVT, bilateral lower limbs Status: Acute Category: Medical Code(s): I82.403 - Acute embolism and thrombosis of unspecified deep veins of lower extremity, bilateral (8) Deep tissue injury Start date: 05/27/21 Status: Acute Category: Medical Code(s): T14.8XXA - Other injury of unspecified body region, initial encounter (9) Onychodystrophy Start date: 05/28/21 Statu
--- NOTE | 2021-05-29 07:54 | HMH.ORTHPN ---
Subjective Date: 05/29/21 <Rachel Sears - 05/29/21 11:37> Time: 08:10 <Rachel Sears - 05/29/21 11:37> Principal diagnosis: Left heel deep tissue injury <Rachel Sears - 05/29/21 07:54> Interval history: Patient doing very well sitting up in the bed, family at his bedside. Patient declines any acute pain to the heel. We will clean and redress the left heel today. The x-rays were obtained yesterday did not show any deep bone infection to the left heel. The right foot is unremarkable. Right foot sub 1st callus was debrided today, covered with betadine and large bandaid. <Rachel Sears - 05/29/21 11:37> PN: Obj Ex Vital signs: Temp Pulse Resp BP Pulse Ox 97.8 F 120 H 24 115/71 95 05/29/21 11:27 05/29/21 11:27 05/29/21 11:27 05/29/21 11:27 05/29/21 11:27 <Kristina Marques - 05/29/21 11:39> Temp Pulse Resp BP Pulse Ox 98 F 119 H 18 119/75 95 05/29/21 03:43 05/29/21 05:45 05/29/21 03:43 05/29/21 03:43 05/29/21 05:45 <Rachel Sears - 05/29/21 07:54> - Constitutional no acute distress <Rachel Sears - 05/29/21 11:37> - Routine HEENT Exam Head: Present: normocephalic <Rachel Sears - 05/29/21 11:37> Eye: Present: EOMI <Rachel Sears - 05/29/21 11:37> ENT: Present: mucous membranes moist <Rachel Sears - 05/29/21 11:37> - Routine Neck Exam Present: trachea midline <Rachel Sears - 05/29/21 11:37> - Routine Respiratory Exam Absent: respiratory distress <Rachel Sears - 05/29/21 11:37> - Routine Cardiovascular Exam Present: RRR <Rachel Sears - 05/29/21 11:37> - Routine Abdominal Exam Present: soft, obese <Rachel Sears - 05/29/21 11:37> - Detailed Lower Extremity Exam Bottom foot image: 1 - Left foot deep tissue injury/ bruising was cleaned with betadine and no debridement done today. There still is a border of callused skin that has some blood under it that I hope with the betadine dressing will dry up and be easier to debride off without the excess loss of tissue. The wound superficial and does not probe deep.Measurements: 3.0x 2.2 cm. Area was then redressed with betadine soaked 4x4, dry 4x4 and kerlix and nikhil wrap. <Rachel Sears - 05/29/21 11:37> - Routine Skin Exam Present: wounds (Left heel deep tissue injury), ecchymosis <Rachel Sears - 05/29/21 11:37> - Routine Neurological Exam Present: alert, vision grossly intact. Absent: hearing grossly intact (Hard of hearing) <Rachel Sears - 05/29/21 11:37> - Routine Psychiatric Exam Present: normal affect, cooperative <Rachel Sears - 05/29/21 11:37> - Urinary Catheter Management Torres Cath placed during this visit: no <Kristina Marques - 05/29/21 11:39> no <Rachel Sears - 05/29/21 11:37> Progress Note: A&P (1) Respiratory failure with hypoxia Status: Acute (2) Pulmonary embolism associated with COVID-19 Status: Acute (3) Pneumonia due to COVID-19 virus Status: Acute (4) Obesity with serious comorbidity Status: Acute (5) Hyperglycemia Status: Acute (6) Acute respiratory distress syndrome (ARDS) due to 2019 novel coronavirus Status: Acute (7) DVT, bilateral lower limbs Status: Acute (8) Deep tissue injury Status: Acute (9) Onychodystrophy Status: Acute (10) Acquired hammer toes of both feet Status: Acute (11) Callus of foot Start date: 05/29/21 Status: Acute <Rachel Sears Marisela - 05/29/21 11:37> (1) Respiratory failure with hypoxia Status: Acute (2) Pulmonary embolism associated with COVID-19 Status: Acute (3) Pneumonia due to COVID-19 virus Status: Acute (4) Obesity with serious comorbidity Status: Acute (5) Hyperglycemia Status: Acute (6) Acute respiratory distress syndrome (ARDS) due to 2019 novel coronavirus Status: Acute (7) DVT,
[2021-05-29 10:19] LABS: POC Glucose,Bedside 226 (70-110)
[2021-05-29 10:19] LABS: POC Glucose,Bedside 273 (70-110)
--- NOTE | 2021-05-29 11:05 | HMH.PULMPN ---
Internal Medicine - PN: Subj *Date: 05/29/21 *Time: 11:05 Interval history: No acute respiratory events overnight. Patient denies any new respiratory complaints but admits continued improvement in his symptoms. Exam - Constitutional Constitutional:: Present: no acute distress, comfortable - HENMT Exam HENMT: Present: normocephalic, atraumatic - Eye Exam Eyes:: Present: normal appearance both eyes and related structures - Neck Exam Neck:: Present: normal visual inspection - Respiratory Exam Respiratory:: Present: able to speak in complete sentences, no respiratory distress, decreased breath sounds, crackles, rales - Cardiovascular Exam Cardiac:: Present: S1, S2 - GI Exam GI:: Present: soft, obese - Skin Exam Skin: Present: warm - Neurological Exam Neurological: Present: alert, awake, normal cognition - Extremities Exam Extremities: Present: no cyanosis, no clubbing, edema Assessment and Plan (1) Respiratory failure with hypoxia Status: Acute Qualifiers: Chronicity: acute Qualified Code(s): J96.01 - Acute respiratory failure with hypoxia Category: Medical Code(s): J96.91 - Respiratory failure, unspecified with hypoxia (2) Pulmonary embolism associated with COVID-19 Status: Acute Category: Medical Code(s): U07.1 - COVID-19; I26.99 - Other pulmonary embolism without acute cor pulmonale (3) Pneumonia due to COVID-19 virus Status: Acute Category: Medical Code(s): U07.1 - COVID-19; J12.82 - Pneumonia due to coronavirus disease 2019 (4) Obesity with serious comorbidity Status: Acute Qualifiers: Obesity type: due to excess calories Obesity classification: unspecified obesity classification Qualified Code(s): E66.09 - Other obesity due to excess calories Category: Medical Code(s): E66.9 - Obesity, unspecified (5) Hyperglycemia Status: Acute Category: Medical Code(s): R73.9 - Hyperglycemia, unspecified (6) Acute respiratory distress syndrome (ARDS) due to 2019 novel coronavirus Status: Acute Category: Medical Code(s): U07.1 - COVID-19; J80 - Acute respiratory distress syndrome (7) DVT, bilateral lower limbs Status: Acute Category: Medical Code(s): I82.403 - Acute embolism and thrombosis of unspecified deep veins of lower extremity, bilateral (8) Deep tissue injury Start date: 05/27/21 Status: Acute Category: Medical Code(s): T14.8XXA - Other injury of unspecified body region, initial encounter (9) Onychodystrophy Start date: 05/28/21 Status: Acute Category: Medical Code(s): L60.3 - Nail dystrophy (10) Acquired hammer toes of both feet Start date: 05/28/21 Status: Acute Category: Medical Code(s): M20.41 - Other hammer toe(s) (acquired), right foot; M20.42 - Other hammer toe(s) (acquired), left foot - Assessment and plan all Dx Assessment and Plan for all problems:: #Acute hypoxic respiratory failure: #COVID-19 pneumonia: Patient presents acute hypoxic respiratory limits needing intubation and mechanical ventilatory support, successfully extubated on 05/08/2021 and then weaned to nasal cannula at 4 L a minute stable for a couple of days, however patient respiratory status started declining patient had a CTA performed that showed no pulmonary embolism he was started on heparin drip overnight 05/22/2021. He has been on high flow nasal cannula since then, with improving respiratory symptoms. He was weaned to 80% this morning. Patient continued to have decreased lower lobe breath sounds. CTA did not show any obvious airspace disease, significant motion artifact noted. Completed 7 ays of Abx for his positive sputum cultures from 05/17/21- no need of further abx for resp pathology. Completed 10-day course of dexamethasone. No need for steroid taper. Patient did not completed his course of B arcitinib. Patient continued to receive both PPI and famotidine at this point of time -we will defer to primary team. Interval upd
[2021-05-29 12:32] LABS: POC Glucose,Bedside 197 (70-110)
--- NOTE | 2021-05-29 13:28 | PC.NURSE ---
unable to measure void due to excessive amount.
[2021-05-29 16:09] LABS: POC Glucose,Bedside 281 (70-110)
--- NOTE | 2021-05-29 19:27 | PC.NURSE ---
Addendum entered by Lewis Chaves RN 05/29/21 19:28: Tejas DIAS did ask Dr. calvillo if he wanted to start pt on a beta edwar or med for increased HR and he didn't want to at this time. Pt denies chest pain or discomfort. Original Note: No acute changes this shift. Pt's vapotherm is on 25L and 75%. CB in reach. Pt has been up to chair this shift.
[2021-05-29 22:07] LABS: POC Glucose,Bedside 187 (70-110)
[2021-05-30] VITALS (11 sets, daily range): BP systolic 114–133; BP diastolic 71–90; PULSE 103–126; RESP 18–30; TEMP 36.4–37; O2SAT 92–95; BMI 54.1
[2021-05-30 06:04] LABS: Chloride 96 mmol/L (98-107); Potassium 3.6 mmoL/L (3.5-5.1); Sodium 136 mmol/L (136-145)
[2021-05-30 06:06] LABS: Prothrombin Time 16.4 seconds (10.1-12.5)
[2021-05-30 06:07] LABS: Anion Gap 11.6 mEq/L (5-15); Blood Urea Nitrogen 13 mg/dl (9-20); Carbon Dioxide 32 mmol/L (22.0-30.0); Creatinine Clearance Estimated 254 mL/min (50-200); Estimated Glomerular Filt Rate 193 ml/min (>60); GFR (African American) 233 ML/MIN (>60)
[2021-05-30 06:08] LABS: Calcium 8.5 mg/dl (8.4-10.2); Glucose 128 mg/dl (74-100)
[2021-05-30 06:15] LABS: Basophils % 0.7 % (0.1-2.0); Eosinophils # 0.7 K/mm3 (0.0-0.4); Eosinophils % 11.6 % (0.1-12.0); Hematocrit 39.9 % (42.0-52.0); Hemoglobin 12.4 g/dL (14.1-18.0); Lymphocytes # 1.1 K/mm3 (0.7-4.5); Lymphocytes % 19.2 % (10-50); Mean Corpuscular HGB Conc 31.1 g/dL (31.8-35.4); Mean Corpuscular Hemoglobin 26.5 pg (27.0-31.2); Mean Corpuscular Volume 85.3 fl (80-94); Mean Platelet Volume 7.8 fl (7.4-10.4); Monocytes # 0.2 K/mm3 (0.1-1.0); Monocytes % 4.1 % (1.7-9.3); Neutrophils # 3.7 K/mm3 (1.8-7.8); Neutrophils % 64.4 % (37.0-80.0); Platelet Count 199 K/mm3 (142-424); Red Blood Count 4.68 M/mm3 (4.60-6.20); Red Cell Distribution Width 17.8 % (11.5-17.5); White Blood Count 5.8 K/mm3 (4.8-10.8)
[2021-05-30 06:19] LABS: POC Glucose,Bedside 129 (70-110)
--- NOTE | 2021-05-30 08:19 | HMH.ACPN2 ---
Internal Medicine - PN: Subj *Date: 05/30/21 *Time: 08:19 Interval history: Patient is awake, alert, pleasant, no complaints. Enjoying his advance diet. Exam Vital signs and Labs for Last 24 Hours: Temp Pulse Resp BP Pulse Ox 98.3 F 119 H 20 121/71 93 L 05/30/21 07:50 05/30/21 07:50 05/30/21 07:50 05/30/21 07:50 05/30/21 07:50 Laboratory Results - last 24 hr 05/28/21 11:51: POC Glucose 273 H 05/28/21 16:41: POC Glucose 226 H 05/29/21 12:02: POC Glucose 197 H 05/29/21 15:13: POC Glucose 281 H 05/29/21 20:04: POC Glucose 187 H 05/30/21 05:12: POC Glucose 129 H 05/30/21 05:24: WBC 5.8, RBC 4.68, Hgb 12.4 L, Hct 39.9 L, MCV 85.3, MCH 26.5 L, MCHC 31.1 L, RDW 17.8 H, Plt Count 199, MPV 7.8, Neut % (Auto) 64.4, Lymph % (Auto) 19.2, Randolph % (Auto) 4.1, Eos % (Auto) 11.6, Baso % (Auto) 0.7, Neut # (Auto) 3.7, Lymph # (Auto) 1.1, Randolph # (Auto) 0.2, Eos # (Auto) 0.7 H, Baso # (Auto) 0.0 05/30/21 05:24: Sodium 136, Potassium 3.6, Chloride 96 L, Carbon Dioxide 32 H, Anion Gap 11.6, BUN 13, Creatinine 0.50 L, Estimated Creat Clear 254, Estimated GFR 193, Est GFR ( Amer) 233, Glucose 128 H, Calcium 8.5 05/30/21 05:24: PT 16.4 H, INR 1.50 H I & O for Last 24 hours: Intake & Output 05/27/21 05/28/21 05/29/21 05/30/21 11:59 11:59 11:59 11:59 Intake Total 660 / 660 720 / 720 960 / 960 1080 / 1080 Output Total 400 / 400 200 / 200 600 / 600 1200 / 1200 Balance 260 / 260 520 / 520 360 / 360 -120 / -120 Weight 428 lb 5.73 oz 428 lb 433 lb 10.388 oz 435 lb 10.134 oz Microbiology Reports for the Last 24 Hours: Microbiology 05/27/21 16:35 Foot,Left - Drainage Gram Stain - Final 05/27/21 16:35 Foot,Left - Drainage Wound Culture - Preliminary Narrative: Fairly good air entry, heart rate regular, abdomen soft, no edema, vital signs noted, continuing to wean Vapotherm. Patient is able to do a little bit more with his hands in regards to pulling the incentive spirometer towards him, is now able to pull 1750 after some encouragement. Oropharynx clear. No JVD. no Skin rash noted Assessment and Plan (1) Respiratory failure with hypoxia Status: Acute Qualifiers: Chronicity: acute Qualified Code(s): J96.01 - Acute respiratory failure with hypoxia Category: Medical Code(s): J96.91 - Respiratory failure, unspecified with hypoxia (2) Pulmonary embolism associated with COVID-19 Status: Acute Category: Medical Code(s): U07.1 - COVID-19; I26.99 - Other pulmonary embolism without acute cor pulmonale (3) Pneumonia due to COVID-19 virus Status: Acute Category: Medical Code(s): U07.1 - COVID-19; J12.82 - Pneumonia due to coronavirus disease 2019 (4) Obesity with serious comorbidity Status: Acute Qualifiers: Obesity type: due to excess calories Obesity classification: unspecified obesity classification Qualified Code(s): E66.09 - Other obesity due to excess calories Category: Medical Code(s): E66.9 - Obesity, unspecified (5) Hyperglycemia Status: Acute Category: Medical Code(s): R73.9 - Hyperglycemia, unspecified (6) Acute respiratory distress syndrome (ARDS) due to 2019 novel coronavirus Status: Acute Category: Medical Code(s): U07.1 - COVID-19; J80 - Acute respiratory distress syndrome (7) DVT, bilateral lower limbs Status: Acute Category: Medical Code(s): I82.403 - Acute embolism and thrombosis of unspecified deep veins of lower extremity, bilateral (8) Deep tissue injury Start date: 05/27/21 Status: Acute Category: Medical Code(s): T14.8XXA - Other injury of unspecified body region, initial encounter (9) Onychodystrophy Start date: 05/28/21 Status: Acute Category: Medical Code(s): L60.3 - Nail dystrophy (10) Acquired hammer toes of both feet Start date: 05/28/21 Status: Acute Category: Medical Code(s): M20.41 - Other hammer toe(s) (acquired), right foot; M20.42 - Other hammer toe(s) (acquired), left foot
[2021-05-30 11:20] LABS: POC Glucose,Bedside 157 (70-110)
--- NOTE | 2021-05-30 14:32 | PC.NURSE ---
got pt up in left to sit up in bed. he had a large bm and voided 350ml.
[2021-05-30 16:38] LABS: POC Glucose,Bedside 189 (70-110)
--- NOTE | 2021-05-30 18:40 | PC.NURSE ---
pt noted to have sheering to erin butt. Cream applied and turned to r side.
[2021-05-30 20:17] LABS: POC Glucose,Bedside 177 (70-110)
[2021-05-31] VITALS (9 sets, daily range): BP systolic 119–134; BP diastolic 71–83; PULSE 106–115; RESP 18–30; TEMP 36.3–36.8; O2SAT 90–97; BMI 54.1
[2021-05-31 05:20] LABS: POC Glucose,Bedside 106 (70-110)
[2021-05-31 06:40] LABS: INR 1.68 (0.9-1.1); Prothrombin Time 18.3 seconds (10.1-12.5)
--- NOTE | 2021-05-31 08:36 | HMH.ACPN2 ---
Internal Medicine - PN: Subj *Date: 05/31/21 *Time: 08:36 Interval history: Patient has done well over the past 24 hours, weaned over to 12 L of nasal cannula instead of the Vapotherm device, tolerated this well. Pulling almost 2000 mL on incentive spirometer. Alert, talkative. Exam Vital signs and Labs for Last 24 Hours: Temp Pulse Resp BP Pulse Ox 98.2 F 107 H 24 134/75 96 05/31/21 07:44 05/31/21 07:44 05/31/21 07:44 05/31/21 07:44 05/31/21 07:44 Laboratory Results - last 24 hr 05/30/21 10:41: POC Glucose 157 H 05/30/21 16:23: POC Glucose 189 H 05/30/21 20:03: POC Glucose 177 H 05/31/21 05:12: POC Glucose 106 05/31/21 05:44: PT 18.3 H, INR 1.68 H I & O for Last 24 hours: Intake & Output 05/28/21 05/29/21 05/30/21 05/31/21 11:59 11:59 11:59 11:59 Intake Total 720 / 720 960 / 960 1080 / 1080 580 / 580 Output Total 200 / 200 600 / 600 1200 / 1200 Balance 520 / 520 360 / 360 -120 / -120 580 / 580 Weight 428 lb 433 lb 10.388 oz 435 lb 10.134 oz 435 lb 6 oz Microbiology Reports for the Last 24 Hours: Microbiology 05/27/21 16:35 Foot,Left - Drainage Gram Stain - Final 05/27/21 16:35 Foot,Left - Drainage Wound Culture - Final Mixed Skin Yolanda Narrative: Alert, lungs with some rhonchi but good air movement, able to pull 1750 on incentive spirometer a couple of times in a row for me. Remains very weak but is better able to get the incentive spirometer device to his mouth with very minimal assistance. Lungs have rhonchi, heart rate regular. Abdomen obese but soft, extremities without change. Neurologic exam slightly improved. ENT exam clear. Assessment and Plan (1) Respiratory failure with hypoxia Status: Acute Qualifiers: Chronicity: acute Qualified Code(s): J96.01 - Acute respiratory failure with hypoxia Category: Medical Code(s): J96.91 - Respiratory failure, unspecified with hypoxia (2) Pulmonary embolism associated with COVID-19 Status: Acute Category: Medical Code(s): U07.1 - COVID-19; I26.99 - Other pulmonary embolism without acute cor pulmonale (3) Pneumonia due to COVID-19 virus Status: Acute Category: Medical Code(s): U07.1 - COVID-19; J12.82 - Pneumonia due to coronavirus disease 2019 (4) Obesity with serious comorbidity Status: Acute Qualifiers: Obesity type: due to excess calories Obesity classification: unspecified obesity classification Qualified Code(s): E66.09 - Other obesity due to excess calories Category: Medical Code(s): E66.9 - Obesity, unspecified (5) Hyperglycemia Status: Acute Category: Medical Code(s): R73.9 - Hyperglycemia, unspecified (6) Acute respiratory distress syndrome (ARDS) due to 2019 novel coronavirus Status: Acute Category: Medical Code(s): U07.1 - COVID-19; J80 - Acute respiratory distress syndrome (7) DVT, bilateral lower limbs Status: Acute Category: Medical Code(s): I82.403 - Acute embolism and thrombosis of unspecified deep veins of lower extremity, bilateral (8) Deep tissue injury Start date: 05/27/21 Status: Acute Category: Medical Code(s): T14.8XXA - Other injury of unspecified body region, initial encounter (9) Onychodystrophy Start date: 05/28/21 Status: Acute Category: Medical Code(s): L60.3 - Nail dystrophy (10) Acquired hammer toes of both feet Start date: 05/28/21 Status: Acute Category: Medical Code(s): M20.41 - Other hammer toe(s) (acquired), right foot; M20.42 - Other hammer toe(s) (acquired), left foot - Assessment and plan all Dx Assessment and Plan for all problems:: Respiratory status improving-continue nasal cannula and continue to wean as tolerated. Significant physical deconditioning. Continue physical therapy and incentive spirometer as noted. Pulmonary embolism. INR remains subtherapeutic. Will need to be on Lovenox for a while until we have very stable INR levels. Give
[2021-05-31 12:01] LABS: POC Glucose,Bedside 134 (70-110)
[2021-05-31 16:37] LABS: POC Glucose,Bedside 211 (70-110)
--- NOTE | 2021-05-31 18:25 | PC.NURSE ---
pt has done well this shift. I and the tech got him up into the life and gave him a shower. he is tolerating 8lnc well. Have been turning him q2hrs. Ximena pain
--- NOTE | 2021-05-31 22:50 | PC.NURSE ---
Dr. Carbajal paged at 22:45 due to pt having rash on stomach, arms, and legs. Pt states that his legs and arms are itching. New orders received per Dr. Carbajal.
[2021-06-01] VITALS (11 sets, daily range): BP systolic 122–147; BP diastolic 73–86; PULSE 102–125; RESP 22–28; TEMP 36.2–37; O2SAT 90–100; BMI 54.1
[2021-06-01 00:55] LABS: POC Glucose,Bedside 186 (70-110)
[2021-06-01 06:45] LABS: Basophils % 0.5 % (0.1-2.0); Eosinophils # 0.2 K/mm3 (0.0-0.4); Eosinophils % 3.4 % (0.1-12.0); Hematocrit 37.3 % (42.0-52.0); Hemoglobin 11.6 g/dL (14.1-18.0); Lymphocytes # 0.8 K/mm3 (0.7-4.5); Lymphocytes % 14.4 % (10-50); Mean Corpuscular Hemoglobin 26.5 pg (27.0-31.2); Mean Corpuscular Volume 85.4 fl (80-94); Mean Platelet Volume 8.5 fl (7.4-10.4); Monocytes # 0.2 K/mm3 (0.1-1.0); Monocytes % 3.2 % (1.7-9.3); Neutrophils # 4.3 K/mm3 (1.8-7.8); Neutrophils % 78.6 % (37.0-80.0); Platelet Count 172 K/mm3 (142-424); Red Blood Count 4.37 M/mm3 (4.60-6.20); Red Cell Distribution Width 17.6 % (11.5-17.5); White Blood Count 5.5 K/mm3 (4.8-10.8)
[2021-06-01 06:54] LABS: INR 1.85 (0.9-1.1)
[2021-06-01 07:01] LABS: Chloride 99 mmol/L (98-107); Potassium 4.2 mmoL/L (3.5-5.1); Sodium 134 mmol/L (136-145)
[2021-06-01 07:04] LABS: Anion Gap 7.2 mEq/L (5-15); Blood Urea Nitrogen 10 mg/dl (9-20); Calcium 8.5 mg/dl (8.4-10.2); Carbon Dioxide 32 mmol/L (22.0-30.0); Creatinine Clearance Estimated 317 mL/min (50-200); Estimated Glomerular Filt Rate 249 ml/min (>60); GFR (African American) 302 ML/MIN (>60); Glucose 188 mg/dl (74-100)
--- NOTE | 2021-06-01 08:26 | [facility]H.ORTHPN ---
Subjective Date: 06/01/21 <Rachel Sears - 06/01/21 08:26> Time: 08:26 <Rachel Sears - 06/01/21 08:26> Principal diagnosis: Left heel deep tissue injury <Rachel Sears - 06/01/21 08:26> Interval history: Patient resting in bed and is more alert this morning. Patient had been feeding himself eggs, still has upper extremity weakness noted. <Rachel Sears - 06/01/21 13:06> PN: Obj Ex Vital signs: Temp Pulse Resp BP Pulse Ox 97.2 F L 105 H 26 H 128/85 95 06/01/21 11:36 06/01/21 12:45 06/01/21 11:36 06/01/21 11:36 06/01/21 12:45 <Kristina Marques - 06/01/21 16:38> Temp Pulse Resp BP Pulse Ox 98.6 F 125 H 26 H 147/80 H 92 L 06/01/21 07:59 06/01/21 07:59 06/01/21 07:59 06/01/21 07:59 06/01/21 07:59 <Rachel Sears - 06/01/21 08:26> - Constitutional no acute distress <Rachel Sears - 06/01/21 13:06> - Routine HEENT Exam Head: Present: normocephalic <Rachel Sears - 06/01/21 13:06> Eye: Present: EOMI <Rachel Sears - 06/01/21 13:06> ENT: Present: mucous membranes moist <Rachel Sears - 06/01/21 13:06> - Routine Neck Exam Present: trachea midline <Rachel Sears - 06/01/21 13:06> - Routine Respiratory Exam Absent: accessory muscle use, respiratory distress <Rachel Sears - 06/01/21 13:06> - Routine Cardiovascular Exam Present: RRR <Rachel Sears - 06/01/21 13:06> - Routine Abdominal Exam Present: obese <Rachel Sears - 06/01/21 13:06> - Detailed Lower Extremity Exam Bottom foot image: 1 - Left foot deep tissue injury/ bruising was cleaned with betadine and no debridement done today. There still is a border of callused skin that has some blood under it that I hope with the betadine dressing will dry up and be easier to debride off without the excess loss of tissue. The wound superficial and does not probe deep.Measurements: 3.0x 2.2 cm. Area was then redressed with betadine soaked 4x4, dry 4x4 and kerlix and nikhil wrap. <Rachel Sears - 06/01/21 13:06> - Routine Skin Exam Present: wounds (Left heel deep tissue injury), ecchymosis <Rachel Sears 06/01/21 13:06> - Routine Neurological Exam Present: alert, vision grossly intact, normal speech. Absent: hearing grossly intact (hard of hearing ) <Rachel Sears - 06/01/21 13:06> - Routine Psychiatric Exam Present: normal affect, cooperative <Rachel Sears 06/01/21 13:06> - Urinary Catheter Management Torres Cath placed during this visit: no <Kristina Marques - 06/01/21 16:38> no <Rachel Sears 06/01/21 13:06> Progress Note: A&P (1) Respiratory failure with hypoxia Status: Acute (2) Pulmonary embolism associated with COVID-19 Status: Acute (3) Pneumonia due to COVID-19 virus Status: Acute (4) Obesity with serious comorbidity Status: Acute (5) Hyperglycemia Status: Acute (6) Acute respiratory distress syndrome (ARDS) due to 2019 novel coronavirus Status: Acute (7) DVT, bilateral lower limbs Status: Acute (8) Deep tissue injury Status: Acute (9) Onychodystrophy Status: Acute (10) Acquired hammer toes of both feet Status: Acute <Rachel Sears - 06/01/21 13:06> (1) Respiratory failure with hypoxia Status: Acute (2) Pulmonary embolism associated with COVID-19 Status: Acute (3) Pneumonia due to COVID-19 virus Status: Acute (4) Obesity with serious comorbidity Status: Acute (5) Hyperglycemia Status: Acute (6) Acute respiratory distress syndrome (ARDS) due to 2019 novel coronavirus Status: Acute (7) DVT, bilateral lower limbs Status: Acute (8) Deep tissue injury Status: Acute (9) Onychodystrophy Status: Acute (10) Acquired hammer toes of both feet Status: Acute <Kristina Marques - 06/01/21 16:38> Assessment and Plan for All Diagnoses::
--- NOTE | 2021-06-01 08:44 | HMH.ACPN2 ---
Internal Medicine - PN: Subj *Date: 06/01/21 *Time: 08:44 Interval history: Patient has improved overnight vis-?-vis talkativeness and is little stronger with his arms. Otherwise complains of a rash across his anterior chest that started through the night. No new medications. Exam Vital signs and Labs for Last 24 Hours: Temp Pulse Resp BP Pulse Ox 98.6 F 125 H 26 H 147/80 H 92 L 06/01/21 07:59 06/01/21 07:59 06/01/21 07:59 06/01/21 07:59 06/01/21 07:59 Laboratory Results - last 24 hr 05/31/21 11:20: POC Glucose 134 H 05/31/21 16:25: POC Glucose 211 H 05/31/21 20:09: POC Glucose 186 H 06/01/21 06:35: WBC 5.5, RBC 4.37 L, Hgb 11.6 L, Hct 37.3 L, MCV 85.4, MCH 26.5 L, MCHC 31.0 L, RDW 17.6 H, Plt Count 172, MPV 8.5, Neut % (Auto) 78.6, Lymph % (Auto) 14.4, [place] % (Auto) 3.2, Eos % (Auto) 3.4, Baso % (Auto) 0.5, Neut # (Auto) 4.3, Lymph # (Auto) 0.8, [place] # (Auto) 0.2, Eos # (Auto) 0.2, Baso # (Auto) 0.0 06/01/21 06:35: Sodium 134 L, Potassium 4.2, Chloride 99, Carbon Dioxide 32 H, Anion Gap 7.2, BUN 10, Creatinine 0.40 L, Estimated Creat Clear 317 H, Estimated GFR 249, Est GFR ( Amer) 302 D, Glucose 188 H, Calcium 8.5 06/01/21 06:35: PT 20.0 H, INR 1.85 H I & O for Last 24 hours: Intake & Output 05/29/21 05/30/21 05/31/21 06/01/21 11:59 11:59 11:59 11:59 Intake Total 960 / 960 1080 / 1080 940 / 940 1320 / 1320 Output Total 600 / 600 1200 / 1200 675 / 675 900 / 900 Balance 360 / 360 -120 / -120 265 / 265 420 / 420 Weight 433 lb 10.388 oz 435 lb 10.134 oz 435 lb 6 oz 435 lb 2 oz Microbiology Reports for the Last 24 Hours: Microbiology 05/27/21 16:35 Foot,Left - Drainage Gram Stain - Final 05/27/21 16:35 Foot,Left - Drainage Wound Culture - Final Mixed Skin Yolanda Narrative: Erythematous discrete rash across his chest consistent with allergic/contact dermatitis. No hives. No breathing difficulties. Lungs are clear, weaned down to 8 L of nasal cannula. Abdomen unchanged, peripheral extremities without rash. Heart rate regular. Alert, talkative. Assessment and Plan (1) Respiratory failure with hypoxia Status: Acute Qualifiers: Chronicity: acute Qualified Code(s): J96.01 - Acute respiratory failure with hypoxia Category: Medical Code(s): J96.91 - Respiratory failure, unspecified with hypoxia (2) Pulmonary embolism associated with COVID-19 Status: Acute Category: Medical Code(s): U07.1 - COVID-19; I26.99 - Other pulmonary embolism without acute cor pulmonale (3) Pneumonia due to COVID-19 virus Status: Acute Category: Medical Code(s): U07.1 - COVID-19; J12.82 - Pneumonia due to coronavirus disease 2019 (4) Obesity with serious comorbidity Status: Acute Qualifiers: Obesity type: due to excess calories Obesity classification: unspecified obesity classification Qualified Code(s): E66.09 - Other obesity due to excess calories Category: Medical Code(s): E66.9 - Obesity, unspecified (5) Hyperglycemia Status: Acute Category: Medical Code(s): R73.9 - Hyperglycemia, unspecified (6) Acute respiratory distress syndrome (ARDS) due to 2019 novel coronavirus Status: Acute Category: Medical Code(s): U07.1 - COVID-19; J80 - Acute respiratory distress syndrome (7) DVT, bilateral lower limbs Status: Acute Category: Medical Code(s): I82.403 - Acute embolism and thrombosis of unspecified deep veins of lower extremity, bilateral (8) Deep tissue injury Start date: 05/27/21 Status: Acute Category: Medical Code(s): T14.8XXA - Other injury of unspecified body region, initial encounter (9) Onychodystrophy Start date: 05/28/21 Status: Acute Category: Medical Code(s): L60.3 - Nail dystrophy (10) Acquired hammer toes of both feet Start date: 05/28/21 Status: Acute Category: Medical Code(s): M20.41 - Other hammer toe(s) (acquired), right foot; M20.42 - Other hammer toe(s) (acquir
--- NOTE | 2021-06-01 11:25 | HMH.PULMPN ---
Internal Medicine - PN: Subj *Date: 06/01/21 *Time: 11:25 Interval history: No acute respiratory events overnight. Patient admits improvement in his symptoms. Exam - Constitutional Constitutional:: Present: no acute distress, comfortable - HENMT Exam HENMT: Present: normocephalic, atraumatic - Eye Exam Eyes:: Present: normal appearance both eyes and related structures - Neck Exam Neck:: Present: normal visual inspection - Respiratory Exam Respiratory:: Present: able to speak in complete sentences, no respiratory distress, decreased breath sounds, crackles - Cardiovascular Exam Cardiac:: Present: S1, S2 - GI Exam GI:: Present: soft, obese - Skin Exam Skin: Present: warm, rash - Neurological Exam Neurological: Present: alert, awake - Extremities Exam Extremities: Present: no cyanosis, no clubbing Assessment and Plan (1) Respiratory failure with hypoxia Status: Acute Qualifiers: Chronicity: acute Qualified Code(s): J96.01 - Acute respiratory failure with hypoxia Category: Medical Code(s): J96.91 - Respiratory failure, unspecified with hypoxia (2) Pulmonary embolism associated with COVID-19 Status: Acute Category: Medical Code(s): U07.1 - COVID-19; I26.99 - Other pulmonary embolism without acute cor pulmonale (3) Pneumonia due to COVID-19 virus Status: Acute Category: Medical Code(s): U07.1 - COVID-19; J12.82 - Pneumonia due to coronavirus disease 2019 (4) Obesity with serious comorbidity Status: Acute Qualifiers: Obesity type: due to excess calories Obesity classification: unspecified obesity classification Qualified Code(s): E66.09 - Other obesity due to excess calories Category: Medical Code(s): E66.9 - Obesity, unspecified (5) Hyperglycemia Status: Acute Category: Medical Code(s): R73.9 - Hyperglycemia, unspecified (6) Acute respiratory distress syndrome (ARDS) due to 2019 novel coronavirus Status: Acute Category: Medical Code(s): U07.1 - COVID-19; J80 - Acute respiratory distress syndrome (7) DVT, bilateral lower limbs Status: Acute Category: Medical Code(s): I82.403 - Acute embolism and thrombosis of unspecified deep veins of lower extremity, bilateral (8) Deep tissue injury Start date: 05/27/21 Status: Acute Category: Medical Code(s): T14.8XXA - Other injury of unspecified body region, initial encounter (9) Onychodystrophy Start date: 05/28/21 Status: Acute Category: Medical Code(s): L60.3 - Nail dystrophy (10) Acquired hammer toes of both feet Start date: 05/28/21 Status: Acute Category: Medical Code(s): M20.41 - Other hammer toe(s) (acquired), right foot; M20.42 - Other hammer toe(s) (acquired), left foot - Assessment and plan all Dx Assessment and Plan for all problems:: #Acute hypoxic respiratory failure: #COVID-19 pneumonia: Patient presents acute hypoxic respiratory limits needing intubation and mechanical ventilatory support, successfully extubated on 05/08/2021 and then weaned to nasal cannula at 4 L a minute stable for a couple of days, however patient respiratory status started declining patient had a CTA performed that showed no pulmonary embolism he was started on heparin drip overnight 05/22/2021. He has been on high flow nasal cannula since then, with improving respiratory symptoms. He was weaned to 80% this morning. Patient continued to have decreased lower lobe breath sounds. CTA did not show any obvious airspace disease, significant motion artifact noted. Completed 7 ays of Abx for his positive sputum cultures from 05/17/21- no need of further abx for resp pathology. Completed 10-day course of dexamethasone. No need for steroid taper. Patient received 10-day course of Barcitinib. Interval update: Patient respiratory status continued to improve over the weekend, he was weaned to nasal cannula supplementation, saturating 94% on 8 L nasal cannula this morning. Decreased to 6 L. Ch
[2021-06-01 13:05] LABS: POC Glucose,Bedside 190 (70-110)
[2021-06-01 17:01] LABS: POC Glucose,Bedside 202 (70-110)
[2021-06-01 17:01] LABS: POC Glucose,Bedside 160 (70-110)
--- NOTE | 2021-06-01 18:10 | PC.NURSE ---
NO ACUTE CHANGES THIS SHIFT, 8LNC FOR O2 SUPPORT, TOLERATED PO INTAKE WELL.VITAL SIGNS HAVE REMAINED STABLE.
[2021-06-02] VITALS (11 sets, daily range): BP systolic 117–146; BP diastolic 69–96; PULSE 98–118; RESP 19–27; TEMP 36.5–37.1; O2SAT 91–98; BMI 53.6
[2021-06-02 00:54] LABS: POC Glucose,Bedside 159 (70-110)
[2021-06-02 05:35] LABS: POC Glucose,Bedside 106 (70-110)
[2021-06-02 06:51] LABS: Prothrombin Time 21.5 seconds (10.1-12.5)
--- NOTE | 2021-06-02 07:19 | HMH.ACPN2 ---
Internal Medicine - PN: Subj *Date: 06/02/21 *Time: 12:21 Interval history: Did well overnight. Tolerating nasal cannula oxygen for more than 24 hours now. Tolerating p.o. intake, continues to get slightly stronger every day. Physical therapy working with him today. Rash noted on exam. Afebrile, hemodynamically stable. Exam Vital signs and Labs for Last 24 Hours: Temp Pulse Resp BP Pulse Ox 97.7 F 106 H 22 118/69 96 06/02/21 04:00 06/02/21 06:09 06/02/21 04:00 06/02/21 04:00 06/02/21 06:09 Laboratory Results - last 24 hr 06/01/21 05:02: POC Glucose 190 H 06/01/21 11:48: POC Glucose 202 H 06/01/21 16:49: POC Glucose 160 H 06/01/21 20:22: POC Glucose 159 H 06/02/21 05:25: POC Glucose 106 06/02/21 05:53: PT 21.5 H, INR 2.00 H I & O for Last 24 hours: Intake & Output 05/30/21 05/31/21 06/01/21 06/02/21 23:59 23:59 23:59 23:59 Intake Total 1300 / 1300 960 / 960 1440 / 1440 Output Total 1200 / 1200 1575 / 1575 1000 / 1000 Balance 100 / 100 -615 / -615 440 / 440 Weight 197.6 kg 197.483 kg 197.369 kg 195.9 kg Narrative: - Constitutional No acute distress on 6L NC O2; alert and oriented on exam this morning, morbidly obese - *Routine HEENT Exam Head: Present: normocephalic Eye: Present: EOMI, PERRL ENT: Present: mucous membranes moist - *Routine Neck Exam Present: supple. Absent: lymphadenopathy - *Routine Respiratory Exam Present: CTAB, distant breath sounds, complicated exam by body habitus - *Routine Cardiovascular Exam Present: tachycardia. Absent: murmur - *Routine Abdominal Exam Present: soft, normoactive bowel sounds, obese. Absent: tenderness - *Routine Extremities Exam Absent: cyanosis, clubbing, edema - *Routine Skin Exam Present: warm. Diffuse blanching macular erythematous rash that is pruritic on extremities and torso. No vesicles, bleeding, weeping. - *Routine Neurological Exam Present: alert, oriented, gross weakness, strength improving, able to lift knees briefly; feeding himself on exam this morning Assessment and Plan (1) Respiratory failure with hypoxia Status: Acute Qualifiers: Chronicity: acute Qualified Code(s): J96.01 - Acute respiratory failure with hypoxia Category: Medical Code(s): J96.91 - Respiratory failure, unspecified with hypoxia (2) Pulmonary embolism associated with COVID-19 Status: Acute Category: Medical Code(s): U07.1 - COVID-19; I26.99 - Other pulmonary embolism without acute cor pulmonale (3) Pneumonia due to COVID-19 virus Status: Acute Category: Medical Code(s): U07.1 - COVID-19; J12.82 - Pneumonia due to coronavirus disease 2019 (4) Obesity with serious comorbidity Status: Acute Qualifiers: Obesity type: due to excess calories Obesity classification: unspecified obesity classification Qualified Code(s): E66.09 - Other obesity due to excess calories Category: Medical Code(s): E66.9 - Obesity, unspecified (5) Hyperglycemia Status: Acute Category: Medical Code(s): R73.9 - Hyperglycemia, unspecified (6) Acute respiratory distress syndrome (ARDS) due to 2019 novel coronavirus Status: Acute Category: Medical Code(s): U07.1 - COVID-19; J80 - Acute respiratory distress syndrome (7) DVT, bilateral lower limbs Status: Acute Category: Medical Code(s): I82.403 - Acute embolism and thrombosis of unspecified deep veins of lower extremity, bilateral (8) Deep tissue injury Start date: 05/27/21 Status: Acute Category: Medical Code(s): T14.8XXA - Other injury of unspecified body region, initial encounter (9) Onychodystrophy Start date: 05/28/21 Status: Acute Category: Medical Code(s): L60.3 - Nail dystrophy (10) Acquired hammer toes of both feet Start date: 05/28/21 Status: Acute Category: Medical Code(s): M20.41 - Other hammer toe(s) (acquired), right foot; M20.42 - Other hammer toe(s) (acquired), left foot - Assessment and plan all
--- NOTE | 2021-06-02 13:10 | HMH.PULMPN ---
Internal Medicine - PN: Subj *Date: 06/02/21 *Time: 13:10 Interval history: No acute respiratory vents overnight. Exam - Constitutional Constitutional:: Present: no acute distress, comfortable - HENMT Exam HENMT: Present: normocephalic, atraumatic - Eye Exam Eyes:: Present: normal appearance both eyes and related structures - Neck Exam Neck:: Present: normal visual inspection - Respiratory Exam Respiratory:: Present: able to speak in complete sentences, decreased breath sounds, crackles, rales - Cardiovascular Exam Cardiac:: Present: S1, S2 - GI Exam GI:: Present: soft, obese - Skin Exam Skin: Present: warm, rash - Neurological Exam Neurological: Present: alert, awake - Extremities Exam Extremities: Present: no cyanosis, no clubbing, edema Assessment and Plan (1) Respiratory failure with hypoxia Status: Acute Qualifiers: Chronicity: acute Qualified Code(s): J96.01 - Acute respiratory failure with hypoxia Category: Medical Code(s): J96.91 - Respiratory failure, unspecified with hypoxia (2) Pulmonary embolism associated with COVID-19 Status: Acute Category: Medical Code(s): U07.1 - COVID-19; I26.99 - Other pulmonary embolism without acute cor pulmonale (3) Pneumonia due to COVID-19 virus Status: Acute Category: Medical Code(s): U07.1 - COVID-19; J12.82 - Pneumonia due to coronavirus disease 2019 (4) Obesity with serious comorbidity Status: Acute Qualifiers: Obesity type: due to excess calories Obesity classification: unspecified obesity classification Qualified Code(s): E66.09 - Other obesity due to excess calories Category: Medical Code(s): E66.9 - Obesity, unspecified (5) Hyperglycemia Status: Acute Category: Medical Code(s): R73.9 - Hyperglycemia, unspecified (6) Acute respiratory distress syndrome (ARDS) due to 2019 novel coronavirus Status: Acute Category: Medical Code(s): U07.1 - COVID-19; J80 - Acute respiratory distress syndrome (7) DVT, bilateral lower limbs Status: Acute Category: Medical Code(s): I82.403 - Acute embolism and thrombosis of unspecified deep veins of lower extremity, bilateral (8) Deep tissue injury Start date: 05/27/21 Status: Acute Category: Medical Code(s): T14.8XXA - Other injury of unspecified body region, initial encounter (9) Onychodystrophy Start date: 05/28/21 Status: Acute Category: Medical Code(s): L60.3 - Nail dystrophy (10) Acquired hammer toes of both feet Start date: 05/28/21 Status: Acute Category: Medical Code(s): M20.41 - Other hammer toe(s) (acquired), right foot; M20.42 - Other hammer toe(s) (acquired), left foot - Assessment and plan all Dx Assessment and Plan for all problems:: #Acute hypoxic respiratory failure: #COVID-19 pneumonia: Patient presents acute hypoxic respiratory limits needing intubation and mechanical ventilatory support, successfully extubated on 05/08/2021 and then weaned to nasal cannula at 4 L a minute stable for a couple of days, however patient respiratory status started declining patient had a CTA performed that showed no pulmonary embolism he was started on heparin drip overnight 05/22/2021. He has been on high flow nasal cannula since then, with improving respiratory symptoms. He was weaned to 80% this morning. Patient continued to have decreased lower lobe breath sounds. CTA did not show any obvious airspace disease, significant motion artifact noted. Completed 7 ays of Abx for his positive sputum cultures from 05/17/21- no need of further abx for resp pathology. Completed 10-day course of dexamethasone. No need for steroid taper. Patient received 10-day course of Barcitinib. Interval update: Patient respiratory status continued to improve, weaned to 4 L this morning saturations maintained at 88% and above. Renal function stable. Plan: Continue PT OT Continue incentive spirometry Continue nasal oxygen supplementation with satura
--- NOTE | 2021-06-02 18:46 | PC.NURSE ---
PT IS OAX4, IS ABLE TO MAKE NEEDS KNOWN TO STAFF, HE SPENT A MOST OF SHIFT UP TO CHAIR. HAS TOLERATED TITRATION OF O2 WELL. CURRENTLY REQUIRES 2.5 LNC WITH O2 SATS >90%. PT DID HAVE A LARGE BM THIS SHIFT, REQUIRES BEING LIFTED BY JARED TO USE URINAL FOR ELIMINATION. RASH STILL PRESENT TO ALL EXTREMITIES AND TO HIS TRUCK, PT STATES THAT ITCHING HAS IMPROVED. DSG WAS CHANGED ORDERED TO LEFT HEEL AND HAS BEEN FLOATED T/O THIS SHIFT. HE HAS BEEN TURNED OR REPOSITIONED EVERY TWO HOURS OR REQUESTED. VITAL SIGNS HAVE BEEN STABLE T/O SHIFT.
[2021-06-03] VITALS (10 sets, daily range): BP systolic 112–156; BP diastolic 69–95; PULSE 97–121; RESP 18–22; TEMP 36.5–37; O2SAT 90–97; BMI 53.6
[2021-06-03 00:52] LABS: POC Glucose,Bedside 162 (70-110)
[2021-06-03 00:52] LABS: POC Glucose,Bedside 179 (70-110)
[2021-06-03 00:52] LABS: POC Glucose,Bedside 149 (70-110)
--- NOTE | 2021-06-03 02:21 | PC.NURSE ---
Patient's O2 sats dropped to low 80's when sleeping. O2 was turned back up to 8L. Respiratory came and assessed, patient was repositioned, o2 sats remaining at 92% on 8L NC. Will continue to titrate back down as patient tolerates. Call walsh in reach, will continue to monitor.
[2021-06-03 05:39] LABS: POC Glucose,Bedside 106 (70-110)
[2021-06-03 07:16] LABS: Basophils # 0.1 K/mm3 (0-0.2); Basophils % 0.7 % (0.1-2.0); Eosinophils # 0.7 K/mm3 (0.0-0.4); Eosinophils % 11.8 % (0.1-12.0); Hematocrit 37.9 % (42.0-52.0); Hemoglobin 11.7 g/dL (14.1-18.0); Lymphocytes # 1.3 K/mm3 (0.7-4.5); Lymphocytes % 20.8 % (10-50); Mean Corpuscular HGB Conc 30.9 g/dL (31.8-35.4); Mean Corpuscular Hemoglobin 26.6 pg (27.0-31.2); Mean Platelet Volume 8.8 fl (7.4-10.4); Monocytes # 0.3 K/mm3 (0.1-1.0); Monocytes % 5.3 % (1.7-9.3); Neutrophils # 3.9 K/mm3 (1.8-7.8); Neutrophils % 61.3 % (37.0-80.0); Platelet Count 165 K/mm3 (142-424); Red Cell Distribution Width 17.9 % (11.5-17.5); White Blood Count 6.3 K/mm3 (4.8-10.8)
[2021-06-03 07:20] LABS: Chloride 98 mmol/L (98-107); Potassium 3.3 mmoL/L (3.5-5.1); Sodium 138 mmol/L (136-145)
[2021-06-03 07:23] LABS: Anion Gap 9.3 mEq/L (5-15); Blood Urea Nitrogen 11 mg/dl (9-20); Calcium 8.5 mg/dl (8.4-10.2); Carbon Dioxide 34 mmol/L (22.0-30.0); Creatinine Clearance Estimated 317 mL/min (50-200); Estimated Glomerular Filt Rate 249 ml/min (>60); GFR (African American) 302 ML/MIN (>60); Glucose 105 mg/dl (74-100)
[2021-06-03 07:24] LABS: Magnesium 1.6 mg/dl (1.6-2.3)
[2021-06-03 08:29] LABS: INR 1.68 (0.9-1.1); Prothrombin Time 18.3 seconds (10.1-12.5)
--- NOTE | 2021-06-03 08:33 | HMH.ACPN2 ---
Internal Medicine - PN: Subj *Date: 06/03/21 *Time: 08:33 Interval history: Overall patient did well overnight except for continued rash that started a couple of days ago. He reports mild itching. Reports no respiratory distress. Has been a little bit more active and has been able to feed himself. Remains on 8 L nasal cannula. Exam Vital signs and Labs for Last 24 Hours: Temp Pulse Resp BP Pulse Ox 98.0 F 115 H 22 156/95 H 95 06/03/21 08:00 06/03/21 08:00 06/03/21 08:00 06/03/21 08:00 06/03/21 08:00 Laboratory Results - last 24 hr 06/02/21 12:04: POC Glucose 179 H 06/02/21 16:32: POC Glucose 149 H 06/02/21 20:16: POC Glucose 162 H 06/03/21 05:05: POC Glucose 106 06/03/21 06:20: WBC 6.3, RBC 4.40 L, Hgb 11.7 L, Hct 37.9 L, MCV 86.0, MCH 26.6 L, MCHC 30.9 L, RDW 17.9 H, Plt Count 165, MPV 8.8, Neut % (Auto) 61.3, Lymph % (Auto) 20.8, [place] % (Auto) 5.3, Eos % (Auto) 11.8, Baso % (Auto) 0.7, Neut # (Auto) 3.9, Lymph # (Auto) 1.3, [place] # (Auto) 0.3, Eos # (Auto) 0.7 H, Baso # (Auto) 0.1 06/03/21 06:20: Sodium 138, Potassium 3.3 L D, Chloride 98, Carbon Dioxide 34 H, Anion Gap 9.3, BUN 11, Creatinine 0.40 L, Estimated Creat Clear 317 H, Estimated GFR 249, Est GFR ( Amer) 302, Glucose 105 H, Calcium 8.5, Magnesium 1.6 I & O for Last 24 hours: Intake & Output 05/31/21 06/01/21 06/02/21 06/03/21 11:59 11:59 11:59 11:59 Intake Total 940 / 940 1320 / 1320 1080 / 1080 1320 / 1320 Output Total 675 / 675 900 / 900 1000 / 1000 2500 / 2500 Balance 265 / 265 420 / 420 80 / 80 -1180 / -1180 Weight 435 lb 6 oz 435 lb 2 oz 431 lb 14.169 oz 431 lb 10 oz Narrative: No change in rash except its little darker and much more confluent. Nose no hives. The surface of the rash is a fine dry scale. No vesicles. No red streaking or cellulitic appearance. Lungs have symmetric air entry. Vital signs are otherwise unremarkable. He is pleasant and talkative and alert. Assessment and Plan (1) Respiratory failure with hypoxia Status: Acute Qualifiers: Chronicity: acute Qualified Code(s): J96.01 - Acute respiratory failure with hypoxia Category: Medical Code(s): J96.91 - Respiratory failure, unspecified with hypoxia (2) Pulmonary embolism associated with COVID-19 Status: Acute Category: Medical Code(s): U07.1 - COVID-19; I26.99 - Other pulmonary embolism without acute cor pulmonale (3) Pneumonia due to COVID-19 virus Status: Acute Category: Medical Code(s): U07.1 - COVID-19; J12.82 - Pneumonia due to coronavirus disease 2019 (4) Obesity with serious comorbidity Status: Acute Qualifiers: Obesity type: due to excess calories Obesity classification: unspecified obesity classification Qualified Code(s): E66.09 - Other obesity due to excess calories Category: Medical Code(s): E66.9 - Obesity, unspecified (5) Hyperglycemia Status: Acute Category: Medical Code(s): R73.9 - Hyperglycemia, unspecified (6) Acute respiratory distress syndrome (ARDS) due to 2019 novel coronavirus Status: Acute Category: Medical Code(s): U07.1 - COVID-19; J80 - Acute respiratory distress syndrome (7) DVT, bilateral lower limbs Status: Acute Category: Medical Code(s): I82.403 - Acute embolism and thrombosis of unspecified deep veins of lower extremity, bilateral (8) Deep tissue injury Start date: 05/27/21 Status: Acute Category: Medical Code(s): T14.8XXA - Other injury of unspecified body region, initial encounter (9) Onychodystrophy Start date: 05/28/21 Status: Acute Category: Medical Code(s): L60.3 - Nail dystrophy (10) Acquired hammer toes of both feet Start date: 05/28/21 Status: Acute Category: Medical Code(s): M20.41 - Other hammer toe(s) (acquired), right foot; M20.42 - Other hammer toe(s) (acquired), left foot - Assessment and plan all Dx Assessment and Plan for all problems:: Continue current anticoagulation. I like to cover hi
--- NOTE | 2021-06-03 11:21 | HMH.PULMPN ---
Internal Medicine - PN: Subj *Date: 06/03/21 *Time: 11:21 Interval history: No acute respiratory events overnight. Exam - Constitutional Constitutional:: Present: no acute distress, comfortable - HENMT Exam HENMT: Present: normocephalic, atraumatic - Eye Exam Eyes:: Present: normal appearance both eyes and related structures - Neck Exam Neck:: Present: normal visual inspection - Respiratory Exam Respiratory:: Present: no respiratory distress, decreased breath sounds, rales - Cardiovascular Exam Cardiac:: Present: S1, S2 - GI Exam GI:: Present: soft, obese - Skin Exam Skin: Present: warm, rash - Neurological Exam Neurological: Present: alert, awake - Extremities Exam Extremities: Present: no cyanosis, no clubbing, edema Assessment and Plan (1) Respiratory failure with hypoxia Status: Acute Qualifiers: Chronicity: acute Qualified Code(s): J96.01 - Acute respiratory failure with hypoxia Category: Medical Code(s): J96.91 - Respiratory failure, unspecified with hypoxia (2) Pulmonary embolism associated with COVID-19 Status: Acute Category: Medical Code(s): U07.1 - COVID-19; I26.99 - Other pulmonary embolism without acute cor pulmonale (3) Pneumonia due to COVID-19 virus Status: Acute Category: Medical Code(s): U07.1 - COVID-19; J12.82 - Pneumonia due to coronavirus disease 2019 (4) Obesity with serious comorbidity Status: Acute Qualifiers: Obesity type: due to excess calories Obesity classification: unspecified obesity classification Qualified Code(s): E66.09 - Other obesity due to excess calories Category: Medical Code(s): E66.9 - Obesity, unspecified (5) Hyperglycemia Status: Acute Category: Medical Code(s): R73.9 - Hyperglycemia, unspecified (6) Acute respiratory distress syndrome (ARDS) due to 2019 novel coronavirus Status: Acute Category: Medical Code(s): U07.1 - COVID-19; J80 - Acute respiratory distress syndrome (7) DVT, bilateral lower limbs Status: Acute Category: Medical Code(s): I82.403 - Acute embolism and thrombosis of unspecified deep veins of lower extremity, bilateral (8) Deep tissue injury Start date: 05/27/21 Status: Acute Category: Medical Code(s): T14.8XXA - Other injury of unspecified body region, initial encounter (9) Onychodystrophy Start date: 05/28/21 Status: Acute Category: Medical Code(s): L60.3 - Nail dystrophy (10) Acquired hammer toes of both feet Start date: 05/28/21 Status: Acute Category: Medical Code(s): M20.41 - Other hammer toe(s) (acquired), right foot; M20.42 - Other hammer toe(s) (acquired), left foot - Assessment and plan all Dx Assessment and Plan for all problems:: #Acute hypoxic respiratory failure: #COVID-19 pneumonia: Patient presents acute hypoxic respiratory limits needing intubation and mechanical ventilatory support, successfully extubated on 05/08/2021 and then weaned to nasal cannula at 4 L a minute stable for a couple of days, however patient respiratory status started declining patient had a CTA performed that showed no pulmonary embolism he was started on heparin drip overnight 05/22/2021. He has been on high flow nasal cannula since then, with improving respiratory symptoms. He was weaned to 80% this morning. Patient continued to have decreased lower lobe breath sounds. CTA did not show any obvious airspace disease, significant motion artifact noted. Completed 7 ays of Abx for his positive sputum cultures from 05/17/21- no need of further abx for resp pathology. Completed 10-day course of dexamethasone. No need for steroid taper. Patient received 10-day course of Barcitinib. Interval update: Patient respiratory status continued to improve, weaned to 3 L this morning saturations maintained at 88% and above. Patient oxygen requirement has been increasing every night likely from his obstructive sleep apnea. Renal function stable. Hypokalemia noted. INR
--- NOTE | 2021-06-03 11:58 | HMH.ORTHPN ---
Subjective Date: 06/03/21 Time: 11:30 Principal diagnosis: Left heel deep tissue injury Interval history: Patient resting in bed and is more alert and talkative this morning. Patient denies any pain to his left Heel. Patient still presents with a rash to his arms, and upper chest and some on his legs. I will debride the left heel and redress the site. PN: Obj Ex Vital signs: Temp Pulse Resp BP Pulse Ox 98.0 F 110 H 22 156/95 H 95 06/03/21 08:00 06/03/21 11:21 06/03/21 08:00 06/03/21 08:00 06/03/21 08:00 - Constitutional no acute distress - Routine HEENT Exam Head: Present: normocephalic Eye: Present: EOMI ENT: Present: mucous membranes moist - Routine Neck Exam Present: trachea midline - Routine Respiratory Exam Absent: accessory muscle use, respiratory distress - Routine Cardiovascular Exam Present: RRR - Routine Abdominal Exam Present: soft, obese - Routine Extremities Exam Present: edema, full ROM, pulses intact, normal capillary refill. Absent: calf tenderness - Detailed Lower Extremity Exam Bottom foot image: 1 - Left foot deep tissue injury/ bruising was cleaned with betadine and Utilizing a 15 blade, the wound was sharply excisionally debrided through skin into sub q layer. No acute signs of infection noted at this time. Biofilm and fibrotic slough were debrided. No evidence of purulence or malodor. No ascending cellulitis. The wound superficial and does not probe deep.Measurements: 5.0x4.5x0cm. I was able to debride off all the dark tissue from the heel. There is new pink skin noted. Area was then redressed with betadine soaked 4x4, dry 4x4 and kerlix and nikhil wrap. - Routine Skin Exam Present: erythema (rash to arms and upper extremity. ), dry, wounds (DTI to his Left heel, debrided and superficial ) - Routine Neurological Exam Present: alert, vision grossly intact, hearing grossly intact, facial asymmetry - Routine Psychiatric Exam Present: normal affect, cooperative - Urinary Catheter Management Torres Cath placed during this visit: no Progress Note: A&P (1) Respiratory failure with hypoxia Status: Acute (2) Pulmonary embolism associated with COVID-19 Status: Acute (3) Pneumonia due to COVID-19 virus Status: Acute (4) Obesity with serious comorbidity Status: Acute (5) Hyperglycemia Status: Acute (6) Acute respiratory distress syndrome (ARDS) due to 2019 novel coronavirus Status: Acute (7) DVT, bilateral lower limbs Status: Acute (8) Deep tissue injury Status: Acute (9) Onychodystrophy Status: Acute (10) Acquired hammer toes of both feet Status: Acute Assessment and Plan for All Diagnoses:: Procedure(s): XR foot wt bearing LT 3V; FINDINGS: Bones/joints: Normal. No acute fracture. Joint spaces are preserved. No dislocation or subluxation. There is mild spurring along the inferior and posterior aspects of the left calcaneus. Soft tissues: There is soft tissue swelling noted along the inferior aspect of the left heel. No evidence of subcutaneous emphysema. IMPRESSION: 1. Benign calcaneal spurring noted. 2. Soft tissue swelling along the inferior aspect of the left heel without evidence of subcutaneous emphysema. 3. No evidence of acute fracture or focal osseous destruction. Right foot was no acute fractures or dislocations, No evidence of acute fracture or focal osseous destruction. Laboratory Tests 05/25/21 05/25/21 06/03/21 06:42 06:42 05:05 WBC ESR 42 H BUN Creatinine Estimated GFR Glucose POC Glucose 106 C-Reactive Protein 36.9 H 06/03/21 06/03/21 06:20 06:20 WBC 6.3 ESR BUN 11 Creatinine 0.40 L Estimated GFR 249 Glucose 105 H POC Glucose C-Reactive Protein Microbiology 05/27/21 16:35 Foot,Left - Drainage Gram Stain - Final 05/27/21 16:35 Foot,Left - Drainage Wound Cult
[2021-06-03 16:32] LABS: POC Glucose,Bedside 168 (70-110)
--- NOTE | 2021-06-03 17:30 | PC.NURSE ---
Addendum entered by Lewis Chaves RN 06/03/21 17:39: Also changed PICC dsg to STELLA per sterile technique. Addendum entered by Lewis Chaves RN 06/03/21 17:32: * Remains Original Note: Pt alert and oriented and able to make needs known. Dsg changed to open area under left buttock. Meds given per oct. VSS. Reamains on 3 L NC at this time. Reamains safe. CB in reach. Pt bathed and cream per oct applied to generalized rash.
[2021-06-03 20:20] LABS: POC Glucose,Bedside 165 (70-110)
[2021-06-04] VITALS (8 sets, daily range): BP systolic 107–141; BP diastolic 70–91; PULSE 97–118; RESP 20–28; TEMP 36.5–37.3; O2SAT 90–95; BMI 53.6
[2021-06-04 00:52] LABS: POC Glucose,Bedside 184 (70-110)
--- NOTE | 2021-06-04 03:51 | PC.NURSE ---
Patient is A&Ox4. Patient was increased to 4LNC while asleep due to oxygen saturation dropping repeatedly below 88%. Patient has maintained oxygen saturation between 88-94% on 4LNC while asleep will titrated back down. Patient's bilateral lung bases are diminished. Patient is able to use the urinal independently. Patient had a BM this shift. Dressing reapplied to his left buttocks and barrier cream applied to all of patient's bottom. VSS, call light within reach, will continue to monitor.
[2021-06-04 05:52] LABS: POC Glucose,Bedside 121 (70-110)
[2021-06-04 07:25] LABS: INR 1.75 (0.9-1.1)
--- NOTE | 2021-06-04 08:01 | HMH.ACPN2 ---
Internal Medicine - PN: Subj *Date: 06/04/21 *Time: 08:01 Interval history: Overall patient is done very well over the past 24 hours. He is much more able to use his arms and has fed himself fairly well. Rash is also improving. Oxygen status is improved he is down to 4 L nasal cannula. Exam Vital signs and Labs for Last 24 Hours: Temp Pulse Resp BP Pulse Ox 97.7 F 116 H 28 H 141/91 H 93 L 06/04/21 07:20 06/04/21 07:20 06/04/21 07:20 06/04/21 07:20 06/04/21 07:20 Laboratory Results - last 24 hr 06/03/21 08:05: PT 18.3 H, INR 1.68 H 06/03/21 10:48: POC Glucose 184 H 06/03/21 15:32: POC Glucose 168 H 06/03/21 20:13: POC Glucose 165 H 06/04/21 05:34: POC Glucose 121 H 06/04/21 06:25: PT 19.0 H, INR 1.75 H I & O for Last 24 hours: Intake & Output 06/01/21 06/02/21 06/03/21 06/04/21 11:59 11:59 11:59 11:59 Intake Total 1320 / 1320 1080 / 1080 1320 / 1320 960 / 960 Output Total 900 / 900 1000 / 1000 2500 / 2500 2700 / 2700 Balance 420 / 420 80 / 80 -1180 / -1180 -1740 / -1740 Weight 435 lb 2 oz 431 lb 14.169 oz 431 lb 10 oz 431 lb Narrative: Alert, pleasant. Good air movement. Heart rate regular. Rash is improving. Abdomen soft. No edema or clubbing. Assessment and Plan (1) Respiratory failure with hypoxia Status: Acute Qualifiers: Chronicity: acute Qualified Code(s): J96.01 - Acute respiratory failure with hypoxia Category: Medical Code(s): J96.91 - Respiratory failure, unspecified with hypoxia (2) Pulmonary embolism associated with COVID-19 Status: Acute Category: Medical Code(s): U07.1 - COVID-19; I26.99 - Other pulmonary embolism without acute cor pulmonale (3) Pneumonia due to COVID-19 virus Status: Acute Category: Medical Code(s): U07.1 - COVID-19; J12.82 - Pneumonia due to coronavirus disease 2019 (4) Obesity with serious comorbidity Status: Acute Qualifiers: Obesity type: due to excess calories Obesity classification: unspecified obesity classification Qualified Code(s): E66.09 - Other obesity due to excess calories Category: Medical Code(s): E66.9 - Obesity, unspecified (5) Hyperglycemia Status: Acute Category: Medical Code(s): R73.9 - Hyperglycemia, unspecified (6) Acute respiratory distress syndrome (ARDS) due to 2019 novel coronavirus Status: Acute Category: Medical Code(s): U07.1 - COVID-19; J80 - Acute respiratory distress syndrome (7) DVT, bilateral lower limbs Status: Acute Category: Medical Code(s): I82.403 - Acute embolism and thrombosis of unspecified deep veins of lower extremity, bilateral (8) Deep tissue injury Start date: 05/27/21 Status: Acute Category: Medical Code(s): T14.8XXA - Other injury of unspecified body region, initial encounter (9) Onychodystrophy Start date: 05/28/21 Status: Acute Category: Medical Code(s): L60.3 - Nail dystrophy (10) Acquired hammer toes of both feet Start date: 05/28/21 Status: Acute Category: Medical Code(s): M20.41 - Other hammer toe(s) (acquired), right foot; M20.42 - Other hammer toe(s) (acquired), left foot - Assessment and plan all Dx Assessment and Plan for all problems:: Good improvement. No changes in plan, continue treatment for rash, continue antidepressant. I think patient is very appropriate for skilled care transfer today. We will continue Lovenox therapy until warfarin/coumadinization is well-established.
[2021-06-04 09:26] LABS: Chloride 99 mmol/L (98-107); Potassium 3.9 mmoL/L (3.5-5.1); Sodium 135 mmol/L (136-145)
[2021-06-04 09:29] LABS: Blood Urea Nitrogen 8 mg/dl (9-20); Creatinine Clearance Estimated 423 mL/min (50-200); Estimated Glomerular Filt Rate 347 ml/min (>60); GFR (African American) 420 ML/MIN (>60)
[2021-06-04 09:30] LABS: Anion Gap 6.9 mEq/L (5-15); Calcium 8.3 mg/dl (8.4-10.2); Carbon Dioxide 33 mmol/L (22.0-30.0); Glucose 110 mg/dl (74-100)
[2021-06-04 11:17] LABS: POC Glucose,Bedside 266 (70-110)
--- NOTE | 2021-06-04 11:52 | HMH.PULMPN ---
Internal Medicine - PN: Subj *Date: 06/04/21 *Time: 11:52 Interval history: No new respiratory complaints. Continued improvement in his symptoms. Exam - Constitutional Constitutional:: Present: no acute distress, comfortable - HENMT Exam HENMT: Present: normocephalic, atraumatic - Eye Exam Eyes:: Present: normal appearance both eyes and related structures - Neck Exam Neck:: Present: normal visual inspection - Respiratory Exam Respiratory:: Present: able to speak in complete sentences, no respiratory distress, decreased breath sounds, rales - Cardiovascular Exam Cardiac:: Present: S1, S2 - GI Exam GI:: Present: soft, obese - Skin Exam Skin: Present: warm, rash - Neurological Exam Neurological: Present: alert, awake - Extremities Exam Extremities: Present: no cyanosis, no clubbing, edema Assessment and Plan (1) Respiratory failure with hypoxia Status: Acute Qualifiers: Chronicity: acute Qualified Code(s): J96.01 - Acute respiratory failure with hypoxia Category: Medical Code(s): J96.91 - Respiratory failure, unspecified with hypoxia (2) Pulmonary embolism associated with COVID-19 Status: Acute Category: Medical Code(s): U07.1 - COVID-19; I26.99 - Other pulmonary embolism without acute cor pulmonale (3) Pneumonia due to COVID-19 virus Status: Acute Category: Medical Code(s): U07.1 - COVID-19; J12.82 - Pneumonia due to coronavirus disease 2019 (4) Obesity with serious comorbidity Status: Acute Qualifiers: Obesity type: due to excess calories Obesity classification: unspecified obesity classification Qualified Code(s): E66.09 - Other obesity due to excess calories Category: Medical Code(s): E66.9 - Obesity, unspecified (5) Hyperglycemia Status: Acute Category: Medical Code(s): R73.9 - Hyperglycemia, unspecified (6) Acute respiratory distress syndrome (ARDS) due to 2019 novel coronavirus Status: Acute Category: Medical Code(s): U07.1 - COVID-19; J80 - Acute respiratory distress syndrome (7) DVT, bilateral lower limbs Status: Acute Category: Medical Code(s): I82.403 - Acute embolism and thrombosis of unspecified deep veins of lower extremity, bilateral (8) Deep tissue injury Start date: 05/27/21 Status: Acute Category: Medical Code(s): T14.8XXA - Other injury of unspecified body region, initial encounter (9) Onychodystrophy Start date: 05/28/21 Status: Acute Category: Medical Code(s): L60.3 - Nail dystrophy (10) Acquired hammer toes of both feet Start date: 05/28/21 Status: Acute Category: Medical Code(s): M20.41 - Other hammer toe(s) (acquired), right foot; M20.42 - Other hammer toe(s) (acquired), left foot - Assessment and plan all Dx Assessment and Plan for all problems:: #Acute hypoxic respiratory failure: #COVID-19 pneumonia: Patient presents acute hypoxic respiratory limits needing intubation and mechanical ventilatory support, successfully extubated on 05/08/2021 and then weaned to nasal cannula at 4 L a minute stable for a couple of days, however patient respiratory status started declining patient had a CTA performed that showed no pulmonary embolism he was started on heparin drip overnight 05/22/2021. He has been on high flow nasal cannula since then, with improving respiratory symptoms. He was weaned to 80% this morning. Patient continued to have decreased lower lobe breath sounds. CTA did not show any obvious airspace disease, significant motion artifact noted. Completed 7 ays of Abx for his positive sputum cultures from 05/17/21- no need of further abx for resp pathology. Completed 10-day course of dexamethasone. No need for steroid taper. Patient received 10-day course of Barcitinib. Interval update: Patient respiratory status continued to improve. He has been stable on 3 to 4 L nasal oxygen supplementation for the last 24 hours. Hyperkalemia improved status post replacement. Renal function
--- NOTE | 2021-06-04 15:32 | PC.NURSE ---
No acute changes this shift at this time. Have bathed pt and applied hydrocortisone cream. Mx continues. Remains on 4 L NC 02 at this time.
[2021-06-04 21:49] LABS: POC Glucose,Bedside 188 (70-110)
[2021-06-05] VITALS (10 sets, daily range): BP systolic 128–141; BP diastolic 66–88; PULSE 72–121; RESP 17–20; TEMP 36.5–37; O2SAT 90–96; BMI 51.7
--- NOTE | 2021-06-05 03:36 | PC.NURSE ---
Patient is A&Ox4. Patient is noted to have expiratory rhonchi in bilateral upper and middle lobes and diminished in his bilateral bases. Patient has continued to show improvement in turning himself in the bed when asked. Patient is noted to have skin tear/ulcer noted under his left buttocks, new dsg was applied. Bottom is red and flaky, barrier cream is applied as needed. Patient has voiced no concerns this shift. Patient was able to tolerate swallowing pills one at a time, whole or broken in half. Patient has had a BM 06/05. Patient is able to used the urinal independently. Clear, straw urine is noted. VSS, call light within reach, will continue to monitor.
[2021-06-05 06:02] LABS: POC Glucose,Bedside 120 (70-110)
[2021-06-05 06:12] LABS: INR 1.88 (0.9-1.1); Prothrombin Time 20.3 seconds (10.1-12.5)
--- NOTE | 2021-06-05 06:39 | HMH.ACPN2 ---
Internal Medicine - PN: Subj *Date: 06/05/21 *Time: 08:51 Interval history: no acute events overnight. No respiratory distress. Working with PT, improved strength on Exam this morning. No complaints. Exam Vital signs and Labs for Last 24 Hours: Temp Pulse Resp BP Pulse Ox 98.6 F 106 H 20 132/83 93 L 06/05/21 04:00 06/05/21 04:00 06/05/21 04:00 06/05/21 04:00 06/05/21 04:00 Laboratory Results - last 24 hr 06/04/21 06:25: PT 19.0 H, INR 1.75 H 06/04/21 06:25: Sodium 135 L, Potassium 3.9, Chloride 99, Carbon Dioxide 33 H, Anion Gap 6.9, BUN 8 L D, Creatinine 0.30 L D, Estimated Creat Clear 423 H, Estimated GFR 347, Est GFR ( Amer) 420 D, Glucose 110 H, Calcium 8.3 L 06/04/21 10:20: POC Glucose 266 H 06/04/21 21:36: POC Glucose 188 H 06/05/21 05:52: POC Glucose 120 H 06/05/21 05:53: PT 20.3 H, INR 1.88 H I & O for Last 24 hours: Intake & Output 06/02/21 06/03/21 06/04/21 06/05/21 23:59 23:59 23:59 23:59 Intake Total 960 / 960 1320 / 1320 1200 / 1200 360 / 360 Output Total 1900 / 1900 2850 / 2850 3650 / 3650 375 / 375 Balance -940 / -940 -1530 / -1530 -2450 / -2450 -15 / -15 Weight 195.9 kg 195.782 kg 195.498 kg 189 kg - Constitutional no acute distress, morbidly obese - *Routine HEENT Exam Head: Present: normocephalic Eye: Present: EOMI, PERRL ENT: Present: mucous membranes moist - *Routine Neck Exam Present: supple. Absent: lymphadenopathy - *Routine Respiratory Exam Present: CTA bilaterally. Absent: wheezes, crackles - *Routine Cardiovascular Exam Present: tachycardia. Absent: murmur - *Routine Abdominal Exam Present: soft, normoactive bowel sounds, obese. Absent: tenderness - *Routine Extremities Exam Absent: cyanosis, clubbing, edema Comments: pressure wound on heel, see podiatry notes for full details - *Routine Skin Exam Present: warm, rash (diffuse rash, erythematous, blanches, no vesicles, pruritic) - *Routine Neurological Exam Present: alert, oriented X3 Assessment and Plan (1) Respiratory failure with hypoxia Status: Acute Qualifiers: Chronicity: acute Qualified Code(s): J96.01 - Acute respiratory failure with hypoxia Category: Medical Code(s): J96.91 - Respiratory failure, unspecified with hypoxia (2) Pulmonary embolism associated with COVID-19 Status: Acute Category: Medical Code(s): U07.1 - COVID-19; I26.99 - Other pulmonary embolism without acute cor pulmonale (3) Pneumonia due to COVID-19 virus Status: Acute Category: Medical Code(s): U07.1 - COVID-19; J12.82 - Pneumonia due to coronavirus disease 2019 (4) Obesity with serious comorbidity Status: Acute Qualifiers: Obesity type: due to excess calories Obesity classification: unspecified obesity classification Qualified Code(s): E66.09 - Other obesity due to excess calories Category: Medical Code(s): E66.9 - Obesity, unspecified (5) Hyperglycemia Status: Acute Category: Medical Code(s): R73.9 - Hyperglycemia, unspecified (6) Acute respiratory distress syndrome (ARDS) due to 2019 novel coronavirus Status: Acute Category: Medical Code(s): U07.1 - COVID-19; J80 - Acute respiratory distress syndrome (7) DVT, bilateral lower limbs Status: Acute Category: Medical Code(s): I82.403 - Acute embolism and thrombosis of unspecified deep veins of lower extremity, bilateral (8) Deep tissue injury Start date: 05/27/21 Status: Acute Category: Medical Code(s): T14.8XXA - Other injury of unspecified body region, initial encounter (9) Onychodystrophy Start date: 05/28/21 Status: Acute Category: Medical Code(s): L60.3 - Nail dystrophy (10) Acquired hammer toes of both feet Start date: 05/28/21 Status: Acute Category: Medical Code(s): M20.41 - Other hammer toe(s) (acquired), right foot; M20.42 - Other hammer toe(s) (acquired), left foot - Assessment and plan all Dx Assessment and Plan for all problems::
--- NOTE | 2021-06-05 10:08 | HMH.ORTHPN ---
Subjective Date: 06/05/21 Time: 08:45 Principal diagnosis: Left heel deep tissue injury Interval history: Patient doing very well today. Physical Therapy was in the room with the patient when entering. Patient denies any pain to his left heel. Patient still has some rash to his upper and lower extremity. Patient states his oxygen has been decreased down to 3 or 4 liters 3 to 4 L nasal oxygen supplementation, no respiratory distress. PN: Obj Ex Vital signs: Temp Pulse Resp BP Pulse Ox 98.3 F 119 H 18 131/88 96 06/05/21 08:00 06/05/21 08:00 06/05/21 08:00 06/05/21 08:00 06/05/21 08:00 - Constitutional no acute distress, obese - Routine HEENT Exam Head: Present: normocephalic Eye: Present: EOMI ENT: Present: mucous membranes moist - Routine Neck Exam Present: trachea midline - Routine Respiratory Exam Absent: respiratory distress - Routine Cardiovascular Exam Present: RRR - Routine Abdominal Exam Present: obese - Routine Extremities Exam Present: pulses intact. Absent: edema - Detailed Lower Extremity Exam Bottom foot image: 1 - Left foot deep tissue injury, no bruising noted today. The area was cleaned with betadine.No debridement was needed today. No acute signs of infection noted at this time.No evidence of purulence or malodor. No ascending cellulitis. The wound superficial and does not probe deep.Measurements: 5.0x4.5x0cm.There is new pink skin noted. Area was then redressed with betadine soaked 4x4, dry 4x4 and kerlix and nikhil wrap. - Routine Skin Exam Present: erythema (rash to arms and upper and lower extremity.), dry, wounds (DTI to his Left heel,superficial ) - Routine Neurological Exam Present: alert, normal reflexes, moving all extremities, vision grossly intact, hearing grossly intact, normal speech - Routine Psychiatric Exam Present: normal affect, cooperative - Urinary Catheter Management Torres Cath placed during this visit: no Progress Note: A&P (1) Respiratory failure with hypoxia Status: Acute (2) Pulmonary embolism associated with COVID-19 Status: Acute (3) Pneumonia due to COVID-19 virus Status: Acute (4) Obesity with serious comorbidity Status: Acute (5) Hyperglycemia Status: Acute (6) Acute respiratory distress syndrome (ARDS) due to 2019 novel coronavirus Status: Acute (7) DVT, bilateral lower limbs Status: Acute (8) Deep tissue injury Status: Acute (9) Onychodystrophy Status: Acute (10) Acquired hammer toes of both feet Status: Acute Assessment and Plan for All Diagnoses:: Procedure(s): XR foot wt bearing LT 3V; FINDINGS: Bones/joints: Normal. No acute fracture. Joint spaces are preserved. No dislocation or subluxation. There is mild spurring along the inferior and posterior aspects of the left calcaneus. Soft tissues: There is soft tissue swelling noted along the inferior aspect of the left heel. No evidence of subcutaneous emphysema. IMPRESSION: 1. Benign calcaneal spurring noted. 2. Soft tissue swelling along the inferior aspect of the left heel without evidence of subcutaneous emphysema. 3. No evidence of acute fracture or focal osseous destruction. Right foot was no acute fractures or dislocations, No evidence of acute fracture or focal osseous destruction. Laboratory Tests 05/21/19 05/25/21 05/25/21 15:15 06:42 06:42 WBC ESR 42 H BUN Creatinine Estimated GFR Glucose Hemoglobin A1c 6.0 C-Reactive Protein 36.9 H 06/03/21 06/04/21 06:20 06:25 WBC 6.3 ESR BUN 8 L D Creatinine 0.30 L D Estimated GFR 347 Glucose 110 H Hemoglobin A1c C-Reactive Protein Microbiology 05/27/21 16:35 Foot,Left - Drainage Gram Stain - Final 05/27/21 16:35 Foot,Left - Drainage Wound Culture - Final Mixed Skin Yolanda Plan: Change patient's dressing t
[2021-06-05 11:28] LABS: POC Glucose,Bedside 185 (70-110)
[2021-06-05 11:32] LABS: POC Glucose,Bedside 177 (70-110)
--- NOTE | 2021-06-05 14:17 | HMH.PULMPN ---
Internal Medicine - PN: Subj *Date: 06/05/21 *Time: 14:17 Interval history: No reported acute respiratory vents overnight. Exam - Constitutional Constitutional:: Present: no acute distress, comfortable - HENMT Exam HENMT: Present: normocephalic, atraumatic - Eye Exam Eyes:: Present: normal appearance both eyes and related structures - Neck Exam Neck:: Present: normal visual inspection - Respiratory Exam Respiratory:: Present: able to speak in complete sentences, no respiratory distress, decreased breath sounds - Cardiovascular Exam Cardiac:: Present: S1, S2 - GI Exam GI:: Present: soft, obese - Skin Exam Skin: Present: warm, rash - Neurological Exam Neurological: Present: alert, awake - Extremities Exam Extremities: Present: no cyanosis, no clubbing Assessment and Plan (1) Respiratory failure with hypoxia Status: Acute Qualifiers: Chronicity: acute Qualified Code(s): J96.01 - Acute respiratory failure with hypoxia Category: Medical Code(s): J96.91 - Respiratory failure, unspecified with hypoxia (2) Pulmonary embolism associated with COVID-19 Status: Acute Category: Medical Code(s): U07.1 - COVID-19; I26.99 - Other pulmonary embolism without acute cor pulmonale (3) Pneumonia due to COVID-19 virus Status: Acute Category: Medical Code(s): U07.1 - COVID-19; J12.82 - Pneumonia due to coronavirus disease 2019 (4) Obesity with serious comorbidity Status: Acute Qualifiers: Obesity type: due to excess calories Obesity classification: unspecified obesity classification Qualified Code(s): E66.09 - Other obesity due to excess calories Category: Medical Code(s): E66.9 - Obesity, unspecified (5) Hyperglycemia Status: Acute Category: Medical Code(s): R73.9 - Hyperglycemia, unspecified (6) Acute respiratory distress syndrome (ARDS) due to 2019 novel coronavirus Status: Acute Category: Medical Code(s): U07.1 - COVID-19; J80 - Acute respiratory distress syndrome (7) DVT, bilateral lower limbs Status: Acute Category: Medical Code(s): I82.403 - Acute embolism and thrombosis of unspecified deep veins of lower extremity, bilateral (8) Deep tissue injury Start date: 05/27/21 Status: Acute Category: Medical Code(s): T14.8XXA - Other injury of unspecified body region, initial encounter (9) Onychodystrophy Start date: 05/28/21 Status: Acute Category: Medical Code(s): L60.3 - Nail dystrophy (10) Acquired hammer toes of both feet Start date: 05/28/21 Status: Acute Category: Medical Code(s): M20.41 - Other hammer toe(s) (acquired), right foot; M20.42 - Other hammer toe(s) (acquired), left foot - Assessment and plan all Dx Assessment and Plan for all problems:: #Acute hypoxic respiratory failure: #COVID-19 pneumonia: Patient presents acute hypoxic respiratory limits needing intubation and mechanical ventilatory support, successfully extubated on 05/08/2021 and then weaned to nasal cannula at 4 L a minute stable for a couple of days, however patient respiratory status started declining patient had a CTA performed that showed no pulmonary embolism he was started on heparin drip overnight 05/22/2021. He has been on high flow nasal cannula since then, with improving respiratory symptoms. He was weaned to 80% this morning. Patient continued to have decreased lower lobe breath sounds. CTA did not show any obvious airspace disease, significant motion artifact noted. Completed 7 ays of Abx for his positive sputum cultures from 05/17/21- no need of further abx for resp pathology. Completed 10-day course of dexamethasone. No need for steroid taper for COVID 19. Patient received 10-day course of Barcitinib. Patient respiratory status continued to improve for the last 7 days with diuresis has been relatively stable in the last 48 hours with oxygen requirements range around 2 to 4 L with saturations above 90 continue to work with PT OT. Recomme
[2021-06-05 16:12] LABS: POC Glucose,Bedside 189 (70-110)
--- NOTE | 2021-06-05 16:33 | PC.NURSE ---
Pt has been pleasant and cooperative this shift. A&O X4. No complaints of pain or SOA. Pt is currently receiving O2 via NC @ 4 LPM with sats. >90%. Lung sounds reveal expiratory rhonchi. Generalized, non-pitting edema noted to entire body. Bilateral buttocks noted to be reddened/excoriated. Skin tear noted under LT buttock. LT heel dressing per Podiatry. Patchy, red rash noted. Yeast noted under buttock folds, abdominal folds, and behind bilateral knees. Nystatin powder and barrier cream applied. Pt has been turned/repositioned Q2H this shift. Pt is tolerating a regular diet and thin liquids. PO medications are being given whole with no difficulty noted. FSBS results have been 177 and 189. [address]ICC in place to LT upper arm is patent and SL. HR has been elevated today. Other VSS. Call light within reach. Will continue to monitor.
[2021-06-05 22:11] LABS: POC Glucose,Bedside 236 (70-110)
[2021-06-06] VITALS (11 sets, daily range): BP systolic 116–149; BP diastolic 65–99; PULSE 98–116; RESP 20–28; TEMP 36.4–37; O2SAT 91–96; BMI 51.7
--- NOTE | 2021-06-06 04:13 | PC.NURSE ---
Pt a+o x4. No complaints voiced to staff t/o shift. Pt was able to tolerate 2.5 L nc while awake with sats above 90%While asleep, pt will have episodes of apnea and O2 sats will drop to low 80s. O2 was titrated up to 4 L while pt is asleep with sats above 90%. Pt had a large BM during shift. Entire buttocks area red and chaffing noted. Small skin tear noted under left buttock. Q2 turn. Dressing in place, CDI. Dressing noted on left ankle per podiatry. Pt continues to have red rash scattered t/o body.
[2021-06-06 06:07] LABS: POC Glucose,Bedside 111 (70-110)
[2021-06-06 07:44] LABS: INR 1.92 (0.9-1.1); Prothrombin Time 20.7 seconds (10.1-12.5)
--- NOTE | 2021-06-06 08:49 | HMH.ACPN2 ---
Internal Medicine - PN: Subj *Date: 06/06/21 *Time: 08:49 Interval history: Patient did well overnight, remains on 4 L nasal cannula, has been hungrier and has received a couple of extra food servings. No dyspnea or shortness of air noted per patient. Exam Vital signs and Labs for Last 24 Hours: Temp Pulse Resp BP Pulse Ox 98 F 98 H 20 124/68 91 L 06/06/21 04:00 06/06/21 04:00 06/06/21 04:00 06/06/21 04:00 06/06/21 06:34 Laboratory Results - last 24 hr 06/04/21 15:38: POC Glucose 185 H 06/05/21 11:17: POC Glucose 177 H 06/05/21 16:02: POC Glucose 189 H 06/05/21 21:22: POC Glucose 236 H 06/06/21 05:58: POC Glucose 111 H 06/06/21 07:22: PT 20.7 H, INR 1.92 H I & O for Last 24 hours: Intake & Output 06/03/21 06/04/21 06/05/21 06/06/21 11:59 11:59 11:59 11:59 Intake Total 1320 / 1320 960 / 960 1560 / 1560 720 / 720 Output Total 2500 / 2500 2700 / 2700 3825 / 3825 1825 / 1825 Balance -1180 / -1180 -1740 / -1740 -2265 / -2265 -1105 / -1105 Weight 431 lb 10 oz 431 lb 416 lb 10.778 oz 416 lb 10.778 oz Narrative: Alert, pleasant, comfortable on nasal cannula oxygen. Good air movement. Abdomen soft, no changes in extremities. Oropharynx clear. Rash is improving Assessment and Plan (1) Respiratory failure with hypoxia Status: Acute Qualifiers: Chronicity: acute Qualified Code(s): J96.01 - Acute respiratory failure with hypoxia Category: Medical Code(s): J96.91 - Respiratory failure, unspecified with hypoxia (2) Pulmonary embolism associated with COVID-19 Status: Acute Category: Medical Code(s): U07.1 - COVID-19; I26.99 - Other pulmonary embolism without acute cor pulmonale (3) Pneumonia due to COVID-19 virus Status: Acute Category: Medical Code(s): U07.1 - COVID-19; J12.82 - Pneumonia due to coronavirus disease 2019 (4) Obesity with serious comorbidity Status: Acute Qualifiers: Obesity type: due to excess calories Obesity classification: unspecified obesity classification Qualified Code(s): E66.09 - Other obesity due to excess calories Category: Medical Code(s): E66.9 - Obesity, unspecified (5) Hyperglycemia Status: Acute Category: Medical Code(s): R73.9 - Hyperglycemia, unspecified (6) Acute respiratory distress syndrome (ARDS) due to 2019 novel coronavirus Status: Acute Category: Medical Code(s): U07.1 - COVID-19; J80 - Acute respiratory distress syndrome (7) DVT, bilateral lower limbs Status: Acute Category: Medical Code(s): I82.403 - Acute embolism and thrombosis of unspecified deep veins of lower extremity, bilateral (8) Deep tissue injury Start date: 05/27/21 Status: Acute Category: Medical Code(s): T14.8XXA - Other injury of unspecified body region, initial encounter (9) Onychodystrophy Start date: 05/28/21 Status: Acute Category: Medical Code(s): L60.3 - Nail dystrophy (10) Acquired hammer toes of both feet Start date: 05/28/21 Status: Acute Category: Medical Code(s): M20.41 - Other hammer toe(s) (acquired), right foot; M20.42 - Other hammer toe(s) (acquired), left foot - Assessment and plan all Dx Assessment and Plan for all problems:: Overall no change in plan. Close follow-up on a daily basis to labs, INR monitoring. Await appropriate skilled care facility transfer for ongoing rehabilitation.
[2021-06-06 11:25] LABS: POC Glucose,Bedside 117 (70-110)
[2021-06-06 17:23] LABS: POC Glucose,Bedside 218 (70-110)
--- NOTE | 2021-06-06 18:49 | PC.NURSE ---
dressing changed per orders. pt tolerated well
[2021-06-06 21:49] LABS: POC Glucose,Bedside 186 (70-110)
[2021-06-07] VITALS (7 sets, daily range): BP systolic 118–158; BP diastolic 70–91; PULSE 107–124; RESP 24–28; TEMP 36.7–36.9; O2SAT 91–95; BMI 53.2
[2021-06-07 06:00] LABS: POC Glucose,Bedside 133 (70-110)
--- NOTE | 2021-06-07 06:23 | PC.NURSE ---
No acute changes. Pt continues to receive 3 L nc while awake with sats above 90%. Apnea episodes while asleep with sats in mid 70s, titrated O2 to 4.5 L nc. Pt refuses Bipap/CPAP while asleep. No complaints voiced to staff.
[2021-06-07 07:24] LABS: INR 1.99 (0.9-1.1); Prothrombin Time 21.4 seconds (10.1-12.5)
--- NOTE | 2021-06-07 08:33 | HMH.ACPN2 ---
Internal Medicine - PN: Subj *Date: 06/07/21 *Time: 08:33 Interval history: Patient is pleasant, talkative, feels better, is now able to feed himself completely and grasp the incentive spirometer with his hands, able to jawbone puller 1500 mL each time. He notices that his rash is peeling but otherwise his skin feels much better. Exam Vital signs and Labs for Last 24 Hours: Temp Pulse Resp BP Pulse Ox 98.5 F 113 H 24 134/85 91 L 06/07/21 07:27 06/07/21 07:27 06/07/21 07:27 06/07/21 07:27 06/07/21 07:27 Laboratory Results - last 24 hr 06/06/21 10:57: POC Glucose 117 H 06/06/21 16:37: POC Glucose 218 H 06/06/21 20:41: POC Glucose 186 H 06/07/21 05:32: POC Glucose 133 H 06/07/21 06:17: PT 21.4 H, INR 1.99 H I & O for Last 24 hours: Intake & Output 06/04/21 06/05/21 06/06/21 06/07/21 11:59 11:59 11:59 11:59 Intake Total 960 / 960 1560 / 1560 960 / 960 1200 / 1200 Output Total 2700 / 2700 3825 / 3825 1825 / 1825 1974 / 1974 Balance -1740 / -1740 -2265 / -2265 -865 / -865 -775 / -775 Weight 431 lb 416 lb 10.778 oz 416 lb 10.778 oz 428 lb 5.73 oz Narrative: Rashes essentially resolved except for some areas of peeling skin. No new redness areas and the redness is essentially resolved. Lungs have good air movement, heart rate regular, abdomen soft, extremities warm and well-perfused. Left heel in a wrapper device. Neurologically stronger but still weak. No focal deficits. Assessment and Plan (1) Respiratory failure with hypoxia Status: Acute Qualifiers: Chronicity: acute Qualified Code(s): J96.01 - Acute respiratory failure with hypoxia Category: Medical Code(s): J96.91 - Respiratory failure, unspecified with hypoxia (2) Pulmonary embolism associated with COVID-19 Status: Acute Category: Medical Code(s): U07.1 - COVID-19; I26.99 - Other pulmonary embolism without acute cor pulmonale (3) Pneumonia due to COVID-19 virus Status: Acute Category: Medical Code(s): U07.1 - COVID-19; J12.82 - Pneumonia due to coronavirus disease 2019 (4) Obesity with serious comorbidity Status: Acute Qualifiers: Obesity type: due to excess calories Obesity classification: unspecified obesity classification Qualified Code(s): E66.09 - Other obesity due to excess calories Category: Medical Code(s): E66.9 - Obesity, unspecified (5) Hyperglycemia Status: Acute Category: Medical Code(s): R73.9 - Hyperglycemia, unspecified (6) Acute respiratory distress syndrome (ARDS) due to 2019 novel coronavirus Status: Acute Category: Medical Code(s): U07.1 - COVID-19; J80 - Acute respiratory distress syndrome (7) DVT, bilateral lower limbs Status: Acute Category: Medical Code(s): I82.403 - Acute embolism and thrombosis of unspecified deep veins of lower extremity, bilateral (8) Deep tissue injury Start date: 05/27/21 Status: Acute Category: Medical Code(s): T14.8XXA - Other injury of unspecified body region, initial encounter (9) Onychodystrophy Start date: 05/28/21 Status: Acute Category: Medical Code(s): L60.3 - Nail dystrophy (10) Acquired hammer toes of both feet Start date: 05/28/21 Status: Acute Category: Medical Code(s): M20.41 - Other hammer toe(s) (acquired), right foot; M20.42 - Other hammer toe(s) (acquired), left foot - Assessment and plan all Dx Assessment and Plan for all problems:: Continue to make slow but steady improvement. Prednisone is tapering off. No indication for ongoing antibiotics. On Lovenox until INR is reliably therapeutic. Check labs tomorrow. Would be able to go to rehab facility once bed available anytime.
[2021-06-07 11:20] LABS: POC Glucose,Bedside 189 (70-110)
[2021-06-07 22:22] LABS: POC Glucose,Bedside 182 (70-110)
[2021-06-07 22:46] LABS: POC Glucose,Bedside 218 (70-110)
[2021-06-08] VITALS (8 sets, daily range): BP systolic 128–146; BP diastolic 74–93; PULSE 98–121; RESP 18–20; TEMP 36.6–37; O2SAT 92–96; BMI 52.9
[2021-06-08 06:27] LABS: POC Glucose,Bedside 130 (70-110)
[2021-06-08 07:03] LABS: Basophils # 0.1 K/mm3 (0-0.2); Basophils % 0.9 % (0.1-2.0); Eosinophils # 0.6 K/mm3 (0.0-0.4); Eosinophils % 8.2 % (0.1-12.0); Hemoglobin 12.3 g/dL (14.1-18.0); Lymphocytes # 1.6 K/mm3 (0.7-4.5); Lymphocytes % 24.1 % (10-50); Mean Corpuscular HGB Conc 30.8 g/dL (31.8-35.4); Mean Corpuscular Hemoglobin 26.4 pg (27.0-31.2); Mean Platelet Volume 8.9 fl (7.4-10.4); Monocytes # 0.3 K/mm3 (0.1-1.0); Neutrophils # 4.2 K/mm3 (1.8-7.8); Neutrophils % 61.9 % (37.0-80.0); Platelet Count 163 K/mm3 (142-424); Red Blood Count 4.65 M/mm3 (4.60-6.20); White Blood Count 6.8 K/mm3 (4.8-10.8)
[2021-06-08 07:06] LABS: Blood Urea Nitrogen 11 mg/dl (9-20); Calcium 8.8 mg/dl (8.4-10.2); Carbon Dioxide 31 mmol/L (22.0-30.0); Chloride 101 mmol/L (98-107); Creatinine Clearance Estimated 423 mL/min (50-200); Estimated Glomerular Filt Rate 347 ml/min (>60); GFR (African American) 420 ML/MIN (>60); Glucose 132 mg/dl (74-100); INR 1.95 (0.9-1.1); Sodium 136 mmol/L (136-145)
--- NOTE | 2021-06-08 07:28 | PC.NURSE ---
No acute changes. Left ankle dressing change performed at beginning of shift. Wound is light pink in color. Pt continues to have open wound under left gluteus. Dressing was applied. IS encouraged. Best 1250.
--- NOTE | 2021-06-08 08:30 | HMH.ACPN2 ---
Internal Medicine - PN: Subj *Date: 06/08/21 *Time: 08:30 Interval history: Overall patient is in good spirits. Awake, alert, doing well in regards to arm movement. Appears little bit stronger today. Exam Vital signs and Labs for Last 24 Hours: Temp Pulse Resp BP Pulse Ox 98.3 F 121 H 18 129/93 H 93 L 06/08/21 08:00 06/08/21 08:00 06/08/21 08:00 06/08/21 08:00 06/08/21 08:00 Laboratory Results - last 24 hr 06/07/21 11:08: POC Glucose 189 H 06/07/21 17:13: POC Glucose 182 H 06/07/21 21:17: POC Glucose 218 H 06/08/21 06:16: POC Glucose 130 H 06/08/21 06:31: PT 21.0 H, INR 1.95 H 06/08/21 06:31: WBC 6.8, RBC 4.65, Hgb 12.3 L, Hct 40.0 L, MCV 86.0, MCH 26.4 L, MCHC 30.8 L, RDW 18.0 H, Plt Count 163, MPV 8.9, Neut % (Auto) 61.9, Lymph % (Auto) 24.1, Powell % (Auto) 5.0, Eos % (Auto) 8.2, Baso % (Auto) 0.9, Neut # (Auto) 4.2, Lymph # (Auto) 1.6, Powell # (Auto) 0.3, Eos # (Auto) 0.6 H, Baso # (Auto) 0.1 06/08/21 06:31: Sodium 136, Potassium 4.0, Chloride 101, Carbon Dioxide 31 H, Anion Gap 8.0, BUN 11, Creatinine 0.30 L, Estimated Creat Clear 423 H, Estimated GFR 347, Est GFR ( Amer) 420, Glucose 132 H, Calcium 8.8 I & O for Last 24 hours: Intake & Output 06/05/21 06/06/21 06/07/21 06/08/21 11:59 11:59 11:59 11:59 Intake Total 1560 / 1560 960 / 960 1200 / 1200 1666 / 1666 Output Total 3825 / 3825 1825 / 1825 1974 / 1975 1100 / 1100 Balance -2265 / -2265 -865 / -865 -775 / -775 566 / 566 Weight 416 lb 10.778 oz 416 lb 10.778 oz 428 lb 5.73 oz 425 lb 5.73 oz Narrative: Patient is awake, alert. Able to pull 2000 mL on incentive spirometer. Lungs are clear, abdomen soft, rash continues to resolve. Neurologically globally weak but no focal deficits. Heart rate regular. ENT exam clear. Assessment and Plan (1) Respiratory failure with hypoxia Status: Acute Qualifiers: Chronicity: acute Qualified Code(s): J96.01 - Acute respiratory failure with hypoxia Category: Medical Code(s): J96.91 - Respiratory failure, unspecified with hypoxia (2) Pulmonary embolism associated with COVID-19 Status: Acute Category: Medical Code(s): U07.1 - COVID-19; I26.99 - Other pulmonary embolism without acute cor pulmonale (3) Pneumonia due to COVID-19 virus Status: Acute Category: Medical Code(s): U07.1 - COVID-19; J12.82 - Pneumonia due to coronavirus disease 2019 (4) Obesity with serious comorbidity Status: Acute Qualifiers: Obesity type: due to excess calories Obesity classification: unspecified obesity classification Qualified Code(s): E66.09 - Other obesity due to excess calories Category: Medical Code(s): E66.9 - Obesity, unspecified (5) Hyperglycemia Status: Acute Category: Medical Code(s): R73.9 - Hyperglycemia, unspecified (6) Acute respiratory distress syndrome (ARDS) due to 2019 novel coronavirus Status: Acute Category: Medical Code(s): U07.1 - COVID-19; J80 - Acute respiratory distress syndrome (7) DVT, bilateral lower limbs Status: Acute Category: Medical Code(s): I82.403 - Acute embolism and thrombosis of unspecified deep veins of lower extremity, bilateral (8) Deep tissue injury Start date: 05/27/21 Status: Acute Category: Medical Code(s): T14.8XXA - Other injury of unspecified body region, initial encounter (9) Onychodystrophy Start date: 05/28/21 Status: Acute Category: Medical Code(s): L60.3 - Nail dystrophy (10) Acquired hammer toes of both feet Start date: 05/28/21 Status: Acute Category: Medical Code(s): M20.41 - Other hammer toe(s) (acquired), right foot; M20.42 - Other hammer toe(s) (acquired), left foot - Assessment and plan all Dx Assessment and Plan for all problems:: No changes in plan, prednisone taper continues. Continue to work with INR and placement issues.
--- NOTE | 2021-06-08 12:01 | HMH.DCSUM ---
General - General Admission date:: 05/04/21 Discharge date: 06/08/21 HPI HPI: 30-year-old male presented to emergency department with difficulty breathing. The patient states that he has been having some trouble breathing cough for the last few days. Valium is getting worse today. Patient is unvaccinated. He has been exposed to multiple people with coronavirus. Patient endorses some subjective fevers and chills. Full body myalgias. Cough is been nonproductive in nature. Denies any hemoptysis. Is not having any headache or change in vision. No focal weakness. No neck pain. Denies any abdominal pain or vomiting. No diarrhea. Above note per emergency department, agree with initial presentation note. In the emergency department work-up included positive coronavirus PCR. Negative influenza, chest x-ray with viral pneumonia and significant hypoxia. Placed on Vapotherm and felt better with improving oxygenation status. Admitted to floor in isolation bed. Patient notes that he feels better after oxygen was applied. Hospital Course Hospital Course: Patient was admitted to hospital on 05/04/2021 with the diagnosis of Covid pneumonitis as he and his mother were both admitted for the same reason. He has significant risk factors, including morbid obesity and unvaccinated status. He was initially on the floor but car progressed quickly to Vapotherm and then CPAP but became significantly hypoxic and was ultimately intubated the first week of his hospitalization. He was transferred obviously to intensive care unit and placed on ventilator. Fortunately, he never required vasopressors and was on a maximum PEEP of 15 with otherwise fairly normal ventilator settings. The interested reader is referred to daily ICU notes for details of his progress, course was complicated because of his morbid obesity with BMI greater than 60. He was placed on ICU protocols with DVT prophylaxis, broad-spectrum antibiotics and high-dose steroids along with currently prescribed EUA authorized antibody therapy as noted. His ICU course was fairly smooth and after 3 weeks of being intubated he was able to be weaned and ultimately extubated. Was transferred to the floor, course on the floor was complicated by DVT/PE requiring reinstitution of Vapotherm therapy but Lovenox was restarted and warfarin was started and patient improved in a stepwise fashion once appropriate PE therapy was undertaken. Prednisone taper was initiated and patient as of yesterday has tapered off his prednisone. Patient has undergone multiple rounds of physical therapy, has been on nasal cannula oxygen at 4 L over the past week and has done remarkably well over the past 5 or 6 days with significant improvement in upper extremity strength and ability to bear weight. He has been evaluated by skilled care facility and has been determined to be able to be transferred to skilled care for ongoing PT/OT evaluation. Please note he will be transferred to [facility] today. He will continue to be on oxygen at 4 L nasal cannula to keep saturations above 90%. He will need to be have aggressive PT and OT evaluation and ongoing treatment. Please note he will need to be on a 2000-calorie diet and dietary consultation for malnutrition/weight loss issues will be indicated. He will need to be on Lovenox at current treatment dose until warfarin dose has been well-established. His erratic p.o. intake and medication changes have made this somewhat challenging and his current INR levels are below 2. Was also found to have diabetes during his stay with significant hyperglycemia, treated with glargine insulin at night and sliding scale insulin. This will need to be watched carefully at the [facility] to avoid hypoglycemia hopefully as diet improves and he has some degree of weight loss. We started citalopram for depression/anxiety issues-please note that his mother during the hospitalizati
[2021-06-08 14:38] LABS: POC Glucose,Bedside 172 (70-110)
== END 2021-06-08 15:52 | DRG 207 ==
LOC: UTC 10:03 → ER 10:04 → 2ND 12:09 → ICU 05-05 18:59 → 2ND 05-19 13:24
PROVIDERS: Family Medicine; Internal Medicine Adolescent Medicine; Internal Medicine Pulmonary Disease; Admitting Provider Internal Medicine Adolescent Medicine; Emergency Provider Emergency Medicine; PCP Internal Medicine Adolescent Medicine; Visit Provider Internal Medicine Adolescent Medicine
DX: U07.1 COVID-19 (principal); J12.82 Pneumonia due to coronavirus disease 2019; J80 Acute respiratory distress syndrome; Z68.43 Body mass index [BMI] 50.0-59.9, adult; I82.493 Acute embolism and thrombosis of other specified deep vein of lower extremity, bilateral; I82.4Z3 Acute embolism and thrombosis of unspecified deep veins of distal lower extremity, bilateral; E11.65 Type 2 diabetes mellitus with hyperglycemia; E66.01 Morbid (severe) obesity due to excess calories; L89.626 Pressure-induced deep tissue damage of left heel; L27.0 Generalized skin eruption due to drugs and medicaments taken internally; T43.225A Adverse effect of selective serotonin reuptake inhibitors, initial encounter; F41.9 Anxiety disorder, unspecified; F32.A Depression, unspecified
CPT/HCPCS: 94002; 31500; 97597; 36415; 36569; 71045; 71275; 73630; 80048; 80053; 81001; 82272; 82728; 82803; 82962; 83605; 83735; 83880; 84145; 84478; 84484; 85007; 85025; 85378; 85610; 85651; 85730; 86140; 87040; 87070; 87077; 87081; 87086; 87186; 87205; 92526; 92610; 93005; 93306; 93970; 93971; 94003; 94640; 94660; 94760; 94761; 96375; 97110; 97116; 97162; 97166; 97530; 97535; 99284; C1751; C9803; G0328; J1956; J2020; J2704; Q9967; U0003; U0005

== ENCOUNTER → 2021-06-14 17:08 | Outpatient (CLI) | payer OTHER, SELFPAY ==
[2021-06-14 22:40] LABS: INR 4.72 (0.9-1.1)
[2021-06-14 22:43] LABS: Prothrombin Time 47.5 seconds (10.1-12.5)
== END ==
PROVIDERS: PCP Internal Medicine Adolescent Medicine; Visit Provider Internal Medicine Adolescent Medicine
DX: R79.1 Abnormal coagulation profile (principal)
CPT/HCPCS: 85610

== ENCOUNTER 2021-06-16 08:50 | Emergency (ER) | payer OTHER, SELFPAY ==
[2021-06-16] VITALS (10 sets, daily range): BP systolic 0–162; BP diastolic 0–110; PULSE 0–166; RESP 0–50; TEMP -17.7–0; O2SAT 0–100; BMI 64.5; BMI 52.0
--- NOTE | 2021-06-16 09:00 | PC.NURSE ---
anesthesia at bedside for intubation.
--- NOTE | 2021-06-16 09:00 | PC.NURSE ---
pt intubated with #8 et tube, at the 23 lip +color change, breath sounds erin
[2021-06-16 09:02] LABS: ABG Base Excess -5.2 mmol/L (-2.4-2.3); ABG HCO3 21.2 mmhg (22.0-26.0); ABG Oxygen Saturation 95 % (90-100); ABG PCO2 43.6 mmhg (35.0-45.0); ABG PO2 76.4 mmhg (80-100); ABG TCO2 22.5 mmhg (23-27)
--- NOTE | 2021-06-16 09:09 | PC.NURSE ---
pt HR Vtach, no pulse noted, cpr started
--- NOTE | 2021-06-16 09:10 | PC.NURSE ---
pulse check, PEA, no pulse, cpr resumed
--- NOTE | 2021-06-16 09:12 | PC.NURSE ---
IO placed rt lower leg.
--- NOTE | 2021-06-16 09:13 | PC.NURSE ---
pulse check, +pulse
--- NOTE | 2021-06-16 09:17 | ECG_ITS ---
APPROVED REPORT Exam: Resting ECG HR:148 bpm ECG Measurements Heart Rate 148 AXES QRSd 88 QRS -2 QT 266 T 36 QTc [address] elevation, consider early repolarization, pericarditis, or injury Abnormal ECG Electronically signed by : All Gambino MD 06/19/2021 13:56:44
--- NOTE | 2021-06-16 09:18 | PC.NURSE ---
stemi alert called
--- NOTE | 2021-06-16 09:25 | PC.NURSE ---
pt with narrow complex tachycardia at 150's synchronized cardioversion at 100J. no change in rhythm
--- NOTE | 2021-06-16 09:27 | XR_ITS ---
PROCEDURE: XR CHEST PORTABLE CLINICAL HISTORY: ET COMPARISON: CR XR CHEST PORTABLE from 05/17/[address] ANGIO CHEST PE PROTOCOL from 05/22/2021 CR XR CHEST PORTABLE from 05/22/2021 CR XR CHEST PORTABLE from 05/29/2021 FINDINGS: Interval insertion of endotracheal tube. The tip is in good position 4 cm above the noah. There are low lung volumes with mild cardiomegaly without failure. The lung apices are clipped on the image. IMPRESSION: Endotracheal tube tip 4 cm above the noah in good position. Dictated by: Barrett Daugherty MD 06/16/2021 09:37 Barrett Daugherty MD in [facility] 06/16/2021 09:37
--- NOTE | 2021-06-16 09:30 | PC.NURSE ---
Calling [facility]
--- NOTE | 2021-06-16 09:35 | HMH.EDGENADL ---
ED Disposition Clinical Impression: Ventricular tachycardia, Cardiac arrest, Pulseless electrical activity Acute respiratory failure Qualifiers: Respiratory failure complication: hypoxia Qualified Code(s): J96.01 - Acute respiratory failure with hypoxia ST elevation [place] (STEMI) Qualifiers: Involved coronary artery: unspecified coronary artery Qualified Code(s): I21.3 - ST elevation (STEMI) myocardial infarction of unspecified site Disposition: Condition on Discharge: Referrals: All Gambino MD [Primary Care Provider] - Forms: Transfer Record - ED - Critical Care Critical Care Time: Yes Attestation: On 06/16/21, the high probability of a clinically significant, sudden or life threatening deterioration of the following system(s) required my full and direct attention, intervention and personal management. The time I documented below is in addition to time spent performing reported procedures but includes the following listed in this critical care notation. Total Critical Care Time: 90 Vital system(s) involved:: Circulatory Failure, Respiratory Failure My critical care processes included: Assessment & monitoring of V/S, Initial and Re-exams, Data Review/Interpretation, Coordinating Care, Medication Orders and management, Documentation Medical Decision Making - Gulshan Inquiry Pt receiving controlled substance: Yes Gulshan was queried for this patient: No Risks and benefits of using a controlled substance: were not discussed with pt by me Vital Signs: 06/16/21 08:50 Pulse Rate [Radial] 143 H Respiratory Rate 50 H Blood Pressure [Right Arm] 150/110 H Blood Pressure Mean [Right Arm] 123 Blood Pressure Position [Right Arm] Sitting 02 Sat by Pulse Oximetry 85 L Oxygen Delivery Method Non-Rebreather - Lab Data Lab Results 06/16/21 08:59: Specimen Source Left radial, O2 % 100% nrb, ABG pH 7.30 L, ABG pCO2 43.6, ABG pO2 76.4 L, ABG HCO3 21.2 L, ABG Total CO2 22.5 L, ABG O2 Saturation 95, ABG Base Excess -5.2 L, Barrett Test Patient unable, ABG Lactate 5.8 H 06/16/21 09:30: WBC 21.2 H*, RBC 4.21 L, Hgb 11.0 L, Hct 37.1 L, MCV 88.0, MCH 26.1 L, MCHC 29.7 L, RDW 17.8 H, Plt Count 233, MPV 12.1 H, Neut % (Auto) 78.1, Lymph % (Auto) 13.6, [place] % (Auto) 6.1, Eos % (Auto) 0.5, Baso % (Auto) 1.7, Neut # (Auto) 16.5 H, Lymph # (Auto) 2.9, [place] # (Auto) 1.3 H, Eos # (Auto) 0.1, Baso # (Auto) 0.4 H, Total Counted 100, Neutrophils % (Manual) 73, Lymphocytes % (Manual) 10, Monocytes % (Manual) 7, Blast Cells % 10.0, Nucleated RBCs 4, Platelet Estimate Normal, Hypochromasia 1+, Anisocytosis 1+, Microcytosis 1+ 06/16/21 09:30: Sodium 128 L, Potassium 5.6 H, Chloride 89 L, Carbon Dioxide 22, Anion Gap 22.6 H, BUN 17, Creatinine 1.40 H, Estimated Creat Clear 98, Estimated GFR 59, Est GFR ( Amer) 71, Glucose 277 H, Calcium 7.9 L, Magnesium 2.1, Total Bilirubin 1.2, AST 116 H, ALT 34, Alkaline Phosphatase 89, Troponin I 0.21 H, NT-Pro-B Natriuret Pep 20493 H, Total Protein 6.7, Albumin 3.2 L, Globulin 3.5 H, Albumin/Globulin Ratio 0.9 L 06/16/21 09:30: D-Dimer 6.20 H 06/16/21 09:30: PT 57.5 H, INR 5.80 H, APTT 66.7 H* D 06/16/21 09:30: Lactate 8.7 H 06/16/21 10:10: SARS-CoV-2 (PCR) Detected A, Influenza A Untype (PCR) Not detected, Influenza Type B (PCR) Not detected 06/16/21 10:15: Specimen Source Right radial, O2 % 100, ABG pH 7.10 L*, ABG pCO2 45.6 H, ABG pO2 98.8, ABG HCO3 13.7 L, ABG Total CO2 15.1 L, ABG O2 Saturation 96, ABG Base Excess -16.0 L, Barrett Test Patient unable, Vent Rate 22, Tidal Volume 480, PEEP 10 Result diagrams: 06/16/21 09:30 06/16/21 09:30 Orders (Tests/Meds): ED MEDICATIONS Generic Name Dose Route Start Last Admin Trade Name Freq PRN Reason Stop Dose Admin Propofol 100 mls @ 6.124 mls/hr 06/16/21 10:15 Diprivan 10mg/Ml 100ml Bottle IV 07/16/21 10:14 .[id number] VIANEY Protocol 5 MCG/KG/MIN Discontinued Medications Generic Name Dose Route Start Last Admin Trade Name
--- NOTE | 2021-06-16 09:37 | PC.NURSE ---
YeseinaRN calling [facility]
--- NOTE | 2021-06-16 09:44 | PC.NURSE ---
[facility] accepted. speaking [address] Dr. Jimenez
--- NOTE | 2021-06-16 09:47 | PC.NURSE ---
Spoke with All Razo from [facility] and advised him of pt's measurements. He advised he was going to attempt to get [facility] en route to us, due to pt size
--- NOTE | 2021-06-16 09:50 | ECG_ITS ---
APPROVED REPORT Exam: Resting ECG HR:141 bpm ECG Measurements Heart Rate 141 AXES QRSd 90 QRS -12 QT 278 T 10 QTc 425 Conclusion Supraventricular tachycardia Moderate voltage criteria for LVH, may be normal variant Cannot rule out Septal infarct, age undetermined Inferolateral injury pattern ACUTE [place] Abnormal ECG Electronically signed by : All Gambino MD 06/19/2021 13:56:38
--- NOTE | 2021-06-16 09:52 | PC.NURSE ---
Dr. Jimenez accepted and pt will be going to the [facility] @ [facility].
--- NOTE | 2021-06-16 10:00 | PC.NURSE ---
[facility]
[2021-06-16 10:04] LABS: Allen's Test Patient Unable; Oxygen 100% NRB %; Source Left Radial
[2021-06-16 10:05] LABS: Lactate Arterial 5.8 mmol/L (0.4-2.0)
--- NOTE | 2021-06-16 10:08 | PC.NURSE ---
[facility] 20 min ETA
--- NOTE | 2021-06-16 10:09 | PC.NURSE ---
report given to Jes Lane RN at [facility] sampler.
[2021-06-16 10:14] LABS: Basophils # 0.4 K/mm3 (0-0.2); Basophils % 1.7 % (0.1-2.0); Eosinophils # 0.1 K/mm3 (0.0-0.4); Eosinophils % 0.5 % (0.1-12.0); Hematocrit 37.1 % (42.0-52.0); Lymphocytes # 2.9 K/mm3 (0.7-4.5); Lymphocytes % 13.6 % (10-50); Mean Corpuscular HGB Conc 29.7 g/dL (31.8-35.4); Mean Corpuscular Hemoglobin 26.1 pg (27.0-31.2); Mean Platelet Volume 12.1 fl (7.4-10.4); Monocytes # 1.3 K/mm3 (0.1-1.0); Monocytes % 6.1 % (1.7-9.3); Neutrophils # 16.5 K/mm3 (1.8-7.8); Neutrophils % 78.1 % (37.0-80.0); Platelet Count 233 K/mm3 (142-424); Red Blood Count 4.21 M/mm3 (4.60-6.20); Red Cell Distribution Width 17.8 % (11.5-17.5); White Blood Count 21.2 K/mm3 (4.8-10.8)
[2021-06-16 10:14] LABS: Influenza A, PCR Not Detected (NotDetected); Influenza B, PCR Not Detected (NotDetected)
[2021-06-16 10:18] LABS: Alanine Aminotransferase 34 U/L (12-78); Albumin Level 3.2 g/dl (3.5-5.0); Albumin/Globulin Ratio 0.9 (1.1-1.8); Alkaline Phosphatase 89 U/L (38-126); Anion Gap 22.6 mEq/L (5-15); Aspartate Amino Transferase 116 U/L (17-59); Bilirubin,Total 1.2 mg/dl (0.2-1.3); Blood Urea Nitrogen 17 mg/dl (9-20); Calcium 7.9 mg/dl (8.4-10.2); Carbon Dioxide 22 mmol/L (22.0-30.0); Chloride 89 mmol/L (98-107); Creatinine Clearance Estimated 98 mL/min (50-200); Estimated Glomerular Filt Rate 59 ml/min (>60); GFR (African American) 71 ML/MIN (>60); Globulin 3.5 g/dL (1.3-3.2); Glucose 277 mg/dl (74-100); MANUAL DIFFERENTIAL MANUAL DIFFERENTIAL (MANUAL DIFF); Magnesium 2.1 mg/dl (1.6-2.3); Potassium 5.6 mmoL/L (3.5-5.1); Sodium 128 mmol/L (136-145); Total Protein,Serum 6.7 g/dl (6.3-8.2)
--- NOTE | 2021-06-16 10:20 | ECG_ITS ---
APPROVED REPORT Exam: Resting ECG HR:111 bpm ECG Measurements Heart Rate 111 AXES QRSd 104 QRS -29 QT 334 T 0 QTc 454 Conclusion Accelerated Junctional rhythm Minimal voltage criteria for LVH, may be normal variant ST elevation, consider lateral injury or acute infarct ACUTE [place] Abnormal ECG Electronically signed by : All Gambino MD 06/19/2021 13:56:34
--- NOTE | 2021-06-16 10:27 | PC.NURSE ---
propofol drip stopped
--- NOTE | 2021-06-16 10:27 | PC.NURSE ---
PEA, no pulse, cpr started
--- NOTE | 2021-06-16 10:29 | PC.NURSE ---
pulse check, no pulse cpr resumed
[2021-06-16 10:31] LABS: ABG HCO3 13.7 mmhg (22.0-26.0); ABG Oxygen Saturation 96 % (90-100); ABG PCO2 45.6 mmhg (35.0-45.0); ABG PO2 98.8 mmhg (80-100); ABG TCO2 15.1 mmhg (23-27)
[2021-06-16 10:31] LABS: NT Pro Brain Natriuretic Pep. 10400 pg/mL (0-125)
--- NOTE | 2021-06-16 10:31 | PC.NURSE ---
pulse check, asystole, cpr resumed
[2021-06-16 10:32] LABS: Allen's Test Patient Unable; Oxygen 100 %; PEEP 10; Source Right Radial; Tidal Volume 480; Vent Rate 22
[2021-06-16 10:33] LABS: Troponin I 0.21 ng/ml (0.00-0.034)
--- NOTE | 2021-06-16 10:33 | PC.NURSE ---
notified of troponin
--- NOTE | 2021-06-16 10:34 | PC.NURSE ---
pulse check, PEA, cpr resumed
[2021-06-16 10:35] LABS: Anisocytosis 1+; Hypochromasia 1+; Lymphocytes % 10 % (10-50); Microcytosis 1+; Monocytes % 7 % (2-9); Neutrophils % 73 % (42-76); Nucleated Red Blood Cells 4; Platelet Estimate Normal; Total Cells Counted 100
[2021-06-16 10:36] LABS: Lactic Acid 8.7 mmol/L (0.7-2.1)
--- NOTE | 2021-06-16 10:37 | PC.NURSE ---
pulse check, vfib, defib 200J, asystole, cpr resumed
--- NOTE | 2021-06-16 10:39 | PC.NURSE ---
pulse check no pulse agonal rhythm cpr resumed
[2021-06-16 10:43] LABS: Activated Partial Thrombo Time 66.7 seconds (22.8-30.6); Prothrombin Time 57.5 seconds (10.1-12.5)
[2021-06-16 10:44] LABS: Coronavirus 19, PCR Detected (NotDetected)
--- NOTE | 2021-06-16 10:50 | PC.NURSE ---
At approximately 1043, lab called about pt with criticals, PT 57.5 INR 5.8 PTT 66.7 Rand cali and were repeated for confirmation.
--- NOTE | 2021-06-16 11:02 | PC.NURSE ---
pt's HR 50's no pulse, cpr started
--- NOTE | 2021-06-16 11:04 | PC.NURSE ---
pulse check, no pulse, asystole. entitle co2 24
--- NOTE | 2021-06-16 11:06 | PC.NURSE ---
pulse check, asystole no pulse, cpr resumed
--- NOTE | 2021-06-16 11:08 | PC.NURSE ---
pulse check asystole, cpr resumed
--- NOTE | 2021-06-16 11:10 | PC.NURSE ---
pt pronounced by dr lozano
--- NOTE | 2021-06-16 11:10 | PC.NURSE ---
pulse check, asystole code called [facility] per dr lozano
--- NOTE | 2021-06-16 11:15 | PC.NURSE ---
spoke with BAKARI pt is not candidate for donation
--- NOTE | 2021-06-16 11:21 | PC.NURSE ---
called spoke with yariel. they released pt due to +covid test
[2021-06-16 12:59] LABS: Reflex Lactic Add Lactic Reflex
--- NOTE | 2021-06-16 13:15 | PC.NURSE ---
mehdi martins transferred body per stretcher
== END 2021-06-16 20:41 | disposition expired ==
PROVIDERS: Emergency Provider Emergency Medicine; PCP Internal Medicine Adolescent Medicine
DX: I46.9 Cardiac arrest, cause unspecified (principal); I21.3 ST elevation (STEMI) myocardial infarction of unspecified site; J96.01 Acute respiratory failure with hypoxia; E11.9 Type 2 diabetes mellitus without complications; U07.1 COVID-19
CPT/HCPCS: 71045; 80053; 82803; 83605; 83735; 83880; 84484; 85007; 85025; 85378; 85610; 85730; 87040; 87070; 87077; 87186; 87205; 93005; 96365; 96375; 96376; 99285; C9803; J0282; J0330; J1644; J2704; U0003; U0005